=== PATIENT | male | born 1955 | race Caucasian/White ===

== ENCOUNTER 2024-07-24 09:21 | Outpatient (OUT) | payer MEDICARE, OTHER, SELFPAY | END 2024-07-24 09:22 | disposition home or self-care (01) | LOC: WC 09:27 | PROVIDERS: PCP Physician Assistant; Visit Provider Physician Assistant | DX: I87.312 Chronic venous hypertension (idiopathic) with ulcer of left lower extremity (principal); L97.821 Non-pressure chronic ulcer of other part of left lower leg limited to breakdown of skin; R60.1 Generalized edema | CPT/HCPCS: G0463 ==

== ENCOUNTER 2024-08-13 09:31 | Outpatient (OUT) | payer MEDICARE, OTHER, SELFPAY ==
--- OUTSIDE RECORDS SUMMARY | 2024-08-13 09:39 | XMS_ITS | CCD ---
Author Organization [facility] Care Team Providers Care Handle Finisher Name Role Phone DEREJE ARREOLA Unavailable Unavailable DEREJE ARREOLA Unavailable Unavailable NONE, XXXX Unavailable Unavailable REGGIE CONNELLY Referring Unavailable REGGIE CONNELLY Primary Care Unavailable Graciela Angelo Attending Unavailable Graciela Angelo Admitting Unavailable Allergies Allergy Classification Reported Allergen(s) Allergy Type Date of Onset Reaction(s) Facility (1 source) Penicillins Drug allergy (disorder) 07-15-2024 [facility] Repository Problems Problem Classification Problem Date Documented Da te Episodic/Chronic Skin and subcutaneous tissue infections (1 source) Cellulitis of left lower limb; Translations: [Cellulitis of left lower limb] Onset: 07-15-2024 Episodic Results Test Name Value Interpretation Reference Range Facil ity Superficial Wound Cultureon 07-15-2024 Superficial Wound Culture ORGANISM: Strep agalactiae - (group b) (O:STRAGA) Quantity of Growth Heavy Growth PERFORMED BY: [place] [address] PATHOLOGIST MEDIA LIAISON OFFICER JERMAINE LICONA M.D. Normal [facility] Comment on above: Performed By: #### C USUP #### [address] [id number] 08-11-2021 SARS-CoV-2 (COVID-19) RNA LAURA+probe Ql (Unsp spec) Not detected Normal [facility] Comment on above: Result Comment: Rapid NAAT: The specimen is NEGATIVE for SARS-CoV-2, the novel coronavirus associated with COVID-19. The ID NOW COVID-19 assay is designed to detect the virus that causes COVID-19 in patients with signs and symptoms of infection who are suspected of COVID-19. An individual without symptoms of COVID-19 and who is not shedding SARS-CoV-2 virus would expect to have a negative (not detected) result in this assay. Negative results should be treated as presumptive and, if inconsistent with clinical signs and symptoms or necessary for patient management, should be tested with an alternative molecular assay. Negative results do not preclude SARS-CoV-2 infection and should not be used as the sole basis for patient management decisions. Fact sheet for Healthcare Providers: https://www.fda.gov/media/028293/download Fact sheet for Patients: https://www.fda.gov/media/727330/download Methodology: Isothermal Nucleic Acid Amplification Performed By: #### C OVRB #### [facility] [address] [place] [address] [employer] Operator: Singh Mccollum MD Coding Summary.on 04-27-2018 Coding Summary. CODING DATE: 04/27/2018 FINAL [facility] STATUS: Home (Routine DC) PAYOR: Commercial Insurance APC DESCRIPTION 5522 Level 2 Imaging without Contrast ADMIT DX: REASON FOR VISIT DX: S33.101A Dislocation of unspecified lumbar vertebra, initial encounter FINAL DX: PRINCIPAL: S33.101A Dislocation of unspecified lumbar vertebra, initial encounter SECONDARY: PYMT PROC APC STAT DESCRIPTION DOCTOR NAME DATE NOTE: The code number assigned matches the documented diagnosis and / or procedure in the patient's chart. However, the narrative phrase printed from the coding software may appear abbreviated, or result in slightly different terminology. Coded By: Alisha Clements Date Saved: 04/27/2018 01:48 pm Normal [facility] XR Pelvis 1 or 2 Viewson XR Pelvis 1 or 2 Views Exam Date/Time:04/10/2018 17:26 EDTReason for Exam:M99.103, M99.105ReportIMPRESSIO N: NEGATIVE PELVIS. ANTEROLISTHESIS L5-S1 AND L5 SPONDYLOLYSIS.CLINICAL HISTORY: M99.103, M99.105. Back pain and bilateral leg weakness.COMMENT: AP and lateral upright images were obtained. The pelvic bones are normal inappearance, without evidence of fracture. Both hips appear unremarkable on thispelvic exam. There is no diastases at the symphysis pubis or involving the sacroiliacjoints. There is grade 1 anterolisthesis at L5-S1, and there are bilateral L5 parsdefects. FINAL REPORT Dictated: 04/11/2018 2:16 pm Severino Hernandez M.D. Signed (Electronic Signature): 04/11/2018 2:16 pm Signed by: Severino Hernandez M.D. Transcribed by: ARIN Technologist: JESUS Hastings [facility] XR Spine Lumbosacral Minimum 4 Viewson 04-11-2018 XR Spine Lumbosacral Minimum 4 Views Exam Date/Time:04/10/2018 17:26 EDTReason for Exam:M99.103, M99.105ReportIMPRESSIO N: MULTILEVEL DEGENERATIVE CHANGES.CLINICAL HISTORY: M99.103, M99.105. Low back pain and bilateral leg weakness.COMMENT: 6 upright images were obtained. There is mild interspace narrowing at L1-L2and there is moderate interspace narrowing at L2-L3 and L5-S1. There are marginalspurs involving lumbar vertebral bodies and visualized lower thoracic vertebralbodies. There is minimal retrolisthesis at L1-L2 and L2-L3. There is grade 1anterolisthesis at L5-S1. There are bilateral L5 pars defects. There are hypertrophicdegenerati ve changes involving lower lumbar facet joints. The lumbar vertebral bodiesare maintained. No recent/acute fracture is evident. FINAL REPORT Dictated: 04/11/2018 2:13 pm Severino Hernandez M.D. Signed (Electronic Signature): 04/11/2018 2:13 pm Signed by: Severino Hernandez M.D. Transcribed by: ARIN Technologist: JESUS Hastings [facility] Encounters Encounter Date Encounter Type Care Provider Facility Start: 07-15-2024 End: 07-15-2024 ambulatory Graciela Angelo Facility:[facility] Start: 08-11-2021 End: 08-12-2021 ambulatory REGGIE Mckinley [facility] Start: 04-10-2018 End: 04-11-2018 Patient encounter DEREJE ARREOLA Facility:[facility] Payers Date Payer Category Payer Self-pay 2021 Medicare [id number] 2018 Private Health Insurance [id number] 1955 Unknown [id number] Unknown [id number] Summary Purpose Family History No Family History Records FoundNo Family History Records FoundNo Family History Records Found Advance Directives No Advanced Directives Records FoundNo Advanced Directives Records FoundNo Advanced Directives Records Found Additional Source Comments (unrecognized sect ion and content) No Status Records FoundNo Status Records FoundNo Status Records Found INFORMATION SOURCE (unrecogn ized section and content) DATE CREATED AUTHOR 05/23/2018 [facility] DATE CREATED AUTHOR AUTHOR'S ORGANIZ ATION 08/12/2021 Arlen Chandler Cord[facility] [employer] DATE CREATED AUTHOR AUTHOR'S ORGANIZ ATION 07/17/2024 [facility] FOR RECORDS PERTAINING TO PATIENTS WHO ARE OR HAVE BEEN ENROLLED IN A CHEMICAL DEPENDENCY/SUBSTANCEABUSE PROGRAM, SOME INFORMATION MAY BE OMITTED. This clinical summary was aggregated from multiple sources. Caution should be exercised in using it in the provision of clinical care. This summary normalizes information from multiple sources, and as a consequence, information in this document may materially change the coding, format and clinical context of patient data. In addition, data may be omitted in some cases. CLINICAL DECISIONS SHOULD BE BASED ON THE PRIMARY CLINICAL RECORDS. [employer] [facility]. provides no warranty or guarantee of the accuracy or completeness of information in this document.
[2024-08-13 10:38] LABS: Basophils Absolute Auto 0.1 10^3/uL (0.0-0.1); Basophils Percent Auto 0.7 % (0.2-2.0); Eosinophils Absolute Auto 0.3 10^3/uL (0.0-0.7); Eosinophils Percent Auto 2.5 % (0.9-7.0); Hematocrit 49.9 % (42.0-54.0); Immature Granulocytes Abs Auto 0.07 10^3/uL (0.00-0.03); Immature Granulocytes Pct Auto 0.7 % (0.0-0.5); Lymphocytes Absolute Auto 1.8 10^3/uL (1.2-3.8); Lymphocytes Percent Auto 18.1 % (20.5-60.0); Mean Corpuscular HGB Conc 32.1 g/dL (29.9-35.2); Mean Corpuscular Hemoglobin 29.5 pg (25.9-34.0); Mean Corpuscular Volume 91.9 fL (80.0-94.0); Mean Platelet Volume 9.2 fL (9.5-13.5); Monocytes Absolute Auto 1.1 10^3/uL (0.3-0.8); Monocytes Percent Auto 10.3 % (1.7-12.0); Neutrophils Absolute Auto 6.9 10^3/uL (1.4-6.5); Neutrophils Percent Auto 67.7 % (43.0-75.0); Platelet Count 284 10^3/uL (150-450); Red Blood Count 5.43 10^6/uL (4.70-6.10); Red Cell Distribution Width 13.4 % (11.0-15.0); White Blood Count 10.2 10^3/uL (4.0-11.0)
[2024-08-13 10:50] LABS: Creatinine Urine Random 173.94 mg/dL (20.00-300.00); Microalbum Creatinine Ratio Ur 40.2 mg/g (0.0-29.9)
[2024-08-13 10:59] LABS: Alanine Aminotransferase 47 U/L (16-63); Albumin Level 3.6 g/dL (3.4-5.0); Alkaline Phosphatase 101 U/L (46-116); Anion Gap 11.6; Aspartate Amino Transferase 21 U/L (15-37); BUN Creatinine Ratio 19.8; Bilirubin Total 0.7 mg/dL (0.2-1.0); Calcium 9.3 mg/dL (8.5-10.1); Carbon Dioxide 28.9 mmol/L (21.0-32.0); Chloride 102 mmol/L (98-107); Chol HDL Ratio 3.6; Cholesterol 195 mg/dL (<=200); Estimated GFR (African America >60 (>=60 mL/min/1.73m^2); Estimated GFR (Non-African Ame >60 (>=60 mL/min/1.73m^2); Globulin 3.5 g/dL; Glucose 160 mg/dL (74-106); HDL Cholesterol 54 mg/dL (40-60); LDL Cholesterol Calculated 124.2 mg/dL; Potassium 4.5 mmol/L (3.5-5.1); Sodium 138 mmol/L (136-145); Total Protein 7.1 g/dL (6.4-8.2); Triglycerides 84 mg/dL (<=150); VLDL CHOLESTEROL 16.8 mg/dL
[2024-08-13 11:16] LABS: Prostate Specific Antigen Scrn 11.22 ng/mL (<=4.00)
== END 2024-08-13 09:32 | disposition home or self-care (01) ==
PROVIDERS: PCP Nurse Practitioner Family; Visit Provider Nurse Practitioner Family
DX: E11.9 Type 2 diabetes mellitus without complications (principal); I10 Essential (primary) hypertension; Z12.5 Encounter for screening for malignant neoplasm of prostate
CPT/HCPCS: 36415; 80053; 80061; 82043; 82570; 85025; G0103

== ENCOUNTER 2024-08-13 10:29 | Outpatient (OUT) | payer MEDICARE, OTHER, SELFPAY | END 2024-08-13 10:30 | disposition home or self-care (01) | LOC: WC 10:30 | PROVIDERS: PCP Nurse Practitioner Family; Visit Provider Physician Assistant | DX: I87.312 Chronic venous hypertension (idiopathic) with ulcer of left lower extremity (principal); L97.821 Non-pressure chronic ulcer of other part of left lower leg limited to breakdown of skin | CPT/HCPCS: G0463 ==

== ENCOUNTER 2024-09-10 15:48 | Outpatient (OUT) | payer MEDICARE, OTHER, SELFPAY | END 2024-09-10 15:49 | disposition home or self-care (01) | LOC: WC 15:48 | PROVIDERS: PCP Nurse Practitioner Family; Visit Provider Physician Assistant | DX: I87.312 Chronic venous hypertension (idiopathic) with ulcer of left lower extremity (principal); L97.821 Non-pressure chronic ulcer of other part of left lower leg limited to breakdown of skin | CPT/HCPCS: G0463 ==

== ENCOUNTER 2024-10-01 15:26 | Outpatient (OUT) | payer MEDICARE, OTHER, SELFPAY | END 2024-10-01 15:27 | disposition home or self-care (01) | LOC: WC 15:26 | PROVIDERS: PCP Nurse Practitioner Family; Visit Provider Physician Assistant | DX: I87.312 Chronic venous hypertension (idiopathic) with ulcer of left lower extremity (principal); L97.821 Non-pressure chronic ulcer of other part of left lower leg limited to breakdown of skin | CPT/HCPCS: G0463 ==

== ENCOUNTER 2024-11-04 09:30 | Outpatient (OUT) | payer MEDICARE, OTHER, SELFPAY ==
--- OUTSIDE RECORDS SUMMARY | 2024-11-05 08:48 | XMS_ITS | CCD ---
Author Organization [facility] [employer] [facility] Care Team Providers Care Interpreter Translator Name Role Phone REGGIE CONNELLY Referring Unavailable REGGIE CONNELLY Primary Care Unavailable Graciela Angelo Attending Unavailable Graciela Angelo Admitting Unavailable Graciela Angelo APRN Attending Provider [phone] LUCIE CALDERA Attending Unavailable LUCIE HERNANDEZ Referring Unavailab le Allergies Allergy Classification Reported Allergen(s) Allergy Type Date of Onset Reaction(s) Facility (1 source) Penicillins Drug allergy (disorder) 07-15-2024 [facility] Repository Medications Current Medications Medication Drug Class(es) [...] 30, 2024 1:00am August 28, 2024 4:51pm Rwsvsjeyrasm-Fanb-Ybntj Acid (Multi-Day With Iron) 18-400 mg-mcg Tablet (2 sources) Start: 06-29-2018 take 1 tablet by mouth once daily Xbpixgthrnky-Zful-Mabyi Acid (Multi-Day With Iron) 18-400 mg-mcg Tablet Active 1 TAB PO Daily June 29, 2018 1:00am Start: 06-29-2018 take 1 tablet by ronny th once daily Npagvupxqeub-Tepp-Gjxlw Acid (Multi-Day With Iron) 18-400 mg-mcg Tablet [...] Basophils (Bld) [#/Vol] Automated basophil count 0.0-0.1 [facility] Basophils/100 WBC Auto (Bld) on 08-13-2024 Basophils/100 WBC (Bld) Automated basophil % 0.2-2.0 [facility] Cholesterol in LDL Calc [Mas s/Vol]on 08-13-2024 Cholesterol in LDL [Mass/Vol] Cholesterol in LDL [Mass/volume] in Serum or Plasma by calculation [facility] Comment on above: <100 mg/dl [id number] 0-129 mg/dl NEAR OR ABOVE [id number] mg/dl BORDERLINE [id number] mg/dl HIGH>190 mg/dl VERY HIGH Cholesterol in VLDL Calc [Ma ss/Vol]on 08-13-2024 Cholesterol in VLDL [Mass/Vol] Cholesterol in VLDL [Mass/volume] in Serum or Plasma by calculation [facility] Eosinophils/100 WBC Auto (Bl d)on 08-13-2024 Eosinophils/100 WBC (Bld) Automated eosinophil % 0.9-7.0 [facility] Erythrocyte distribution wid th Auto (RBC) [Ratio]on 08-13-2024 Erythrocyte distribution width (RBC) [Ratio] Erythrocyte distribution width [Ratio] by Automated count 11.0-15.0 [facility] Estimated glomerular filtrat ion rate (GFR) non- Americanon 08-13-2024 GFR/1.73 sq M.predicted among non-blacks MDRD (S/P/Bld) [Vol rate/Area] Estimated glomerular filtration rate (GFR) non- >=60 mL/min/1.73m 2 [facility] Globulin Calc (S) [Mass/Vol] on 08-13-2024 Globulin (S) [Mass/Vol] Serum globulin measurement by calculation (mass/volume) [facility] Hematocrit Auto (Bld) [Volum e fraction]on 08-13-2024 Hematocrit (Bld) [Volume fraction] Hematocrit [Volume Fraction] of Blood by Automated count 42.0-54.0 [facility] Hemoglobin [Mass/volume] in Bloodon 08-13-2024 Hemoglobin (Bld) [Mass/Vol] Hemoglobin [Mass/volume] in Blood 14.0-18.0 [facility] Laboratory - Chemistry and C hemistry - challengeon 08-13-2024 Albumin [Mass/Vol] 3.6 g/dL 3.4-5.0 [facility] ALP [Catalytic activity/Vol] 101 U/L 46-116 [facility] ALT [Catalytic activity/Vol] 47 U/L 16-63 [facility] AST [Catalytic activity/Vol] 21 U/L 15-37 [facility] Bilirubin [Mass/Vol] 0.7 mg/dL 0.2-1.0 [facility] Calcium [Mass/Vol] 9.3 mg/dL 8.5-10.1 [facility] Chloride [Moles/Vol] 102 mmol/L 98-107 [facility] Cholesterol [Mass/Vol] 195 mg/dL <=200 [facility] Cholesterol in HDL [Mass/Vol] 54 mg/dL 40-60 [facility] Comment on above: > or =60 mg/dl - LOW CARDIOVASCULAR RISK<40 mg/dl - HIGH CARDIOVASCULAR RISK CO2 [Moles/Vol] 28.9 mmol/L 21.0-32.0 [facility] Creatinine [Mass/Vol] 1.16 mg/dL 0.70-1.30 [facility] GFR/1.73 sq M.predicted MDRD (S/P/Bld) [Vol rate/Area] mL/min/{1.73_m2} >=60 mL/min/1.73m 2 [facility] Glucose [Mass/Vol] 160 mg/dL High 74-106 [facility] Potassium [Moles/Vol] 4.5 mmol/L 3.5-5.1 [facility] Protein [Mass/Vol] 7.1 g/dL 6.4-8.2 [facility] Sodium [Moles/Vol] 138 mmol/L 136-145 [facility] Triglyceride [Mass/Vol] 84 mg/dL <=150 [facility] Urea nitrogen [Mass/Vol] 23.0 mg/dL High 7.0-18.0 [facility] Urea nitrogen/Creatinine [Mass ratio] 19.8 mg/mg [facility] Laboratory - Hematology and Cell countson 08-13-2024 Immature granulocytes/100 WBC (Bld) 0.7 % High 0.0-0.5 [facility] Leukocytes [#/volume] correc chapo for nucleated erythrocytes in Blood by Automated counon 08-13-2024 WBC corrected for nucl RBC Auto (Bld) [#/Vol] Leukocytes [#/volume] corrected for nucleated erythrocytes in Blood by Automated coun 4.0-11.0 [facility] Lymphocytes Auto (Bld) [#/Vo l]on 08-13-2024 Lymphocytes (Bld) [#/Vol] Lymphocytes [#/volume] in Blood by Automated count 1.2-3.8 [facility] Lymphocytes/100 WBC Auto (Bl d)on 08-13-2024 Lymphocytes/100 WBC (Bld) Lymphocytes/100 leukocytes in Blood by Automated count Low 20.5-60.0 [facility] MCH Auto (RBC) [Entitic mass ]on 08-13-2024 MCH (RBC) [Entitic mass] MCH [Entitic mass] by Automated count 25.9-34.0 [facility] MCHC Auto (RBC) [Mass/Vol]on 08-13-2024 MCHC (RBC) [Mass/Vol] MCHC [Mass/volume] by Automated count 29.9-35.2 [facility] MCV Auto (RBC) [Entitic vol] on 08-13-2024 MCV (RBC) [Entitic vol] MCV [Entitic volume] by Automated count 80.0-94.0 [facility] Microalbumin [Mass/volume] i n Urineon 08-13-2024 Albumin DL <= 20 mg/L (U) [Mass/Vol] Microalbumin [Mass/volume] in Urine <=30.0 [facility] Monocytes Auto (Bld) [#/Vol] on 08-13-2024 Monocytes (Bld) [#/Vol] Automated blood monocyte count High 0.3-0.8 [facility] Monocytes/100 WBC Auto (Bld) on 08-13-2024 Monocytes/100 WBC (Bld) Automated monocyte % 1.7-12.0 [facility] Neutrophils Auto (Bld) [#/Vo l]on 08-13-2024 Neutrophils (Bld) [#/Vol] Neutrophils [#/volume] in Blood by Automated count High 1.4-6.5 [facility] Neutrophils/100 WBC Auto (Bl d)on 08-13-2024 Neutrophils/100 WBC (Bld) Automated neutrophil % 43.0-75.0 [facility] No Panel Informationon 08-13 Eosinophils # (Auto) 0.3 10 3/uL 0.0-0.7 [facility] Immature Granulocyte # (Auto) 0.07 10 3/uL High 0.00-0.03 [facility] Prostate Specific Antigen Screen 11.22 ng/mL High <=4.00 [facility] Urine Random Creatinine 173.94 mg/dL 20.00-300.00 [facility] Platelet mean volume Auto (B ld) [Entitic vol]on 08-13-2024 Platelet mean volume (Bld) [Entitic vol] Platelet mean volume [Entitic volume] in Blood by Automated count Low 9.5-13.5 [facility] Platelets Auto (Bld) [#/Vol] on 08-13-2024 Platelets (Bld) [#/Vol] Platelets [#/volume] in Blood by Automated count 150-450 [facility] RBC Auto (Bld) [#/Vol]on RBC (Bld) [#/Vol] Erythrocytes [#/volume] in Blood by Automated count 4.70-6.10 [facility] Serum or plasma albumin/glob ulin mass ratioon 08-13-2024 Albumin/Globulin [Mass ratio] Serum or plasma albumin/globulin mass ratio [facility] Serum or plasma anion gap de terminationon 08-13-2024 Anion gap [Moles/Vol] Serum or plasma an ion gap determination [facility] Serum or plasma total choles terol/high density lipoprotein (HDL) cholesterol mass emily 08-13-2024 Cholesterol.total/Cho lesterol in HDL [Mass ratio] Serum or plasma total cholesterol/high density lipoprotein (HDL) cholesterol mass rat [facility] Comment on above: 3.3 - 4.4 LOW RISK4. 4 - 7.1 AVERAGE RISK7.1 - 11.0 MODERATE RISK>11.0 HIGH RISK Urine microalbumin/creatinin e mass ratioon 08-13-2024 Albumin/Creatinine DL <= 20 mg/L (U) [Mass ratio] Urine microalbumin/creatini ne mass ratio High 0.0-29.9 [facility] Comment on above: NO MICROALBUMINURIA 0-29 MG/GCLINICAL MICROALBUMINURIA 30-300 MG/GMACROALBUMINURIA >300 MG/G HbA1c HPLC (Bld) [Mass fract ion]on 07-30-2024 HbA1c (Bld) [Mass fraction] Hemoglobin A1c/Hemoglobin.total in Blood by HPLC [facility] Bacteria identified Aer cx N om (Unsp spec)Ordered By: Graciela Angelo on 07-15-2024 Group B Strep (Streptococcus agalactiae) Group B Strep (Streptococcus agalactiae) Abnormal [facility] Superficial Wound Culture Abnormal [facility] Superficial Wound Cultureon 07-15-2024 Superficial Wound Culture ORGANISM: Strep agalactiae - (group b) (O:STRAGA) Quantity of Growth Heavy Growth PERFORMED BY: [facility] [address] [place] [address] PATHOLOGIST EDITORIAL ASSISTANT JERMAINE LICONA M.D. Normal [facility] Comment on above: Performed By: #### C USUP #### [facility] [address] [place] [address] [facility] [id number] 08-11-2021 SARS-CoV-2 (COVID-19) RNA LAURA+probe Ql (Unsp [...] management decisions. Fact sheet for Healthcare Providers: https://www.fda.gov/media/938370/download Fact sheet for Patients: https://www.fda.gov/media/586894/download Methodology: Isothermal Nucleic Acid Amplification Performed By: #### C OVRB #### [facility] [address] [place] [address] Runner On: Singh Mccollum MD Vital Signs Date Time Vital Sign Value Performing Clinician Padmaja corbin 11-04-2024 09:00-0400 Body weight 149.68 kg [facility] 10-01-2024 09:49-0500 Body height 170.18 cm Graciela Angelo APRN Work Phone: [facility] 10-01-2024 09:49-0500 Body mass index (BMI) [Ratio] 51 kg/m2 Gracielafrank Angelo APRN Work Phone: [facility] 10-01-2024 09:49-0500 Body temperature 95.3 [degF] Graciela Angelo APRN Work Phone: [facility] 10-01-2024 09:49-0500 Body weight 147.87 kg Gracielafrank Angelo APRN Work Phone: [facility] 10-01-2024 09:49-0500 Diastolic blood pressure 82 mm[Hg] Gracielafrank Angelo APRN Work Phone: [facility] 10-01-2024 09:49-0500 Heart rate 92 /min Gracielafrank Angelo APRN Work Phone: [facility] 10-01-2024 09:49-0500 SaO2% (BldA) [Mass fraction] 98 % Gracielafrank Angelo APRN Work Phone: [facility] 10-01-2024 09:49-0500 Systolic blood pressure 144 mm[Hg] Gracielafrank Angelo APRN Work Phone: [facility] 07-30-2024 09:01-0500 Body height 170.18 cm Gracielafrank Angelo APRN Work Phone: [facility] 07-30-2024 09:01-0500 Body mass index (BMI) [Ratio] 53.1 kg/m2 Gracielafrank Angelo APRN Work Phone: [facility] 07-30-2024 09:01-0500 Body temperature 96.7 [degF] Graciela Angelo APRN Work Phone: [facility] 07-30-2024 09:01-0500 Body weight 153.76 kg Graciela Angelo APRN Work Phone: [facility] 07-30-2024 09:01-0500 Diastolic blood pressure 98 mm[Hg] Graciela De La Rosaley AUTOMOTIVE ELECTRICAL HELPER Work Phone: [facility] 07-30-2024 09:01-0500 Heart rate 101 /min Graciela Angelo APRN Work Phone: [facility] 07-30-2024 09:01-0500 SaO2% (BldA) [Mass fraction] 94 % Graciela De La Rosaley AUTOMOTIVE ELECTRICAL HELPER Work Phone: [facility] 07-30-2024 09:01-0500 Systolic blood pressure 164 mm[Hg] Graciela Angelo AUTOMOTIVE ELECTRICAL HELPER Work Phone: [facility] 07-15-2024 19:22-0500 Diastolic blood pressure 90 mm[Hg] Graciela Angelo AUTOMOTIVE ELECTRICAL HELPER Work Phone: [facility] 07-15-2024 19:22-0500 Systolic blood pressure 160 mm[Hg] Graciela Angelo AUTOMOTIVE ELECTRICAL HELPER Work Phone: [facility] 07-15-2024 18:33-0500 Body height 170.18 cm Graciela Angelo AUTOMOTIVE ELECTRICAL HELPER Work Phone: [facility] 07-15-2024 18:33-0500 Body mass index (BMI) [Ratio] 53.1 kg/m2 Graciela Angelo APRN Work Phone: [facility] 07-15-2024 18:33-0500 Body weight 153.76 kg Graciela Angelo APRN Work Phone: [facility] 07-15-2024 18:33-0500 Heart rate 88 /min Graciela De La Rosaley AUTOMOTIVE ELECTRICAL HELPER Work Phone: [facility] 07-15-2024 18:33-0500 SaO2% (BldA) [Mass fraction] 98 % Graciela De La Rosaley AUTOMOTIVE ELECTRICAL HELPER Work Phone: [facility] Encounters Encounter Date Encounter Type Care Provider Facility Start: 11-15-2024 ambulatory LUCIE Lui ty:KEVIN [place] Start: 11-04-2024 End: 11-04-2024 ambulatory [facility] Work Phone: Start: 11-04-2024 End: 11-04-2024 Patient encounter procedure [facility] Work Phone: Start: 10-01-2024 End: 10-01-2024 ambulatory Graciela Angelo APRN Work Phone: [facility] Work Phone: Start: 10-01-2024 End: 10-01-2024 Patient encounter procedure Graciela Angelo APRN Work Phone: [facility] Work Phone: Start: 08-19-2024 ambulatory LUCIE CALDERA Facility :[facility] Start: 08-13-2024 Non-patient / Non-visit Graciela Angelo APRN Work Phone: [facility] Work Phone: Start: 07-30-2024 End: 07-30-2024 Patient encounter procedure Graciela Angelo APRN Work Phone: [facility] Work Phone: Start: 07-15-2024 End: 07-15-2024 ambulatory Graciela Angelo Facility:[facility] Start: 07-15-2024 End: 07-15-2024 Departed Referred Graciela Angelo APRN Work Phone: [facility] [place] Work Phone: Start: 07-15-2024 End: 07-15-2024 Patient encounter procedure Graciela Angelo APRN Work Phone: [facility] Work Phone: Start: 08-11-2021 End: 08-12-2021 ambulatory REGGIE Aguirreit al Procedures Date Procedure Procedure Detail Performing Clinician Start: 07-15-2024 Aerobic microbial culture Graciela Angelo TIERNEY Work Phone: Plan of Treatment Date Care Activity Detail Author Start: 10-01-2024 Patient referral [facility] Work Phone: Comprehensive metabo lic 2000 panel - Serum or Plasma [facility] Patient referral [facility] Work Phone: [facility] Payers Date Payer Category Payer Self-pay 2021 Private Health Insurance CLI [id number] 2021 Medicare [id number] 1955 Unknown [id number] 1955 Unknown [id number] Unknown [id number] Social History Date Type Detail Facility Start: 07-30-2024 End: 07-30-2024 Tobacco smoking status NHIS Ex-smoker (finding) [facility] Start: 10-01-2024 End: 11-04-2024 Sex Male (finding) [facility] Start: 1955 Sex Assigned At Male F [facility] Medical Equipment Procedure Code Equipment [...] DATE CREATED AUTHOR AUTHOR'S ORGANIZ ATION 07/17/2024 [facility] DATE CREATED AUTHOR AUTHOR'S ORGANIZ ATION [facility]/06/2024 [facility] Teams (unrecognized sec tion and content) Team Status: Active Member Role Status Dates Lucie Hernandez APRN SENIOR VISUAL DESIGNER-C Primary Care Provider Active Team Status: Inactive [...] Member Role Status Dates Lucie Hernandez APRN SENIOR VISUAL DESIGNER-C Primary Care Provider, Attending Provider Active Start: July 30, 2024 End: July 30, 2024 Team Status: Active Member Role Status Dates Lucie Hernandez APRN SENIOR VISUAL DESIGNER-C Primary Care Provider, Attending Provider Active Start: August 13, 2024 Team Status: Inactive Member Role Status Dates Lucie Hernandez APRN SENIOR VISUAL DESIGNER-C Primary Care Provider, Attending Provider Active Start: October 01, 2024 End: October 01, 2024 Team Status: Inactive Member Role Status Dates Lucie Hernandez APRN SENIOR VISUAL DESIGNER-C Primary Care Provider, Attending Provider Active Start: [...] BE BASED ON THE PRIMARY CLINICAL RECORDS. [facility] [employer] [facility]. provides no warranty or guarantee of the accuracy or completeness of information in this document.
--- OUTSIDE RECORDS SUMMARY | 2024-11-05 08:50 | XMS_ITS | CCD ---
Author Organization [facility] Care Team Providers Care Bundle Collector Name Role Phone REGGIE CONNELLY Referring Unavailable REGGIE CONNELLY Primary Care Unavailable Graciela Angelo Attending Unavailable Graciela Angelo Admitting Unavailable Graciela Angelo APRN Attending Provider [phone] LUCIE CALDERA Attending Unavailable LUCIE HERNANDEZ Referring Unavailab le Allergies Allergy Classification Reported Allergen(s) Allergy Type Date of Onset Reaction(s) Facility (1 source) Penicillins Drug allergy (disorder) 07-15-2024 [facility] Repository Medications Current Medications Medication Drug Class(es) [...] 30, 2024 1:00am August 28, 2024 4:51pm Innirukimpsg-Gnnm-Kxotx Acid (Multi-Day With Iron) 18-400 mg-mcg Tablet (2 sources) Start: 06-29-2018 take 1 tablet by mouth once daily Vrvknivtnoek-Hfnl-Maptq Acid (Multi-Day With Iron) 18-400 mg-mcg Tablet Active 1 TAB PO Daily June 29, 2018 1:00am Start: 06-29-2018 take 1 tablet by ronny th once daily Tiyeiuqlnkeo-Zrey-Escad Acid (Multi-Day With Iron) 18-400 mg-mcg Tablet [...] Basophils (Bld) [#/Vol] Automated basophil count 0.0-0.1 [facility] Basophils/100 WBC Auto (Bld) on 08-13-2024 Basophils/100 WBC (Bld) Automated basophil % 0.2-2.0 [facility] Cholesterol in LDL Calc [Mas s/Vol]on 08-13-2024 Cholesterol in LDL [Mass/Vol] Cholesterol in LDL [Mass/volume] in Serum or Plasma by calculation [facility] Comment on above: <100 mg/dl [id number] 0-129 mg/dl NEAR OR ABOVE [id number] mg/dl BORDERLINE [id number] mg/dl HIGH>190 mg/dl VERY HIGH Cholesterol in VLDL Calc [Ma ss/Vol]on 08-13-2024 Cholesterol in VLDL [Mass/Vol] Cholesterol in VLDL [Mass/volume] in Serum or Plasma by calculation [facility] Eosinophils/100 WBC Auto (Bl d)on 08-13-2024 Eosinophils/100 WBC (Bld) Automated eosinophil % 0.9-7.0 [facility] Erythrocyte distribution wid th Auto (RBC) [Ratio]on 08-13-2024 Erythrocyte distribution width (RBC) [Ratio] Erythrocyte distribution width [Ratio] by Automated count 11.0-15.0 [facility] Estimated glomerular filtrat ion rate (GFR) non- Americanon 08-13-2024 GFR/1.73 sq M.predicted among non-blacks MDRD (S/P/Bld) [Vol rate/Area] Estimated glomerular filtration rate (GFR) non- >=60 mL/min/1.73m 2 [facility] Globulin Calc (S) [Mass/Vol] on 08-13-2024 Globulin (S) [Mass/Vol] Serum globulin measurement by calculation (mass/volume) [facility] Hematocrit Auto (Bld) [Volum e fraction]on 08-13-2024 Hematocrit (Bld) [Volume fraction] Hematocrit [Volume Fraction] of Blood by Automated count 42.0-54.0 [facility] Hemoglobin [Mass/volume] in Bloodon 08-13-2024 Hemoglobin (Bld) [Mass/Vol] Hemoglobin [Mass/volume] in Blood 14.0-18.0 [facility] Laboratory - Chemistry and C hemistry - challengeon 08-13-2024 Albumin [Mass/Vol] 3.6 g/dL 3.4-5.0 [facility] ALP [Catalytic activity/Vol] 101 U/L 46-116 [facility] ALT [Catalytic activity/Vol] 47 U/L 16-63 [facility] AST [Catalytic activity/Vol] 21 U/L 15-37 [facility] Bilirubin [Mass/Vol] 0.7 mg/dL 0.2-1.0 [facility] Calcium [Mass/Vol] 9.3 mg/dL 8.5-10.1 [facility] Chloride [Moles/Vol] 102 mmol/L 98-107 [facility] Cholesterol [Mass/Vol] 195 mg/dL <=200 [facility] Cholesterol in HDL [Mass/Vol] 54 mg/dL 40-60 [facility] Comment on above: > or =60 mg/dl - LOW CARDIOVASCULAR RISK<40 mg/dl - HIGH CARDIOVASCULAR RISK CO2 [Moles/Vol] 28.9 mmol/L 21.0-32.0 [facility] Creatinine [Mass/Vol] 1.16 mg/dL 0.70-1.30 [facility] GFR/1.73 sq M.predicted MDRD (S/P/Bld) [Vol rate/Area] mL/min/{1.73_m2} >=60 mL/min/1.73m 2 [facility] Glucose [Mass/Vol] 160 mg/dL High 74-106 [facility] Potassium [Moles/Vol] 4.5 mmol/L 3.5-5.1 [facility] Protein [Mass/Vol] 7.1 g/dL 6.4-8.2 [facility] Sodium [Moles/Vol] 138 mmol/L 136-145 [facility] Triglyceride [Mass/Vol] 84 mg/dL <=150 [facility] Urea nitrogen [Mass/Vol] 23.0 mg/dL High 7.0-18.0 [facility] Urea nitrogen/Creatinine [Mass ratio] 19.8 mg/mg [facility] Laboratory - Hematology and Cell countson 08-13-2024 Immature granulocytes/100 WBC (Bld) 0.7 % High 0.0-0.5 [facility] Leukocytes [#/volume] correc chapo for nucleated erythrocytes in Blood by Automated counon 08-13-2024 WBC corrected for nucl RBC Auto (Bld) [#/Vol] Leukocytes [#/volume] corrected for nucleated erythrocytes in Blood by Automated coun 4.0-11.0 [facility] Lymphocytes Auto (Bld) [#/Vo l]on 08-13-2024 Lymphocytes (Bld) [#/Vol] Lymphocytes [#/volume] in Blood by Automated count 1.2-3.8 [facility] Lymphocytes/100 WBC Auto (Bl d)on 08-13-2024 Lymphocytes/100 WBC (Bld) Lymphocytes/100 leukocytes in Blood by Automated count Low 20.5-60.0 [facility] MCH Auto (RBC) [Entitic mass ]on 08-13-2024 MCH (RBC) [Entitic mass] MCH [Entitic mass] by Automated count 25.9-34.0 [facility] MCHC Auto (RBC) [Mass/Vol]on 08-13-2024 MCHC (RBC) [Mass/Vol] MCHC [Mass/volume] by Automated count 29.9-35.2 [facility] MCV Auto (RBC) [Entitic vol] on 08-13-2024 MCV (RBC) [Entitic vol] MCV [Entitic volume] by Automated count 80.0-94.0 [facility] Microalbumin [Mass/volume] i n Urineon 08-13-2024 Albumin DL <= 20 mg/L (U) [Mass/Vol] Microalbumin [Mass/volume] in Urine <=30.0 [facility] Monocytes Auto (Bld) [#/Vol] on 08-13-2024 Monocytes (Bld) [#/Vol] Automated blood monocyte count High 0.3-0.8 [facility] Monocytes/100 WBC Auto (Bld) on 08-13-2024 Monocytes/100 WBC (Bld) Automated monocyte % 1.7-12.0 [facility] Neutrophils Auto (Bld) [#/Vo l]on 08-13-2024 Neutrophils (Bld) [#/Vol] Neutrophils [#/volume] in Blood by Automated count High 1.4-6.5 [facility] Neutrophils/100 WBC Auto (Bl d)on 08-13-2024 Neutrophils/100 WBC (Bld) Automated neutrophil % 43.0-75.0 [facility] No Panel Informationon 08-13 Eosinophils # (Auto) 0.3 10 3/uL 0.0-0.7 [facility] Immature Granulocyte # (Auto) 0.07 10 3/uL High 0.00-0.03 [facility] Prostate Specific Antigen Screen 11.22 ng/mL High <=4.00 [facility] Urine Random Creatinine 173.94 mg/dL 20.00-300.00 [facility] Platelet mean volume Auto (B ld) [Entitic vol]on 08-13-2024 Platelet mean volume (Bld) [Entitic vol] Platelet mean volume [Entitic volume] in Blood by Automated count Low 9.5-13.5 [facility] Platelets Auto (Bld) [#/Vol] on 08-13-2024 Platelets (Bld) [#/Vol] Platelets [#/volume] in Blood by Automated count 150-450 [facility] RBC Auto (Bld) [#/Vol]on RBC (Bld) [#/Vol] Erythrocytes [#/volume] in Blood by Automated count 4.70-6.10 [facility] Serum or plasma albumin/glob ulin mass ratioon 08-13-2024 Albumin/Globulin [Mass ratio] Serum or plasma albumin/globulin mass ratio [facility] Serum or plasma anion gap de terminationon 08-13-2024 Anion gap [Moles/Vol] Serum or plasma an ion gap determination [facility] Serum or plasma total choles terol/high density lipoprotein (HDL) cholesterol mass emily 08-13-2024 Cholesterol.total/Cho lesterol in HDL [Mass ratio] Serum or plasma total cholesterol/high density lipoprotein (HDL) cholesterol mass rat [facility] Comment on above: 3.3 - 4.4 LOW RISK4. 4 - 7.1 AVERAGE RISK7.1 - 11.0 MODERATE RISK>11.0 HIGH RISK Urine microalbumin/creatinin e mass ratioon 08-13-2024 Albumin/Creatinine DL <= 20 mg/L (U) [Mass ratio] Urine microalbumin/creatini ne mass ratio High 0.0-29.9 [facility] Comment on above: NO MICROALBUMINURIA 0-29 MG/GCLINICAL MICROALBUMINURIA 30-300 MG/GMACROALBUMINURIA >300 MG/G HbA1c HPLC (Bld) [Mass fract ion]on 07-30-2024 HbA1c (Bld) [Mass fraction] Hemoglobin A1c/Hemoglobin.total in Blood by HPLC [facility] Bacteria identified Aer cx N om (Unsp spec)Ordered By: Graciela Angelo on 07-15-2024 Group B Strep (Streptococcus agalactiae) Group B Strep (Streptococcus agalactiae) Abnormal [facility] Superficial Wound Culture Abnormal [facility] Superficial Wound Cultureon 07-15-2024 Superficial Wound Culture ORGANISM: Strep agalactiae - (group b) (O:STRAGA) Quantity of Growth Heavy Growth PERFORMED BY: [facility] [address] [place] [address] PATHOLOGIST COMMERCIAL BAKER HELPER JERMAINE LICONA M.D. Normal [facility] Comment on above: Performed By: #### C USUP #### [facility] [address] [place] [address] [facility] [id number] 08-11-2021 SARS-CoV-2 (COVID-19) RNA LAURA+probe Ql (Unsp spec) Not detected Normal [facility] Comment on above: Result Comment: Rapid [...] management decisions. Fact sheet for Healthcare Providers: https://www.fda.gov/media/452324/download Fact sheet for Patients: https://www.fda.gov/media/979895/download Methodology: Isothermal Nucleic Acid Amplification Performed By: #### C OVRB #### [facility] [address] [place] [address] Circus Supervisor: Singh Mccollum MD Vital Signs Date Time Vital Sign Value Performing Clinician Padmaja corbin 11-04-2024 09:00-0400 Body weight 149.68 kg [facility] 10-01-2024 09:49-0500 Body height 170.18 cm Graciela Angelo APRN Work Phone: [facility] 10-01-2024 09:49-0500 Body mass index (BMI) [Ratio] 51 kg/m2 Gracielafrank Angelo APRN Work Phone: [facility] 10-01-2024 09:49-0500 Body temperature 95.3 [degF] Graciela Angelo APRN Work Phone: [facility] 10-01-2024 09:49-0500 Body weight 147.87 kg Gracielafrank Angelo APRN Work Phone: [facility] 10-01-2024 09:49-0500 Diastolic blood pressure 82 mm[Hg] Gracielafrank Angelo APRN Work Phone: [facility] 10-01-2024 09:49-0500 Heart rate 92 /min Gracielafrank Angelo APRN Work Phone: [facility] 10-01-2024 09:49-0500 SaO2% (BldA) [Mass fraction] 98 % Gracielafrank Angelo APRN Work Phone: [facility] 10-01-2024 09:49-0500 Systolic blood pressure 144 mm[Hg] Gracielafrank Angelo APRN Work Phone: [facility] 07-30-2024 09:01-0500 Body height 170.18 cm Gracielafrank Angelo APRN Work Phone: [facility] 07-30-2024 09:01-0500 Body mass index (BMI) [Ratio] 53.1 kg/m2 Gracielafrank Angelo APRN Work Phone: [facility] 07-30-2024 09:01-0500 Body temperature 96.7 [degF] Graciela Angelo APRN Work Phone: [facility] 07-30-2024 09:01-0500 Body weight 153.76 kg Graciela Angelo APRN Work Phone: [facility] 07-30-2024 09:01-0500 Diastolic blood pressure 98 mm[Hg] Graciela De La Rosaley ASSOCIATE ENTERTAINMENT EDITOR Work Phone: [facility] 07-30-2024 09:01-0500 Heart rate 101 /min Graciela Angelo APRN Work Phone: [facility] 07-30-2024 09:01-0500 SaO2% (BldA) [Mass fraction] 94 % Graciela De La Rosaley ASSOCIATE ENTERTAINMENT EDITOR Work Phone: [facility] 07-30-2024 09:01-0500 Systolic blood pressure 164 mm[Hg] Graciela Angelo ASSOCIATE ENTERTAINMENT EDITOR Work Phone: [facility] 07-15-2024 19:22-0500 Diastolic blood pressure 90 mm[Hg] Graciela Angelo ASSOCIATE ENTERTAINMENT EDITOR Work Phone: [facility] 07-15-2024 19:22-0500 Systolic blood pressure 160 mm[Hg] Graciela Angelo ASSOCIATE ENTERTAINMENT EDITOR Work Phone: [facility] 07-15-2024 18:33-0500 Body height 170.18 cm Graciela Angelo ASSOCIATE ENTERTAINMENT EDITOR Work Phone: [facility] 07-15-2024 18:33-0500 Body mass index (BMI) [Ratio] 53.1 kg/m2 Graciela Angelo APRN Work Phone: [facility] 07-15-2024 18:33-0500 Body weight 153.76 kg Graciela Angelo APRN Work Phone: [facility] 07-15-2024 18:33-0500 Heart rate 88 /min Graciela De La Rosaley ASSOCIATE ENTERTAINMENT EDITOR Work Phone: [facility] 07-15-2024 18:33-0500 SaO2% (BldA) [Mass fraction] 98 % Graciela De La Rosaley ASSOCIATE ENTERTAINMENT EDITOR Work Phone: [facility] Encounters Encounter Date Encounter Type Care Provider Facility Start: 11-15-2024 ambulatory LUCIE Lui ty:KEVIN [place] Start: 11-04-2024 End: 11-04-2024 ambulatory [facility] Work Phone: Start: 11-04-2024 End: 11-04-2024 Patient encounter procedure [facility] Work Phone: Start: 10-01-2024 End: 10-01-2024 ambulatory Graciela Angelo APRN Work Phone: [facility] Work Phone: Start: 10-01-2024 End: 10-01-2024 Patient encounter procedure Graciela Angelo APRN Work Phone: [facility] Work Phone: Start: 08-19-2024 ambulatory LUCIE CALDERA Facility :[facility] Start: 08-13-2024 Non-patient / Non-visit Graciela Angelo APRN Work Phone: [facility] Work Phone: Start: 07-30-2024 End: 07-30-2024 Patient encounter procedure Graciela Angelo APRN Work Phone: [facility] Work Phone: Start: 07-15-2024 End: 07-15-2024 ambulatory Graciela Angelo Facility:[facility] Start: 07-15-2024 End: 07-15-2024 Departed Referred Graciela Angelo APRN Work Phone: [facility] Work Phone: Start: 07-15-2024 End: 07-15-2024 Patient encounter procedure Graciela Angelo APRN Work Phone: [facility] Work Phone: Start: 08-11-2021 End: 08-12-2021 ambulatory REGGIE Aguirreit al Procedures Date Procedure Procedure Detail Performing Clinician Start: 07-15-2024 Aerobic microbial culture Garciela Angelo TIERNEY Work Phone: Plan of Treatment Date Care Activity Detail Author Start: 10-01-2024 Patient referral [facility] Work Phone: Comprehensive metabo lic 2000 panel - Serum or Plasma [facility] Patient referral [facility] Work Phone: [facility] Payers Date Payer Category Payer Self-pay 2021 Private Health Insurance CLI [id number] 2021 Medicare [id number] 1955 Unknown [id number] 1955 Unknown [id number] Unknown [id number] Social History Date Type Detail Facility Start: 07-30-2024 End: 07-30-2024 Tobacco smoking status NHIS Ex-smoker (finding) [facility] Start: 10-01-2024 End: 11-04-2024 Sex Male (finding) [facility] Start: 1955 Sex Assigned At Male F [facility] Medical Equipment Procedure Code Equipment Code Equipment [...] mellitus acute October 01, 2 025 9:43am [facility] Work Phone: Evaluation note 07-15-2024 Note [...] 2 diabetes mellitus acute October 01 9:43am [facility] Work Phone: Hospital Discharge instructions Note Date & Type Note Facility Hospital Discharge instructions Ambulatory OrdersReferral to Orthopedic Surgery Time Frame: 10/01/24, Location: None Selected [facility] Work Phone: Summary Purpose Family History [...] DATE CREATED AUTHOR AUTHOR'S ORGANIZ ATION 07/17/2024 [facility] DATE CREATED AUTHOR AUTHOR'S ORGANIZ ATION 10/06/2024 [facility] Teams (unrecognized sec tion and content) Team Status: Active Member Role Status Dates Lucie Hernandez APRN SEATER GRINDER-C Primary Care Provider Active Team Status: Inactive [...] Member Role Status Dates Lucie Hernandez APRN SEATER GRIND[employer]-C Primary Care Provider, Attending Provider Active Start: July 30, 2024 End: July 30, 2024 Team Status: Active Member Role Status Dates Lucie Hernandez APRN SEATER GR[employer]-C Primary Care Provider, Attending Provider Active Start: August 13, 2024 Team Status: Inactive Member Role Status Dates Lucie Hernandez APRN SEATER GR[employer]ER-C Primary Care Provider, Attending Provider Active Start: October 01, 2024 End: October 01, 2024 Team Status: Inactive Member Role Status Dates Lucie Hernandez APRN SEATER GRINDER-C Primary Care Provider, Attending Provider Active Start: [...] BE BASED ON THE PRIMARY CLINICAL RECORDS. [facility] [employer] [facility]. provides no warranty or guarantee of the accuracy or completeness of information in this document.
== END 2024-11-04 09:31 | disposition home or self-care (01) ==
LOC: WC 11-05 08:28
PROVIDERS: PCP Nurse Practitioner Family; Visit Provider Physician Assistant
DX: M25.561 Pain in right knee (principal); M25.562 Pain in left knee; M17.0 Bilateral primary osteoarthritis of knee; I87.312 Chronic venous hypertension (idiopathic) with ulcer of left lower extremity; L97.821 Non-pressure chronic ulcer of other part of left lower leg limited to breakdown of skin
CPT/HCPCS: 73564

== ENCOUNTER 2024-11-04 09:34 | Outpatient (OUT) | payer MEDICARE, OTHER, SELFPAY ==
--- NOTE | 2024-11-04 09:35 | XR_ITS ---
The [address] [address] Patient Name: JOSHUA KIMBALL MRN: [id number] date: 1955 Sex: M Assigned Patient Location: Current Patient Location: Accession/Order Number: [id number] Exam Date: 11/04/2024 14:10 Report Date: 11/04/2024 14:14 At the request of: MAI METZGER MD Procedure: XR knee ARLETH 4V Bilateral knee series 4 views each. Reason for exam: Bilateral knee pain. COMPARISON: None. FINDINGS: Right knee demonstrates moderate degenerative changes with associated medial weightbearing joint space narrowing as well as lateral subluxation of the tibia. No acute bony process. Left knee demonstrates moderate degenerative changes with medial weightbearing joint space narrowing and lateral subluxation of the tibia. No acute bony process. XR/XR knee ARLETH 4V IMPRESSION: Moderate degenerative changes of both knees without acute bony process. Impression dictated by: Joseph Castro Jr. [email or web address]/04/2024 2:14 PM Dictation Location[facility] Electronically authenticated by: [id number] Y Date: 11/04/2024 14:14
--- OUTSIDE RECORDS SUMMARY | 2024-11-04 09:48 | XMS_ITS | CCD ---
Author Organization [facility] Care Team Providers Care Remediation Bioanalytics Consultant Name Role Phone REGGIE CONNELLY Referring Unavailable REGGIE CONNELLY Primary Care Unavailable Graciela Angelo Attending Unavailable Graciela Angelo Admitting Unavailable Graciela Angelo APRN Attending Provider LUCIE CALDERA Attending Unavailable LUCIE HERNANDEZ Referring Unavailab le Allergies Allergy Classification Reported Allergen(s) Allergy Type Date of Onset Reaction(s) Facility (1 source) Penicillins Drug allergy (disorder) 07-15-2024 [facility] Repository Medications Current Medications Medication Drug Class(es) Dates Sig (Normalized) Sig (Original) calcium ascorbate 500 mg oral tablet (2 sources) Start: 07-15-2024 take 1 tablet by mouth once daily Ascorbate Calcium (Vitamin C) 500 mg tablet Active 500 MG PO Daily July 15, 2024 1:00am cholecalciferol 0.05 mg oral capsule (2 sources) Vitamin D Start: 07-15-2024 take 1 capsule by mouth once daily Cholecalciferol (Vitamin D3) 50 mcg (2,000 unit) capsule Active 50 MCG PO Daily July 15, 2024 1:00am glucosamine sulfate 500 mg oral tablet (2 sources) Start: 06-29-2018 take 1 tablet by mouth once daily Glucosamine Sulfate (Glucosamine) 500 mg Tablet Active 1 TAB PO Daily June 29, 2018 1:00am losartan potassium 50 mg oral tablet (4 sources) Angiotensin 2 Receptor Torin Start: 08-28-2024 take 1 tablet by mouth once daily Losartan 50 mg tablet Active 0 .ROUTE .COMPLEX August 28, 2024 4:51pm TAKE 1 TABLET BY MOUTH EVERY DAY Start: 07-30-2024 End: 08-28-2024 take 1 tablet by mouth once daily Losartan 50 mg tablet Discontinued 50 MG PO Daily July 30, 2024 1:00am August 28, 2024 4:51pm Ngxooeskxprb-Gvcq-Umaun Acid (Multi-Day With Iron) 18-400 mg-mcg Tablet (2 sources) Start: 06-29-2018 take 1 tablet by mouth once daily Ewrjaypcmgvg-Qkhp-Poeiv Acid (Multi-Day With Iron) 18-400 mg-mcg Tablet Active 1 TAB PO Daily June 29, 2018 1:00am Start: 06-29-2018 take 1 tablet by ronny th once daily Garmdhfistaw-Bvoc-Jneyc Acid (Multi-Day With Iron) 18-400 mg-mcg Tablet Active 1 TAB PO Daily June 29, 2018 12:00am vitamin e 100 unt oral capsule (2 sources) Start: 07-15-2024 take 1 capsule by mouth once daily Vitamin E (Dl, Acetate) 45 mg (100 unit) capsule Active 45 MG PO Daily July 15, 2024 1:00am zinc gluconate 30 mg oral tablet (2 sources) Start: 07-15-2024 take 1 tablet by mouth once daily Zinc Gluconate 30 mg tablet Active 30 MG PO Daily July 15, 2024 1:00am Completed/Discontinued Medications Medication Drug Class(es) Dates Sig (Normalized) Sig (Original) cyclobenzaprine hydrochloride 10 mg oral tablet (2 sources) Muscle Relaxant Start: 07-06-2018 End: 07-15-2024 take 1 tablet by mouth three times daily as needed for muscle spasms Cyclobenzaprine 10 mg tablet Discontinued 10 MG PO Three times daily as needed for back spasms 50 July 06, 2018 1:00am July 15, 2024 7:20pm doxycycline hyclate 100 mg oral capsule (2 sources) Tetracycline-class Drug Start: 07-15-2024 End: 07-30-2024 take 1 capsule by mouth twice daily Doxycycline Hyclate 100 mg capsule Discontinued 100 MG PO Twice daily 02 06July 15, 2024 1:00am July 30, 2024 10:09am lisinopril 20 mg oral tablet (2 sources) Angiotensin Converting Enzyme Inhibitor Start: 06-29-2018 End: 07-15-2024 take 1 tablet by mouth once daily Lisinopril 20 mg Tablet Discontinued 20 MG PO Daily June 29, 2018 1:00am July 15, 2024 7:22pm oxyCODONE hydrochloride 5 mg oral tablet (2 sources) Opioid Agonist Start: 07-06-2018 End: 07-15-2024 take 1 tablet by mouth every six hours as needed for pain Oxycodone (Roxicodone) 5 mg Tablet Discontinued 1 - 2 TAB PO Q6H as needed for Pain July 06, 2018 July 15, 2024 7:21pm predniSONE 10 mg oral tablet (2 sources) Start: 07-06-2018 End: 07-15-2024 Prednisone 10 mg tablets,dose pack Discontinued 1 dose pk PO per package directions July 06, 2018 1:00am July 15, 2024 7:21pm take 4 tabs for 3 days then take 3 tabs for 3 days then take 2 tabs for 3 days then take 1 tab for 3 days sulfamethoxazole 800 mg / trimethoprim 160 mg oral tablet (2 sources) Dihydrofolate Reductase Inhibitor Antibacterial, Sulfonamide Antimicrobial Start: 07-06-2018 End: 07-15-2024 take 1 tablet by mouth every twelve hours Sulfamethoxazole-Tr imethoprim (Bactrim Ds) 800-160 mg Tablet Discontinued 1 TAB PO Q12H July 06, 2018 1:00am July 15, 2024 7:22pm Turmeric extract (2 sources) Start: 06-29-2018 End: 07-15-2024 take 1 capsule by mouth once daily Turmeric 400 mg Capsule Discontinued 400 MG PO Daily June 29, 2018 1:00am July 15, 2024 7:22pm Start: 06-29-2018 End: 07-15-2024 take 1 capsule by mouth once daily Turmeric 400 mg Capsule Discontinued 400 MG PO Daily June 29, 2018 12:00am July 15, 2024 6:22pm Problems Problem Classification Problem Date Documented Da te Episodic/Chronic Acquired foot deformities (4 sources) Foot-drop; Translations: [Foot drop, right foot] 10-01-2024 Episodic Diabetes mellitus with complications (5 sources) Ulcer of skin of lower extremity; Translations: [Type 2 diabetes mellitus with other skin ulcer] 08-01-2024 Chronic Comment on above: Left lower leg Diabetes mellitus without complication (5 sources) Type 2 diabetes mellitus; Translations: [Type 2 diabetes mellitus without complications] 08-01-2024 Chronic Essential hypertension (5 sources) Hypertensive disorder; Translations: [Essential (primary) hypertension] 07-30-2024 Chronic Other acquired deformities (2 sources) Acquired spondylolisthesis; Translations: [Spondylolisthesis, lumbosacral region] 07-26-2023 Episodic Comment on above: Problem List clean-u p per request of Phys. EHR Cmte Other circulatory disease (2 sources) Elevated blood pressure; Translations: [Elevated blood-pressure reading, without diagnosis of hypertension] 07-15-2024 Episodic Other circulatory disease (1 source) Elevated blood-pressure reading, without diagnosis of hypertension; Translations: [Elevated blood pressure reading without diagnosis of hypertension] 07-15-2024 Episodic Other non-traumatic joint disorders (4 sources) Pain in right knee; Translations: [Pain in both knees] 10-01-2024 Episodic Other screening for suspected conditions (not mental disorders or infectious disease) (3 sources) Patient encounter status; Translations: [Encounter for screening for malignant neoplasm of prostate] 07-30-2024 Episodic Skin and subcutaneous tissue infections (4 sources) Cellulitis of left lower limb; Translations: [Cellulitis of leg, excluding foot] Onset: 07-15-2024 07-15-2024 Episodic Spondylosis; intervertebral disc disorders; other back problems (2 sources) Spinal stenosis of lumbar region; Translations: [Spinal stenosis, lumbar region without neurogenic claudication] 07-26-2023 Episodic Comment on above: Problem List clean-u p per request of Phys. EHR Cmte Results Test Name Value Interpretation Reference Range Facility Basophils Auto (Bld) [#/Vol] on 08-13-2024 Basophils (Bld) [#/Vol] Automated basophil count 0.0-0.1 [facility] Basophils/100 WBC Auto (Bld) on 08-13-2024 Basophils/100 WBC (Bld) Automated basophil % 0.2-2.0 [facility] Cholesterol in LDL Calc [Mas s/Vol]on 08-13-2024 Cholesterol in LDL [Mass/Vol] Cholesterol in LDL [Mass/volume] in Serum or Plasma by calculation [facility] Comment on above: <100 mg/dl [id number] 0-129 mg/dl NEAR OR ABOVE [id number] mg/dl BORDERLINE [id number] mg/dl HIGH>190 mg/dl VERY HIGH Cholesterol in VLDL Calc [Ma ss/Vol]on 08-13-2024 Cholesterol in VLDL [Mass/Vol] Cholesterol in VLDL [Mass/volume] in Serum or Plasma by calculation [facility] Eosinophils/100 WBC Auto (Bl d)on 08-13-2024 Eosinophils/100 WBC (Bld) Automated eosinophil % 0.9-7.0 [facility] Erythrocyte distribution wid th Auto (RBC) [Ratio]on 08-13-2024 Erythrocyte distribution width (RBC) [Ratio] Erythrocyte distribution width [Ratio] by Automated count 11.0-15.0 [facility] Estimated glomerular filtrat ion rate (GFR) non- Americanon 08-13-2024 GFR/1.73 sq M.predicted among non-blacks MDRD (S/P/Bld) [Vol rate/Area] Estimated glomerular filtration rate (GFR) non- >=60 mL/min/1.73m 2 [facility] Globulin Calc (S) [Mass/Vol] on 08-13-2024 Globulin (S) [Mass/Vol] Serum globulin measurement by calculation (mass/volume) [facility] Hematocrit Auto (Bld) [Volum e fraction]on 08-13-2024 Hematocrit (Bld) [Volume fraction] Hematocrit [Volume Fraction] of Blood by Automated count 42.0-54.0 [facility] Hemoglobin [Mass/volume] in Bloodon 08-13-2024 Hemoglobin (Bld) [Mass/Vol] Hemoglobin [Mass/volume] in Blood 14.0-18.0 [facility] Laboratory - Chemistry and C hemistry - challengeon 08-13-2024 Albumin [Mass/Vol] 3.6 g/dL 3.4-5.0 [facility] ALP [Catalytic activity/Vol] 101 U/L 46-116 [facility] ALT [Catalytic activity/Vol] 47 U/L 16-63 [facility] AST [Catalytic activity/Vol] 21 U/L 15-37 [facility] Bilirubin [Mass/Vol] 0.7 mg/dL 0.2-1.0 [facility] Calcium [Mass/Vol] 9.3 mg/dL 8.5-10.1 [facility] Chloride [Moles/Vol] 102 mmol/L 98-107 [facility] Cholesterol [Mass/Vol] 195 mg/dL <=200 [facility] Cholesterol in HDL [Mass/Vol] 54 mg/dL 40-60 [facility] Comment on above: > or =60 mg/dl - LOW CARDIOVASCULAR RISK<40 mg/dl - HIGH CARDIOVASCULAR RISK CO2 [Moles/Vol] 28.9 mmol/L 21.0-32.0 [facility] Creatinine [Mass/Vol] 1.16 mg/dL 0.70-1.30 [facility] GFR/1.73 sq M.predicted MDRD (S/P/Bld) [Vol rate/Area] mL/min/{1.73_m2} >=60 mL/min/1.73m 2 [facility] Glucose [Mass/Vol] 160 mg/dL High 74-106 [facility] Potassium [Moles/Vol] 4.5 mmol/L 3.5-5.1 [facility] Protein [Mass/Vol] 7.1 g/dL 6.4-8.2 [facility] Sodium [Moles/Vol] 138 mmol/L 136-145 [facility] Triglyceride [Mass/Vol] 84 mg/dL <=150 [facility] Urea nitrogen [Mass/Vol] 23.0 mg/dL High 7.0-18.0 [facility] Urea nitrogen/Creatinine [Mass ratio] 19.8 mg/mg [facility] Laboratory - Hematology and Cell countson 08-13-2024 Immature granulocytes/100 WBC (Bld) 0.7 % High 0.0-0.5 [facility] Leukocytes [#/volume] correc chapo for nucleated erythrocytes in Blood by Automated counon 08-13-2024 WBC corrected for nucl RBC Auto (Bld) [#/Vol] Leukocytes [#/volume] corrected for nucleated erythrocytes in Blood by Automated coun 4.0-11.0 [facility] Lymphocytes Auto (Bld) [#/Vo l]on 08-13-2024 Lymphocytes (Bld) [#/Vol] Lymphocytes [#/volume] in Blood by Automated count 1.2-3.8 [facility] Lymphocytes/100 WBC Auto (Bl d)on 08-13-2024 Lymphocytes/100 WBC (Bld) Lymphocytes/100 leukocytes in Blood by Automated count Low 20.5-60.0 [facility] MCH Auto (RBC) [Entitic mass ]on 08-13-2024 MCH (RBC) [Entitic mass] MCH [Entitic mass] by Automated count 25.9-34.0 [facility] MCHC Auto (RBC) [Mass/Vol]on 08-13-2024 MCHC (RBC) [Mass/Vol] MCHC [Mass/volume] by Automated count 29.9-35.2 [facility] MCV Auto (RBC) [Entitic vol] on 08-13-2024 MCV (RBC) [Entitic vol] MCV [Entitic volume] by Automated count 80.0-94.0 [facility] Microalbumin [Mass/volume] i n Urineon 08-13-2024 Albumin DL <= 20 mg/L (U) [Mass/Vol] Microalbumin [Mass/volume] in Urine <=30.0 [facility] Monocytes Auto (Bld) [#/Vol] on 08-13-2024 Monocytes (Bld) [#/Vol] Automated blood monocyte count High 0.3-0.8 [facility] Monocytes/100 WBC Auto (Bld) on 08-13-2024 Monocytes/100 WBC (Bld) Automated monocyte % 1.7-12.0 [facility] Neutrophils Auto (Bld) [#/Vo l]on 08-13-2024 Neutrophils (Bld) [#/Vol] Neutrophils [#/volume] in Blood by Automated count High 1.4-6.5 [facility] Neutrophils/100 WBC Auto (Bl d)on 08-13-2024 Neutrophils/100 WBC (Bld) Automated neutrophil % 43.0-75.0 [facility] No Panel Informationon 08-13 Eosinophils # (Auto) 0.3 10 3/uL 0.0-0.7 [facility] Immature Granulocyte # (Auto) 0.07 10 3/uL High 0.00-0.03 [facility] Prostate Specific Antigen Screen 11.22 ng/mL High <=4.00 [facility] Urine Random Creatinine 173.94 mg/dL 20.00-300.00 [facility] Platelet mean volume Auto (B ld) [Entitic vol]on 08-13-2024 Platelet mean volume (Bld) [Entitic vol] Platelet mean volume [Entitic volume] in Blood by Automated count Low 9.5-13.5 [facility] Platelets Auto (Bld) [#/Vol] on 08-13-2024 Platelets (Bld) [#/Vol] Platelets [#/volume] in Blood by Automated count 150-450 [facility] RBC Auto (Bld) [#/Vol]on RBC (Bld) [#/Vol] Erythrocytes [#/volume] in Blood by Automated count 4.70-6.10 [facility] Serum or plasma albumin/glob ulin mass ratioon 08-13-2024 Albumin/Globulin [Mass ratio] Serum or plasma albumin/globulin mass ratio [facility] Serum or plasma anion gap de terminationon 08-13-2024 Anion gap [Moles/Vol] Serum or plasma an ion gap determination [facility] Serum or plasma total choles terol/high density lipoprotein (HDL) cholesterol mass emily 08-13-2024 Cholesterol.total/Cho lesterol in HDL [Mass ratio] Serum or plasma total cholesterol/high density lipoprotein (HDL) cholesterol mass rat [facility] Comment on above: 3.3 - 4.4 LOW RISK4. 4 - 7.1 AVERAGE RISK7.1 - 11.0 MODERATE RISK>11.0 HIGH RISK Urine microalbumin/creatinin e mass ratioon 08-13-2024 Albumin/Creatinine DL <= 20 mg/L (U) [Mass ratio] Urine microalbumin/creatini ne mass ratio High 0.0-29.9 [facility] Comment on above: NO MICROALBUMINURIA 0-29 MG/GCLINICAL MICROALBUMINURIA 30-300 MG/GMACROALBUMINURIA >300 MG/G HbA1c HPLC (Bld) [Mass fract ion]on 07-30-2024 HbA1c (Bld) [Mass fraction] Hemoglobin A1c/Hemoglobin.total in Blood by HPLC [facility] Bacteria identified Aer cx N om (Unsp spec)Ordered By: Graciela Angelo on 07-15-2024 Group B Strep (Streptococcus agalactiae) Group B Strep (Streptococcus agalactiae) Abnormal [facility] Superficial Wound Culture Abnormal [facility] Superficial Wound Cultureon 07-15-2024 Superficial Wound Culture ORGANISM: Strep agalactiae - (group b) (O:STRAGA) Quantity of Growth Heavy Growth PERFORMED BY: [facility] [address] [place] [address] PATHOLOGIST SINTERING PRESS OPERATOR JERMAINE LICONA M.D. Normal [facility] Comment on above: Performed By: #### C USUP #### [facility] [address] [place] [address] [facility] [id number] 08-11-2021 SARS-CoV-2 (COVID-19) RNA LAURA+probe Ql (Unsp spec) Not detected Normal [facility] Comment on above: Result Comment: Rapid NAAT: [...] management decisions. Fact sheet for Healthcare Providers: https://www.fda.gov/media/409739/download Fact sheet for Patients: https://www.fda.gov/media/703894/download Methodology: Isothermal Nucleic Acid Amplification Performed By: #### C OVRB #### [facility] [address] [place] [address] [employer] Post Weigher: Singh Mccollum MD Vital Signs Date Time Vital Sign Value Performing Clinician Padmaja corbin 11-04-2024 09:00-0400 Body weight 149.68 kg [facility] 10-01-2024 09:49-0500 Body height 170.18 cm Graciela Angelo APRN Work Phone: [facility] 10-01-2024 09:49-0500 Body mass index (BMI) [Ratio] 51 kg/m2 Gracielafrank Angelo APRN Work Phone: [facility] 10-01-2024 09:49-0500 Body temperature 95.3 [degF] Graciela Angelo APRN Work Phone: [facility] 10-01-2024 09:49-0500 Body weight 147.87 kg Gracielafrank Angelo APRN Work Phone: [facility] 10-01-2024 09:49-0500 Diastolic blood pressure 82 mm[Hg] Gracielafrank Angelo APRN Work Phone: [facility] 10-01-2024 09:49-0500 Heart rate 92 /min Gracielafrank Angelo APRN Work Phone: [facility] 10-01-2024 09:49-0500 SaO2% (BldA) [Mass fraction] 98 % Gracielafrank Angelo APRN Work Phone: [facility] 10-01-2024 09:49-0500 Systolic blood pressure 144 mm[Hg] Gracielafrank Angelo APRN Work Phone: [facility] 07-30-2024 09:01-0500 Body height 170.18 cm Gracielafrank Angelo APRN Work Phone: [facility] 07-30-2024 09:01-0500 Body mass index (BMI) [Ratio] 53.1 kg/m2 Gracielafrank Angelo APRN Work Phone: [facility] 07-30-2024 09:01-0500 Body temperature 96.7 [degF] Graciela Angelo APRN Work Phone: [facility] 07-30-2024 09:01-0500 Body weight 153.76 kg Graciela Angelo APRN Work Phone: [facility] 07-30-2024 09:01-0500 Diastolic blood pressure 98 mm[Hg] Graciela De La Rosaley CATALOG LIBRARY ASSISTANT Work Phone: [facility] 07-30-2024 09:01-0500 Heart rate 101 /min Graciela Angelo APRN Work Phone: [facility] 07-30-2024 09:01-0500 SaO2% (BldA) [Mass fraction] 94 % Graciela De La Rosaley CATALOG LIBRARY ASSISTANT Work Phone: [facility] 07-30-2024 09:01-0500 Systolic blood pressure 164 mm[Hg] Graciela Angelo CATALOG LIBRARY ASSISTANT Work Phone: [facility] 07-15-2024 19:22-0500 Diastolic blood pressure 90 mm[Hg] Graciela Angelo CATALOG LIBRARY ASSISTANT Work Phone: [facility] 07-15-2024 19:22-0500 Systolic blood pressure 160 mm[Hg] Graciela Angelo CATALOG LIBRARY ASSISTANT Work Phone: [facility] 07-15-2024 18:33-0500 Body height 170.18 cm Graciela Angelo CATALOG LIBRARY ASSISTANT Work Phone: [facility] 07-15-2024 18:33-0500 Body mass index (BMI) [Ratio] 53.1 kg/m2 Graciela Angelo APRN Work Phone: [facility] 07-15-2024 18:33-0500 Body weight 153.76 kg Graciela Angelo APRN Work Phone: [facility] 07-15-2024 18:33-0500 Heart rate 88 /min Graciela De La Rosaley CATALOG LIBRARY ASSISTANT Work Phone: [facility] 07-15-2024 18:33-0500 SaO2% (BldA) [Mass fraction] 98 % Graciela De La Rosaley CATALOG LIBRARY ASSISTANT Work Phone: [facility] Encounters Encounter Date Encounter Type Care Provider Facility Start: 11-15-2024 ambulatory LUCIE Lui ty:KEVIN [place] Start: 11-04-2024 End: 11-04-2024 ambulatory [facility] Work Phone: Start: 11-04-2024 End: 11-04-2024 Patient encounter procedure [facility] Work Phone: Start: 10-01-2024 End: 10-01-2024 ambulatory Graciela Angelo APRN Work Phone: [facility] Work Phone: Start: 10-01-2024 End: 10-01-2024 Patient encounter procedure Graciela Angelo APRN Work Phone: [facility] Work Phone: Start: 08-19-2024 ambulatory LUCIE CALDERA Facility :[facility] Start: 08-13-2024 Non-patient / Non-visit Graciela Angelo APRN Work Phone: [facility] Work Phone: Start: 07-30-2024 End: 07-30-2024 Patient encounter procedure Graciela Angelo APRN Work Phone: [facility] Work Phone: Start: 07-15-2024 End: 07-15-2024 ambulatory Graciela Angelo Facility:[facility] Start: 07-15-2024 End: 07-15-2024 Departed Referred Graciela Angelo APRN Work Phone: [facility] [place] Work Phone: Start: 07-15-2024 End: 07-15-2024 Patient encounter procedure Graciela Angelo APRN Work Phone: [facility] Work Phone: Start: 08-11-2021 End: 08-12-2021 ambulatory REGGIE Aguirreit al Procedures Date Procedure Procedure Detail Performing Clinician Start: 07-15-2024 Aerobic microbial culture Graciela Angelo TIERNEY Work Phone: Plan of Treatment Date Care Activity Detail Author Start: 10-01-2024 Patient referral [facility] Work Phone: Comprehensive metabo lic 2000 panel - Serum or Plasma [facility] Patient referral [facility] Work Phone: [facility] Payers Date Payer Category Payer Self-pay 2021 Private Health Insurance CLI [id number] 2021 Medicare [id number] 1955 Unknown [id number] 1955 Unknown [id number] Unknown [id number] Social History Date Type Detail Facility Start: 07-30-2024 End: 07-30-2024 Tobacco smoking status NHIS Ex-smoker (finding) [facility] Start: 10-01-2024 End: 11-04-2024 Sex Male (finding) [facility] Start: 1955 Sex Assigned At Male F [facility] Medical Equipment Procedure Code Equipment Code Equipment Origin al Text Equipment Identifier Dates ALLOGRAFT 10MM P LIF LORDOTIC FDA Start: 07-04-2018 SCREW SET CAPLOX II FDA Start : 07-04-2018 SCREW SET CAPLOX II FDA Start : 07-04-2018 SCREW SET CAPLOX II FDA Start : 07-04-2018 STRATOFUSE DBM 5CC FDA Start: 07-04-2018 ALLOGRAFT 10MM P LIF LORDOTIC FDA Start: 07-04-2018 BALTA 35MM CVD CAP LOX II FDA Start: 07-04-2018 BALTA 35MM CVD CAP LOX II FDA Start: 07-04-2018 SCREW 6.5 X 55MM CAPLOX II FDA Start: 07-04-2018 SCREW 6.5 X 55MM CAPLOX II FDA Start: 07-04-2018 SCREW 6.5 X 55MM CAPLOX II FDA Start: 07-04-2018 SCREW 6.5 X 55MM CAPLOX II FDA Start: 07-04-2018 SCREW SET CAPLOX II FDA Start : 07-04-2018 ALLOGRAFT 10MM P LIF LORDOTIC FDA Start: 07-04-2018 SCREW SET CAPLOX II FDA Start : 07-04-2018 SCREW SET CAPLOX II FDA Start : 07-04-2018 SCREW SET CAPLOX II FDA Start : 07-04-2018 STRATOFUSE DBM 5CC FDA Start: 07-04-2018 ALLOGRAFT 10MM P LIF LORDOTIC FDA Start: 07-04-2018 BALTA 35MM CVD CAP LOX II FDA Start: 07-04-2018 BALTA 35MM CVD CAP LOX II FDA Start: 07-04-2018 SCREW 6.5 X 55MM CAPLOX II FDA Start: 07-04-2018 SCREW 6.5 X 55MM CAPLOX II FDA Start: 07-04-2018 SCREW 6.5 X 55MM CAPLOX II FDA Start: 07-04-2018 SCREW 6.5 X 55MM CAPLOX II FDA Start: 07-04-2018 SCREW SET CAPLOX II FDA Start : 07-04-2018 Evaluation note 10-01-2024 Note Date & Type Note Facility 10-01-2024 Evaluation note Diagnosis Onset Date Resolution Bilateral knee pain acute Febru 2024 9:43am 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 acute October 01, 2 025 9:43am Foot drop, right acute October 01, 2024 9:43am Hypertension acute September 9:43am Type 2 diabetes mellitus acute October 01, 2 025 9:43am [facility] Work Phone: Evaluation note 07-15-2024 Note Date & Type Note Facility 07-15-2024 Evaluation note Diagnosis Onset Date Resolution Cellulitis of left leg without foot acute July 15 5:45pm Elevated blood pressure reading acute July 15 5:45pm 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 acute July 30 024 8:56am Hypertension acute July 8:56am Screening for prostate cancer acute July 30 2 024 8:56am Type 2 diabetes mellitus acute July 30 8:56am Bilateral knee pain acute Febru patrice2024 9:43am 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 acute October 01 9:43am Foot drop, right acute October 01, 2024 9:43am Hypertension acute September 9:43am Type 2 diabetes mellitus acute October 01 9:43am [facility] Work Phone: Hospital Discharge instructions Note Date & Type Note Facility Hospital Discharge instructions Ambulatory OrdersReferral to Orthopedic Surgery Time Frame: 10/01/24, Location: None Selected [facility] Work Phone: Summary Purpose Family History Relationship Condition Age at Onset Recorded Date/T koko father Malignant neoplasm Unknown mother Malignant neoplasm Unknown paternal grandmother Diabetes mellitus Unknown Advance Directives Advance Directive Response Recorded Date/ Time Advance Directives No April 11:52am Advance Directive Response Recorded Date/ Time Advance Directives No April 12:52pm Chief Complaint and Reason for Visit Chief Complaint Admit Date left calf, leg sore/wound July 15, 2024 5:45pm Cellulitis of LF lower extremity W/O vicki t L03.116 July 15, 2024 7:12pm est care July 30, 2024 8:56am 4 week f/u October 01, 2024 9:43am Reason for Visit Admit Date Cellulitis of left leg without foot Dece mber 2023 5:45pm Elevated blood pressure reading July 15, 2024 5:45pm 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 July 30, 2024 8:56am Hypertension July 30, 2024 8:56am Screening for prostate cancer July 142023 8:56am Type 2 diabetes mellitus July 30, 2024 8:56am Bilateral knee pain October 01, 2024 9:43am 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 October 01, 2024 9:43am Foot drop, right October 01, 2024 9:43am Hypertension October 01, 2024 9:43am Type 2 diabetes mellitus October 01, 2024 9:43am Chief Complaint Admit Date 4 week f/u October 01, 2024 9:43am A1c check November 04, 2024 8:3 6am Reason for Visit Admit Date Bilateral knee pain October 01, 2024 9:43am 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 October 01, 2024 9:43am Foot drop, right October 01, 2024 9:43am Hypertension October 01, 2024 9:43am Type 2 diabetes mellitus October 01, 2024 9:43am Additional Source Comments (unrecognized sect ion and content) No Status Records FoundNo Status Records FoundNo Status Records Found INFORMATION SOURCE (unrecogn ized section and content) DATE CREATED AUTHOR 08/12/2021 [facility] DATE CREATED AUTHOR AUTHOR'S ORGANIZ ATION 07/17/2024 [facility] DATE CREATED AUTHOR AUTHOR'S ORGANIZ ATION [facility]/06/2024 [facility] Teams (unrecognized sec tion and content) Team Status: Active Member Role Status Dates Lucie Hernandez APRN PROVIDER RELATIONS ADVOCATE-C Primary Care Provider Active Team Status: Inactive Member Role Status Dates Bisi Christianson MD Primary Care Provider Active Start: July 15, 2024 End: July 15, 2024 Graciela Angelo APRN Attending Provider Active Start: July 15, 2024 End: July 15, 2024 Team Status: Inactive Member Role Status Dates Graciela Angelo APRN Attending Provider Active Start: July 15, 2024 End: July 15, 2024 Team Status: Inactive Member Role Status Dates Lucie Hernandez APRN PROVIDER RELATIONS ADVOCATE-C Primary Care Provider, Attending Provider Active Start: July 30, 2024 End: July 30, 2024 Team Status: Active Member Role Status Dates Lucie Hernandez APRN PROVIDER RELATIONS ADVOCATE-C Primary Care Provider, Attending Provider Active Start: August 13, 2024 Team Status: Inactive Member Role Status Dates Lucie Hernandez APRN PROVIDER RELATIONS ADVOCATE-C Primary Care Provider, Attending Provider Active Start: October 01, 2024 End: October 01, 2024 Team Status: Inactive Member Role Status Dates Lucie Hernandez APRN PROVIDER RELATIONS ADVOCATE-C Primary Care Provider, Attending Provider Active Start: November 04, 2024 End: November 04, 2024 Goals (unrecognized section and content) Goals may be documented in a n alternate sectionGoals may be documented in an alternate section FOR RECORDS PERTAINING TO PATIENTS WHO ARE [...] BE BASED ON THE PRIMARY CLINICAL RECORDS. [facility] [employer] [facility]. provides no warranty or guarantee of the accuracy or completeness of information in this document.
== END 2024-11-04 09:35 | disposition home or self-care (01) ==
LOC: EC 09:34
PROVIDERS: PCP Nurse Practitioner Family; Visit Provider Orthopaedic Surgery
DX: M25.561 Pain in right knee (principal); M25.562 Pain in left knee; M17.0 Bilateral primary osteoarthritis of knee
CPT/HCPCS: 73564

== ENCOUNTER 2024-11-26 09:42 | Outpatient (OUT) | payer MEDICARE, OTHER, SELFPAY ==
--- OUTSIDE RECORDS SUMMARY | 2024-11-26 09:53 | XMS_ITS | CCD ---
Author Organization [facility] Care Team Providers Care Internetworking Technician Name Role Phone REGGIE CONNELLY Referring Unavailable REGGIE CONNELLY Primary Care Unavailable Graciela Angelo Attending Unavailable Graciela Angelo Admitting Unavailable Graciela Angelo APRN Attending Provider LUCIE HERNANDEZ Referring Unavailab LUCIE Huang Attending Unavailable Allergies Allergy Classification Reported Allergen(s) Allergy Type Date of Onset Reaction(s) Facility (1 source) Penicillins Drug allergy (disorder) 07-15-2024 [facility] Repository Medications Current Medications Medication Drug [...] 30, 2024 1:00am August 28, 2024 4:51pm Nioiytvkkapc-Bool-Icxhe Acid (Multi-Day With Iron) 18-400 mg-mcg Tablet (2 sources) Start: 06-29-2018 take 1 tablet by mouth once daily Ojubftimqwzr-Igta-Mwqkv Acid (Multi-Day With Iron) 18-400 mg-mcg Tablet Active 1 TAB PO Daily June 29, 2018 1:00am Start: 06-29-2018 take 1 tablet by ronny th once daily Kynhgppyrksk-Hkak-Weegd Acid (Multi-Day With Iron) 18-400 mg-mcg Tablet [...] Basophils (Bld) [#/Vol] Automated basophil count 0.0-0.1 [facility] Basophils/100 WBC Auto (Bld) on 08-13-2024 Basophils/100 WBC (Bld) Automated basophil % 0.2-2.0 [facility] Cholesterol in LDL Calc [Mas s/Vol]on 08-13-2024 Cholesterol in LDL [Mass/Vol] Cholesterol in LDL [Mass/volume] in Serum or Plasma by calculation [facility] Comment on above: <100 mg/dl [id number] 0-129 mg/dl NEAR OR ABOVE [id number] mg/dl BORDERLINE [id number] mg/dl HIGH>190 mg/dl VERY HIGH Cholesterol in VLDL Calc [Ma ss/Vol]on 08-13-2024 Cholesterol in VLDL [Mass/Vol] Cholesterol in VLDL [Mass/volume] in Serum or Plasma by calculation [facility] Eosinophils/100 WBC Auto (Bl d)on 08-13-2024 Eosinophils/100 WBC (Bld) Automated eosinophil % 0.9-7.0 [facility] Erythrocyte distribution wid th Auto (RBC) [Ratio]on 08-13-2024 Erythrocyte distribution width (RBC) [Ratio] Erythrocyte distribution width [Ratio] by Automated count 11.0-15.0 [facility] Estimated glomerular filtrat ion rate (GFR) non- Americanon 08-13-2024 GFR/1.73 sq M.predicted among non-blacks MDRD (S/P/Bld) [Vol rate/Area] Estimated glomerular filtration rate (GFR) non- >=60 mL/min/1.73m 2 [facility] Globulin Calc (S) [Mass/Vol] on 08-13-2024 Globulin (S) [Mass/Vol] Serum globulin measurement by calculation (mass/volume) [facility] Hematocrit Auto (Bld) [Volum e fraction]on 08-13-2024 Hematocrit (Bld) [Volume fraction] Hematocrit [Volume Fraction] of Blood by Automated count 42.0-54.0 [facility] Hemoglobin [Mass/volume] in Bloodon 08-13-2024 Hemoglobin (Bld) [Mass/Vol] Hemoglobin [Mass/volume] in Blood 14.0-18.0 [facility] Laboratory - Chemistry and C hemistry - challengeon 08-13-2024 Albumin [Mass/Vol] 3.6 g/dL 3.4-5.0 [facility] ALP [Catalytic activity/Vol] 101 U/L 46-116 [facility] ALT [Catalytic activity/Vol] 47 U/L 16-63 [facility] AST [Catalytic activity/Vol] 21 U/L 15-37 [facility] Bilirubin [Mass/Vol] 0.7 mg/dL 0.2-1.0 [facility] Calcium [Mass/Vol] 9.3 mg/dL 8.5-10.1 [facility] Chloride [Moles/Vol] 102 mmol/L 98-107 [facility] Cholesterol [Mass/Vol] 195 mg/dL <=200 [facility] Cholesterol in HDL [Mass/Vol] 54 mg/dL 40-60 [facility] Comment on above: > or =60 mg/dl - LOW CARDIOVASCULAR RISK<40 mg/dl - HIGH CARDIOVASCULAR RISK CO2 [Moles/Vol] 28.9 mmol/L 21.0-32.0 [facility] Creatinine [Mass/Vol] 1.16 mg/dL 0.70-1.30 [facility] GFR/1.73 sq M.predicted MDRD (S/P/Bld) [Vol rate/Area] mL/min/{1.73_m2} >=60 mL/min/1.73m 2 [facility] Glucose [Mass/Vol] 160 mg/dL High 74-106 [facility] Potassium [Moles/Vol] 4.5 mmol/L 3.5-5.1 [facility] Protein [Mass/Vol] 7.1 g/dL 6.4-8.2 [facility] Sodium [Moles/Vol] 138 mmol/L 136-145 [facility] Triglyceride [Mass/Vol] 84 mg/dL <=150 [facility] Urea nitrogen [Mass/Vol] 23.0 mg/dL High 7.0-18.0 [facility] Urea nitrogen/Creatinine [Mass ratio] 19.8 mg/mg [facility] Laboratory - Hematology and Cell countson 08-13-2024 Immature granulocytes/100 WBC (Bld) 0.7 % High 0.0-0.5 [facility] Leukocytes [#/volume] correc chapo for nucleated erythrocytes in Blood by Automated counon 08-13-2024 WBC corrected for nucl RBC Auto (Bld) [#/Vol] Leukocytes [#/volume] corrected for nucleated erythrocytes in Blood by Automated coun 4.0-11.0 [facility] Lymphocytes Auto (Bld) [#/Vo l]on 08-13-2024 Lymphocytes (Bld) [#/Vol] Lymphocytes [#/volume] in Blood by Automated count 1.2-3.8 [facility] Lymphocytes/100 WBC Auto (Bl d)on 08-13-2024 Lymphocytes/100 WBC (Bld) Lymphocytes/100 leukocytes in Blood by Automated count Low 20.5-60.0 [facility] MCH Auto (RBC) [Entitic mass ]on 08-13-2024 MCH (RBC) [Entitic mass] MCH [Entitic mass] by Automated count 25.9-34.0 [facility] MCHC Auto (RBC) [Mass/Vol]on 08-13-2024 MCHC (RBC) [Mass/Vol] MCHC [Mass/volume] by Automated count 29.9-35.2 [facility] MCV Auto (RBC) [Entitic vol] on 08-13-2024 MCV (RBC) [Entitic vol] MCV [Entitic volume] by Automated count 80.0-94.0 [facility] Microalbumin [Mass/volume] i n Urineon 08-13-2024 Albumin DL <= 20 mg/L (U) [Mass/Vol] Microalbumin [Mass/volume] in Urine <=30.0 [facility] Monocytes Auto (Bld) [#/Vol] on 08-13-2024 Monocytes (Bld) [#/Vol] Automated blood monocyte count High 0.3-0.8 [facility] Monocytes/100 WBC Auto (Bld) on 08-13-2024 Monocytes/100 WBC (Bld) Automated monocyte % 1.7-12.0 [facility] Neutrophils Auto (Bld) [#/Vo l]on 08-13-2024 Neutrophils (Bld) [#/Vol] Neutrophils [#/volume] in Blood by Automated count High 1.4-6.5 [facility] Neutrophils/100 WBC Auto (Bl d)on 08-13-2024 Neutrophils/100 WBC (Bld) Automated neutrophil % 43.0-75.0 [facility] No Panel Informationon 08-13 Eosinophils # (Auto) 0.3 10 3/uL 0.0-0.7 [facility] Immature Granulocyte # (Auto) 0.07 10 3/uL High 0.00-0.03 [facility] Prostate Specific Antigen Screen 11.22 ng/mL High <=4.00 [facility] Urine Random Creatinine 173.94 mg/dL 20.00-300.00 [facility] Platelet mean volume Auto (B ld) [Entitic vol]on 08-13-2024 Platelet mean volume (Bld) [Entitic vol] Platelet mean volume [Entitic volume] in Blood by Automated count Low 9.5-13.5 [facility] Platelets Auto (Bld) [#/Vol] on 08-13-2024 Platelets (Bld) [#/Vol] Platelets [#/volume] in Blood by Automated count 150-450 [facility] RBC Auto (Bld) [#/Vol]on RBC (Bld) [#/Vol] Erythrocytes [#/volume] in Blood by Automated count 4.70-6.10 [facility] Serum or plasma albumin/glob ulin mass ratioon 08-13-2024 Albumin/Globulin [Mass ratio] Serum or plasma albumin/globulin mass ratio [facility] Serum or plasma anion gap de terminationon 08-13-2024 Anion gap [Moles/Vol] Serum or plasma an ion gap determination [facility] Serum or plasma total choles terol/high density lipoprotein (HDL) cholesterol mass emily 08-13-2024 Cholesterol.total/Cho lesterol in HDL [Mass ratio] Serum or plasma total cholesterol/high density lipoprotein (HDL) cholesterol mass rat [facility] Comment on above: 3.3 - 4.4 LOW RISK4. 4 - 7.1 AVERAGE RISK7.1 - 11.0 MODERATE RISK>11.0 HIGH RISK Urine microalbumin/creatinin e mass ratioon 08-13-2024 Albumin/Creatinine DL <= 20 mg/L (U) [Mass ratio] Urine microalbumin/creatini ne mass ratio High 0.0-29.9 [facility] Comment on above: NO MICROALBUMINURIA 0-29 MG/GCLINICAL MICROALBUMINURIA 30-300 MG/GMACROALBUMINURIA >300 MG/G HbA1c HPLC (Bld) [Mass fract ion]on 07-30-2024 HbA1c (Bld) [Mass fraction] Hemoglobin A1c/Hemoglobin.total in Blood by HPLC [facility] Bacteria identified Aer cx N om (Unsp spec)Ordered By: Graciela Angelo on 07-15-2024 Group B Strep (Streptococcus agalactiae) Group B Strep (Streptococcus agalactiae) Abnormal [facility] Superficial Wound Culture Abnormal [facility] Superficial Wound Cultureon 07-15-2024 Superficial Wound Culture ORGANISM: Strep agalactiae - (group b) (O:STRAGA) Quantity of Growth Heavy Growth PERFORMED BY: [facility] [address] [place] [address] PATHOLOGIST [employer] SUPER[employer]OR JERMAINE LICONA M.D. Normal [facility] Comment on above: Performed By: #### C USUP #### [facility] [address] [place] [address] [facility] [id number] 08-11-2021 SARS-CoV-2 (COVID-19) RNA LAURA+probe Ql (Unsp spec) Not detected Normal [facility] Comment on above: Result Comment: Rapid NAAT: [...] management decisions. Fact sheet for Healthcare Providers: https://www.fda.gov/media/414927/download Fact sheet for Patients: https://www.fda.gov/media/340494/download Methodology: Isothermal Nucleic Acid Amplification Performed By: #### C OVRB #### [facility] [address] [place] [address] Beta Tester: Singh Mccollum MD Vital Signs Date Time Vital Sign Value Performing Clinician Padmaja corbin 11-04-2024 09:00-0400 Body weight 149.68 kg [facility] 10-01-2024 09:49-0500 Body height 170.18 cm Graciela Angelo APRN Work Phone: [facility] 10-01-2024 09:49-0500 Body mass index (BMI) [Ratio] 51 kg/m2 Gracielafrank Angelo APRN Work Phone: [facility] 10-01-2024 09:49-0500 Body temperature 95.3 [degF] Graciela Angelo APRN Work Phone: [facility] 10-01-2024 09:49-0500 Body weight 147.87 kg Gracielafrank Angelo APRN Work Phone: [facility] 10-01-2024 09:49-0500 Diastolic blood pressure 82 mm[Hg] Gracielafrank Angelo APRN Work Phone: [facility] 10-01-2024 09:49-0500 Heart rate 92 /min Gracielafrank Angelo APRN Work Phone: [facility] 10-01-2024 09:49-0500 SaO2% (BldA) [Mass fraction] 98 % Gracielafrank Angelo APRN Work Phone: [facility] 10-01-2024 09:49-0500 Systolic blood pressure 144 mm[Hg] Gracielafrank Angelo APRN Work Phone: [facility] 07-30-2024 09:01-0500 Body height 170.18 cm Gracielafrank Angelo APRN Work Phone: [facility] 07-30-2024 09:01-0500 Body mass index (BMI) [Ratio] 53.1 kg/m2 Gracielafrank Angelo APRN Work Phone: [facility] 07-30-2024 09:01-0500 Body temperature 96.7 [degF] Graciela Angelo APRN Work Phone: [facility] 07-30-2024 09:01-0500 Body weight 153.76 kg Graciela Angelo APRN Work Phone: [facility] 07-30-2024 09:01-0500 Diastolic blood pressure 98 mm[Hg] Graciela Angelo [employer] Work Phone: [facility] 07-30-2024 09:01-0500 Heart rate 101 /min Graciela Angelo [employer] Work Phone: [facility] 07-30-2024 09:01-0500 SaO2% (BldA) [Mass fraction] 94 % Graciela De La Rosaley [employer] Work Phone: [facility] 07-30-2024 09:01-0500 Systolic blood pressure 164 mm[Hg] Graciela Angelo [employer] Work Phone: [facility] 07-15-2024 19:22-0500 Diastolic blood pressure 90 mm[Hg] Graciela Angelo [employer] Work Phone: [facility] 07-15-2024 19:22-0500 Systolic blood pressure 160 mm[Hg] Graciela Angelo [employer] Work Phone: [facility] 07-15-2024 18:33-0500 Body height 170.18 cm Graciela Angelo [employer] Work Phone: [facility] 07-15-2024 18:33-0500 Body mass index (BMI) [Ratio] 53.1 kg/m2 Graciela Angelo [employer] Work Phone: [facility] 07-15-2024 18:33-0500 Body weight 153.76 kg Graciela Angelo [employer] Work Phone: [facility] 07-15-2024 18:33-0500 Heart rate 88 /min Graciela Angelo [employer] Work Phone: [facility] 07-15-2024 18:33-0500 SaO2% (BldA) [Mass fraction] 98 % Graciela De La Rosaley [employer] Work Phone: [facility] Encounters Encounter Date Encounter Type Care Provider Facility Start: 12-13-2024 ambulatory LUCIE Wright acility:[facility] [place] Start: 11-04-2024 End: 11-04-2024 ambulatory [facility] Work Phone: Start: 11-04-2024 End: 11-04-2024 Patient encounter procedure [facility] Work Phone: Start: 10-01-2024 End: 10-01-2024 ambulatory Graciela Angelo [employer] Work Phone: [facility] Work Phone: Start: 10-01-2024 End: 10-01-2024 Patient encounter procedure Graciela Angelo [employer] Work Phone: [facility] Work Phone: Start: 08-19-2024 ambulatory LUCIE Goldberg ility:[facility] [place] Start: 08-13-2024 Non-patient / Non-visit Graciela Angelo APRN Work Phone: [facility] Work Phone: Start: 07-30-2024 End: 07-30-2024 Patient encounter procedure Graciela Angelo APRN Work Phone: [facility] Work Phone: Start: 07-15-2024 End: 07-15-2024 ambulatory Graciela Angelo Facility:[facility] Start: 07-15-2024 End: 07-15-2024 Departed Referred Graciela Angelo APRN Work Phone: [facility] [place] Work Phone: Start: 07-15-2024 End: 07-15-2024 Patient encounter procedure Graciela Angelo APRN Work Phone: [facility] Work Phone: Start: 08-11-2021 End: 08-12-2021 ambulatory REGGIE Chandler [facility] Procedures Date Procedure Procedure Detail Performing Clinician Start: 07-15-2024 Aerobic microbial culture Graciela Angelo TIERNEY Work Phone: Plan of Treatment Date Care Activity Detail Author Start: 10-01-2024 Patient referral [facility] Work Phone: Comprehensive metabo lic 2000 panel - Serum or Plasma [facility] Patient referral [facility] Work Phone: [facility] Payers Date Payer Category Payer Self-pay 2021 Private Health Insurance [facility] [id number] 2021 Medicare [id number] 1955 Unknown [id number] 1955 Unknown [id number] Unknown [id number] Social History Date Type Detail Facility Start: 07-30-2024 End: 07-30-2024 Tobacco smoking status NHIS Ex-smoker (finding) [facility] Start: 10-01-2024 End: 11-04-2024 Sex Male (finding) [facility] Start: 1955 Sex Assigned At Male F [facility] Medical Equipment Procedure Code Equipment Code Equipment [...] Onset Date Resolution Bilateral knee pain acute u 2024 9:43am 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 acute October 01 2 025 9:43am Foot drop, right acute October 01, 2024 9:43am Hypertension acute September 9:43am Type 2 diabetes mellitus acute October 01, 2 025 9:43am [facility] Work Phone: Evaluation note 07-15-2024 Note Date & Type Note Facility 07-15-2024 Evaluation note Diagnosis Onset Date Resolution Cellulitis of left leg without foot acute July 15 5:45pm Elevated blood pressure reading acute July 15 5:45pm 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 acute July 30 2 024 8:56am Hypertension acute July 8:56am Screening for prostate cancer acute July 30 2 024 8:56am Type 2 diabetes mellitus acute July 30 024 8:56am Bilateral knee pain acute Febru patrice2024 9:43am 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 acute October 01 9:43am Foot drop, right acute October 01, 2024 9:43am Hypertension acute September 9:43am Type 2 diabetes mellitus acute October 01 9:43am [facility] Work Phone: Hospital Discharge instructions Note Date & Type Note Facility Hospital Discharge instructions Ambulatory OrdersReferral to Orthopedic Surgery Time Frame: 10/01/24, Location: None Selected [facility] Work Phone: Summary Purpose Family History No Family History Records Found Relationship Condition Age at Onset Recorded Date/T koko father Malignant neoplasm Unknown mother Malignant neoplasm Unknown paternal grandmother Diabetes mellitus Unknown Advance Directives No Advanced Directives Records Found Advance Directive Response Recorded Date/ Time Advance [...] and content) DATE CREATED AUTHOR 08/12/2021 [facility] DATE CREATED AUTHOR AUTHOR'S ORGANIZ ATION 07/17/2024 [facility] DATE CREATED AUTHOR AUTHOR'S ORGANIZ ATION 11/12/2024 [facility] Care Teams (unrecognized sec tion and content) Team Status: Active Member Role Status Dates Lucie Hernandez APRN JUNIOR FINANCIAL ANALYST-C Primary Care Provider Active Team Status: Inactive [...] Member Role Status Dates Lucie Hernandez APRN JUNIOR FINANCIAL ANALYST-C Primary Care Provider, Attending Provider Active Start: July 30, 2024 End: July 30, 2024 Team Status: Active Member Role Status Dates Lucie Hernandez APRN NP-C Primary Care Provider, Attending Provider Active Start: August 13, 2024 Team Status: Inactive Member Role Status Dates Lucie Hernandez APRN NP-C Primary Care Provider, Attending Provider Active Start: October 01, 2024 End: October 01, 2024 Team Status: Inactive Member Role Status Dates Lucie Hernandez APRN NP-C Primary Care Provider, Attending Provider Active Start: [...] BE BASED ON THE PRIMARY CLINICAL RECORDS. [facility] [employer] [facility]. provides no warranty or guarantee of the accuracy or completeness of information in this document.
== END 2024-11-26 09:43 | disposition home or self-care (01) ==
LOC: WC 09:43
PROVIDERS: PCP Nurse Practitioner Family; Visit Provider Physician Assistant
DX: I87.312 Chronic venous hypertension (idiopathic) with ulcer of left lower extremity (principal); L97.821 Non-pressure chronic ulcer of other part of left lower leg limited to breakdown of skin
CPT/HCPCS: G0463

== ENCOUNTER 2024-12-10 08:52 | Outpatient (OUT) | payer MEDICARE, OTHER, SELFPAY | END 2024-12-10 08:53 | disposition home or self-care (01) | LOC: WC 08:53 | PROVIDERS: PCP Nurse Practitioner Family; Visit Provider Physician Assistant | DX: I87.312 Chronic venous hypertension (idiopathic) with ulcer of left lower extremity (principal); L97.821 Non-pressure chronic ulcer of other part of left lower leg limited to breakdown of skin; L60.0 Ingrowing nail | CPT/HCPCS: G0463 ==

== ENCOUNTER 2024-12-31 09:04 | Outpatient (OUT) | payer MEDICARE, OTHER, SELFPAY ==
--- OUTSIDE RECORDS SUMMARY | 2024-12-31 09:10 | XMS_ITS | CCD ---
Author Organization [facility] Care Team Providers Care Stock Controller Name Role Phone REGGIE CONNELLY Referring Unavailable REGGIE CONNELLY Primary Care Unavailable Graciela Angelo Attending Unavailable Graciela Angelo Admitting Unavailable Graciela Angelo APRN Attending Provider LUCIE HERNANDEZ Referring Unavailab LUCIE Huang Attending Unavailable Allergies Allergy Classification Reported Allergen(s) Allergy Type Date of Onset Reaction(s) Facility (1 source) Penicillins Drug allergy (disorder) 07-15-2024 [facility] Repository Medications Current Medications Medication Drug [...] 30, 2024 1:00am August 28, 2024 4:51pm Jidsxdfhjvit-Elee-Eoiiu Acid (Multi-Day With Iron) 18-400 mg-mcg Tablet (2 sources) Start: 06-29-2018 take 1 tablet by mouth once daily Rcjltcavbsdz-Yoop-Sthxf Acid (Multi-Day With Iron) 18-400 mg-mcg Tablet Active 1 TAB PO Daily June 29, 2018 1:00am Start: 06-29-2018 take 1 tablet by ronny th once daily Gwbnkidhhrwq-Ddub-Dgkyd Acid (Multi-Day With Iron) 18-400 mg-mcg Tablet [...] Basophils (Bld) [#/Vol] Automated basophil count 0.0-0.1 [facility] Basophils/100 WBC Auto (Bld) on 08-13-2024 Basophils/100 WBC (Bld) Automated basophil % 0.2-2.0 [facility] Cholesterol in LDL Calc [Mas s/Vol]on 08-13-2024 Cholesterol in LDL [Mass/Vol] Cholesterol in LDL [Mass/volume] in Serum or Plasma by calculation [facility] Comment on above: <100 mg/dl [id number] 0-129 mg/dl NEAR OR ABOVE [id number] mg/dl BORDERLINE UPTN192-678 mg/dl HIGH>190 mg/dl VERY HIGH Cholesterol in VLDL Calc [Ma ss/Vol]on 08-13-2024 Cholesterol in VLDL [Mass/Vol] Cholesterol in VLDL [Mass/volume] in Serum or Plasma by calculation [facility] Eosinophils/100 WBC Auto (Bl d)on 08-13-2024 Eosinophils/100 WBC (Bld) Automated eosinophil % 0.9-7.0 [facility] Erythrocyte distribution wid th Auto (RBC) [Ratio]on 08-13-2024 Erythrocyte distribution width (RBC) [Ratio] Erythrocyte distribution width [Ratio] by Automated count 11.0-15.0 [facility] Estimated glomerular filtrat ion rate (GFR) non- Americanon 08-13-2024 GFR/1.73 sq M.predicted among non-blacks MDRD (S/P/Bld) [Vol rate/Area] Estimated glomerular filtration rate (GFR) non- >=60 mL/min/1.73m 2 [facility] Globulin Calc (S) [Mass/Vol] on 08-13-2024 Globulin (S) [Mass/Vol] Serum globulin measurement by calculation (mass/volume) [facility] Hematocrit Auto (Bld) [Volum e fraction]on 08-13-2024 Hematocrit (Bld) [Volume fraction] Hematocrit [Volume Fraction] of Blood by Automated count 42.0-54.0 [facility] Hemoglobin [Mass/volume] in Bloodon 08-13-2024 Hemoglobin (Bld) [Mass/Vol] Hemoglobin [Mass/volume] in Blood 14.0-18.0 [facility] Laboratory - Chemistry and C hemistry - challengeon 08-13-2024 Albumin [Mass/Vol] 3.6 g/dL 3.4-5.0 [facility] ALP [Catalytic activity/Vol] 101 U/L 46-116 [facility] ALT [Catalytic activity/Vol] 47 U/L 16-63 [facility] AST [Catalytic activity/Vol] 21 U/L 15-37 [facility] Bilirubin [Mass/Vol] 0.7 mg/dL 0.2-1.0 [facility] Calcium [Mass/Vol] 9.3 mg/dL 8.5-10.1 [facility] Chloride [Moles/Vol] 102 mmol/L 98-107 [facility] Cholesterol [Mass/Vol] 195 mg/dL <=200 [facility] Cholesterol in HDL [Mass/Vol] 54 mg/dL 40-60 [facility] Comment on above: > or =60 mg/dl - LOW CARDIOVASCULAR RISK<40 mg/dl - HIGH CARDIOVASCULAR RISK CO2 [Moles/Vol] 28.9 mmol/L 21.0-32.0 [facility] Creatinine [Mass/Vol] 1.16 mg/dL 0.70-1.30 [facility] GFR/1.73 sq M.predicted MDRD (S/P/Bld) [Vol rate/Area] mL/min/{1.73_m2} >=60 mL/min/1.73m 2 [facility] Glucose [Mass/Vol] 160 mg/dL High 74-106 [facility] Potassium [Moles/Vol] 4.5 mmol/L 3.5-5.1 [facility] Protein [Mass/Vol] 7.1 g/dL 6.4-8.2 [facility] Sodium [Moles/Vol] 138 mmol/L 136-145 [facility] Triglyceride [Mass/Vol] 84 mg/dL <=150 [facility] Urea nitrogen [Mass/Vol] 23.0 mg/dL High 7.0-18.0 [facility] Urea nitrogen/Creatinine [Mass ratio] 19.8 mg/mg [facility] Laboratory - Hematology and Cell countson 08-13-2024 Immature granulocytes/100 WBC (Bld) 0.7 % High 0.0-0.5 [facility] Leukocytes [#/volume] correc chapo for nucleated erythrocytes in Blood by Automated counon 08-13-2024 WBC corrected for nucl RBC Auto (Bld) [#/Vol] Leukocytes [#/volume] corrected for nucleated erythrocytes in Blood by Automated coun 4.0-11.0 [facility] Lymphocytes Auto (Bld) [#/Vo l]on 08-13-2024 Lymphocytes (Bld) [#/Vol] Lymphocytes [#/volume] in Blood by Automated count 1.2-3.8 [facility] Lymphocytes/100 WBC Auto (Bl d)on 08-13-2024 Lymphocytes/100 WBC (Bld) Lymphocytes/100 leukocytes in Blood by Automated count Low 20.5-60.0 [facility] MCH Auto (RBC) [Entitic mass ]on 08-13-2024 MCH (RBC) [Entitic mass] MCH [Entitic mass] by Automated count 25.9-34.0 [facility] MCHC Auto (RBC) [Mass/Vol]on 08-13-2024 MCHC (RBC) [Mass/Vol] MCHC [Mass/volume] by Automated count 29.9-35.2 [facility] MCV Auto (RBC) [Entitic vol] on 08-13-2024 MCV (RBC) [Entitic vol] MCV [Entitic volume] by Automated count 80.0-94.0 [facility] Microalbumin [Mass/volume] i n Urineon 08-13-2024 Albumin DL <= 20 mg/L (U) [Mass/Vol] Microalbumin [Mass/volume] in Urine <=30.0 [facility] Monocytes Auto (Bld) [#/Vol] on 08-13-2024 Monocytes (Bld) [#/Vol] Automated blood monocyte count High 0.3-0.8 [facility] Monocytes/100 WBC Auto (Bld) on 08-13-2024 Monocytes/100 WBC (Bld) Automated monocyte % 1.7-12.0 [facility] Neutrophils Auto (Bld) [#/Vo l]on 08-13-2024 Neutrophils (Bld) [#/Vol] Neutrophils [#/volume] in Blood by Automated count High 1.4-6.5 [facility] Neutrophils/100 WBC Auto (Bl d)on 08-13-2024 Neutrophils/100 WBC (Bld) Automated neutrophil % 43.0-75.0 [facility] No Panel Informationon 08-13 Eosinophils # (Auto) 0.3 10 3/uL 0.0-0.7 [facility] Immature Granulocyte # (Auto) 0.07 10 3/uL High 0.00-0.03 [facility] Prostate Specific Antigen Screen 11.22 ng/mL High <=4.00 [facility] Urine Random Creatinine 173.94 mg/dL 20.00-300.00 [facility] Platelet mean volume Auto (B ld) [Entitic vol]on 08-13-2024 Platelet mean volume (Bld) [Entitic vol] Platelet mean volume [Entitic volume] in Blood by Automated count Low 9.5-13.5 [facility] Platelets Auto (Bld) [#/Vol] on 08-13-2024 Platelets (Bld) [#/Vol] Platelets [#/volume] in Blood by Automated count 150-450 [facility] RBC Auto (Bld) [#/Vol]on RBC (Bld) [#/Vol] Erythrocytes [#/volume] in Blood by Automated count 4.70-6.10 [facility] Serum or plasma albumin/glob ulin mass ratioon 08-13-2024 Albumin/Globulin [Mass ratio] Serum or plasma albumin/globulin mass ratio [facility] Serum or plasma anion gap de terminationon 08-13-2024 Anion gap [Moles/Vol] Serum or plasma an ion gap determination [facility] Serum or plasma total choles terol/high density lipoprotein (HDL) cholesterol mass emily 08-13-2024 Cholesterol.total/Cho lesterol in HDL [Mass ratio] Serum or plasma total cholesterol/high density lipoprotein (HDL) cholesterol mass rat [facility] Comment on above: 3.3 - 4.4 LOW RISK4. 4 - 7.1 AVERAGE RISK7.1 - 11.0 MODERATE RISK>11.0 HIGH RISK Urine microalbumin/creatinin e mass ratioon 08-13-2024 Albumin/Creatinine DL <= 20 mg/L (U) [Mass ratio] Urine microalbumin/creatini ne mass ratio High 0.0-29.9 [facility] Comment on above: NO MICROALBUMINURIA 0-29 MG/GCLINICAL MICROALBUMINURIA 30-300 MG/GMACROALBUMINURIA >300 MG/G HbA1c HPLC (Bld) [Mass fract ion]on 07-30-2024 HbA1c (Bld) [Mass fraction] Hemoglobin A1c/Hemoglobin.total in Blood by HPLC [facility] Bacteria identified Aer cx N om (Unsp spec)Ordered By: Graciela Angelo on 07-15-2024 Group B Strep (Streptococcus agalactiae) Group B Strep (Streptococcus agalactiae) Abnormal [facility] Superficial Wound Culture Abnormal [facility] Superficial Wound Cultureon 07-15-2024 Superficial Wound Culture ORGANISM: Strep agalactiae - (group b) (O:STRAGA) Quantity of Growth Heavy Growth PERFORMED BY: [facility] [address] [place] [address] PATHOLOGIST CARE REP JERMAINE LICONA M.D. Normal [facility] Comment on above: Performed By: #### C USUP #### [facility] [address] [place] [address] [facility] RATZ-UsS-2ml 08-11-2021 SARS-CoV-2 (COVID-19) RNA LAURA+probe Ql (Unsp spec) Not detected Normal [facility] Comment on above: Result Comment: Rapid NAAT: [...] management decisions. Fact sheet for Healthcare Providers: https://www.fda.gov/media/031751/download Fact sheet for Patients: https://www.fda.gov/media/861520/download Methodology: Isothermal Nucleic Acid Amplification Performed By: #### C OVRB #### [facility] [address] [place] [address] Nanny Caregiver: Singh Mccollum MD Vital Signs Date Time Vital Sign Value Performing Clinician Padmaja corbin 11-04-2024 09:00-0400 Body weight 149.68 kg [facility] 10-01-2024 09:49-0500 Body height 170.18 cm Graciela Angelo APRN Work Phone: [facility] 10-01-2024 09:49-0500 Body mass index (BMI) [Ratio] 51 kg/m2 Gracielafrank Angelo APRN Work Phone: [facility] 10-01-2024 09:49-0500 Body temperature 95.3 [degF] Graciela Angelo APRN Work Phone: [facility] 10-01-2024 09:49-0500 Body weight 147.87 kg Gracielafarnk Angelo APRN Work Phone: [facility] 10-01-2024 09:49-0500 Diastolic blood pressure 82 mm[Hg] Gracielafrank Angelo APRN Work Phone: [facility] 10-01-2024 09:49-0500 Heart rate 92 /min Gracielafrank Angelo APRN Work Phone: [facility] 10-01-2024 09:49-0500 SaO2% (BldA) [Mass fraction] 98 % Gracielafrank Angelo APRN Work Phone: [facility] 10-01-2024 09:49-0500 Systolic blood pressure 144 mm[Hg] Gracielafrank Angelo APRN Work Phone: [facility] 07-30-2024 09:01-0500 Body height 170.18 cm Gracielafrank Angelo APRN Work Phone: [facility] 07-30-2024 09:01-0500 Body mass index (BMI) [Ratio] 53.1 kg/m2 Gracielafrank Angelo APRN Work Phone: [facility] 07-30-2024 09:01-0500 Body temperature 96.7 [degF] Graciela Angelo APRN Work Phone: [facility] 07-30-2024 09:01-0500 Body weight 153.76 kg Graciela Angelo APRN Work Phone: [facility] 07-30-2024 09:01-0500 Diastolic blood pressure 98 mm[Hg] Graciela Angelo [employer]ONAUTICS COMMISSION DIRECTOR Work Phone: [facility] 07-30-2024 09:01-0500 Heart rate 101 /min Graciela Angelo [employer] DIRECTOR Work Phone: [facility] 07-30-2024 09:01-0500 SaO2% (BldA) [Mass fraction] 94 % Graciela De La Rosaley [employer] DIRECTOR Work Phone: [facility] 07-30-2024 09:01-0500 Systolic blood pressure 164 mm[Hg] Graciela Angelo [employer] DIRECTOR Work Phone: [facility] 07-15-2024 19:22-0500 Diastolic blood pressure 90 mm[Hg] Graciela Angelo [employer] DIRECTOR Work Phone: [facility] 07-15-2024 19:22-0500 Systolic blood pressure 160 mm[Hg] Graciela Angelo [employer] COMM[employer] DIRECTOR Work Phone: [facility] 07-15-2024 18:33-0500 Body height 170.18 cm Graciela Angelo [employer] COMMISSION DIRECTOR Work Phone: [facility] 07-15-2024 18:33-0500 Body mass index (BMI) [Ratio] 53.1 kg/m2 Graciela Angelo [employer] COMMISS[employer] DIRECTOR Work Phone: [facility] 07-15-2024 18:33-0500 Body weight 153.76 kg Graciela Angelo [employer] COMMISSION DIRECTOR Work Phone: [facility] 07-15-2024 18:33-0500 Heart rate 88 /min Graciela Angelo [employer] DIRECTOR Work Phone: [facility] 07-15-2024 18:33-0500 SaO2% (BldA) [Mass fraction] 98 % Graciela De La Rosaley [employer] DIRECTOR Work Phone: [facility] Encounters Encounter Date Encounter Type Care Provider Facility Start: 01-09-2025 ambulatory LUCIE Wright acility:[facility] [place] Start: 11-04-2024 End: 11-04-2024 ambulatory [facility] Work Phone: Start: 11-04-2024 End: 11-04-2024 Patient encounter procedure [facility] Work Phone: Start: 10-01-2024 End: 10-01-2024 ambulatory Graciela Angelo [employer] DIRECTOR Work Phone: [facility] Work Phone: Start: 10-01-2024 End: 10-01-2024 Patient encounter procedure Graciela Angelo [employer] DIRECTOR Work Phone: [facility] Work Phone: Start: 08-19-2024 ambulatory LUCIE Goldberg ility:[facility] [place] Start: 08-13-2024 Non-patient / Non-visit Graciela Angelo APRN Work Phone: [facility] Physician [facility] Work Phone: Start: 07-30-2024 End: 07-30-2024 Patient encounter procedure Graciela Angelo APRN Work Phone: [facility] Work Phone: Start: 07-15-2024 End: 07-15-2024 ambulatory Graciela Angelo Facility:[facility] Start: 07-15-2024 End: 07-15-2024 Departed Referred Graciela Angelo APRN Work Phone: [facility] [place] Work Phone: Start: 07-15-2024 End: 07-15-2024 Patient encounter procedure Graciela Angelo APRN Work Phone: [facility] Phys[facility] Work Phone: Start: 08-11-2021 End: 08-12-2021 ambulatory REGGIE [facility] al Procedures Date Procedure Procedure Detail Performing Clinician Start: 07-15-2024 Aerobic microbial culture Graciela Angelo TIERNEY Work Phone: Plan of Treatment Date Care Activity Detail Author Start: 10-01-2024 Patient referral [facility] Work Phone: Comprehensive metabo lic 2000 panel - Serum or Plasma [facility] Patient referral [facility] Work Phone: [facility] Payers Date Payer Category Payer Self-pay 2021 Private Health Insurance [facility] [id number] 2021 Medicare [id number] 1955 Unknown [id number] 1955 Unknown [id number] Unknown [id number] Social History Date Type Detail Facility Start: 07-30-2024 End: 07-30-2024 Tobacco smoking status NHIS Ex-smoker (finding) [facility] Start: 10-01-2024 End: 11-04-2024 Sex Male (finding) [facility] Start: 1955 Sex Assigned At Male F [facility] Medical Equipment Procedure Code Equipment Code [...] mellitus acute October 01, 2 025 9:43am [facility] Work Phone: Evaluation note 07-15-2024 Note [...] 2 diabetes mellitus acute October 01 9:43am [facility] Work Phone: Hospital Discharge instructions Note Date & Type Note Facility Hospital Discharge instructions Ambulatory OrdersReferral to Orthopedic Surgery Time Frame: 10/01/24, Location: None Selected [facility] Work Phone: Summary Purpose Family History No [...] Group DATE CREATED AUTHOR AUTHOR'S ORGANIZ ATION 12/10/2024 [facility] Care Teams (unrecognized sec tion and content) Team Status: Active Member Role Status Dates Lucie Hernandez APRN MARINE DRAFTER-C Primary Care Provider Active Team Status: Inactive [...] Member Role Status Dates Lucie Hernandez APRN MARINE DRAFTER-C Primary Care Provider, Attending Provider Active Start: [...] ON THE PRIMARY CLINICAL RECORDS. [facility] U-NOTE [facility]. provides no warranty or guarantee of the accuracy or completeness of information in this document.
== END 2024-12-31 09:05 | disposition home or self-care (01) ==
LOC: WC 09:05
PROVIDERS: PCP Nurse Practitioner Family; Visit Provider Physician Assistant
DX: I87.312 Chronic venous hypertension (idiopathic) with ulcer of left lower extremity (principal); L97.821 Non-pressure chronic ulcer of other part of left lower leg limited to breakdown of skin
CPT/HCPCS: G0463

== ENCOUNTER 2025-01-15 08:53 | Outpatient (OUT) | payer MEDICARE, OTHER, SELFPAY ==
--- OUTSIDE RECORDS SUMMARY | 2024-11-04 06:30 | XMS_ITS ---
Author Organization [facility] Address [address] [place] [address] Care Team Providers Care Director Of Publications Name Role Phone Prakash Redman Unavailable [phone] Alfreda Rosales Unavailable [phone] Allergies Allergen (clinical drug ingredient) Drug/Non Drug Allergy documented on EMR Reaction Allergy Type Onset Date Status PENICILLIN (uncoded) Unknown Allergy Active REASON FOR VISIT B/L KNEE PAIN Medications Medication SIG (Take, Route, Frequency, Duration) Notes Start Date End Date Status losartan Active Social History Tobacco Use: Social History Observation Description Date Details (start date - stop date) Never Smoker NA - NA AUDIT-C (Standard) Question Answer Notes Did you have a drink containing alcohol in the p ast year? No Points 0 Interpretation Negative Tobacco Control (Standard) Question Answer Notes Tobacco use: Nonsmoker Problems Problem Type SNOMED Code ICD Code Onset Dates Problem Status W/U Status Risk Notes Problem [id number] Bilateral primar y osteoarthritis of knee (M17.0) Active confirmed Vital Signs Height 67 in 11/04/2024 Weight 336 lbs 11/04/2024 BMI 52.62 11/04/2024 Encounters Encounter Location Date Provider Diagnosis [facility] Office [address] [place] [address] [address] [place] [address] 11/04/2024 Alfreda Rosales Pain in right knee M25.561 ; Bilateral primary osteoarthritis of knee M17.0 and Pain in left knee M25.562 Assessments Encounter Date Diagnosis (ICD Code) Assessment Notes Treatment Notes Treatment Clinical Notes Section Notes 11/04/2024 Pain in right knee (ICD-10 - M25.561) 11/04/2024 Bilateral primary osteoarthritis of knee (ICD-10 - M17.0) 11/04/2024 Pain in left knee (ICD-10 - M25.562) 11/04/2024 Other Today I reviewe d patient's x-rays with him and discussed conservative treatment options. At this time patient would like to continue with OTC NSAIDs and try some Voltaren gel. We did discuss corticosteroid injections and viscosupplementation if needed in the future. He will call back to schedule on a as needed basis. Plan Of Treatment Treatment Notes Assessment Notes Other Today I reviewed demarcus carrasco's x-rays with him and discussed conservative treatment options. At this time patient would like to continue with OTC NSAIDs and try some Voltaren gel. We did discuss corticosteroid injections and viscosupplementation if needed in the future. He will call back to schedule on a as needed basis. Pending Test Test Name Order Date SCC- KNEE 4 VIEW LEFT-[id number] 11/04/2024 SCC- KNEE 4 VIEW RIGHT [id number] 11/04/2024 Next Appt Details Follow Up: prn, Reason: Progress Notes * JOSHUA KIMBALL EDOB:1954 (69 yo M)Acc No.[id number]:11/04/2024 Patient: JOSHUA WHITE Provider: SASHA Mendez :1955 A ge:69 Y S ex:Male Date:11/04/2024 Address:[address] [place] [address] [address], [facility] Subjective: * Chief Complaints: * B /L KNEE PAIN * HPI: G eneral Follow Up Information: Patient is a 61-year-old male who presents with 2 years of progressively worsening knee pain. He states that the last 6 months have been worse, right knee greater than left. 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 He has been taking Motrin as he does have some wounds on his legs, but has taken Aleve that does work better for his knee pain. * Medical History: * Surgical History: * Social History: A MARGY-C (Standard) D id you have a drink containing alcohol in the past year? N o,?Points 0 , I nterpretation N egative. T obacco Control (Standard) T obacco use: N onsmoker. * Medications: T akinglosartan Medication List reviewed and reconciled with the patientTaking losartan Medication List reviewed and reconciled with the patient * Allergies: P ENICILLINno[Allergies Verified] Objective: * Vitals: H t: 67 in, Wt: 336 lbs, BMI:52.62. * Examination: G eneral examination: O n exam patient is in no distress, age-appropriate, alert and oriented x 3. On inspection skin is intact, no joint effusion, no erythema, no warmth to touch. Knee ROM 0-110 bilaterally. Bilateral knees are nontender with palpation. Anterior/posterior stress of the knee is stable and nonpainful. Varus/valgus stress to the knee is stable and nonpainful. Patient ambulates with antalgic gait and is utilizing a cane. X -ray Imaging Studies: 4 view x-rays of the bilateral knees weightbearing AP/lateral/skiers/sunrise were taken in office today and reviewed interpreted by myself as negative for apparent fracture or dislocation. There is medial joint space loss bilaterally and is rlxj-of-pdej. There are multiple periarticular osteophytes bilaterally. There is some joint space narrowing of the patellofemoral joints secondary to osteophytes. Assessment: * Assessment: 1. B ilateral primary osteoarthritis of knee - M17.0 (Primary) 2 . P ain in right knee - M25.561 3 . P ain in left knee - M25.562 Plan: * Treatment: 2. P ain in left knee I maging: SCC- KNEE 4 VIEW LEFT-23566 3. O thers Notes: Today I reviewed patient's x-rays with him and discussed conservative treatment options. At this time patient would like to continue with OTC NSAIDs and try some Voltaren gel. We did discuss corticosteroid injections and viscosupplementation if needed in the future. He will call back to schedule on a as needed basis. * Procedure Codes: * Preventive Medicine: MIPS Measures: C MS139 Fall Risk S creening: N o falls in the past year.? * Follow Up: p rn Forms: * Images: * Sign off status: Completed true * Provider: SASHA Mendez Date: 0 11/04/2024 Generated for Printi ng/Artie/Grgeoryitting on: 0 01/15/2025 08:55 AM EDT History and Physical Notes * HPI (History of Present Illness) Category Sub-Category Detail Notes Category Not es General Follow Up Information Patient is a 61-year -old male who presents with 2 years of progressively worsening knee pain. He states that the last 6 months have been worse, right knee greater than left. 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 He has been taking Motrin as he does have some wounds on his legs, but has taken Aleve that does work better for his knee pain. Examination Category Sub-Category Detail Notes Category Not es General examination On exam patient is in no distress, age-appropriate, alert and oriented x 3. On inspection skin is intact, no joint effusion, no erythema, no warmth to touch. Knee ROM 0-110 bilaterally. Bilateral knees are nontender with palpation. Anterior/posterior stress of the knee is stable and nonpainful. Varus/valgus stress to the knee is stable and nonpainful. Patient ambulates with antalgic gait and is utilizing a cane. X-ray Imaging Studies 4 view x-rays of the bilateral knees weightbearing AP/lateral/skiers/sunrise were taken in office today and reviewed interpreted by myself as negative for apparent fracture or dislocation. There is medial joint space loss bilaterally and is dilz-qz-fidi. There are multiple periarticular osteophytes bilaterally. There is some joint space narrowing of the patellofemoral joints secondary to osteophytes.
--- OUTSIDE RECORDS SUMMARY | 2025-01-15 08:55 | XMS_ITS | Patient Health Record ---
Author Organization [facility] Address [address] [place] [address] Care Team Providers Care Per Diem Rn Name Role Phone Prakash Redman Unavailable [phone] Alfreda Rosales Unavailable [phone] Allergies Allergen (clinical drug ingredient) Drug/Non Drug Allergy documented on EMR Reaction Allergy Type Onset Date Status PENICILLIN (uncoded) Unknown Allergy Active Reason For Referral No Information Medications Medication SIG (Take, Route, Frequency, Duration) [...] Problem Status W/U Status Risk Notes Problem [id number] Bilateral primar y osteoarthritis of knee (M17.0) Active confirmed Vital Signs Height 67 in 11/04/2024 Weight 336 lbs 11/04/2024 BMI 52.62 11/04/2024 Encounters Encounter Location Date Provider Diagnosis [facility] Office [address] [place] [address] [address] [place] [address] 11/04/2024 Alfreda Rosales Pain in right knee [...] a as needed basis. Plan Of Treatment Pending Test Test Name Order Date SCC- KNEE 4 VIEW [id number] 11/04/2024 SCC- KNEE 4 VIEW RIGHT [id number] 11/04/2024 Insurance Providers Payer Name Payer Address Payer Phone Subscriber Number Group Number Insured Name Patient Relationship to Insured Coverage Start Date Coverage End Date Medicare [address] [phone] [id number] JOSHUA KIMBALL Self - patient is the insured 5 [employer] Senior Supplemental Insurance [address] [address] [place] [address] [id number] JOSHUA KIMBALL Self - patient is the insured 5
--- OUTSIDE RECORDS SUMMARY | 2025-01-15 08:55 | XMS_ITS | Clinical Summary ---
Author Organization [facility] Address [address] [place] [address] Care Team Providers Care Private Inquiry Agent Name Role Phone Unavailable Primary Care Provider Unavailabl e Social History Tobacco Use Types Packs/Day Years Used Date Smoking Tobacco: Never Assessed Sex and Gender Information Value Date Recorded Sex Assigned at Not on file Legal Sex Male 8:26 PM EDT Gender Identity Not on file Sexual Orientation Not on file Last Filed Vital Signs Vital Sign Reading Time Taken Comments Blood Pressure 130/70 07/02/2019 12:00 PM EST Pulse - - Temperature - - Respiratory Rate - - Oxygen Saturation - - Inhaled Oxygen Concentration - - Weight 140 kg (309 lb) 07/02/2019 12:00 PM EST Height 170.2 cm (5' 7 ) 07/02/2019 12:00 PM EST Body Mass Index 48.4 07/02/2019 12:00 PM EST Plan of Treatment Not on file
--- OUTSIDE RECORDS SUMMARY | 2025-01-15 08:56 | XMS_ITS | Clinical Summary ---
Author Organization [facility] Address [address] [place] [address] Care Team Providers Care Wood Floor Refinisher Name Role Phone Robin Perry DNP Primary Care Provider [phone] Allergies Active Allergy Reactions Criticality Noted Date Comments Penicillins Hives 06/02/2011 Medications Elastic Bandages & Supports (MEDICAL COMPRESSION STOCKINGS) MISC 1 each by Does not apply route daily 20-30momHg Compression 1 each 8 Active GLUCOSAMINE-BERNADETTE DROITIN PO Take 1,000 mg by mouth daily Active Multiple Vitamins-Mineral s (MULTIVITAMIN MEN 50+ PO) Take by mouth daily Active TURMERIC PO Take by mouth daily Active lisinopril (PRINIVIL;ZESTRI L) 20 MG tablet Take 1 tablet by mouth daily 30 tablet 2 0 Active Additional Information Patient not taking.Reported on 08/11/2021 hydrochlorothiaz tereza (HYDRODIURIL) 12.5 MG tablet Take 1 tablet by mouth daily 30 tablet 2 0 Active Additional Information Patient not taking.Reported on 08/11/2021 pravastatin (PRAVACHOL) 40 MG tablet Take 1 tablet by mouth daily 90 tablet 1 0 Active Additional Information Patient not taking.Reported on 08/11/2021 azithromycin (ZITHROMAX) 500 MG tablet TAKE 1 TABLET BY MOUTH EVERYDAY FOR 5 DAYS 1 Active Active Problems Problem Noted Date Diagnosed Date History of colon polyps 04/03/2017 Family history of colon cancer 04/03/2017 Metabolic syndrome 01/07/2016 Dyslipidemia 01/07/2016 Elevated PSA 01/07/2016 Essential hypertension, benign 06/02/2011 Pure hypercholesterolemia 06/02/2011 Impaired fasting glucose 06/02/2011 Resolved Problems Problem Noted Date Diagnosed Date Resolved Date Encounter for screening colonoscopy 04/03/2017 05/09/2018 Immunizations Immunization Administration Dates Next Due Influenza Vaccine, unspecified formulation 05/30 Influenza, FLUARIX, FLULAVAL , FLUZONE (age 6 mo+) and AFLURIA, (age 3 y+), Quadv PF, 0.5mL 06/12/2018 Family History Medical History Relation Name Comments Cancer Mother Rectal Cancer Relation Name Status Comments Father Maternal Grandfather Maternal Grandmother Mother Paternal Grandfather Paternal Grandmother Sister 1 Alive Sister 2 Alive Son Alive Social History Tobacco Use Types Packs/Day Years Used Date Smoking Tobacco: Never Smokeless Tobacco: Former Alcohol Use Standard Drinks/Week Comments Yes 2 (1 standard drink = 0.6 oz pur e alcohol) Overall Financial Resource Strain (CARDIA) Answe r Date Recorded How hard is it for you to pa y for the very basics like food, housing, medical care, and heating? Not hard at all 08/11/2021 PHQ-2 Answer Date Recorded PHQ-2 Score 0 10/23/2019 Hunger Vital Sign Answer Date Recorded Within the past 12 months, y ou worried that your food would run out before you got the money to buy more. Never true 08/11/20 21 Within the past 12 months, t he food you bought just didn't last and you didn't have money to get more. Never true 08/11/2021 PRAPARE - Transportation Answer Date Re corded Lack of Transportation (Medical) No 10/23/2019 Lack of Transportation (Non-Medical) No 10/23/2019 Sex and Gender Information Value Date Recorded Sex Assigned at Not on file Legal Sex Male 2:52 PM EST Gender Identity Not on file Sexual Orientation Not on file Last Filed Vital Signs Vital Sign Reading Time Taken Comments Blood Pressure 136/82 10/23/2019 8:16 AM EDT Pulse 78 10/23/2019 8:16 AM EDT Temperature 36.9 C (98.5 F) 10/23/2019 8:16 AM EDT Respiratory Rate 20 04/11/2017 4:56 PM EDT Oxygen Saturation 96% 10/23/2019 8:16 AM EDT Inhaled Oxygen Concentration - - Weight 152.9 kg (337 lb) 10/23/2019 8:16 AM EDT Height 170.2 cm (5' 7 ) 10/23/2019 8:16 AM EDT Body Mass Index 52.78 10/23/2019 8:16 AM EDT Plan of Treatment Not on file Insurance MEDICARE Member Subscriber Plan / Payer ( fective 2021-Present) Name:Cesar Clarke Relation to Subscriber:Self Name:Vince Cesar Ottoniel Payer ID:Not on file Group ID:Not on file Type:Not on file Address: [address] Advance Directives * Full Code (Latest Code Status on File) Date Activated Date Inactivated Comments 04/03/2017 11:52 AM 04/03/2017 3:03 PM * Full Code Date Activated Date Inactivated Comments 04/03/2017 9:08 AM 04/03/2017 11:52 AM Care Teams Wood Floor Refinisher Relationship Specialty Start Date End Date Robin Perry DNP [address] [place] [phone] PCP - General Family Nurse Practitioner 01/02/18
== END 2025-01-15 08:54 | disposition home or self-care (01) ==
LOC: WC 08:53
PROVIDERS: PCP Nurse Practitioner Family; Visit Provider Physician Assistant
DX: I87.312 Chronic venous hypertension (idiopathic) with ulcer of left lower extremity (principal); L97.821 Non-pressure chronic ulcer of other part of left lower leg limited to breakdown of skin
CPT/HCPCS: G0463

== ENCOUNTER 2025-02-04 07:00 | Outpatient (RCR) | payer MEDICARE, OTHER, SELFPAY | END 2025-02-05 07:37 | disposition home or self-care (01) | LOC: OT 07:00 | PROVIDERS: PCP Nurse Practitioner Family; Visit Provider Physician Assistant | DX: I89.0 Lymphedema, not elsewhere classified (principal); L97.821 Non-pressure chronic ulcer of other part of left lower leg limited to breakdown of skin | CPT/HCPCS: 97167; 97535 ==

== ENCOUNTER 2025-02-04 08:52 | Outpatient (OUT) | payer MEDICARE, OTHER, SELFPAY ==
--- OUTSIDE RECORDS SUMMARY | 2025-02-04 08:55 | XMS_ITS | Clinical Summary ---
Author Organization [facility] Address [address] [place] [address] Care Team Providers Care Mold Parter Name Role Phone Robin Perry DNP Primary Care Provider [phone] Allergies Active Allergy Reactions Criticality Noted Date [...] ID:Not on file Type:Not on file Address: [address] Advance Directives * Full Code (Latest Code Status on File) Date Activated Date Inactivated Comments 04/03/2017 11:52 AM 04/03/2017 3:03 PM * Full Code Date Activated Date Inactivated Comments 04/03/2017 9:08 AM 04/03/2017 11:52 AM Care Teams Mold Parter Relationship Specialty Start Date End Date Robin Perry DNP [address] [place] [phone] PCP - General Family Nurse Practitioner 01/02/18
--- OUTSIDE RECORDS SUMMARY | 2025-02-04 09:12 | XMS_ITS | CCD ---
Author Organization [facility] Care Team Providers Care Ged Instructor Name Role Phone REGGIE CONNELLY Referring Unavailable REGGIE CONNELLY Primary Care Unavailable Graciela Angelo Attending Unavailable Graciela Angelo Admitting Unavailable Graciela Angelo APRN Attending Provider [phone] LUCIE HERNANDEZ Referring Unavailab ARIANE Huang Attending Unavailab le Allergies Allergy Classification Reported Allergen(s) Allergy Type Date of Onset Reaction(s) Facility (1 source) Penicillins Drug allergy (disorder) 07-15-2024 [facility] Repository Medications Current Medications Medication Drug [...] mg tablet Discontinued 50 MG PO Daily 30 July 30, 2024 1:00am August 28, 2024 4:51pm Fvflrouygpbo-Csmh-Qktyv Acid (Multi-Day With Iron) 18-400 mg-mcg Tablet (2 sources) Start: 06-29-2018 take 1 tablet by mouth once daily Jkhczcscpupu-Cevi-Wmiol Acid (Multi-Day With Iron) 18-400 mg-mcg Tablet Active 1 TAB PO Daily June 29, 2018 1:00am Start: 06-29-2018 take 1 tablet by ronny once daily Ontukzflcqdc-Iwvi-Zirfb Acid (Multi-Day With Iron) 18-400 mg-mcg Tablet [...] Basophils (Bld) [#/Vol] Automated basophil count 0.0-0.1 [facility] Basophils/100 WBC Auto (Bld) on 08-13-2024 Basophils/100 WBC (Bld) Automated basophil % 0.2-2.0 [facility] Cholesterol in LDL Calc [Mas s/Vol]on 08-13-2024 Cholesterol in LDL [Mass/Vol] Cholesterol in LDL [Mass/volume] in Serum or Plasma by calculation [facility] Comment on above: <100 mg/dl [id number] 0-129 mg/dl NEAR OR ABOVE [id number] mg/dl BORDERLINE HBPR082-606 mg/dl HIGH>190 mg/dl VERY HIGH Cholesterol in VLDL Calc [Ma ss/Vol]on 08-13-2024 Cholesterol in VLDL [Mass/Vol] Cholesterol in VLDL [Mass/volume] in Serum or Plasma by calculation [facility] Eosinophils/100 WBC Auto (Bl d)on 08-13-2024 Eosinophils/100 WBC (Bld) Automated eosinophil % 0.9-7.0 [facility] Erythrocyte distribution wid th Auto (RBC) [Ratio]on 08-13-2024 Erythrocyte distribution width (RBC) [Ratio] Erythrocyte distribution width [Ratio] by Automated count 11.0-15.0 [facility] Estimated glomerular filtrat ion rate (GFR) non- Americanon 08-13-2024 GFR/1.73 sq M.predicted among non-blacks MDRD (S/P/Bld) [Vol rate/Area] Estimated glomerular filtration rate (GFR) non- >=60 mL/min/1.73m 2 [facility] Globulin Calc (S) [Mass/Vol] on 08-13-2024 Globulin (S) [Mass/Vol] Serum globulin measurement by calculation (mass/volume) [facility] Hematocrit Auto (Bld) [Volum e fraction]on 08-13-2024 Hematocrit (Bld) [Volume fraction] Hematocrit [Volume Fraction] of Blood by Automated count 42.0-54.0 [facility] Hemoglobin [Mass/volume] in Bloodon 08-13-2024 Hemoglobin (Bld) [Mass/Vol] Hemoglobin [Mass/volume] in Blood 14.0-18.0 [facility] Laboratory - Chemistry and C hemistry - challengeon 08-13-2024 Albumin [Mass/Vol] 3.6 g/dL 3.4-5.0 [facility] ALP [Catalytic activity/Vol] 101 U/L 46-116 [facility] ALT [Catalytic activity/Vol] 47 U/L 16-63 [facility] AST [Catalytic activity/Vol] 21 U/L 15-37 [facility] Bilirubin [Mass/Vol] 0.7 mg/dL 0.2-1.0 [facility] Calcium [Mass/Vol] 9.3 mg/dL 8.5-10.1 [facility] Chloride [Moles/Vol] 102 mmol/L 98-107 [facility] Cholesterol [Mass/Vol] 195 mg/dL <=200 [facility] Cholesterol in HDL [Mass/Vol] 54 mg/dL 40-60 [facility] Comment on above: > or =60 mg/dl - LOW CARDIOVASCULAR RISK<40 mg/dl - HIGH CARDIOVASCULAR RISK CO2 [Moles/Vol] 28.9 mmol/L 21.0-32.0 [facility] Creatinine [Mass/Vol] 1.16 mg/dL 0.70-1.30 [facility] GFR/1.73 sq M.predicted MDRD (S/P/Bld) [Vol rate/Area] mL/min/{1.73_m2} >=60 mL/min/1.73m 2 [facility] Glucose [Mass/Vol] 160 mg/dL High 74-106 [facility] Potassium [Moles/Vol] 4.5 mmol/L 3.5-5.1 [facility] Protein [Mass/Vol] 7.1 g/dL 6.4-8.2 [facility] Sodium [Moles/Vol] 138 mmol/L 136-145 [facility] Triglyceride [Mass/Vol] 84 mg/dL <=150 [facility] Urea nitrogen [Mass/Vol] 23.0 mg/dL High 7.0-18.0 [facility] Urea nitrogen/Creatinine [Mass ratio] 19.8 mg/mg [facility] Laboratory - Hematology and Cell countson 08-13-2024 Immature granulocytes/100 WBC (Bld) 0.7 % High 0.0-0.5 [facility] Leukocytes [#/volume] correc chapo for nucleated erythrocytes in Blood by Automated counon 08-13-2024 WBC corrected for nucl RBC Auto (Bld) [#/Vol] Leukocytes [#/volume] corrected for nucleated erythrocytes in Blood by Automated coun 4.0-11.0 [facility] Lymphocytes Auto (Bld) [#/Vo l]on 08-13-2024 Lymphocytes (Bld) [#/Vol] Lymphocytes [#/volume] in Blood by Automated count 1.2-3.8 [facility] Lymphocytes/100 WBC Auto (Bl d)on 08-13-2024 Lymphocytes/100 WBC (Bld) Lymphocytes/100 leukocytes in Blood by Automated count Low 20.5-60.0 [facility] MCH Auto (RBC) [Entitic mass ]on 08-13-2024 MCH (RBC) [Entitic mass] MCH [Entitic mass] by Automated count 25.9-34.0 [facility] MCHC Auto (RBC) [Mass/Vol]on 08-13-2024 MCHC (RBC) [Mass/Vol] MCHC [Mass/volume] by Automated count 29.9-35.2 [facility] MCV Auto (RBC) [Entitic vol] on 08-13-2024 MCV (RBC) [Entitic vol] MCV [Entitic volume] by Automated count 80.0-94.0 [facility] Microalbumin [Mass/volume] i n Urineon 08-13-2024 Albumin DL <= 20 mg/L (U) [Mass/Vol] Microalbumin [Mass/volume] in Urine <=30.0 [facility] Monocytes Auto (Bld) [#/Vol] on 08-13-2024 Monocytes (Bld) [#/Vol] Automated blood monocyte count High 0.3-0.8 [facility] Monocytes/100 WBC Auto (Bld) on 08-13-2024 Monocytes/100 WBC (Bld) Automated monocyte % 1.7-12.0 [facility] Neutrophils Auto (Bld) [#/Vo l]on 08-13-2024 Neutrophils (Bld) [#/Vol] Neutrophils [#/volume] in Blood by Automated count High 1.4-6.5 [facility] Neutrophils/100 WBC Auto (Bl d)on 08-13-2024 Neutrophils/100 WBC (Bld) Automated neutrophil % 43.0-75.0 [facility] No Panel Informationon 08-13 Eosinophils # (Auto) 0.3 10 3/uL 0.0-0.7 [facility] Immature Granulocyte # (Auto) 0.07 10 3/uL High 0.00-0.03 [facility] Prostate Specific Antigen Screen 11.22 ng/mL High <=4.00 [facility] Urine Random Creatinine 173.94 mg/dL 20.00-300.00 [facility] Platelet mean volume Auto (B ld) [Entitic vol]on 08-13-2024 Platelet mean volume (Bld) [Entitic vol] Platelet mean volume [Entitic volume] in Blood by Automated count Low 9.5-13.5 [facility] Platelets Auto (Bld) [#/Vol] on 08-13-2024 Platelets (Bld) [#/Vol] Platelets [#/volume] in Blood by Automated count 150-450 [facility] RBC Auto (Bld) [#/Vol]on RBC (Bld) [#/Vol] Erythrocytes [#/volume] in Blood by Automated count 4.70-6.10 [facility] Serum or plasma albumin/glob ulin mass ratioon 08-13-2024 Albumin/Globulin [Mass ratio] Serum or plasma albumin/globulin mass ratio [facility] Serum or plasma anion gap de terminationon 08-13-2024 Anion gap [Moles/Vol] Serum or plasma an ion gap determination [facility] Serum or plasma total choles terol/high density lipoprotein (HDL) cholesterol mass emily 08-13-2024 Cholesterol.total/Cho lesterol in HDL [Mass ratio] Serum or plasma total cholesterol/high density lipoprotein (HDL) cholesterol mass rat [facility] Comment on above: 3.3 - 4.4 LOW RISK4. 4 - 7.1 AVERAGE RISK7.1 - 11.0 MODERATE RISK>11.0 HIGH RISK Urine microalbumin/creatinin e mass ratioon 08-13-2024 Albumin/Creatinine DL <= 20 mg/L (U) [Mass ratio] Urine microalbumin/creatini ne mass ratio High 0.0-29.9 [facility] Comment on above: NO MICROALBUMINURIA 0-29 MG/GCLINICAL MICROALBUMINURIA 30-300 MG/GMACROALBUMINURIA >300 MG/G HbA1c HPLC (d) [Mass fract ion]on 07-30-2024 HbA1c (d) [Mass fraction] Hemoglobin A1c/Hemoglobin.total in Blood by HPLC [facility] Bacteria identified Aer cx N om (Unsp spec)Ordered By: Graciela Angelo on 07-15-2024 Group B Strep (Streptococcus agalactiae) Group B Strep (Streptococcus agalactiae) Abnormal [facility] Superficial Wound Culture Abnormal [facility] Superficial Wound Cultureon 07-15-2024 Superficial Wound Culture ORGANISM: Strep agalactiae - (group b) (O:STRAGA) Quantity of Growth Heavy Growth PERFORMED BY: [facility] [address] [place] [address] PATHOLOGIST PERSONNEL DIRECTOR JERMAINE LICONA M.D. Normal [facility] Comment on above: Performed By: #### C USUP #### [facility] [address] [place] [address] [facility] [id number] 08-11-2021 SARS-CoV-2 (COVID-19) RNA LAURA+probe Ql (Unsp spec) Not detected Normal [facility] Comment on above: Result Comment: Rapid [...] management decisions. Fact sheet for Healthcare Providers: https://www.fda.gov/media/913267/download Fact sheet for Patients: https://www.fda.gov/media/176357/download Methodology: Isothermal Nucleic Acid Amplification Performed By: #### C OVRB #### [facility] [address] [place] [address] Supervisor Contact Lens: Singh Mccollum MD Vital Signs Date Time Vital Sign Value Performing Clinician Padmaja corbin 11-04-2024 09:00-0400 Body weight 149.[address] [facility] 10-01-2024 09:49-0500 Body height 170.18 cm Graciela Angelo APRN Work Phone: [facility] 10-01-2024 09:49-0500 Body mass index (BMI) [Ratio] 51 kg/m2 Graciela Gi MONET Work Phone: [facility] 10-01-2024 09:49-0500 Body temperature 95.3 [degF] Gracielafrank Angelo APRN Work Phone: [facility] 10-01-2024 09:49-0500 Body weight 147.87 kg Graciela Gi TELETYPE INSTALLER Work Phone: [facility] 10-01-2024 09:49-0500 Diastolic blood pressure 82 mm[Hg] Gracielafrank Angelo APRN Work Phone: [facility] 10-01-2024 09:49-0500 Heart rate 92 /min Gracielafrank Angelo APRN Work Phone: [facility] 10-01-2024 09:49-0500 SaO2% (BldA) [Mass fraction] 98 % Graciela Gi TELETYPE INSTALLER Work Phone: [facility] 10-01-2024 09:49-0500 Systolic blood pressure 144 mm[Hg] Gracielafrank Angelo APRN Work Phone: [facility] 07-30-2024 09:01-0500 Body height 170.18 cm Gracielafrank Angelo APRN Work Phone: [facility] 07-30-2024 09:01-0500 Body mass index (BMI) [Ratio] 53.1 kg/m2 Gracielafrank Angelo TELETYPE INSTALLER Work Phone: [facility] 07-30-2024 09:01-0500 Body temperature 96.7 [degF] Graciela Angelo APRN Work Phone: [facility] 07-30-2024 09:01-0500 Body weight 153.76 kg Graciela Angelo APRN Work Phone: [facility] 07-30-2024 09:01-0500 Diastolic blood pressure 98 mm[Hg] Graciela Angelo TELETYPE INSTALLER Work Phone: [facility] 07-30-2024 09:01-0500 Heart rate 101 /min Graciela Angelo TELETYPE INSTALLER Work Phone: [facility] 07-30-2024 09:01-0500 SaO2% (BldA) [Mass fraction] 94 % Graciela De La Rosaley TELETYPE INSTALLER Work Phone: [facility] 07-30-2024 09:01-0500 Systolic blood pressure 164 mm[Hg] Graciela Angelo TELETYPE INSTALLER Work Phone: [facility] 07-15-2024 19:22-0500 Diastolic blood pressure 90 mm[Hg] Graciela Angelo TELETYPE INSTALLER Work Phone: [facility] 07-15-2024 19:22-0500 Systolic blood pressure 160 mm[Hg] Graciela Angelo TELETYPE INSTALLER Work Phone: [facility] 07-15-2024 18:33-0500 Body height 170.18 cm Graciela Angelo TELETYPE INSTALLER Work Phone: [facility] 07-15-2024 18:33-0500 Body mass index (BMI) [Ratio] 53.1 kg/m2 Graciela Angelo TELETYPE INSTALLER Work Phone: [facility] 07-15-2024 18:33-0500 Body weight 153.76 kg Graciela Angelo TELETYPE INSTALLER Work Phone: [facility] 07-15-2024 18:33-0500 Heart rate 88 /min Graciela De La Rosaley TELETYPE INSTALLER Work Phone: [facility] 07-15-2024 18:33-0500 SaO2% (BldA) [Mass fraction] 98 % Graciela De La Rosaley TELETYPE INSTALLER Work Phone: [facility] Encounters Encounter Date Encounter Type Care Provider Facility Start: 03-11-2025 ambulatory LUCIE Wright acility:[facility] [place] Start: 11-04-2024 End: 11-04-2024 ambulatory [facility] Work Phone: Start: 11-04-2024 End: 11-04-2024 Patient encounter procedure [facility] Work Phone: Start: 10-01-2024 End: 10-01-2024 ambulatory Graciela Angelo TELETYPE INSTALLER Work Phone: [facility] Work Phone: Start: 10-01-2024 End: 10-01-2024 Patient encounter procedure Graciela Angelo APRN Work Phone: [facility] Work Phone: Start: 08-19-2024 ambulatory LUCIE HERNANDEZ [place] Start: 08-13-2024 Non-patient / Non-visit Graciela Angelo APRN Work Phone: [facility] Work Phone: Start: 07-30-2024 End: 07-30-2024 Patient encounter procedure Graciela Angelo APRN Work Phone: [facility] Work Phone: Start: 07-15-2024 End: 07-15-2024 ambulatory Graciela Angelo Facility:[facility] Start: 07-15-2024 End: 07-15-2024 Departed Referred Graciela Angelo APRN Work Phone: [facility] [place] Work Phone: Start: 07-15-2024 End: 07-15-2024 Patient encounter procedure Graciela Angelo APRN Work Phone: [facility] Work Phone: Start: 08-11-2021 End: 08-12-2021 [facility] Procedures Date Procedure Procedure Detail Performing Clinician Start: 07-15-2024 Aerobic microbial culture Graciela Angelo TIERNEY Work Phone: Plan of Treatment Date Care Activity Detail Author Start: 10-01-2024 Patient referral [facility] Work Phone: Comprehensive metabo lic 2000 panel - Serum or Plasma [facility] Patient referral [facility] Work Phone: [facility] Payers Date Payer Category Payer Self-pay 2021 Private Health Insurance [facility] [id number] 2021 Medicare [id number] 1955 Unknown [id number] 1955 Unknown [id number] Unknown [id number] Social History Date Type Detail Facility Start: 07-30-2024 End: 07-30-2024 Tobacco smoking status NHIS Ex-smoker (finding) [facility] Start: 10-01-2024 End: 11-04-2024 Sex Male (finding) [facility] Start: 1955 Sex Assigned At Male F [facility] Medical Equipment Procedure Code Equipment Code [...] Onset Date Resolution Bilateral knee pain acute 2024 9:43am 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 acute October 01 025 9:43am Foot drop, right acute October 01, 2024 9:43am Hypertension acute September 9:43am Type 2 diabetes mellitus acute October 01 2 025 9:43am [facility] Work Phone: Evaluation note 07-15-2024 Note Date & Type Note Facility 07-15-2024 Evaluation note Diagnosis Onset Date Resolution Cellulitis of left leg without foot acute July 15 5:45pm Elevated blood pressure reading acute July 15 5:45pm 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 acute July 30 024 8:56am Hypertension acute July 8:56am Screening for prostate cancer acute July 30 8:56am Type 2 diabetes mellitus acute July 30 8:56am Bilateral knee pain acute Febru patrice2024 9:43am 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 acute October 01 9:43am Foot drop, right acute October 01, 2024 9:43am Hypertension acute September 9:43am Type 2 diabetes mellitus acute October 01 9:43am [facility] Work Phone: Hospital Discharge instructions Note Date & Type Note Facility Hospital Discharge instructions Ambulatory OrdersReferral to Orthopedic Surgery Time Frame: 10/01/24, Location: None Selected [facility] Work Phone: Summary Purpose Family History No [...] DATE CREATED AUTHOR AUTHOR'S ORGANIZ ATION 07/17/2024 [facility] DATE CREATED AUTHOR AUTHOR'S ORGANIZ ATION 01/30/2025 [facility] Care Teams (unrecognized sec tion and content) Team Status: Active Member Role Status Dates Lucie Hernandez APRN MEDICAL LIBRARIAN-C Primary Care Provider Active Team Status: Inactive [...] Member Role Status Dates Lucie Hernandez APRN MEDICAL LIBRARIAN-C Primary Care Provider, Attending Provider Active Start: [...] Member Role Status Dates Lucie Hernandez APRN MEDICAL LIBRARIAN-C Primary Care Provider, Attending Provider Active Start: [...] BE BASED ON THE PRIMARY CLINICAL RECORDS. [facility]. provides no warranty or guarantee of the accuracy or completeness of information in this document.
== END 2025-02-04 08:53 | disposition home or self-care (01) ==
LOC: WC 08:52
PROVIDERS: PCP Nurse Practitioner Family; Visit Provider Physician Assistant
DX: I87.312 Chronic venous hypertension (idiopathic) with ulcer of left lower extremity (principal); L97.821 Non-pressure chronic ulcer of other part of left lower leg limited to breakdown of skin; R60.1 Generalized edema
CPT/HCPCS: G0463

== ENCOUNTER 2025-03-04 09:09 | Outpatient (OUT) | payer MEDICARE, OTHER, SELFPAY ==
--- OUTSIDE RECORDS SUMMARY | 2025-03-04 09:12 | XMS_ITS | Clinical Summary ---
Author Organization [facility] Address [address], [address] [place] [address] Care Team Providers Care Studio Camera Operator Name Role Phone Robin Perry DNP Primary Care Provider [phone] Allergies Active Allergy Reactions Criticality Noted Date [...] Plan of Treatment Not on file Insurance STATE [address] [id number] MEDICARE Member Subscriber Plan / Payer ( fective 2021-Present) Name:Cesar Clarke Relation to Subscriber:Self Name:Cesar Clarke Payer ID:Not on file Group ID:Not on file Type:Not on file Address: [address] Advance Directives * Full Code (Latest Code Status on File) Date Activated Date Inactivated Comments 04/03/2017 11:52 AM 04/03/2017 3:03 PM * Full Code Date Activated Date Inactivated Comments 04/03/2017 9:08 AM 04/03/2017 11:52 AM Care Teams Studio Camera Operator Relationship Specialty Start Date End Date Robin Perry DNP [address] [place] [address] PCP - General Family Nurse Practitioner 01/02/18
--- OUTSIDE RECORDS SUMMARY | 2025-03-04 09:12 | XMS_ITS | Patient Health Record ---
Author Organization [facility] Address [address] [place] [address] Care Team Providers Care Construction Materials Tester Name Role Phone Prakash Redman Unavailable [phone] Alfreda Levine Unavailable Allergies Allergen (clinical drug ingredient) Drug/Non Drug [...] Problem Status W/U Status Risk Notes Problem [id number] Bilateral primar y osteoarthritis of knee (M17.0) Active confirmed Vital Signs Height 67 in 11/04/2024 Weight 336 lbs 11/04/2024 BMI 52.62 11/04/2024 Encounters Encounter Location Date Provider Diagnosis [facility] [address] [place] [address] [address] [place] [address] [facility] M25.561 ; Bilateral [...] Name Order Date SCC- KNEE 4 VIEW LEFT-[id number] 11/04/2024 SCC- KNEE 4 VIEW RIGHT [id number] 11/04/2024 Insurance Providers Payer Name Payer Address Payer Phone Subscriber Number Group Number Insured Name Patient Relationship to Insured Coverage Start Date Coverage End Date Medicare [address] [id number] JOSHUA KIMBALL Self - patient is the insured 5 [employer] [facility] Supplemental Insurance [address] [address] [place] [address] [id number] JOSHUA KIMBALL Self - patient is the insured 5
== END 2025-03-04 09:10 | disposition home or self-care (01) ==
LOC: WC 09:09
PROVIDERS: PCP Nurse Practitioner Family; Visit Provider Physician Assistant
DX: I87.312 Chronic venous hypertension (idiopathic) with ulcer of left lower extremity (principal); L97.821 Non-pressure chronic ulcer of other part of left lower leg limited to breakdown of skin
CPT/HCPCS: G0463

== ENCOUNTER 2025-04-01 10:57 | Outpatient (OUT) | payer MEDICARE, OTHER, SELFPAY ==
--- OUTSIDE RECORDS SUMMARY | 2025-04-01 14:16 | XMS_ITS | CCD ---
Author Organization [facility] Care Team Providers Care International Sourcing Manager Name Role Phone REGGIE CONNELLY Referring Unavailable REGGIE CONNELLY Primary Care Unavailable Graciela Angelo APRN Attending Provider Neville ROCK Attending Unavailable Neville ROCK Attending Unavailable Neville ROCK Attending Unavailable SANTA AUGUSTIN Referring Unava ilable Lucie Augustin APRN Primary Care Provider Dwight Andrews MD Attending Provider Demetria MONET-TIP CUTTERLucie [facility] Lucie Augustin Primary Care Unavailable Dwight Andrews Admitting Unavailable Dwight Andrews Attending Unavailable Graciela Angelo Admitting Unavailable Graciela Angelo Attending Unavailable LUCIE AUGUSTIN Referring Unavailable LUCIE AUGUSTIN Primary Care Unavailable RAYNERBLUCIE SKELTON Primary Care Unavailable NEVILLE MENDOZA Attending Unavailable LUCIE AUGUSTIN Primary Care Unavailable OLEKSANDR LOVE Referring Unavailable LUCIE AUGUSTIN Primary Care Unavailable OLEKSANDR LOVE Referring Unavailable RaynerbLucie skelton APRN Attending Provider [phone] OLEKSANDR LOVE Referring Unavailable LUCIE AUGUSTIN Primary Care Unavailable OLEKSANDR LOVE Attending Unavailable LUCIE AUGUSTIN Referring Unavailable LUCIE AUGUSTIN Primary Care Unavailable Allergies Allergy Classification Reported Allergen(s) Allergy Type Date of Onset Reaction(s) Facility (11 sources) Penicillin; Translations: [penicillin] Drug Allergy 03-21-2025 [facility] Repository (1 source) Penicillins Drug allergy (disorder) 03-25-[address] [facility] Repository Medications Current Medications Medication Drug Class(es) Dates Sig (Normalized) Sig (Original) calcium ascorbate 500 mg oral tablet (5 sources) Start: 07-15-2024 take 1 tablet by mouth once daily Ascorbate Calcium (Vitamin C) 500 mg tablet Active 500 MG PO Daily July 15, 2024 1:00am Complies with drug therapy cholecalciferol 0.05 mg oral capsule (5 sources) Vitamin D Start: 07-15-2024 take 1 capsule by mouth once daily Cholecalciferol (Vitamin D3) 50 mcg (2,000 unit) capsule Active 50 MCG PO Daily July 15, 2024 1:00am Complies with drug therapy doxycycline hyclate 100 mg oral capsule (6 sources) Tetracycline-cl ass Drug Start: 03-31-2025 take 1 capsule by mouth twice daily Doxycycline Hyclate 100 mg capsule Active 100 MG PO Twice daily March 31, 2025 12:00am Complies with drug therapy Start: 07-15-2024 End: 07-30-2024 take 1 capsule by mouth twice daily Doxycycline Hyclate 100 mg capsule Discontinued 100 MG PO Twice daily 02 06July 15, 2024 1:00am July 30, 2024 10:09am glucosamine sulfate 500 mg oral tablet (5 sources) Start: 06-29-2018 take 1 tablet by mouth once daily Glucosamine Sulfate (Glucosamine) 500 mg Tablet Active 1 TAB PO Daily June 29, 2018 1:00am Complies with drug therapy ibuprofen 200 mg oral tablet (1 source) Nonsteroidal Anti-inflammatory Drug take 1 tablet by mouth every six hours as needed for pain ibuprofen (ADVIL,MOTRIN) 200 mg tablet Take 1 tablet (200 mg total) by mouth every 6 (six) hours as needed for pain. Active losartan potassium 50 mg oral tablet (14 sources) Angiotensin 2 Receptor Torin Start: 08-28-2024 End: 03-18-2025 take 1 tablet by mouth once daily Losartan 50 mg tablet Active 0 .ROUTE .COMPLEX 90 March 18, 2025 7:42am TAKE 1 TABLET BY MOUTH EVERY DAY Complies with drug therapy Start: 07-30-2024 End: 08-28-2024 take 1 tablet by mouth once daily Losartan 50 mg tablet Discontinued 50 MG PO Daily 30 July 30, 2024 1:00am August 28, 2024 4:51pm Cgaeobhkdukj-Fwfk-Ieeqb Acid (Multi-Day With Iron) 18-400 mg-mcg Tablet (5 sources) Start: 06-29-2018 take 1 tablet by ronny th once daily Start: 06-29-2018 take 1 tablet by ronny th once daily Lwellebsucqr-Oowa-Psxad Acid (Multi-Day With Iron) 18-400 mg-mcg Tablet Active 1 TAB PO Daily June 29, 2018 1:00am Complies with drug therapy Start: 06-29-2018 take 1 tablet by ronny th once daily Rhyoybkrrrck-Zequ-Ytvlj Acid (Multi-Day With Iron) 18-400 mg-mcg Tablet Active 1 TAB PO Daily June 29, 2018 1:00am Start: 06-29-2018 take 1 tablet by ronny th once daily Vtkhzvxcvcii-Ddde-Cyuwb Acid (Multi-Day With Iron) 18-400 mg-mcg Tablet Active 1 TAB PO Daily June 29, 2018 12:00am tamsulosin hydrochloride 0.4 mg oral capsule (8 sources) alpha-Adrenergic Torin Start: 03-31-2025 Tamsulosin 0.4 mg capsule Active MG PO March 31, 2025 12:00am Complies with drug therapy vitamin e 100 unt oral capsule (5 sources) Start: 07-15-2024 take 1 capsule by mouth once daily Vitamin E (Dl, Acetate) 45 mg (100 unit) capsule Active 45 MG PO Daily July 15, 2024 1:00am Complies with drug therapy zinc gluconate 30 mg oral tablet (5 sources) Start: 07-15-2024 take 1 tablet by mouth once daily Zinc Gluconate 30 mg tablet Active 30 MG PO Daily July 15, 2024 1:00am Complies with drug therapy Completed/Discontinued Medications Medication Drug Class(es) Dates Sig (Normalized) Sig (Original) cyclobenzaprine hydrochloride 10 mg oral tablet (5 sources) Muscle Relaxant Start: 07-06-2018 End: 07-15-2024 take 1 tablet by mouth three times daily as needed for muscle spasms Cyclobenzaprine 10 mg tablet Discontinued 10 MG PO Three times daily as needed for back spasms 50 July 06, 2018 1:00am July 15, 2024 7:20pm lisinopril 20 mg oral tablet (5 sources) Angiotensin Converting Enzyme Inhibitor Start: 06-29-2018 End: 07-15-2024 take 1 tablet by mouth once daily Lisinopril 20 mg Tablet Discontinued 20 MG PO Daily June 29, 2018 1:00am July 15, 2024 7:22pm oxyCODONE hydrochloride 5 mg oral tablet (5 sources) Opioid Agonist Start: 07-06-2018 End: 07-15-2024 take 1 tablet by mouth every six hours as needed for pain Oxycodone (Roxicodone) 5 mg Tablet Discontinued 1 - 2 TAB PO Q6H as needed for Pain July 06, 2018 July 15, 2024 7:21pm predniSONE 10 mg oral tablet (5 sources) Start: 07-06-2018 End: 07-15-2024 Prednisone 10 mg tablets,dose pack Discontinued 1 dose pk PO per package directions July 06, 2018 1:00am July 15, 2024 7:21pm take 4 tabs for 3 days then take 3 tabs for 3 days then take 2 tabs for 3 days then take 1 tab for 3 days sulfamethoxazole 800 mg / trimethoprim 160 mg oral tablet (5 sources) Dihydrofolate Reductase Inhibitor Antibacterial, Sulfonamide Antimicrobial Start: 07-06-2018 End: 07-15-2024 take 1 tablet by mouth every twelve hours Sulfamethoxazole-Tr imethoprim (Bactrim Ds) 800-160 mg Tablet Discontinued 1 TAB PO Q12H July 06, 2018 1:00am July 15, 2024 7:22pm Turmeric extract (5 sources) Start: 06-29-2018 End: 07-15-2024 take 1 capsule by mouth once daily Turmeric 400 mg Capsule Discontinued 400 MG PO Daily June 29, 2018 1:00am July 15, 2024 7:22pm Start: 06-29-2018 End: 07-15-2024 take 1 capsule by mouth once daily Turmeric 400 mg Capsule Discontinued 400 MG PO Daily June 29, 2018 12:00am July 15, 2024 6:22pm Problems Problem Classification Problem Date Documented Date Episodic/Chronic Acquired foot deformities (8 sources) Foot-drop; Translations: [Foot drop, right foot] 10-01-2024 Episodic Diabetes mellitus with complications (10 sources) Ulcer of skin of lower extremity; Translations: [Type 2 diabetes mellitus with other skin ulcer] 08-01-2024 Chronic Comment on above: Left lower leg Diabetes mellitus without complication (9 sources) Type 2 diabetes mellitus; Translations: [Type 2 diabetes mellitus without complications] 08-01-2024 Chronic E Codes: Fall (1 source) Fall Onset: 03-21-2025 Essential hypertension (9 sources) Hypertensive disorder; Translations: [Essential (primary) hypertension] 07-30-2024 Chronic Fracture of upper limb (14 sources) Displaced fracture of olecranon process without intraarticular extension of left ulna, initial encounter for closed fracture; Translations: [Fracture of left olecranon process] Onset: 03-21-2025 03-25-2025 Episodic Other acquired deformities (5 sources) Acquired spondylolisthesis; Translations: [Spondylolisthesis, lumbosacral region] 07-26-2023 Episodic Comment on above: Problem List clean-u p per request of Phys. EHR Cmte Other circulatory disease (5 sources) Elevated blood pressure; Translations: [Elevated blood-pressure reading, without diagnosis of hypertension] 07-15-2024 Episodic Other circulatory disease (1 source) Elevated blood-pressure reading, without diagnosis of hypertension; Translations: [Elevated blood pressure reading without diagnosis of hypertension] 07-15-2024 Episodic Other non-traumatic joint disorders (8 sources) Pain in right knee; Translations: [Pain in both knees] 10-01-2024 Episodic Other screening for suspected conditions (not mental disorders or infectious disease) (6 sources) Patient encounter status; Translations: [Encounter for screening for malignant neoplasm of prostate] 07-30-2024 Episodic Residual codes; unclassified (1 source) Pain, unspecified; Translations: [Pain, unspecified] Onset: 03-26-2025 Episodic Residual codes; unclassified (1 source) Pain Onset: 03-31-2025 Episodic Skin and subcutaneous tissue infections (7 sources) Cellulitis of leg, excluding foot; Translations: [Cellulitis of left lower limb] Onset: 07-15-2024 07-15-2024 Episodic Spondylosis; intervertebral disc disorders; other back problems (5 sources) Spinal stenosis of lumbar region; Translations: [Spinal stenosis, lumbar region without neurogenic claudication] 07-26-2023 Episodic Comment on above: Problem List clean-u p per request of Phys. EHR Cmte Unclassified (1 source) Closed fracture of olecranon process of left ulna 03-27-2025 Unclassified (1 source) Patient encounter status 03-27-2025 Unclassified (1 source) Fall at work Onset: 03-21-2025 Unclassified (1 source) New Patient Onset: 03-31-2025 Results Test Name Value Interpretation Reference Range Facility XR ELBOW LT 2 VWSon 03-31-20 25 XR ELBOW LT 2 VWS XR ELBOW LT 2 VWS Clinical history: Elbow injury. Left elbow: 03/31/2025 COMPARISON: 03/21/2025 FINDINGS: 2 views of the elbow were obtained with a splint in place. A comminuted proximal ulnar fracture is present with displaced fragments anteriorly and posteriorly and complete disruption of the articular surface Radiocapitellar alignment appears near-anatomic with no definite articular surface injury. IMPRESSION: Comminuted olecranon fracture with displacement. Finalized by Jorge Muller MD on 03/31/2025 9:00 PM Normal [facility] BASIC METABOLIC PANELon 03-14 Anion gap [Moles/Vol] 9 mmol/L Normal 5-15 [facility] Comment on above: Performed By: #### B MP #### [facility] ([facility]) [address] [place] [address] VIR Calcium [Mass/Vol] 9.3 mg/dL Normal 8.5-10.5 [facility] Comment on above: Performed By: #### B MP #### [facility] ([facility]) [address] [place] [address] VIR Chloride [Moles/Vol] 105 mmol/L Normal 98-[address] [facility] Comment on above: Performed By: #### B MP #### [facility] ([facility]) [address] [place] [address] VIR CO2 [Moles/Vol] 26 mmol/L Normal 22-32 [facility] Comment on above: Performed By: #### B MP #### [facility] ([facility]) [address] [place] [address] VIR Creatinine [Mass/Vol] 0.96 mg/dL Normal 0.60-1.30 [facility] Comment on above: Result Comment: METH OD TRACEABLE TO IDMS STANDARD Performed By: #### B MP #### [facility] ([facility]) [address] [place] [address] VIR GFR/1.73 sq M.predicted among non-blacks MDRD (S/P/Bld) [Vol rate/Area] 86 mL/min/{1.73_m2} Normal >=60 [facility] Comment on above: Result Comment: Repo rted eGFR is based on the CKD-EPI 2020 equation that does not use a race coefficient. Performed By: #### B MP #### [facility] ([facility]) [address] [place] [address] VIR Glucose [Mass/Vol] 130 mg/dL High 65-99 [facility] Comment on above: Performed By: #### B MP #### [facility] ([facility]) [address] [place] [address] VIR Potassium [Moles/Vol] 4.4 mmol/L Normal 3.5-5.0 [facility] Comment on above: Performed By: #### B MP #### [facility] ([facility]) [address] [place] [address] VIR Sodium [Moles/Vol] 140 mmol/L Normal 134-146 [facility] Comment on above: Performed By: #### B MP #### [facility] ([facility]) [address] [place] [address] VIR Urea nitrogen [Mass/Vol] 23 mg/dL Normal 5-27 [facility] Comment on above: Performed By: #### B MP #### [facility] ([facility]) [address] [place] [address] VIR CBC (NO DIFF)on 03-28-2025 Erythrocyte distribution width (RBC) [Ratio] 14.0 % Normal 11.5-15 [facility] Comment on above: Performed By: #### C BC #### [facility] ([facility]) [address] [place] [address] VIR Hematocrit (Bld) [Volume fraction] 46.9 % Normal 39-50 [facility] Comment on above: Performed By: #### C BC #### [facility] ([facility]) [address] [place] [address] VIR Hemoglobin (Bld) [Mass/Vol] 15.1 g/dL Normal 13-17 [facility] Comment on above: Performed By: #### C BC #### [facility] ([facility]) [address] [place] [address] VIR MCH (RBC) [Entitic mass] 30.2 pg Normal 27-34 [facility] Comment on above: Performed By: #### C BC #### [facility] ([facility]) [address] [place] [address] VIR MCHC (RBC) [Mass/Vol] 32.1 g/dL Normal 32-36 [facility] Comment on above: Performed By: #### C BC #### [facility] ([facility]) [address] [place] [address] VIR MCV (RBC) [Entitic vol] 94 fL Normal 80-100 [facility] Comment on above: Performed By: #### C BC #### [facility] ([facility]) [address] [place] [address] VIR Platelet mean volume (Bld) [Entitic vol] 7.6 fL Normal 7-12 [facility] Comment on above: Performed By: #### C BC #### [facility] ([facility]) [address] [place] [address] VIR Platelets (Bld) [#/Vol] 249 10*3/uL Normal 150-450 [facility] Comment on above: Performed By: #### C BC #### [facility] ([facility]) [address] [place] [address] VIR RBC COUNT 4.99 X10E12/L Normal 4.1-5.7 [facility] Comment on above: Performed By: #### C BC #### [facility] ([facility]) [address] [place] [address] VIR WBC (Bld) [#/Vol] 11.7 10*3/uL High 4-11 [facility] Comment on above: Performed By: #### C BC #### [facility] ([facility]) [address] [place] [address] VIR HEMOGLOBIN A1Con 03-28-2025 Glucose [Mass/Vol] 151 mg/dL Normal [facility] Comment on above: Performed By: #### H A1C #### [facility] ([facility]) [address] [place] [address] VIR HbA1c (Bld) [Mass fraction] 6.9 % High 4.4-5.6 [facility] Comment on above: Result Comment: ADA Guidelines Result HgbA1c Normal : less than 5.7 % Prediabetes : 5.7 % to 6.4 % Diabetes : > 6.4 % Use with caution in patients with abnormal hemoglobin variants as the half-life of red blood cells and in vivo glycation rates are affected. Performed By: #### H A1C #### [facility] ([facility]) [address] [place] [address] elbow LT wo conon 025 CT elbow LT wo con [facility] [address] CT Scan Report Signed Patient: Cesar Clarke MR#: [id number] : 1955 Acct:[id number] Age/Sex: 69 / M ADM Date: 03/26/25 Loc: CT Room: Type: [facility] Attending Dr: Dwight Andrews MD Copies to: Dwight Andrews MD Ordering Provider: Dwight Andrews MD Date of Service: 03/26/25 CT/CT elbow LT wo con: SURGICAL PLANNING CT left elbow WITHOUT CONTRAST WITH 3D RECONSTRUCTIONS: CLINICAL HISTORY: Presurgical planning. Olecranon fracture COMPARISON: Left elbow 03/21/2025 TECHNIQUE: Spiral axial unenhanced images were obtained through the left elbow. Sagittal, coronal and 3D volume-rendered reconstructions were also reviewed. This CT exam was performed using one or more following dose reduction techniques: Automated exposure control, adjustment of the mA and/or kV according to patient size, or use of iterative reconstruction technique. FINDINGS: There is a comminuted fracture involving the distal ulna with intra-articular component. The major fracture fragment displacement is approximately 1 cm. Radial head and neck appear to be intact. Distal humerus appears to be intact. There is associated soft tissue swelling. CT/CT elbow LT wo con IMPRESSION: COMMINUTED FRACTURE INVOLVING THE DISTAL ULNA WITH INTRA-ARTICULAR COMPONENT. THE MAJOR FRACTURE FRAGMENT DISPLACEMENT IS APPROXIMATELY 1 CM. Impression dictated by: Joseph Castro Jr., D.OJose 03/27/2025 10:31 AM Dictation Location: [place] [address] Transcribed By: [facility] 03/27/25 1031 Dictated By: Joseph Castro Jr, DO 03/27/25 1027 Signed By: 03/27/25 1031 Normal [facility] XR ELBOW LT MIN 3 VWSon 08-0 XR ELBOW LT MIN 3 VWS XR ELBOW LT MIN 3 VWS 3 views of the left elbow dated 03/31/2024 at 1:59 PM INDICATION: Elbow pain. FINDINGS: No comparisons available there is a comminuted displaced fracture of the abdomen: And subtle subluxation of the radial head. IMPRESSION: 1. Comminuted displaced fracture of the olecranon. 2. Subtle subluxation of the humeral head. Finalized by Saravanan Jiménez MD on 03/21/2025 2:14 PM Normal [facility] Urology Office/Clinic Noteon 03-17-2025 Urology Office/Clinic Note Urology Office/Clinic Note Chief Complaint new pt elevated PSA HPI Staff New pt referred by Lucie Augustin NP for elevated PSA. Never seen in our office before (verified on [facility]). PSA (done at [facility]) 08/13/24 - 11.22 No other levels on [facility] or [facility]. No urologic imaging on [facility]. pt denies pain/burning denies visible blood denies flank pain pt complains of difficulty starting stream if he has gas, pt gets up about 3-4 times nightly to void History of Present Illness Tests reviewed: reviewed UA, referral records, PSA I have reviewed the previous health record information and history for this patient from external providers. I have reviewed and verified the staff HPI to be accurate for this encounter. Review of Systems PHQ Score Initial Depression Screen Score: 0 SCORE ROS - Provider Constitutional: denies weight loss, denies hot flashes. Eyes: denies eye problems. Gastrointestinal: denies nausea, denies vomiting. Cardiovascular: denies chest pain or angina. Integumentary: no dryness Musculoskeletal: denies musculoskeletal symptoms. ENMT: denies otolaryngeal symptoms. Respiratory: no shortness of breath. Heme/Lymph: denies easy bleeding tendency, denies easy bruising tendency. Psychiatric: no confusion, no anxiety. Genitourinary: See HPI. Physical Exam Vitals & Measurements HR: 90(Peripheral) RR: 18 BP: 138/88 HT: 170 cm HT: 67 in WT: 150.3 kg WT: 331.354 lb BMI: 52.01 General Appearance: alert, no distress, well nourished, well developed male. Prostate: distant prostate, estimated weight 40 gms, no hard nodule observed. Assessment/Plan Cesar is a 69 yo male new pt referred by Lucie Augustin NP for elevated PSA. 1. Elevated PSA (R97.20: Elevated prostate specific antigen [PSA]) PSA 08/13/24 - 11.22 Pt states he had a PSA drawn 5 yrs ago which was 9. Never followed up with this due to COVID and passing away around that time. No other PSAs on record. BRANDI: distant prostate, ~40g, benign Advised pt an elevated PSA could indicate prostate cancer, prostate infection, prostate inflammation without infection, prostate manipulation, or benign prostate enlargement (BPH). Discussed the importance of the rate of PSA rise. Given possible prostatitis, recommended pt to repeat level after abx course to confirm if elevation is true. -F/u in 3 mos w/ PSA 2. Prostatitis (N41.9: Inflammatory disease of prostate, unspecified) Thinks he has had infections as he had burning with urination in the past. Would just drink cranberry juice. UA today shows trace leuks. States it is difficult to tell if urine is cloudy due to toilets being green and cream at home. The patient likely has prostatitis. He was advised about the different possible causes of bacterial and non-bacterial prostatitis. He needs to complete the course of prescribed antibiotics. He understands that the symptoms improve if he decreases his exercise and activity level. Anti-inflammatory medicines can also be helpful, as well as frequent ejaculations. Hot baths are also helpful in easing the discomfort. -Take doxycycline 100mg bid x1 month. Rx sent to [email or web address]. 3. BPH with urinary obstruction (N40.1: Benign prostatic hyperplasia with lower urinary tract symptoms) Good stream most of the time. Constipation does weaken stream. Feels he empties. Attributes frequency to diuretics. Recommended pt to try oral meds. -Start Flomax 0.4mg qd. Possible SEs discussed. Rx sent to [email or web address]. Follow-up With When Contact Information PATSY ADDISON, Neville Meade, [facility] [address], [place] [address] [phone] Additional Instructions: 3 mos w/ PSA Patient Education Prostatitis Prostate Cancer Screening I, Emmy Garcia, personally scribed for Dr. Rock on 03/17/2025 09:49:25. . Documentation recorded by the scribe, Emmy Garcia, accurately reflects the services(s) I performed and decisions made by me. Authenticated by Dr. Rock on 03/17/2025 09:50:44. Problem List/Past Medical History Ongoing BPH with urinary obstruction Elevated PSA History of prediabetes Hypertension Morbid obesity with BMI of 50.0-59.9, adult Prostatitis Historical No qualifying data Procedure/Surgical History Colonoscopy. Medications losartan 50 mg Tab, 50 mg= 1 tab(s) Allergies penicillin (Rash) Social History Alcohol Current. Beer, Liquor. Daily., 03/16/2025 Substance Abuse Never., 03/16/2025 Tobacco quit 2014 Tobacco Use:. Never Smokeless Tobacco Use:., 03/17/2025 Immunizations Vaccine Date Status Comments influenza virus vaccine, inactivated 09/16/2019 Recorded influenza virus vaccine, inactivated 06/12/2018 Recorded influenza virus vaccine, inactivated 05/30/2017 Recorded 2025-03-17: EXTERNAL ADMIN: PT RPT Lab Results Ambulatory Point of Care Results Bilirubin Urine Dipstick: Negative (03/17/25 09:15:00) Blood Urin (more content not included)... Normal [facility] Comment on above: Result Comment: Elec tronically Signed By: Neville ROCK MD\.br\Date and Time Signed: 03/17/25 09:50 EDT\.br\Electronically Co-Signed By: Emmy Garcia\.br\Date and Time Co-Signed: 03/17/25 09:49 EDT Basophils Auto (Bld) [#/Vol] on 08-13-2024 Basophils (Bld) [#/Vol] Automated basophil count 0.0-0.[address] [facility] Basophils/100 WBC Auto (Bld) on 08-13-2024 Basophils/100 WBC (Bld) Automated basophil % 0.2-2.[address] [facility] Cholesterol in LDL Calc [Mas s/Vol]on 08-13-2024 Cholesterol in LDL [Mass/Vol] Cholesterol in LDL [Mass/volume] in Serum or Plasma by calculation [facility] Comment on above: <100 mg/dl [id number] 0-129 mg/dl NEAR OR ABOVE [id number] mg/dl BORDERLINE [id number] mg/dl HIGH>190 mg/dl VERY HIGH Cholesterol in VLDL Calc [Ma ss/Vol]on 08-13-2024 Cholesterol in VLDL [Mass/Vol] Cholesterol in VLDL [Mass/volume] in Serum or Plasma by calculation [facility] Eosinophils/100 WBC Auto (Bl d)on 08-13-2024 Eosinophils/100 WBC (Bld) Automated eosinophil % 0.9-7.[address] [facility] Erythrocyte distribution wid th Auto (RBC) [Ratio]on 08-13-2024 Erythrocyte distribution width (RBC) [Ratio] Erythrocyte distribution width [Ratio] by Automated count 11.0-15.[address] [facility] Estimated glomerular filtrat ion rate (GFR) non- Americanon 08-13-2024 GFR/1.73 sq M.predicted among non-blacks MDRD (S/P/Bld) [Vol rate/Area] Estimated glomerular filtration rate (GFR) non- >=60 mL/min/1.73m [address] [facility] Globulin Calc (S) [Mass/Vol] on 08-13-2024 Globulin (S) [Mass/Vol] Serum globulin measurement by calculation (mass/volume) [facility] Hematocrit Auto (Bld) [Volum e fraction]on 08-13-2024 Hematocrit (Bld) [Volume fraction] Hematocrit [Volume Fraction] of Blood by Automated count 42.0-54.[address] [facility] Hemoglobin [Mass/volume] in Bloodon 08-13-2024 Hemoglobin (Bld) [Mass/Vol] Hemoglobin [Mass/volume] in Blood 14.0-18.[address] [facility] Laboratory - Chemistry and C hemistry - challengeon 08-13-2024 Albumin [Mass/Vol] 3.6 g/dL 3.4-5.0 [facility] ALP [Catalytic activity/Vol] 101 U/L 46-[address] [facility] ALT [Catalytic activity/Vol] 47 U/L 16-[address] [facility] AST [Catalytic activity/Vol] 21 U/L 15-[address] [facility] Bilirubin [Mass/Vol] 0.7 mg/dL 0.2-1.0 [facility] Calcium [Mass/Vol] 9.3 mg/dL 8.5-10.1 [facility] Chloride [Moles/Vol] 102 mmol/L 98-107 [facility] Cholesterol [Mass/Vol] 195 mg/dL <=[address] [facility] Cholesterol in HDL [Mass/Vol] 54 mg/dL 40-[address] [facility] Comment on above: > or =60 mg/dl - LOW CARDIOVASCULAR RISK<40 mg/dl - HIGH CARDIOVASCULAR RISK CO2 [Moles/Vol] 28.9 mmol/L 21.0-32.0 [facility] Creatinine [Mass/Vol] 1.16 mg/dL 0.70-1.30 [facility] GFR/1.73 sq M.predicted MDRD (S/P/Bld) [Vol rate/Area] mL/min/{1.73_m2} >=60 mL/min/1.73m [address] [facility] Glucose [Mass/Vol] 160 mg/dL High 74-106 [facility] Potassium [Moles/Vol] 4.5 mmol/L 3.5-5.1 [facility] Protein [Mass/Vol] 7.1 g/dL 6.4-8.2 [facility] Sodium [Moles/Vol] 138 mmol/L 136-145 [facility] Triglyceride [Mass/Vol] 84 mg/dL <=[address] [facility] Urea nitrogen [Mass/Vol] 23.0 mg/dL High 7.0-18.[address] [facility] Urea nitrogen/Creatinine [Mass ratio] 19.8 mg/mg [facility] Laboratory - Hematology and Cell countson 08-13-2024 Immature granulocytes/100 WBC (Bld) 0.7 % High 0.0-0.[address] [facility] Leukocytes [#/volume] correc chapo for nucleated erythrocytes in Blood by Automated counon 08-13-2024 WBC corrected for nucl RBC Auto (Bld) [#/Vol] Leukocytes [#/volume] corrected for nucleated erythrocytes in Blood by Automated coun 4.0-11.[address] [facility] Lymphocytes Auto (Bld) [#/Vo l]on 08-13-2024 Lymphocytes (Bld) [#/Vol] Lymphocytes [#/volume] in Blood by Automated count 1.2-3.[address] [facility] Lymphocytes/100 WBC Auto (Bl d)on 08-13-2024 Lymphocytes/100 WBC (Bld) Lymphocytes/100 leukocytes in Blood by Automated count Low 20.5-60.[address] [facility] MCH Auto (RBC) [Entitic mass ]on 08-13-2024 MCH (RBC) [Entitic mass] MCH [Entitic mass] by Automated count 25.9-34.[address] [facility] MCHC Auto (RBC) [Mass/Vol]on 08-13-2024 MCHC (RBC) [Mass/Vol] MCHC [Mass/volume] by Automated count 29.9-35.[address] [facility] MCV Auto (RBC) [Entitic vol] on 08-13-2024 MCV (RBC) [Entitic vol] MCV [Entitic volume] by Automated count 80.0-94.[address] [facility] Microalbumin [Mass/volume] i n Urineon 08-13-2024 Albumin DL <= 20 mg/L (U) [Mass/Vol] Microalbumin [Mass/volume] in Urine <=30.[address] [facility] Monocytes Auto (Bld) [#/Vol] on 08-13-2024 Monocytes (Bld) [#/Vol] Automated blood monocyte count High 0.3-0.[address] [facility] Monocytes/100 WBC Auto (Bld) on 08-13-2024 Monocytes/100 WBC (Bld) Automated monocyte % 1.7-12.[address] [facility] Neutrophils Auto (Bld) [#/Vo l]on 08-13-2024 Neutrophils (Bld) [#/Vol] Neutrophils [#/volume] in Blood by Automated count High 1.4-6.[address] [facility] Neutrophils/100 WBC Auto (Bl d)on 08-13-2024 Neutrophils/100 WBC (Bld) Automated neutrophil % 43.0-75.[address] [facility] No Panel Informationon 08-13 Eosinophils # (Auto) 0.3 10 3/uL 0.0-0.7 [facility] Immature Granulocyte # (Auto) 0.07 10 3/uL High 0.00-0.[address] [facility] Prostate Specific Antigen Screen 11.22 ng/mL High <=4.[address] [facility] Urine Random Creatinine 173.94 mg/dL 20.00-300.[address] [facility] Platelet mean volume Auto (B ld) [Entitic vol]on 08-13-2024 Platelet mean volume (Bld) [Entitic vol] Platelet mean volume [Entitic volume] in Blood by Automated count Low 9.5-13.[address] [facility] Platelets Auto (Bld) [#/Vol] on 08-13-2024 Platelets (Bld) [#/Vol] Platelets [#/volume] in Blood by Automated count 150-[address] [facility] RBC Auto (Bld) [#/Vol]on RBC (Bld) [#/Vol] Erythrocytes [#/volume] in Blood by Automated count 4.70-6.[address] [facility] Serum or plasma albumin/glob ulin mass ratioon 08-13-2024 Albumin/Globulin [Mass ratio] Serum or plasma albumin/globulin mass ratio [facility] Serum or plasma anion gap de terminationon 08-13-2024 Anion gap [Moles/Vol] Serum or plasma an ion gap determination [facility] Serum or plasma total choles terol/high density lipoprotein (HDL) cholesterol mass emily 08-13-2024 Cholesterol.total/Cho lesterol in HDL [Mass ratio] Serum or plasma total cholesterol/high density lipoprotein (HDL) cholesterol mass rat [facility] Comment on above: 3.3 - 4.4 LOW RISK4. 4 - 7.1 AVERAGE RISK7.1 - 11.0 MODERATE RISK>11.0 HIGH RISK Urine microalbumin/creatinin e mass ratioon 08-13-2024 Albumin/Creatinine DL <= 20 mg/L (U) [Mass ratio] Urine microalbumin/creatini ne mass ratio High 0.0-29.[address] [facility] Comment on above: NO MICROALBUMINURIA 0-29 MG/GCLINICAL MICROALBUMINURIA 30-300 MG/GMACROALBUMINURIA >300 MG/G HbA1c HPLC (Bld) [Mass fract ion]on 07-30-2024 HbA1c (Bld) [Mass fraction] Hemoglobin A1c/Hemoglobin.total in Blood by HPLC [facility] Bacteria identified Aer cx N om (Unsp spec)Ordered By: Graciela Angelo on 07-15-2024 Group B Strep (Streptococcus agalactiae) Group B Strep (Streptococcus agalactiae) Abnormal [facility] Superficial Wound Culture Abnormal [facility] Superficial Wound Cultureon 07-15-2024 Superficial Wound Culture ORGANISM: Strep agalactiae - (group b) (O:STRAGA) Quantity of Growth Heavy Growth ORGANISM: Corynebacterium species (O:CORSPE) Comments Organism Not Routinely Tested for Susceptibilities Quantity of Growth Heavy Growth Organism #2 identified as Corynebacterium pseudodiphtheriticum. PERFORMED BY: [facility] [address] [place] [address] PATHOLOGIST EMERGENCY GENERATOR MECHANIC JERMAINE LICONA M.D. Normal [facility] Comment on above: Performed By: #### C USUP #### [facility] [address] [place] [address] [facility] [id number] 08-11-2021 SARS-CoV-2 (COVID-19) RNA LAURA+probe Ql (Unsp spec) Not detected Normal [facility] Comment on above: Result Comment: Rapid [...] management decisions. Fact sheet for Healthcare Providers: https://www.fda.gov/media/692205/download Fact sheet for Patients: https://www.fda.gov/media/719003/download Methodology: Isothermal Nucleic Acid Amplification Performed By: #### C OVRB #### [facility] [address] [place] [address] Baling Machine Tender: Singh Mccollum MD Vital Signs Date Time Vital Sign Value Performing Clinician Padmaja corbin 03-31-2025 14:08-0400 Body height 170.18 cm Lucie Augustin APRN Work Phone: [facility] 03-31-2025 14:08-0400 Body temperature 99.2 [degF] Lucie Augustin APRN Work Phone: [facility] 03-31-2025 14:08-0400 Diastolic blood pressure 72 mm[Hg] Lucie Augustin APRN Work Phone: [facility] 03-31-2025 14:08-0400 Heart rate 96 /min Lucie Augustin APRN Work Phone: [facility] 03-31-2025 14:08-0400 SaO2% (BldA) [Mass fraction] 94 % Lucie Augustin APRN Work Phone: [facility] 03-31-2025 14:08-0400 Systolic blood pressure 128 mm[Hg] Lucie Augustin APRN Work Phone: [facility] 03-31-2025 10:51-0400 Body height 170.2 cm Margot Respectance-C Work Phone: [employer] 03-31-2025 10:51-0400 Body mass index (BMI) [Ratio] 51.67 kg/m2 [employer] Work Phone: [employer] 03-31-2025 10:51-0400 Body temperature 97.5 [degF] [facility] [employer] Work Phone: [employer] 03-31-2025 10:51-0400 Body weight 149.69 kg [employer] Work Phone: [employer] 03-25-2025 14:11-0400 Body height 170.18 cm Lucie Augustin APRN Work Phone: [facility] 03-25-2025 14:11-0400 Body mass index (BMI) [Ratio] 51.7 kg/m2 Lucie Augustin APRN Work Phone: [facility] 03-25-2025 14:11-0400 Body weight 149.68 kg Lucie Augustin APRN Work Phone: [facility] 11-04-2024 09:00-0400 Body weight 149.68 kg [facility] 10-01-2024 09:49-0500 Body height 170.18 cm Graciela Angelo APRN Work Phone: [facility] 10-01-2024 09:49-0500 Body mass index (BMI) [Ratio] 51 kg/m2 Graciela Angelo APRN Work Phone: [facility] 10-01-2024 09:49-0500 Body temperature 95.3 [degF] Gracielafrank Angelo APRN Work Phone: [facility] 10-01-2024 09:49-0500 Body weight 147.87 kg Graciela Gi SALDAÑAN Work Phone: [facility] 10-01-2024 09:49-0500 Diastolic blood pressure 82 mm[Hg] Gracielafrank Angelo APRN Work Phone: [facility] 10-01-2024 09:49-0500 Heart rate 92 /min Gracielafrank Angelo APRN Work Phone: [facility] 10-01-2024 09:49-0500 SaO2% (BldA) [Mass fraction] 98 % Gracielafrank Angelo APRN Work Phone: [facility] 10-01-2024 09:49-0500 Systolic blood pressure 144 mm[Hg] Gracielafrank Angelo APRN Work Phone: [facility] 07-30-2024 09:01-0500 Body height 170.18 cm Graciela Gi MONET Work Phone: [facility] 07-30-2024 09:01-0500 Body mass index (BMI) [Ratio] 53.1 kg/m2 Gracielafrank Angelo APRN Work Phone: [facility] 07-30-2024 09:01-0500 Body temperature 96.7 [degF] Graciela Angelo APRN Work Phone: [facility] 07-30-2024 09:01-0500 Body weight 153.76 kg Gracielafrank Angelo APRN Work Phone: [facility] 07-30-2024 09:01-0500 Diastolic blood pressure 98 mm[Hg] Graciela Angelo APRN Work Phone: [facility] 07-30-2024 09:01-0500 Heart rate 101 /min Graciela De La Rosaley AWNING HANGER HELPER Work Phone: [facility] 07-30-2024 09:01-0500 SaO2% (BldA) [Mass fraction] 94 % Graciela De La Rosaley AWNING HANGER HELPER Work Phone: [facility] 07-30-2024 09:01-0500 Systolic blood pressure 164 mm[Hg] Gracielafrank Angelo APRN Work Phone: [facility] 07-15-2024 19:22-0500 Diastolic blood pressure 90 mm[Hg] Graciela Gi SALDAÑAN Work Phone: [facility] 07-15-2024 19:22-0500 Systolic blood pressure 160 mm[Hg] Gracielafrank Angelo AWNING HANGER HELPER Work Phone: [facility] 07-15-2024 18:33-0500 Body height 170.18 cm Graciela Gi MONET Work Phone: [facility] 07-15-2024 18:33-0500 Body mass index (BMI) [Ratio] 53.1 kg/m2 Graciela De La Rosaley AWNING HANGER HELPER Work Phone: [facility] 07-15-2024 18:33-0500 Body weight 153.76 kg Graciela Angelo AWNING HANGER HELPER Work Phone: [facility] 07-15-2024 18:33-0500 Heart rate 88 /min Graciela Gi MONET Work Phone: [facility] 07-15-2024 18:33-0500 SaO2% (BldA) [Mass fraction] 98 % Gracielafrank Angelo APRN Work Phone: [facility] Encounters Encounter Date Encounter Type Care Provider Facility Start: 06-16-2025 ambulatory Neville Greeri ty:[facility] Start: 05-20-2025 ambulatory Neville Greeri ty:[facility] Start: 03-31-2025 Preprocedural examination done Lucie Mcclellanmichela MONET Work Phone: [facility] Start: 03-31-2025 End: 03-31-2025 Patient encounter procedure Lucie Augustin TIERNEY TOOL PROFILING MACHINE SET UP OPERATOR -[facility] Work Phone: Start: 03-31-2025 End: 03-31-2025 Office outpatient new 60 minutes Margot Bellamy PA-C Work Phone: [facility] Comment on above: Olecranon fracture, left, closed, initial encounter (Primary Dx) Start: 03-31-2025 End: 03-31-2025 Orders Only Jayla Lazo RN [facility] Comment on above: Closed fracture of o lecranon process of left ulna, initial encounter (Primary Dx) Start: 03-28-2025 End: 03-28-2025 ambulatory [facility] Start: 03-28-2025 Encounter for other preprocedural examination [facility] Start: 03-28-2025 ambulatory [facility] Start: 03-28-2025 End: 03-28-2025 Telephone encounter Vickey Joe [facility] Start: 03-27-2025 End: 03-27-2025 Patient encounter status Jayla Lazo RN [facility] Start: 03-27-2025 End: 03-27-2025 Telephone encounter Jayla [facility] Comment on above: Olecranon fracture, left, closed, initial encounter (Primary Dx); Preop testing; Other specified diabetes mellitus with other specified complication, unspecified whether fdc insulin use ([facility] Start: 03-26-2025 ambulatory [facility] Start: 03-26-2025 End: 03-26-2025 Telephone encounter Jay[facility] Start: 03-26-2025 End: 03-26-2025 ambulatory Lucie Augustin AWNING HANGER HELPER Work Phone: [facility] Work Phone: Start: 03-26-2025 End: 03-26-2025 Patient encounter procedure Dwight Andrews MD -[facility] Work Phone: Start: 03-25-2025 End: 03-25-2025 ambulatory Lucie Demetria AWNING HANGER HELPER Work Phone: [facility] Work Phone: Start: 03-25-2025 End: 03-25-2025 Patient encounter procedure Dwight Andrews MD -[facility] Work Phone: Start: 03-21-2025 End: 03-21-2025 Emergency department patient visit [facility] Start: 03-17-2025 End: 03-17-2025 ambulatory Neville ROCK Facility:[facility] Start: 11-04-2024 End: 11-04-2024 ambulatory [facility] Work Phone: Start: 11-04-2024 End: 11-04-2024 Patient encounter procedure [facility] Work Phone: Start: 10-01-2024 End: 10-01-2024 ambulatory Graciela Angelo APRN Work Phone: [facility] Work Phone: Start: 10-01-2024 End: 10-01-2024 Patient encounter procedure Graciela Angelo AWNING HANGER HELPER Work Phone: [facility] Work Phone: Start: 08-19-2024 ambulatory Neville ROCK Facility :[facility] Start: 08-13-2024 Non-patient / Non-visit Graciela Angelo AWNING HANGER HELPER Work Phone: [facility] Work Phone: Start: 07-30-2024 End: 07-30-2024 Patient encounter procedure Graciela Angelo TIERNEY Work Phone: [facility] Work Phone: Start: 07-15-2024 End: 07-15-2024 ambulatory Graciela Ghislaine Gi Facility:[facility] Start: 07-15-2024 End: 07-15-2024 Departed Referred Graciela Gi AWNING HANGER HELPER Work Phone: [facility] Work Phone: Start: 07-15-2024 End: 07-15-2024 Patient encounter procedure Graciela De La Rosaanel MONET Work Phone: [facility] Work Phone: Start: 08-11-2021 End: 08-12-2021 ambulatory REGGIE CONNELLY [facility] Procedures Date Procedure Procedure Detail Performing Clinician Start: 03-26-2025 CT of elbow, left Daphney Augustin AWNING HANGER HELPER Work Phone: Start: 07-15-2024 Aerobic microbial culture Graciela De La Rosaanel MONET Work Phone: Plan of Treatment Date Care Activity Detail Author Start: 03-31-2026 Adult BMI Screening Adult BMI Screening [facility] Start: 03-21-2026 Adult BMI Screening Adult BMI Screening [facility] Start: 03-21-2026 Tobacco Screening Tobacco Screening [facility] Start: 04-14-2025 Influenza vaccination Influenza Vaccine [facility] Start: 04-09-2025 End: 04-09-2025 Admission to same day surgery center 04/09/2025 9:00 AM EDT - 04/09/2025 11:00 AM EDT Surgery [facility] [address] [place] [address]. [place] [id number] Oleksandr Love MD [address] [place] [address], [address] [place], [place] [id number] OPEN REDUCTION INTERNAL FIXATION OLECRANON [facility] Comment on above: OPEN REDUCTION INTERNAL FIXATION OLECRAN ON Start: 04-09-2025 End: 04-09-2025 OPEN REDUCTION INTERNAL FIXATION OLECRANON OPEN REDUCTION INTERNAL FIXATION OLECRANON Closed fracture of olecranon process of left ulna with routine healing, subsequent encounter 04/09/2025 9:00 AM EDT [facility] Start: 04-09-2025 Subsequent hospital visit by physician 04/09/2025 9:00 AM EDT Hospital Encounter [facility] [address] [place] [address] Oleksandr Love MD [email or web address] [facility], [address] [place], [place] [id number] [facility] Start: 03-31-2025 End: 03-31-2026 XR Elbow - left 2 Views X-ray elbow left 2 views Imaging Routine Closed fracture of olecranon process of left ulna, initial encounter Expected: 03/31/2025, Expires: 03/31/2026 [facility] Work Phone: Comment on above: Expected: 03/31/2025, Expires: Start: 03-31-2025 End: 03-31-2025 Patient encounter procedure 03/31/2025 10:30 AM EDT [facility] [address] [place] [address] [address] [place] [id number] Oleksandr Love MD [email or web address] [place], [place] [id number] [facility] Start: 03-28-2025 End: 03-28-[address] [facility] Start: 03-26-2025 CT Elbow - left WO contrast [facility] Start: 03-26-2025 CT of elbow, left CT elbow LT wo con [facility] Start: 10-01-2024 Patient referral [facility] Work Phone: Start: 2021 Fall Risk Screening [facility] Start: 2006 Administration of varicella zoster vaccine Zoster (Shingles) Vaccine (1 of 2) [facility] Start: 1975 DTaP,Tdap and Td Vaccines (1 - Tdap) DTaP,Tdap and Td Vaccines (1 - Tdap) [facility] Start: 1974 Adult BMI Follow Up Plan Adult BMI Follow Up Plan [facility] Start: 1968 Depression Screening Depression Screening [facility] End: 03-27-2026 Basic metabolic 2000 panel - Serum or Plasma Basic Metabolic Panel Lab Routine Olecranon fracture, left, closed, initial encounter Preop testing 1 Occurrences starting 03/27/2025 until 03/27/2026 [facility] Comment on above: 1 Occurrences starting 03/27/2025 until 03/27/2026 End: 03-27-2026 CBC panel - Blood by Automated count CBC without diff Lab Routine Olecranon fracture, left, closed, initial encounter Preop testing 1 Occurrences starting 03/27/2025 until 03/27/2026 [facility] Work Phone: Comment on above: 1 Occurrences starting 03/27/2025 until 03/27/2026 Comprehensive metabo lic 2000 panel - Serum or Plasma [facility] CT Elbow - left WO contrast [facility] End: 03-27-2026 ECG 12 lead ECG 12 lead ECG Routine Olecranon fracture, left, closed, initial encounter Preop testing 1 Occurrences starting 03/27/2025 until 03/27/2026 [facility] Comment on above: 1 Occurrences starting 03/27/2025 until 03/27/2026 End: 03-27-2026 Hemoglobin A1c/Hemoglobin.total in Blood Hemoglobin A1c Lab Routine Preop testing Other specified diabetes mellitus with other specified complication, unspecified whether terminal superintendent insulin use ([facility]) 1 Occurrences starting 03/27/2025 until 03/27/2026 [facility] Comment on above: 1 Occurrences starting 03/27/2025 until 03/27/[address] [facility] Work Phone: [facility] Immunizations Immunization Date Immunization Notes Care Provider Ayla hernandez 09-16-2019 influenza virus vaccine, unspecified formulation [facility] Lazo [facility] Payers Date Payer Category Payer Unknown [id number] 2025 Worker's Comp Other Managed Care SANDI [id number] 2025 Unknown [id number] 2024 Self-pay 2021 Private Health Insurance [facility] [id number] 2021 Medicare MEDICARE [id number] 2021 Medicare [id number] 1955 Unknown [id number] 2.16.840.1.216166.3.579. 2.174 1956 Unknown [id number] 2.16.840.1.165407.3.579. 2.727 1956 Unknown [id number] 2.16.840.1.116426.3.579. 2.727 1956 Unknown [id number] 2.16.840.1.111094.3.579. 2.727 1956 Unknown [id number] 2.16.840.1.873460.3.579. 2.1286 1956 Unknown [id number] 2.16.840.1.504720.3.579. 2.1286 1956 Unknown [id number] 2.16.840.1.046465.3.579. 2.1285 1956 Unknown [id number] 2.16.840.1.991772.3.579. 2.128 1956 Unknown [id number] 2.16.840.1.650989.3.579. 2.1286 1956 Unknown [id number] 2.16.840.1.059088.3.579. 2.1286 Commercial Managed C are - POS [employer] [id number] Unknown [id number] 2.16840.1.974958.3.579. 2.531 Unknown [id number] 2.16840.1.385970.3.579. 2.531 Social History Date Type Detail Facility Start: 07-30-2024 End: 07-30-2024 Tobacco smoking status NHIS Ex-smoker (finding) [facility] Start: 10-01-2024 End: 03-21-2025 Sex Male (finding) [facility] Start: 1955 Sex Assigned At Male F [facility] Start: 03-21-2025 Tobacco smoking stat NHIS Never smoked tobacco [facility] Start: 03-21-2025 Tobacco use and exposure Smokeless tobacco non-user [facility] Start: 03-21-2025 Alcoholic beverage intake Current drinker of alcohol (finding) [facility] Start: 03-21-2025 Alcoholic beverage intake [facility] Start: 03-21-2025 Tobacco use panel [facility] [employer] Within the past 12 months we worried whether our food would run out before we got money to buy more. Never True [facility] Start: 1955 Sex assigned at Not on file P [id number] Medical Equipment Procedure Code Equipment Code Equipment [...] SET CAPLOX II FDA Start : 07-04-2018 Clinical Notes 07-15-2024 to 03-31-2025 Margot Bellamy PA-C - 03/31/2025 10:30 AM EDTTelephone Encounter - Vickey Joe - 03/28/2025 10:31 AM EDTTelephone Encounter - Jayla Lazo RN - 03/28/2025 10:31 AM EDT Note Date & Type Note Facility 03-31-2025 History of Presen t illness Narrative Chief complaint: left elbow fracture Date of injury: 03/21/2025 HPI: Cesar Clarke is a 69 y.o. male presents for evaluation of a left elbow fracture. Patient states that the injury occurred while he was at work. Patient was seen at an outside facility and placed in a splint. Patient was referred to our office for continued management. Patient is now 10 days out from the initial injury. Patient has been nonweightbearing to left upper extremity in a splint. Patient states that he has not been aggressively icing and elevating. Patient continues to use a sling. Patient does have some ecchymosis and swelling of the hand present. Patient is right-hand dominant. Patient reports a history of diabetes as well as bilateral lower extremity cellulitis. 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 Social History Socioeconomic History Marital status: Spouse name: Not on file Number of children: Not on file Years of education: Not on file Highest education level: Not on file Occupational History Not on file Tobacco Use Smoking status: Never Smokeless tobacco: Never Substance and Sexual Activity Alcohol use: Yes Alcohol/week: 1.0 standard drink of alcohol Types: 1 Shots of liquor per week Drug use: Never Sexual activity: Not on file Other Topics Concern Not on file Social History Narrative Not on file Social Drivers of Health Financial Resource Strain: Low Risk (08/11/2021) Received from [facility] Overall Financial Resource Strain (CARDIA) Difficulty of Paying Living Expenses: Not hard at all Food Insecurity: No Food Insecurity (03/21/2025) Hunger Screening Food Insecurity - Worry: Never True Food Insecurity - Inability: Never True Transportation Needs: No Transportation Needs (10/23/2019) Received from [facility] PRAPARE - Transportation Lack of Transportation (Medical): No Lack of Transportation (Non-Medical): No Physical Activity: Not on file Stress: Not on file Social Connections: Not on file Interpersonal Safety: Not on file Housing Instability: Not on file Physical exam Mentation: Alert and oriented Vitals: 03/31/25 1051 Temp: 36.4 C (97.5 F) Body mass index is 51.67 kg/m . left UE: Splint removed, skin ecchymotic but soft, no wounds or abrasions present Well-padded Orthoglass long-arm splint applied to left upper extremity SILT m/u/r/ax, intact motor function EPL, FPL, FF, FE, HI palpable radial pulse, BCRx5, compartments soft No pain with passive stretch of the fingers Radiographic imaging: X-ray and CT of left elbow personally reviewed and identify comminuted displaced olecranon fracture ASSESSMENT: Cesar Clarke is a 69 y.o. male with a left olecranon fracture PLAN: Discussed with patient that he has a comminuted displaced olecranon fracture that we would benefit from operative stabilization to improve alignment and long-term functional outcome Patient agreeable and elects to proceed with surgical intervention at this time Patient will need medical clearance prior to the OR Nonweightbearing left upper extremity in long-arm splint Patient to work on elevating the forearm and hand and using ice for swelling control Patient reports that he was recently prescribed antibiotics for a UTI which he has not started yet at this time - recommend patient begin the antibiotic as previously prescribed Discussed of wound issues with diabetes Patient to remain out of work at this time Follow up postoperatively Margot Bellamy PA-C LEVEL OF SERVICE: Ortho MDM Diagnosis Complexity -: [4] MODERATE: 1 NEW problem, uncertain prognosis Ortho Data Level: [5] Ortho Data Moderate/Extensive Level category 1 (need 3): review of external notes and review of results Ortho Tx/Test Risk Level (highest): [5] Ortho High Risk Options: Major Surgery (elective) (90d Global): WITH RISKS LEVEL OF MDM -: [5] HIGH level based on above criteria. Margot Bellamy PA-C 03/31/25 1527 documented in this encounter [facility] 03-28-2025 Miscellaneous Notes Patient called he has an appointment on Monday and surgery on Monday. He lives over an hour away and lives alone.Has to get transportation. He was wondering if he could be admitted Monday for his surgery Spoke with Patient and informed him that Dr Love normally does not admit the day before surgery unless there medical need to . Patient states that he lives 1 [place]/2 hours away . I informed patient that he could a hotel room the night prior. Patient verbalizes understanding of above. Appt is scheduled on 03-31-2025 10:[address] Love [facility] 03-28-2025 Telephone encounter Note Patient called he has an appointment on Monday and surgery on Monday. He lives over an hour away and lives alone.Has to get transportation. He was wondering if he could be admitted Monday for his surgery [facility] 03-28-2025 Telephone encounter Note Spoke with Patient and informed him that Dr Love normally does not admit the day before surgery unless there medical need to . Patient states that he lives 1 1/2 hours away . I informed patient that he could a hotel room the night prior. Patient verbalizes understanding of above. Appt is scheduled on 03-31-2025 10:[address] Love [facility] 03-27-2025 Miscellaneous Notes Patient has a Left Olecranon Fracture. Appt with Dr Love is 03-31-2025 Left message at Patient's PCP's office for need of Medical Clearance/fax number. documented in this encounter [facility] 03-27-2025 Telephone encounter Note Patient has a Left Olecranon Fracture. Appt with Dr Love is 03-31-2025 Left message at Patient's PCP's office for need of Medical Clearance/fax number. [facility] 03-27-2025 Miscellaneous Notes Appt scheduled on Monday03-31-2025 10:30 am documented in this encounter [facility] 03-27-2025 Telephone encounter Note Appt scheduled on Monday03-31-2025 10:30 am [facility] 03-26-2025 Miscellaneous Notes Received a call from Sakina at Dr Andrews's office about Mr Clarke who has a Comminuted displaced fracture of the left olecranon and wants to refer to Dr Love for operative management. Spoke with patient about scheduling an appt with Dr Love tomorrow 03-27-2025 -patient declined. I explained that tomorrow would just be for the appointment to meet Dr Love , check his skin and have a surgical discussion .And then he would need to get medical clearance from his PCP-Patient states he is newly diagnosed with Diabetes, has Cellulitis and weighs over 300 lb.Patient states that he 2 hours away ,a is by himself and has no transportation. Then after receiving the medical clearance we would schedule his surgery. Patient still declined an appt with Dr Love. I called Sakina @ Dr Andrews's office and informed her about . Sakina to keep me informed. documented [facility] this [facility] 03-26-2025 Telephone encounter Note Received a call from Sakina at Dr Andrews's office about Mr Clarke who has a Comminuted displaced fracture of the left olecranon and wants to refer to Dr Love for operative management. Spoke with patient about scheduling an appt with Dr Love tomorrow 03-27-2025 -patient declined. I explained that tomorrow would just be for the appointment to meet Dr Love , check his skin and have a surgical discussion .And then he would need to get medical clearance from his PCP-Patient states he is newly diagnosed with Diabetes, has Cellulitis and weighs over 300 lb.Patient states that he 2 hours away ,a is by himself and has no transportation. Then after receiving the medical clearance we would schedule his surgery. Patient still declined an appt with Dr Love. I called Sakina @ Dr Andrews's office and informed her about . Sakina to keep me informed. 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 This glandis about 1.5 inches wide and 1 inch high, and it is involved in making semen. The prostate is located below a man's bladder, in front of the rectum. There are four types of prostatitis: ??? Chronic prostatitis (CP), also called chronic pelvic pain syndrome (CPPS). This is the most common type of prostatitis. It is associated with increased muscle tone in the area between the hip bones (pelvic area), around the prostate. This type is also known as a pelvic floor disorder. ??? Chronic bacterial prostatitis. This type usually results from an acute bacterial infection in the prostate gland that keeps coming back or has not been treated properly. The symptoms are less severe than those caused by acute bacterial prostatitis, which lasts a shorter time. ??? Asymptomatic inflammatory prostatitis. This type does not have symptoms and does not need treatment. This is diagnosed when tests are done for other disorders of the urinary tract or reproductivetract. ??? Acute bacterial prostatitis. This type starts quickly and results from an acute bacterial infection in the prostate gland. It is usually associated with a bladder infection, high fever, and chills. This is the least common type of prostatitis. What are the causes? Bacterial prostatitis is caused by an infection from bacteria. Chronic nonbacterial prostatitis may be caused by: ??? Factors related to the nervous system. This system includes thebrain, spinal cord, and nerves. ??? An autoimmune response. This happens when the body's disease-fighting system attacks healthy tissue in the body by mistake. ??? Psychological factors. These have to do with how the mind works. The causes of the other types of prostatitis are usually not known. What are the signs or symptoms? Symptoms of this condition depend on the type of prostatitis you have. Acute bacterial prostatitis Symptoms may include: ??? Pain or burning during urination. ??? Frequent and sudden urges to urinate. ??? Trouble starting to urinate. ??? Fever. ??? Chills. ??? Pain in your muscles or joints, lower back, or lower abdomen. Other types of prostatitis Symptoms may include: ??? Sudden urges to urinate, or urinating often. ??? Trouble starting to urinate. ??? Weak urine stream. ??? Dribbling after urination. ??? Discharge coming from the penis. ??? Pain in the testicles, the penis, or the tip of the penis. ??? Pain in the area in front of the rectum and below the scrotum (perineum). ??? Pain when ejaculating. How is this diagnosed? This condition may be diagnosed based on: ??? A physical and medical exam. ??? A digital rectal exam. For this, the health care provider may use a finger to feel the prostate. ??? A urine test to check for bacteria. ??? A semen sample or blood tests. ??? Ultrasound. ??? Urodynamic tests to check how your body handles urine. ??? Cystoscopy to look inside your bladder or inside the part of your body that drains urine from the bladder (urethra). How is this treated? Treatment for this condition depends on the type of prostatitis. Treatment may involve: ??? Medicines to relieve pain or inflammation, or to help relax your muscles. ??? Physical therapy. ??? Heat therapy. ??? Biofeedback. These techniques help you control certain body functions. ??? Relaxation exercises. ??? Antibiotic medicine, if your condition is caused by bacteria. ??? Sitz baths. These warm water baths help to relax your pelvic floor muscles, which helps to relieve pressure on the prostate. Follow these instructions at home: Medicines ??? Take [id number] and prescription medicines only as told by your health care provider. ??? If you were prescribed an antibiotic medicine, take it as told by your health care provider. Donot stop using the antibiotic even if you start to feel better. Managing pain and swelling ??? Take sitz baths as directed by your health care provider. For a sitz bath, sit in warm water that is deep enough to cover your hips and buttocks. ??? If directed, apply heat to the affected area as often as told by your health care provider. Usethe heat source that your health care provider recommends, such as a moist heat pack or a heating pad. ? Place a towel between your skin and the heat source. ? Leave the heat on for 20?30 minutes. ? Remove the heat if your skin turns bright red. This is especially important if you are unable to feel pain, heat, or cold. You may have a greater risk of getting burned. General instructions ??? Do exercises as told by your health care provider, if you were prescribed physical therapy, biofeedback, or relaxation exercises. ??? Keep all follow-up visits as told by your health care provider. This is important. 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 acute September 9:43am Foot drop, right acute October 01, 2024 9:43am Hypertension acute September 9:43am Type 2 diabetes mellitus acute October 01, 2024 9:43am [facility] Work Phone: 1(679) 185-538812-02-2024 Evaluation note* Diagnosis Onset Date Resolution Status Admit Date Cellulitis of left leg witho ut foot acute July 15 5:45pm Elevated blood pressure reading acute July 15 5:45pm 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 acute July 8:56am Hypertension acute July 8:56am Screening for prostate cancer acute July 30, 2024 8:56am Type 2 diabetes mellitus acute July 30, 2024 8:56am Bilateral knee pain acute 2024 9:43am 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 acute September 9:43am Foot drop, right acute October 01, 2024 9:43am Hypertension acute September 9:43am Type 2 diabetes mellitus acute October 01, 2024 9:43am [facility] Work Phone: Evaluation note* Diagnosis Onset Date Resolution Status Admit Date Fracture of left olecranon process acute March 25 1:38pm [facility] Work Phone: Evaluation note* Diagnosis Olecranon fracture, left, closed, initial encounter- Primary Preop testing Unspecified pre-operative examination Other specified diabetes mellitus with other specified complication, unspecified whether terminal superintendent insulin use ([facility] Diagnosis Closed fracture of olecranon process of left ulna, initial encounter- Primary [facility]* Diagnosis Olecranon fracture, left, closed, initial encounter- Primary Closed fracture of olecranon process of left ulna with routine healing, subsequent encounter [facility] instructionsAmbulatory Orders* Referral to Orthopedic Surgery Time Frame: 10/01/24, Location: None Selected [facility] Work Phone: InstructionsNot on filedocumented in this encounter [facility] filedocumented in this encounter [facility] SystemInstructionsNot on filedocumented in this encounter [facility] SystemInstructionsNot on filedocumented in this encounter [facility] SystemReason for referral (narrative)No reason for referral information [facility] Work Phone: Summary Purpose Family [...] 01, 2024 9:43am Chief Complaint Admit Date [facility] March 25, 2025 1:38pm Reason for Visit Admit Date Fracture of left olecranon process Augus t 2024 1:38pm Chief Complaint Admit Date ER [facility] March 25, 2025 1:38pm [id number] surgical planning March 26, 2025 1:33pm Chief Complaint Admit Date [facility] March 25, 2025 1:38pm [id number] surgical planning March 26, 2025 1:33pm Surgery Clearance March 31, 2025 2: 03pm Reason for Visit Admit Date Fracture of left olecranon process Augus t 2024 1:38pm Bilateral knee pain March 31, 2025 2: 03pm 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 March 31, 2025 2:03pm Foot drop, right March 31, 2025 2: 03pm Hypertension March 31, 2025 2: 03pm Type 2 diabetes mellitus March 31 2:03pm Additional Source Comments (unrecognized sect ion and content) No Status Records FoundNo Status Records FoundNo Status Records FoundNo Status Records FoundNo Status Records FoundNo Status Records Found INFORMATION SOURCE (unrecogn ized section and content) DATE CREATED AUTHOR 08/12/2021 [facility] DATE CREATED AUTHOR AUTHOR'S ORGANIZ ATION 03/18/2025 [facility] DATE CREATED AUTHOR AUTHOR'S ORGANIZ ATION 03/28/2025 [facility] DATE CREATED AUTHOR AUTHOR'S ORGANIZ ATION 03/28/2025 [facility] DATE CREATED AUTHOR AUTHOR'S ORGANIZ ATION 03/30/2025 [facility] DATE CREATED AUTHOR AUTHOR'S ORGANIZ ATION 04/01/2025 [facility] Care Teams (unrecognized sec tion and content) Team Status: Active Member Role Status Dates Lucie Augustin APRN TIP CUTTER-C Primary Care Provider Active Team Status: Inactive [...] Status: Inactive Member Role Status Dates Lucie Augustin APRN TIP CUTTER-C Primary Care Provider, Attending Provider Active Start: July 30, 2024 End: July 30, 2024 Team Status: Active Member Role Status Dates Lucie Augustin APRN TIP CUTTER-C Primary Care Provider, Attending Provider Active Start: August 13, 2024 Team Status: Inactive Member Role Status Dates Lucie Augustin APRN TIP CUTTER-C Primary Care Provider, Attending Provider Active Start: October 01, 2024 End: October 01, 2024 Team Status: Inactive Member Role Status Dates Lucie Augustin APRN TIP CUTTER-C Primary Care Provider, Attending Provider Active Start: November 04, 2024 End: November 04, 2024 Team Status: Inactive Member Role Status Dates Lucie Augustin APRN TIP CUTTER-C Primary Care Provider Active Start: March 25, 2025 End: March 25, 2025 Dwight Andrews MD Attending Provider Active Star t: March 25, 2025 End: March 25, 2025 International Sourcing Manager Relationship Specialty Start Date End Date Lucie Augustin APRN-TIP CUTTER [address] [place] [address] PCP - General Nurse Practitioner 03/21/25 Team Status: Inactive Member Role Status Dates Lucie Augustin APRN TIP CUTTER-C Primary Care Provider Active Start: March 26, 2025 End: March 26, 2025 Dwight Andrews MD Attending Provider Active Star t: March 26, 2025 End: March 26, 2025 International Sourcing Manager Relationship Specialty Start Date End Date Lucie Augustin APRN-TIP CUTTER [address] [place] [address] PCP - General Nurse Practitioner 03/21/25 International Sourcing Manager Relationship Specialty Start Date End Date Lucie Augustin APRN-TIP CUTTER [address] [place] [address] PCP - General Nurse Practitioner 03/21/25 International Sourcing Manager Relationship Specialty Start Date End Date Lucie Augustin APRN-NP [address] [place] [id number] PCP - General Nurse Practitioner 03/21/25 Team Status: Inactive Member Role Status Dates Lucie Augustin APRN TIP CUTTER-Emma Primary Care Provider Active Start: March 31, 2025 End: March 31, 2025 Lucie Augustin APRN TIP CUTTERBreanna Attending Provider Act adria Start: March 31, 2025 End: March 31, 2025 International Sourcing Manager Relationship Specialty Start Date End Date Lucie Augustin APRN-NP [address] [place] [address] PCP - General Nurse Practitioner 03/21/25 Goals (unrecognized section and content) Goals may be documented in a n alternate sectionGoals may be documented in an alternate sectionGoals may be documented in an alternate sectionNot on filedocumented as of this encounterGoals may be documented in an alternate sectionNot on filedocumented as of this encounterNot on filedocumented as of this encounterNot on filedocumented as of this encounterNot on filedocumented as of this encounterNot on filedocumented as of this encounterGoals may be documented in an alternate sectionNot on filedocumented as of this encounter Reason for Visit (unrecogniz ed section and content) Reason Comments New Patient LT elbow fx, ER 2024,Referral Dr Andrews,XRAY IN SPLINT Pain FOR RECORDS PERTAINING TO PATIENTS WHO ARE [...] BE BASED ON THE PRIMARY CLINICAL RECORDS. [employer] [facility]. provides no warranty or guarantee of the accuracy or completeness of information in this document.
== END 2025-04-01 10:58 | disposition home or self-care (01) ==
LOC: WC 10:57
PROVIDERS: PCP Nurse Practitioner Family; Visit Provider Physician Assistant
DX: I87.312 Chronic venous hypertension (idiopathic) with ulcer of left lower extremity (principal); L97.821 Non-pressure chronic ulcer of other part of left lower leg limited to breakdown of skin
CPT/HCPCS: G0463

== ENCOUNTER 2025-04-08 08:05 | Emergency (ER) | payer MEDICARE, SELFPAY ==
[2025-04-08 08:09] VITALS: BP 148/89; PULSE 98; TEMP 36.8; O2SAT 98; BMI 51.7
--- OUTSIDE RECORDS SUMMARY | 2025-04-08 08:19 | XMS_ITS | CCD ---
Author Organization [facility] Care Team Providers Care Group Fitness Assistant Department Head Name Role Phone GODWINESMEREW Michoacano Referring Unavailable REGGIE CONNELLY Primary Care Unavailable Graciela Angelo APRN Attending Provider [phone] Neville ROCK Attending Unavailable Neville ROCK Attending Unavailable Neville ROCK Attending Unavailable ROHRBSANTA SKELTON Referring Unava ilable Lucie Augustin APRN Primary Care Provider Dwight Andrews MD Attending Provider Demetria MONET-ASSISTANT DEAN OF STUDENTSLucie Primary Care [facility] er LUCIE AUGUSTIN Primary Care Unavailable NEVILLE MENDOZA Attending Unavailable RAYNERBLUCIE SKELTON Primary Care Unavailable OLEKSANDR LOVE Referring Unavailable RAYNERBACHERLUCIE Primary Care Unavailable OLEKSANDR LOVE Referring Unavailable RohrbacheLucie meade APRN Attending Provider LUCIE AUGUSTIN Referring Unavailable LELOACHELUCIE Meade Primary Care Unavailable OLEKSANDR LOVE Referring Unavailable LUCIE AUGUSTIN Primary Care Unavailable OLEKSANDR LOVE Attending Unavailable LUCIE AUGUSTIN Referring Unavailable RAYNERBACHERLUCIE Primary Care Unavailable Lucie Augustin Primary Care Unavailable Dwight Andrews Admitting Unavailable Dwight Andrews Attending Unavailable Graciela Angelo Admitting Unavailable Graciela Angelo Attending Unavailable Allergies Allergy Classification Reported Allergen(s) Allergy Type Date of Onset Reaction(s) Facility (11 sources) Penicillin; Translations: [penicillin] Drug Allergy 03-21-2025 [facility] Repository (1 source) Penicillins Drug allergy (disorder) 03-31-2025 [facility] Repository Medications Current Medications Medication Drug Class(es) [...] 30, 2024 1:00am August 28, 2024 4:51pm Dnfkffpamdkl-Ykib-Cjhjm Acid (Multi-Day With Iron) 18-400 mg-mcg Tablet (5 sources) Start: 06-29-2018 take 1 tablet by ronny th once daily Start: 06-29-2018 take 1 tablet by ronny th once daily Ewzvvlsmhjva-Ppvx-Qdzkm Acid (Multi-Day With Iron) 18-400 mg-mcg Tablet Active 1 TAB PO Daily June 29, 2018 1:00am Complies with drug therapy Start: 06-29-2018 take 1 tablet by ronny th once daily Duczsxktqliz-Mmok-Cpywn Acid (Multi-Day With Iron) 18-400 mg-mcg Tablet Active 1 TAB PO Daily June 29, 2018 1:00am Start: 06-29-2018 take 1 tablet by ronny th once daily Csrdmgthbvbd-Iefa-Kagrx Acid (Multi-Day With Iron) 18-400 mg-mcg Tablet [...] mg Tablet Discontinued 1 TAB PO Q12H 10 July 06, 2018 1:00am July 15, 2024 [...] 2018 12:00am July 15, 2024 6:22pm Problems Active Problems Problem Classification Problem Date Documented Date [...] unclassified (1 source) Pain Onset: 03-31-2025 Episodic Spondylosis; intervertebral disc disorders; other back [...] Unclassified (1 source) New Patient Onset: 03-31-2025 Past or Other Problems Problem Classification Problem Date Documented Da te Episodic/Chronic Skin and subcutaneous tissue infections (7 sources) Cellulitis of leg, excluding foot; Translations: [Cellulitis of left lower limb] Onset: 07-15-2024 07-15-2024 Episodic Results Test Name Value Interpretation [...] Muller MD on 03/31/2025 9:00 PM Normal [facility] BASIC METABOLIC PANELon 03-14 Anion gap [Moles/Vol] 9 mmol/L Normal 5-15 [facility] Comment on above: Performed By: #### B MP #### [facility] ([facility]) [address] [place] [address] VIR Calcium [Mass/Vol] 9.3 mg/dL Normal 8.5-10.5 [facility] Comment on above: Performed By: #### B MP #### [facility] ([facility]) [address] [place] [address] VIR Chloride [Moles/Vol] 105 mmol/L Normal 98-109 [facility] Comment on above: Performed By: #### B MP #### [facility] ([facility]) [address] [place] [address] VIR CO2 [Moles/Vol] 26 mmol/L Normal 22-32 [facility] Comment on above: Performed By: #### B MP #### [facility] ([facility]) [address] [place] [address] VIR Creatinine [Mass/Vol] 0.96 mg/dL Normal 0.60-1.30 [facility] Comment on above: Result Comment: METH OD TRACEABLE TO IDMS STANDARD Performed By: #### B MP #### [facility] ([facility]) [address] [place] [address] VIR GFR/1.73 sq M.predicted among non-blacks MDRD (S/P/Bld) [Vol rate/Area] 86 mL/min/{1.73_m2} Normal >=60 [facility] Comment on above: Result Comment: Repo rted eGFR is based on the CKD-EPI 2020 equation that does not use a race coefficient. Performed By: #### B MP #### [facility] ([facility]) [address] [place] [address] VIR Glucose [Mass/Vol] 130 mg/dL High 65-99 [facility] Comment on above: Performed By: #### B MP #### [facility] ([facility]) [address] [place] [address] VIR Potassium [Moles/Vol] 4.4 mmol/L Normal 3.5-5.0 [facility] Comment on above: Performed By: #### B MP #### [facility] ([facility]) [address] [place] [address] VIR Sodium [Moles/Vol] 140 mmol/L Normal 134-146 [facility] Comment on above: Performed By: #### B MP #### [facility] ([facility]) [address] [place] [address] VIR Urea nitrogen [Mass/Vol] 23 mg/dL Normal 5-27 [facility] Comment on above: Performed By: #### B MP #### [facility] ([facility]) [address] [place] [address] VIR CBC (NO DIFF)on 03-28-2025 Erythrocyte distribution width (RBC) [Ratio] 14.0 % Normal 11.5-15 [facility] Comment on above: Performed By: #### C BC #### [facility] ([facility]) [address] [place] [address] VIR Hematocrit (Bld) [Volume fraction] 46.9 % Normal 39-50 [facility] Comment on above: Performed By: #### C BC #### [facility] ([facility]) [address] [place] [address] VIR Hemoglobin (Bld) [Mass/Vol] 15.1 g/dL Normal 13-17 [facility] Comment on above: Performed By: #### C BC #### [facility] ([facility]) [address] [place] [address] VIR MCH (RBC) [Entitic mass] 30.2 pg Normal 27-34 [facility] Comment on above: Performed By: #### C BC #### [facility] ([facility]) [address] [place] [address] VIR MCHC (RBC) [Mass/Vol] 32.1 g/dL Normal 32-36 [facility] Comment on above: Performed By: #### C BC #### [facility] ([facility]) [address] [place] [address] VIR MCV (RBC) [Entitic vol] 94 fL Normal 80-100 [facility] Comment on above: Performed By: #### C BC #### [facility] ([facility]) [address] [place] [address] VIR Platelet mean volume (Bld) [Entitic vol] 7.6 fL Normal 7-12 [facility] Comment on above: Performed By: #### C BC #### [facility] ([facility]) [address] [place] [address] VIR Platelets (Bld) [#/Vol] 249 10*3/uL Normal 150-450 [facility] Comment on above: Performed By: #### C BC #### [facility] ([facility]) [address] [place] [address] VIR RBC COUNT 4.99 X10E12/L Normal 4.1-5.7 [facility] Comment on above: Performed By: #### C BC #### [facility] ([facility]) [address] [place] [address] VIR WBC (Bld) [#/Vol] 11.7 10*3/uL High 4-11 [facility] Comment on above: Performed By: #### C BC #### [facility] ([facility]) [address] [place] [address] VIR HEMOGLOBIN A1Con 03-28-2025 Glucose [Mass/Vol] 151 mg/dL Normal [facility] Comment on above: Performed By: #### H A1C #### [facility] ([facility]) [address] [place] [address] VIR HbA1c (Bld) [Mass fraction] 6.9 % High 4.4-5.6 [facility] Comment on above: Result Comment: ADA Guidelines Result HgbA1c Normal : less than 5.7 % Prediabetes : 5.7 % to 6.4 % Diabetes : > 6.4 % Use with caution in patients with abnormal hemoglobin variants as the half-life of red blood cells and in vivo glycation rates are affected. Performed By: #### H A1C #### [facility] ([facility]) [address] [place] [address] elbow LT wo conon 025 CT elbow LT wo con [facility] Main [address] [address] [address] Scan Report Signed Patient: Cesar Kimball MR#: [id number] : 1955 Acct:[id number] Age/Sex: 69 / M ADM Date: 03/26/25 Loc: CT Room: Type: [facility] Attending Dr: Dwight Andrews MD Copies [...] Jr., D.OJose 03/27/2025 10:31 AM Dictation Location: [place] [address] Transcribed By: [facility] 03/27/25 1031 Dictated By: Joseph Castro Jr, DO 03/27/25 1027 Signed By: 03/27/25 1031 Normal [facility] XR ELBOW LT MIN [...] Jiménez MD on 03/21/2025 2:14 PM Normal [facility] Urology Office/Clinic Noteon 03-17-2025 Urology Office/Clinic Note Urology Office/Clinic Note Chief Complaint new pt elevated PSA HPI Staff New pt referred by Lucie Augustin NP for elevated PSA. Never seen in our office before (verified on [facility]). PSA (done at [facility]) 08/13/24 - 07.05 No other levels on [facility] or [facility]. [...] prostate specific antigen [PSA]) PSA 08/13/24 - 07.05 Pt states he had a PSA drawn [...] 100mg bid x1 month. Rx sent to [facility]. 3. BPH with urinary obstruction (N40.1: Benign prostatic hyperplasia with lower urinary tract symptoms) Good stream most of the time. Constipation does weaken stream. Feels he empties. Attributes frequency to diuretics. Recommended pt to try oral meds. -Start Flomax 0.4mg qd. Possible SEs discussed. Rx sent to [facility]. Follow-up With When Contact Information PATSY ADDISON, Neville Meade, URL [facility] [address], [place] [address] [phone] Additional Instructions: 3 mos w/ PSA Patient Education Prostatitis Prostate Cancer Screening IEmmy, personally scribed for Dr. Rock on 03/17/2025 [...] 03/16/2025 Substance Abuse Never., 03/16/2025 Tobacco quit chew 2014 Tobacco Use:. Never Smokeless Tobacco Use:., 03/17/2025 Immunizations Vaccine Date Status Comments influenza virus vaccine, inactivated 09/16/2019 Recorded influenza virus vaccine, inactivated 06/12/2018 Recorded influenza virus vaccine, inactivated 05/30/2017 Recorded 2025-03-17: EXTERNAL ADMIN: PT RPT Lab Results Ambulatory Point of Care Results Bilirubin Urine Dipstick: Negative (03/17/25 09:15:00) Blood Urin (more content not included)... Normal [facility] Comment on above: Result Comment: Elec tronically Signed By: Neville ROCK MD\.br\Date and Time Signed: 03/17/25 09:50 EDT\.br\Electronically Co-Signed By: Emmy Garcia\.br\Date and Time Co-Signed: 03/17/25 09:49 EDT Basophils Auto (Bld) [#/Vol] on 08-13-2024 Basophils (Bld) [#/Vol] Automated basophil count 0.0-0.1 [facility] Basophils/100 WBC Auto (Bld) on 08-13-2024 Basophils/100 WBC (Bld) Automated basophil % 0.2-2.0 [facility] Cholesterol in LDL Calc [Mas s/Vol]on 08-13-2024 Cholesterol in LDL [Mass/Vol] Cholesterol in LDL [Mass/volume] in Serum or Plasma by calculation [facility] Comment on above: <100 mg/dl [id number] 0-129 mg/dl NEAR OR ABOVE [id number] mg/dl BORDERLINE [id number] mg/dl HIGH>190 mg/dl VERY HIGH Cholesterol in VLDL Calc [Ma ss/Vol]on 08-13-2024 Cholesterol in VLDL [Mass/Vol] Cholesterol in VLDL [Mass/volume] in Serum or Plasma by calculation [facility] Eosinophils/100 WBC Auto (Bl d)on 08-13-2024 Eosinophils/100 WBC (Bld) Automated eosinophil % 0.9-7.0 [facility] Erythrocyte distribution wid th Auto (RBC) [Ratio]on 08-13-2024 Erythrocyte distribution width (RBC) [Ratio] Erythrocyte distribution width [Ratio] by Automated count 11.0-15.0 [facility] Estimated glomerular filtrat ion rate (GFR) non- Americanon 08-13-2024 GFR/1.73 sq M.predicted among non-blacks MDRD (S/P/Bld) [Vol rate/Area] Estimated glomerular filtration rate (GFR) non- >=60 mL/min/1.73m 2 [facility] Globulin Calc (S) [Mass/Vol] on 08-13-2024 Globulin (S) [Mass/Vol] Serum globulin measurement by calculation (mass/volume) [facility] Hematocrit Auto (Bld) [Volum e fraction]on 08-13-2024 Hematocrit (Bld) [Volume fraction] Hematocrit [Volume Fraction] of Blood by Automated count 42.0-54.0 [facility] Hemoglobin [Mass/volume] in Bloodon 08-13-2024 Hemoglobin (Bld) [Mass/Vol] Hemoglobin [Mass/volume] in Blood 14.0-18.0 [facility] Laboratory - Chemistry and C hemistry - challengeon 08-13-2024 Albumin [Mass/Vol] 3.6 g/dL 3.4-5.0 [facility] ALP [Catalytic activity/Vol] 101 U/L 46-116 [facility] ALT [Catalytic activity/Vol] 47 U/L 16-63 [facility] AST [Catalytic activity/Vol] 21 U/L 15-37 [facility] Bilirubin [Mass/Vol] 0.7 mg/dL 0.2-1.0 [facility] Calcium [Mass/Vol] 9.3 mg/dL 8.5-10.1 [facility] Chloride [Moles/Vol] 102 mmol/L 98-107 [facility] Cholesterol [Mass/Vol] 195 mg/dL <=200 [facility] Cholesterol in HDL [Mass/Vol] 54 mg/dL 40-60 [facility] Comment on above: > or =60 mg/dl - LOW CARDIOVASCULAR RISK<40 mg/dl - HIGH CARDIOVASCULAR RISK CO2 [Moles/Vol] 28.9 mmol/L 21.0-32.0 [facility] Creatinine [Mass/Vol] 1.16 mg/dL 0.70-1.30 [facility] GFR/1.73 sq M.predicted MDRD (S/P/Bld) [Vol rate/Area] mL/min/{1.73_m2} >=60 mL/min/1.73m 2 [facility] Glucose [Mass/Vol] 160 mg/dL High 74-106 [facility] Potassium [Moles/Vol] 4.5 mmol/L 3.5-5.1 [facility] Protein [Mass/Vol] 7.1 g/dL 6.4-8.2 [facility] Sodium [Moles/Vol] 138 mmol/L 136-145 [facility] Triglyceride [Mass/Vol] 84 mg/dL <=150 [facility] Urea nitrogen [Mass/Vol] 23.0 mg/dL High 7.0-18.0 [facility] Urea nitrogen/Creatinine [Mass ratio] 19.8 mg/mg [facility] Laboratory - Hematology and Cell countson 08-13-2024 Immature granulocytes/100 WBC (Bld) 0.7 % High 0.0-0.5 [facility] Leukocytes [#/volume] correc chapo for nucleated erythrocytes in Blood by Automated counon 08-13-2024 WBC corrected for nucl RBC Auto (Bld) [#/Vol] Leukocytes [#/volume] corrected for nucleated erythrocytes in Blood by Automated coun 4.0-11.0 [facility] Lymphocytes Auto (Bld) [#/Vo l]on 08-13-2024 Lymphocytes (Bld) [#/Vol] Lymphocytes [#/volume] in Blood by Automated count 1.2-3.8 [facility] Lymphocytes/100 WBC Auto (Bl d)on 08-13-2024 Lymphocytes/100 WBC (Bld) Lymphocytes/100 leukocytes in Blood by Automated count Low 20.5-60.0 [facility] MCH Auto (RBC) [Entitic mass ]on 08-13-2024 MCH (RBC) [Entitic mass] MCH [Entitic mass] by Automated count 25.9-34.0 [facility] MCHC Auto (RBC) [Mass/Vol]on 08-13-2024 MCHC (RBC) [Mass/Vol] MCHC [Mass/volume] by Automated count 29.9-35.2 [facility] MCV Auto (RBC) [Entitic vol] on 08-13-2024 MCV (RBC) [Entitic vol] MCV [Entitic volume] by Automated count 80.0-94.0 [facility] Microalbumin [Mass/volume] i n Urineon 08-13-2024 Albumin DL <= 20 mg/L (U) [Mass/Vol] Microalbumin [Mass/volume] in Urine <=30.0 [facility] Monocytes Auto (Bld) [#/Vol] on 08-13-2024 Monocytes (Bld) [#/Vol] Automated blood monocyte count High 0.3-0.8 [facility] Monocytes/100 WBC Auto (Bld) on 08-13-2024 Monocytes/100 WBC (Bld) Automated monocyte % 1.7-12.0 [facility] Neutrophils Auto (Bld) [#/Vo l]on 08-13-2024 Neutrophils (Bld) [#/Vol] Neutrophils [#/volume] in Blood by Automated count High 1.4-6.5 [facility] Neutrophils/100 WBC Auto (Bl d)on 08-13-2024 Neutrophils/100 WBC (Bld) Automated neutrophil % 43.0-75.0 [facility] No Panel Informationon 08-13 Eosinophils # (Auto) 0.3 10 3/uL 0.0-0.7 [facility] Immature Granulocyte # (Auto) 0.07 10 3/uL High 0.00-0.03 [facility] Prostate Specific Antigen Screen 11.22 ng/mL High <=4.00 [facility] Urine Random Creatinine 173.94 mg/dL 20.00-300.00 [facility] Platelet mean volume Auto (B ld) [Entitic vol]on 08-13-2024 Platelet mean volume (Bld) [Entitic vol] Platelet mean volume [Entitic volume] in Blood by Automated count Low 9.5-13.5 [facility] Platelets Auto (Bld) [#/Vol] on 08-13-2024 Platelets (Bld) [#/Vol] Platelets [#/volume] in Blood by Automated count 150-450 [facility] RBC Auto (Bld) [#/Vol]on RBC (Bld) [#/Vol] Erythrocytes [#/volume] in Blood by Automated count 4.70-6.10 [facility] Serum or plasma albumin/glob ulin mass ratioon 08-13-2024 Albumin/Globulin [Mass ratio] Serum or plasma albumin/globulin mass ratio [facility] Serum or plasma anion gap de terminationon 08-13-2024 Anion gap [Moles/Vol] Serum or plasma an ion gap determination [facility] Serum or plasma total choles terol/high density lipoprotein (HDL) cholesterol mass emily 08-13-2024 Cholesterol.total/Cho lesterol in HDL [Mass ratio] Serum or plasma total cholesterol/high density lipoprotein (HDL) cholesterol mass rat [facility] Comment on above: 3.3 - 4.4 LOW RISK4. 4 - 7.1 AVERAGE RISK7.1 - 11.0 MODERATE RISK>11.0 HIGH RISK Urine microalbumin/creatinin e mass ratioon 08-13-2024 Albumin/Creatinine DL <= 20 mg/L (U) [Mass ratio] Urine microalbumin/creatini ne mass ratio High 0.0-29.9 [facility] Comment on above: NO MICROALBUMINURIA 0-29 MG/GCLINICAL MICROALBUMINURIA 30-300 MG/GMACROALBUMINURIA >300 MG/G HbA1c HPLC (Bld) [Mass fract ion]on 07-30-2024 HbA1c (Bld) [Mass fraction] Hemoglobin A1c/Hemoglobin.total in Blood by HPLC [facility] Bacteria identified Aer cx N om (Unsp spec)Ordered By: Graciela Angelo on 07-15-2024 Group B Strep (Streptococcus agalactiae) Group B Strep (Streptococcus agalactiae) Abnormal [facility] Superficial Wound Culture Abnormal [facility] Superficial Wound Cultureon 07-15-2024 Superficial Wound Culture ORGANISM: Strep agalactiae - (group b) (O:STRAGA) Quantity of Growth Heavy Growth ORGANISM: Corynebacterium species (O:CORSPE) Comments Organism Not Routinely Tested for Susceptibilities Quantity of Growth Heavy Growth Organism #2 identified as Corynebacterium pseudodiphtheriticum. PERFORMED BY: [address] [place] [address] PATHOLOGIST HEARING AIDE TECHNICIAN JERMAINE LICONA M.D. Normal [facility] Comment on above: Performed By: #### C USUP #### [facility] [address] [place] [id number] [facility] [id number] 08-11-2021 SARS-CoV-2 (COVID-19) RNA LAURA+probe Ql (Unsp spec) Not detected Normal [facility] Comment on above: Result Comment: Rapid NAAT: [...] management decisions. Fact sheet for Healthcare Providers: https://www.fda.gov/media/987502/download Fact sheet for Patients: https://www.fda.gov/media/258336/download Methodology: Isothermal Nucleic Acid Amplification Performed By: #### C OVRB #### [facility] [address] [place] [address] Software Quality Assurance Engineer: Singh Mccollum MD Vital Signs Date Time Vital Sign Value Performing Clinician Padmaja corbin 03-31-2025 14:08-0400 Body height 170.18 cm Lucie Augustin APRN Work Phone: [facility] 03-31-2025 14:08-0400 Body temperature 99.2 [degF] Lucie Augustin APRN Work Phone: [facility] 03-31-2025 14:08-0400 Diastolic blood pressure 72 mm[Hg] Lucie Augustin APRN Work Phone: [facility] 03-31-2025 14:08-0400 Heart rate 96 /min Lucie Conklincas MONET Work Phone: [facility] 03-31-2025 14:08-0400 SaO2% (BldA) [Mass fraction] 94 % Lucie Augustin COOK 3 PASTRY Work Phone: [facility] 03-31-2025 14:08-0400 Systolic blood pressure 128 mm[Hg] Lucie Conklincas SALDAÑAN Work Phone: [facility] 03-31-2025 10:51-0400 Body height 170.2 cm Margot [employer] PA-C Work Phone: [facility] 03-31-2025 10:51-0400 Body mass index (BMI) [Ratio] 51.67 kg/m2 [employer] Work Phone: [facility] 03-31-2025 10:51-0400 Body temperature 97.5 [degF] [facility] [employer] PA-C Work Phone: [facility] 03-31-2025 10:51-0400 Body weight 149.69 kg [employer] PA-C Work Phone: [facility] 03-25-2025 14:11-0400 Body height 170.18 cm Lucie Mcclellanmichela MONET Work Phone: [facility] 03-25-2025 14:11-0400 Body mass index (BMI) [Ratio] 51.7 kg/m2 Lucie Mcclellanmichela SALDAÑAN Work Phone: [facility] 03-25-2025 14:11-0400 Body weight 149.68 kg Lucie Rodriguezdeepti SALDAÑAN Work Phone: [facility] 11-04-2024 09:00-0400 Body weight 149.68 kg [facility] 10-01-2024 09:49-0500 Body height 170.18 cm Graciela Angelo APRN Work Phone: [facility] 10-01-2024 09:49-0500 Body mass index (BMI) [Ratio] 51 kg/m2 Graciela Gi MONET Work Phone: [facility] 10-01-2024 09:49-0500 Body temperature 95.3 [degF] Gracielafrank Angelo APRN Work Phone: [facility] 10-01-2024 09:49-0500 Body weight 147.87 kg Graciela Gi SALDAÑAN Work Phone: [facility] 10-01-2024 09:49-0500 Diastolic blood pressure 82 mm[Hg] Gracielafrank Angelo APRN Work Phone: [facility] [facility] 10-01-2024 09:49-0500 Heart rate 92 /min Gracielafrank Angelo APRN Work Phone: [facility] 10-01-2024 09:49-0500 SaO2% (BldA) [Mass fraction] 98 % Graciela Gi COOK 3 PASTRY Work Phone: [facility] 10-01-2024 09:49-0500 Systolic blood pressure 144 mm[Hg] Gracielafrank Angelo APRN Work Phone: [facility] 07-30-2024 09:01-0500 Body height 170.18 cm Graciela Gi MONET Work Phone: [facility] 07-30-2024 09:01-0500 Body mass index (BMI) [Ratio] 53.1 kg/m2 Gracielafrank Angelo COOK 3 PASTRY Work Phone: [facility] 07-30-2024 09:01-0500 Body temperature 96.7 [degF] Graciela Angelo APRN Work Phone: [facility] 07-30-2024 09:01-0500 Body weight 153.76 kg Graciela Angelo APRN Work Phone: [facility] 07-30-2024 09:01-0500 Diastolic blood pressure 98 mm[Hg] Graciela Angelo COOK 3 PASTRY Work Phone: [facility] 07-30-2024 09:01-0500 Heart rate 101 /min Graciela Angelo COOK 3 PASTRY Work Phone: [facility] 07-30-2024 09:01-0500 SaO2% (BldA) [Mass fraction] 94 % Graciela Angelo COOK 3 PASTRY Work Phone: [facility] 07-30-2024 09:01-0500 Systolic blood pressure 164 mm[Hg] Graciela Angelo COOK 3 PASTRY Work Phone: [facility] 07-15-2024 19:22-0500 Diastolic blood pressure 90 mm[Hg] Graciela Angelo COOK 3 PASTRY Work Phone: [facility] 07-15-2024 19:22-0500 Systolic blood pressure 160 mm[Hg] Graciela Angelo COOK 3 PASTRY Work Phone: [facility] 07-15-2024 18:33-0500 Body height 170.18 cm Graciela Angelo COOK 3 PASTRY Work Phone: [facility] 07-15-2024 18:33-0500 Body mass index (BMI) [Ratio] 53.1 kg/m2 Graciela Angelo APRN Work Phone: [facility] 07-15-2024 18:33-0500 Body weight 153.76 kg Graciela Angelo COOK 3 PASTRY Work Phone: [facility] 07-15-2024 18:33-0500 Heart rate 88 /min Graciela Angelo COOK 3 PASTRY Work Phone: [facility] 07-15-2024 18:33-0500 SaO2% (BldA) [Mass fraction] 98 % Graciela Angelo COOK 3 PASTRY Work Phone: [facility] Encounters Encounter Date Encounter Type Care Provider Facility Start: 06-16-2025 ambulatory Neville Lui ty:KEVIN [place] Start: 05-20-2025 ambulatory Neville ROCK Facili ty:[facility] Start: 03-31-2025 Preprocedural examination done Lucie Demetria MONET Work Phone: [facility] Start: 03-31-2025 End: 03-31-2025 Patient encounter procedure Lucie Augustin TIERNEY ROCKET SCIENTIST -[facility] Work Phone: Start: 03-31-2025 End: 03-31-2025 Office outpatient new 60 minutes Margot Bellamy PA-C Work Phone: [facility] Comment on above: Olecranon fracture, left, closed, initial encounter (Primary Dx) Start: 03-31-2025 End: 03-31-2025 Orders Only Jayla Lazo RN [facility]Trauma [facility] Adult [facility] Comment on above: Closed fracture of o lecranon process of left ulna, initial encounter (Primary Dx) Start: 03-28-2025 End: 03-28-2025 ambulatory [facility] Start: 03-28-2025 Encounter for other preprocedural examination [facility] Start: 03-28-2025 ambulatory [facility] Start: 03-28-2025 End: 03-28-2025 Telephone encounter Vickey Joe [facility]Tra[facility] Adult [facility] Start: 03-27-2025 End: 03-27-2025 Patient encounter status Jayla Lazo RN [facility] Start: 03-27-2025 End: 03-27-2025 Telephone encounter Jayla Lazo RN [facility]Trauma [facility] Adult [facility] Comment on above: Olecranon fracture, left, closed, initial encounter (Primary Dx); Preop testing; Other specified diabetes mellitus with other specified complication, unspecified whether prison insulin use ([facility]) Start: 03-26-2025 ambulatory [facility] Start: 03-26-2025 End: 03-26-2025 Telephone encounter Jalya Laedica [facility] Start: 03-26-2025 End: 03-26-2025 ambulatory Lucie Demetria MONET Work Phone: [facility] Work Phone: Start: 03-26-2025 End: 03-26-2025 Patient encounter procedure Dwight Andrews MD -[facility] Work Phone: Start: 03-25-2025 End: 03-25-2025 ambulatory Lucie Augustin APRN Work Phone: [facility] Work Phone: Start: 03-25-2025 End: 03-25-2025 Patient encounter procedure Dwight Andrews MD -[facility] Work Phone: Start: 03-21-2025 End: 03-21-2025 Emergency department patient visit BANNER DEMETRIA [facility] Start: 03-17-2025 End: 03-17-2025 ambulatory Neville ROCK Facility:[facility] Start: 11-04-2024 End: 11-04-2024 ambulatory [facility] Work Phone: Start: 11-04-2024 End: 11-04-2024 Patient encounter procedure [facility] Physician [facility] Work Phone: Start: 10-01-2024 End: 10-01-2024 ambulatory Graciela Angelo APRN Work Phone: [facility] Work Phone: Start: 10-01-2024 End: 10-01-2024 Patient encounter procedure Graciela Angelo APRN Work Phone: [facility] Work Phone: Start: 08-19-2024 ambulatory Neville ROCK Facility : [facility] Start: 08-13-2024 Non-patient / Non-visit Graciela Angelo APRN Work Phone: [facility] Physician [facility] Work Phone: Start: 07-30-2024 End: 07-30-2024 Patient encounter procedure Graciela De La Rosaley COOK 3 PASTRY Work Phone: [facility] Physician [facility] Work Phone: Start: 07-15-2024 End: 07-15-2024 ambulatory Graciela Angelo Facility:[facility] Start: 07-15-2024 End: 07-15-2024 Departed Referred Graciela De La Rosaley COOK 3 PASTRY Work Phone: [facility] Work Phone: Start: 07-15-2024 End: 07-15-2024 Patient encounter procedure Graciela De La Rosaley COOK 3 PASTRY Work Phone: [facility] Work Phone: Start: 08-11-2021 End: 08-12-2021 ambulatory REGGIE MCWILLIAMSB[facility] Procedures Date Procedure Procedure Detail Performing Clinician Start: 03-26-2025 CT of elbow, left Daphney garland Raynerbacher COOK 3 PASTRY Work Phone: Start: 07-15-2024 Aerobic microbial culture Graciela De La Rosaley COOK 3 PASTRY Work Phone: Plan of Treatment Date Care Activity Detail Author Start: 03-31-2026 Adult BMI Screening Adult BMI Screening [facility] Start: 03-21-2026 Adult BMI Screening Adult BMI Screening [facility] Start: 03-21-2026 Tobacco Screening Tobacco Screening [facility] Start: 04-14-2025 Influenza vaccination Influenza Vaccine [facility] Start: 04-09-2025 End: 04-09-2025 Admission to same day surgery center 04/09/2025 9:00 AM EDT - 04/09/2025 11:00 AM EDT Surgery [facility] [address] [place] [phone] Oleksandr Love MD [address] [place] [address] [address] [place] [id number] OPEN REDUCTION INTERNAL FIXATION OLECRANON [facility] Comment on above: OPEN REDUCTION INTERNAL FIXATION OLECRAN ON Start: 04-09-2025 End: 04-09-2025 OPEN REDUCTION INTERNAL FIXATION OLECRANON OPEN REDUCTION INTERNAL FIXATION OLECRANON Closed fracture of olecranon process of left ulna with routine healing, subsequent encounter 04/09/2025 9:00 AM EDT [facility] Start: 04-09-2025 Subsequent hospital visit by physician 04/09/2025 9:00 AM EDT Hospital Encounter [facility] [address] [place] [phone] Oleksandr Love MD [address], [address] [place] [address] [facility] Start: 03-31-2025 End: 03-31-2026 XR Elbow - left 2 Views X-ray elbow left 2 views Imaging Routine Closed fracture of olecranon process of left ulna, initial encounter Expected: 03/31/2025, Expires: 03/31/2026 [facility] Work Phone: Comment on above: Expected: 03/31/2025, Expires: Start: 03-31-2025 End: 03-31-2025 Patient encounter procedure 03/31/2025 10:30 AM EDT Office [facility] [address] [place] [phone] Oleksandr Love MD [address] [place] [address] [facility] Start: 03-28-2025 End: 03-28-2025 ambulatory [facility] Start: 03-26-2025 CT Elbow - left WO contrast [facility] Start: 03-26-2025 CT of elbow, left CT elbow LT wo con [facility] Start: 10-01-2024 Patient referral [facility] Work Phone: Start: 2021 Fall Risk Screening Fall [facility] Start: 2006 Administration of varicella zoster vaccine Zoster (Shingles) Vaccine (1 of 2) [facility] Start: 1975 DTaP,Tdap and Td Vaccines (1 - Tdap) DTaP,Tdap and Td Vaccines (1 - Tdap) [facility] Start: 1974 Adult BMI Follow Up Plan Adult BMI Follow Up Plan [facility] Start: 1968 Depression Screening Depression Screening [facility] End: 03-27-2026 Basic metabolic 2000 panel - Serum or Plasma Basic Metabolic Panel Lab Routine Olecranon fracture, left, closed, initial encounter Preop testing 1 Occurrences starting 03/27/2025 until 03/27/2026 [facility] Comment on above: 1 Occurrences starting 03/27/2025 until 03/27/2026 End: 03-27-2026 CBC panel - Blood by Automated count CBC without diff Lab Routine Olecranon fracture, left, closed, initial encounter Preop testing 1 Occurrences starting 03/27/2025 until 03/27/2026 [facility] Work Phone: Comment on above: 1 Occurrences starting 03/27/2025 until 03/27/2026 Comprehensive metabo lic 2000 panel - Serum or Plasma [facility] CT Elbow - left WO contrast [facility] End: 03-27-2026 ECG 12 lead ECG 12 lead ECG Routine Olecranon fracture, left, closed, initial encounter Preop testing 1 Occurrences starting 03/27/2025 until 03/27/2026 [facility] Comment on above: 1 Occurrences starting 03/27/2025 until 03/27/2026 End: 03-27-2026 Hemoglobin A1c/Hemoglobin.total in Blood Hemoglobin A1c Lab Routine Preop testing Other specified diabetes mellitus with other specified complication, unspecified whether prison insulin use ([facility]) 1 Occurrences starting 03/27/2025 until 03/27/2026 [facility] Comment on above: 1 Occurrences starting 03/27/2025 until 03/27/2026 Patient referral [facility] Work Phone: [facility] Immunizations Immunization Date Immunization Notes Care Provider Ayla hernandez 09-16-2019 influenza virus vaccine, unspecified formulation Jayla Lazo RN [employer] [facility] Payers Date Payer Category Payer Worker's Comp Other Managed Care SANDI [id number] 2025 Unknown [id number] 2024 Self-pay 2021 Private Health Insurance [facility] [id number] 2021 Medicare MEDICARE [id number] 2021 Medicare [id number] 1955 Unknown [id number]. 2.174 1956 Unknown [id number] [id number]. 2.727 1956 Unknown [id number] [id number]. 2.727 1956 Unknown [id number] [id number]. 2.727 1956 Unknown [id number] [id number]. 2.1286 1956 Unknown [id number] [id number]. 2.128 1956 Unknown [id number] [id number]. 2.1285 1956 Unknown [id number] [id number]. 2.128 1956 Unknown [id number] [id number]. 2.128 1956 Unknown [id number] [id number]. 2.1286 [employer] are - [employer] [id number] Unknown [id number] Unknown [id number] [id number]. 2.531 Unknown [id number] [id number]. 2.531 Social History Date Type Detail Facility Start: 07-30-2024 End: 07-30-2024 Tobacco smoking status NHIS Ex-smoker (finding) [facility] Start: 10-01-2024 End: 03-21-2025 Sex Male (finding) [facility] Start: 1955 Sex Assigned At Male F [facility] Start: 03-21-2025 Tobacco smoking stat us NHIS Never smoked tobacco [employer] [facility] Start: 03-21-2025 Tobacco use and exposure Smokeless tobacco non-user [employer] [facility] Start: 03-21-2025 Alcoholic beverage intake Current drinker of alcohol (finding) [employer] [facility] Start: 03-21-2025 Alcoholic beverage intake [employer] [facility] Start: 03-21-2025 Tobacco use panel [facility] Within the past 12 months we worried whether our food would run out before we got money to buy more. Never True [employer] [facility] Start: 1955 Sex assigned at Not on file P [employer] [facility] Medical Equipment Procedure Code Equipment Code [...] fracture Date of injury: 03/21/2025 HPI: Cesar Kimball is a 69 y.o. male presents for [...] Resource Strain: Low Risk (08/11/2021) Received from [facility] Overall Financial Resource Strain (CARDIA) Difficulty of Paying Living Expenses: Not hard at all Food Insecurity: No Food Insecurity (03/21/2025) Hunger Screening Food Insecurity - Worry: Never True Food Insecurity - Inability: Never True Transportation Needs: No Transportation Needs (10/23/2019) Received from [facility] PRAPARE - Transportation Lack of Transportation [...] identify comminuted displaced olecranon fracture ASSESSMENT: Cesar Kimball is a 69 y.o. male with a [...] PA-C 03/31/25 1527 documented [facility] this encounter [facility] 03-28[facility]25 Miscellaneous Notes Patient called he has [...] with Dr Love documented in this encounter [facility] 03-28-2025 Telephone encounter Note Patient called he has an appointment on Monday and surgery on Monday. [place] hour away and lives alone.Has to get transportation. He was wondering if he could be admitted Monday for his surgery [facility] 03-28-2025 Telephone encounter Note Spoke with Patient [...] on 03-31-2025 10:[address] Love [facility] 03-27-2025 Miscellaneous Notes Patient has a Left Olecranon Fracture. Appt with Dr Love is 03-31-2025 Left message at Patient's PCP's office for need of Medical Clearance/fax number. documented in this encounter [facility] 03-27-2025 Telephone encounter Note Patient has a Left Olecranon Fracture. Appt with Dr Love is 03-31-2025 Left message at Patient's PCP's office for need of Medical Clearance/fax number. [facility] 03-27-2025 Miscellaneous Notes Appt scheduled on Monday03-31-2025 10:30 am documented in this encounter [facility] 03-27-2025 Telephone encounter Note Appt scheduled on Monday03-31-2025 10:30 am [facility] 03-26-2025 Miscellaneous Notes Received a call from Sakina at Dr Andrews's office about Mr Kimball who has a Comminuted displaced fracture of [...] keep me informed. documented in this encounter [facility] 03-26-2025 Telephone encounter Note Received a call from Sakina at Dr Andrews's office about Mr Kimball who has a Comminuted displaced fracture of [...] about . Sakina to keep me informed. 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 Take rqlz-[id number] and prescription medicines only as told by [...] provider. This is important. 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 acute September 9:43am Foot drop, right acute October 01, 2024 9:43am Hypertension acute September 9:43am Type 2 diabetes mellitus acute October 01, 2024 9:43am [facility] Work Phone: Evaluation note* Diagnosis Onset Date Resolution Status Admit Date Fracture of left olecranon process acute March 25 1:38pm [facility] Work Phone: Evaluation note* Diagnosis Olecranon fracture, left, closed, initial encounter- Primary Preop testing Unspecified pre-operative examination Other specified diabetes mellitus with other specified complication, unspecified whether terminal press operator insulin use ([facility]) documented in this encounter [facility] Diagnosis Closed fracture of olecranon process of left ulna, initial encounter- Primary documented in this encounter [facility]* Diagnosis Olecranon fracture, left, closed, initial encounter- Primary Closed fracture of olecranon process of left ulna with routine healing, subsequent encounter documented in this encounter [facility] Dis[facility] instructionsAmbulatory Orders* Referral to Orthopedic Surgery Time Frame: 10/01/24, Location: None [facility] Work Phone: InstructionsNot on filedocumented in this encounter [facility] filedocumented in this encounter [facility]ructionsNot on filedocumented in this encounter [facility]ructionsNot on filedocumented in this encounter [facility] SystemReason for referral (narrative)No reason for referral [facility] Work Phone: Summary Purpose Family History [...] content) DATE CREATED AUTHOR [facility]/12/2021 [facility] DATE CREATED AUTHOR AUTHOR'S ORGANIZ ATION 03/18/2025 [facility] DATE CREATED AUTHOR AUTHOR'S ORGANIZ ATION 03/30/2025 [facility] DATE CREATED AUTHOR AUTHOR'S ORGANIZ ATION 04/02/2025 [facility] DATE CREATED AUTHOR AUTHOR'S ORGANIZ ATION 04/02/2025 [facility] DATE CREATED AUTHOR AUTHOR'S ORGANIZ ATION 04/04/2025 [facility] Care Teams (unrecognized sec tion and content) Team Status: Active Member Role Status Dates Lucie Augustin APRN ASSISTANT [employer]-C Primary Care Provider Active Team Status: Inactive Member Role Status Dates Bisi Christianson MD Primary Care Provider Active Start: July 15, 2024 End: July 15, 2024 Graciela Angelo APRN Attending Provider Active Start: July 15, 2024 End: July 15, 2024 Team Status: Inactive Member Role Status Dates Grcaiela M Gi , COOK 3 PASTRY Attending Provider Active Start: July 15, 2024 End: July 15, 2024 Team Status: Inactive Member Role Status Dates Lucie Augustin COOK 3 PASTRY [employer]-C Primary Care Provider, Attending Provider Active Start: July 30, 2024 End: July 30, 2024 Team Status: Active Member Role Status Dates Lucie Augustin APRN [employer]IST[employer]-C Primary Care Provider, Attending Provider Active Start: August 13, 2024 Team Status: Inactive Member Role Status Dates Lucie Augustin COOK 3 PASTRY ASSIST[employer]-C Primary Care Provider, Attending Provider Active Start: October 01, 2024 End: October 01, 2024 Team Status: Inactive Member Role Status Dates Lucie Augustin COOK 3 PASTRY ASSIST[employer]-C Primary Care Provider, Attending Provider Active Start: November 04, 2024 End: November 04, 2024 Team Status: Inactive Member Role Status Dates Lucie Augustin COOK 3 PASTRY [employer]IST[employer]-C Primary Care Provider Active Start: March 25, 2025 End: March 25, 2025 Dwight Andrews MD Attending Provider Active Star t: March 25, 2025 End: March 25, 2025 Group Fitness Assistant Department Head Relationship Specialty Start Date End Date Lucie Augustin APRN-[employer] [address] [id number] PCP - General Nurse Practitioner 03/21/25 Team Status: Inactive Member Role Status Dates Lucie Augustin COOK 3 PASTRY ASSIST[employer]-C Primary Care Provider Active Start: March 26, 2025 End: March 26, 2025 Dwight Andrews MD Attending Provider Active Star t: March 26, 2025 End: March 26, 2025 Group Fitness Assistant Department Head Relationship Specialty Start Date End Date Lucie Augustin APRN-[employer] [address] [place] [address] PCP - General Nurse Practitioner 03/21/25 Group Fitness Assistant Department Head Relationship Specialty Start Date End Date Lucie Augustin APRN-[employer] [address] [place] [address] PCP - General Nurse Practitioner 03/21/25 Group Fitness Assistant Department Head Relationship Specialty Start Date End Date Lucie Augustin APRN-NP [address] [place] [address] PCP - General Nurse Practitioner 03/21/25 Team Status: Inactive Member Role Status Dates Lucie Augustin APRN ASSIST[employer]-Emma Primary Care Provider Active Start: March 31, 2025 End: March 31, 2025 Lucie Augustin APRN ASSISTANT DEAN OF STUDENTSBreanna Attending Provider Act adria Start: March 31, 2025 End: March 31, 2025 Group Fitness Assistant Department Head Relationship Specialty Start Date End Date Lucie Augustin APRN-NP [address] [place] [address] PCP - General Nurse Practitioner 03/21/25 Goals [...] Patient LT elbow fx, ER 2024,Referral Dr Andrews,[place] Pain FOR RECORDS PERTAINING TO [...] BE BASED ON THE PRIMARY CLINICAL RECORDS. [facility]. provides no warranty or guarantee of the accuracy or completeness of information in this document.
--- NOTE | 2025-04-08 08:31 | ED.GENADUL1 ---
HPI HPI - General Adult General Chief complaint: Back Pain/Injury Stated complaint: BACK PAIN Time Seen by Provider: 04/08/25 08:06 Source: patient Mode of arrival: Wheelchair Limitations: no limitations History of Present Illness HPI narrative: Patient is a 69-year-old male presenting to the emergency department with concerns of left lower back pain. Patient states he was trying to sleep last night, and started experiencing left-sided lower back pain. He denies any recent falls or injuries. He denies any numbness/tingling/weakness in the lower extremity. 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 He denies any new neurological plaints. He denies any bladder/bowel incontinence. He does state his urine has been more yellow recently. He has no history of IV drug use. No fevers. No history of cancer or metastatic disease. Does have a history of prior lumbar spinal fusion with no recent revisions. Additionally, patient is currently being treated for left lower extremity cellulitis on doxycycline. Related Data Home Medications ?Medication ?Instructions ?Recorded ?Confirmed doxycycline hyclate 100 mg capsule 100 mg PO BID 04/08/25 04/08/25 losartan 50 mg tablet 50 mg PO DAILY 04/08/25 04/08/25 tamsulosin 0.4 mg capsule 0.4 mg PO DAILY 04/08/25 04/08/25 Allergies Allergy/AdvReac Type Severity Reaction Status Date / Time Penicillins Allergy Severe Hives Verified 04/08/25 08:09 Opioid HPI Opioid Management Most Recent Opioid Data: Last Pain Scale 7 Today, 08:55 Last MAR Pain Assessment Today, 08:55 Review of Systems ROS Status of ROS 10 or more systems reviewed and unremarkable except as noted in history and below PFSH PFSH Social History Little interest or pleasure in doing things: not at all Feeling down, depressed, or hopeless: not at all Exam Narrative Exam Narrative: CONSTITUTIONAL: Well-appearing, answering questions and following commands appropriately SKIN: Was warm and dry. EYES: Sclerae white. EARS, NOSE, THROAT: Moist oral mucosa. RESPIRATORY: Nonlabored respirations CARDIOVASCULAR: Normal rate and regular rhythm. There is no S3, S4, murmur, rub. GASTROINTESTINAL: Mild midline lower abdominal tenderness without rebound tenderness or guarding. No peritoneal signs. MUSCULOSKELETAL: Minimal tenderness to palpation throughout the left paraspinal muscles/left lower back/left glutes. There is no midline L-spine tenderness. Patient has full range of motion in the bilateral lower extremities. Patient's left arm is in a splint from prior fracture. There is erythema and cellulitic changes of the left lower extremity without crepitus. NEUROLOGIC: Patient is awake and alert. 5/5 strength in the bilateral lower extremities. Intact sensation to light touch in the bilateral lower extremities. Right foot drop is present, which is chronic. Constitutional Vital Signs, click to edit/add: Last Vital Signs Temp 98.2 F 04/08/25 08:09 Pulse 98 H 04/08/25 08:09 Resp 16 04/08/25 08:09 BP 148/89 H 04/08/25 08:09 Pulse Ox 98 04/08/25 08:09 O2 Del Method Room Air 04/08/25 08:09 Course Vital Signs Vital signs: Vital Signs Temperature 98.2 F 04/08/25 08:09 Pulse Rate 98 H 04/08/25 08:09 Respiratory Rate 16 04/08/25 08:09 Blood Pressure 148/89 H 04/08/25 08:09 Pulse Oximetry 98 04/08/25 08:09 Oxygen Delivery Method Room Air 04/08/25 08:09 Temperature 98.2 F 04/08/25 08:09 Pulse Rate 98 H 04/08/25 08:09 Respiratory Rate 16 04/08/25 08:09 Blood Pressure 148/89 H 04/08/25 08:09 Pulse Oximetry 98 04/08/25 08:09 Oxygen Delivery Method Room Air 04/08/25 08:09 Medical Decision Making [facility] Narrative Medical decision making narrative: Patient is a 69-year-old male presenting to the emergency department for evaluation of left lower back pain that began last night when he was trying to sleep. Vital signs arrival are within normal limits. He is afebrile and hemodynamically stable. Examination as noted above, however was negative for midline L-spine tenderness. He is neurovascularly intact in the bilateral lower extremities. Differential diagnosis includes musculoskeletal pain, lumbar radiculopathy, sciatica, possible UTI given his nonspecific urinary complaint. He has no red flag signs for cauda equina syndrome, and has no new neurologic deficits. No history of IVDU or fevers to suggest spinal epidural abscess. No history of cancer to suggest metastatic disease. No falls or injuries to suggest fractures or traumatic injuries. Urinalysis was obtained. Xray of the lumbar spine was ordered to evaluate the orthopedic hardware. He was treated symptomatically with oral [place], Robaxin, and a lidocaine patch. UA was suggestive of UTI with large amount of bacteria, moderate leukocyte esterase, and 2-5 WBCs. Xray of the lumbar spine independently reviewed/interpreted by myself and reviewed by radiology demonstrated no acute osseous abnormalities or hardware loosening. I did discuss the results of the UA findings with the patient. The patient is on doxycycline, prescribed by his urologist. Given that he still has a positive UA despite being on antibiotics for the last 7 days, I did offer to change or add medication to his antibiotic regiment. However, he feels more comfortable sending a urine culture, waiting for the results, and following up with urology. Symptomatically, he feels better after oral analgesics. I do believe the patient is stable for discharge at this time. They were instructed to follow up with his urologist and PCP for further care. Return precautions were given including any new or worsening symptoms, including fevers or worsening abdominal/back pain. Patient understands and agrees to the plan. FINAL IMPRESSION: #Acute musculoskeletal lower back pain #Subacute UTI DISPOSITION: Discharged home CONDITION: Good Medical Records Medical records reviewed: Yes I reviewed the patient's medical records Lab Data Lab results reviewed: Yes I reviewed the patient's lab results Labs: Lab Results 04/08/25 Range/Units 08:55 Urine Color Lt. yellow (YELLOW) Urine Clarity Cloudy A (CLEAR) Urine pH 6.0 (5.0-9.0) Ur Specific [place] 1.025 (1.005-1.025) Urine Protein 30 A (NEG/TRACE) mg/dL Urine Glucose (UA) Negative (NEGATIVE) mg/dL Urine Ketones 15 A (NEGATIVE) mg/dL Urine Occult Blood Large A (NEGATIVE) Urine Nitrite Negative (NEGATIVE) Urine Bilirubin Negative (NEGATIVE) Urine Urobilinogen 1.0 (0.2-1.0) EU/dL Ur Leukocyte Esterase Moderate A (NEGATIVE) Urine RBC 10-20 A (0-2) #/HPF Urine WBC 2-5 A (NONE SEEN) #/HPF Ur Squamous Epith Cells Few A (NONE/RARE) #/LPF Urine Crystals Seen A (None Seen) #/HPF Uric Acid Crystals Many Urine Bacteria Large A (NONE SEEN) #/HPF Urine Casts None seen (NONE SEEN) #/LPF Urine Mucus None seen (NONE SEEN) Ur Culture Indicated? Yes-[facility] [place] Imaging Data xray lumbar spine: Attestation: I personally reviewed and interpreted this imaging study as follows: Radiologist's impression: ITS Impressions Lumbar Spine X-Ray 04/08/25 08:35 IMPRESSION: POSTOPERATIVE AND DEGENERATIVE CHANGES. NO DEFINITE ACUTE FINDINGS. Impression dictated by: Pina Inman M.D. 04/08/2025 9:20 AM Dictation Location: [employer] Electronically authenticated by: [id number] Y Date: 04/08/2025 09:20 Discharge Plan Discharge Chief Complaint: Back Pain/Injury Clinical Impression: Strain of lumbar region, Acute UTI Patient Disposition: Home, Self-Care Time of Disposition Decision: 10:03 Condition: Good Mode of Transportation: Private Vehicle Prescriptions / Home Meds: No Action doxycycline hyclate 100 mg capsule 100 mg PO BID losartan 50 mg tablet 50 mg PO DAILY tamsulosin 0.4 mg capsule 0.4 mg PO DAILY Print Language: Italian Instructions: Back Pain (ED) Referrals: GENEVIEVE HERNANDEZ [Primary Care Provider, Unknown] - 1 week Discharge Date/Time: 04/08/25 10:16
--- NOTE | 2025-04-08 08:35 | XR_ITS ---
[facility] [place] [id number] Patient Name: JOSHUA KIMBALL MRN: [id number] date: 1955 Sex: M Assigned Patient Location: ER Current Patient Location: ER Accession/Order Number: [id number] Exam Date: 04/08/2025 09:00 Report Date: 04/08/2025 09:20 At the request of: DUSTY RATLIFF DO Procedure: XR lumbar spine 2-3V LUMBAR SPINE - 2 views COMPARISON: None CLINICAL DATA: Back pain. Previous fusion. AP and lateral standing views were obtained. There is prior laminectomy and fusion with posterior rods, pedicle screws and an interbody fusion device at the lumbosacral junction. As visualized, the hardware appears intact and in appropriate position. There is subtle chronic appearing wedge deformity at the lower thoracic and upper lumbar region. No suspected acute compression fractures are identified. There is slight anterolisthesis of L5 on S1. Disc space narrowing is visualized at L2-L3 and L3-4. There is endplate spurring and some sclerosis. Lower lumbar facet disease is also seen. The SI joints are intact. No paraspinal soft tissue abnormalities are identified. XR/XR lumbar spine 2-3V IMPRESSION: POSTOPERATIVE AND DEGENERATIVE CHANGES. NO DEFINITE ACUTE FINDINGS. Impression dictated by: Pina Inman M.D. 04/08/2025 9:20 AM Dictation Location: [place] [id number] Electronically authenticated by: [id number] Y Date: 04/08/2025 09:20
[2025-04-08] MEDS: METHOCARBAMOL 500 MG TABLET PO (08:55)
[2025-04-08] MEDS: LIDOCAINE 5% PATCH 1 PATCH TOPICAL (08:55)
[2025-04-08] MEDS: HYDROCODONE/ACET 5-325 MG TABLET 1 TAB PO (08:55)
[2025-04-08 09:05] LABS: Glucose Urine UA NEGATIVE (NEGATIVE)
[2025-04-08 09:48] LABS: Cast Seen? NONE SEEN #/LPF (NONE SEEN); Crystals Seen? Seen #/HPF (None Seen); Urine Culture Indicated YES-FRMC
== END 2025-04-08 10:16 | disposition home or self-care (01) ==
PROVIDERS: Emergency Provider Student in an Organized Health Care Education/Training Program; PCP Nurse Practitioner Family
DX: S39.012A Strain of muscle, fascia and tendon of lower back, initial encounter (principal); N39.0 Urinary tract infection, site not specified; X58.XXXA Exposure to other specified factors, initial encounter; M21.371 Foot drop, right foot
CPT/HCPCS: 72100; 81001; 87086; 99284

== ENCOUNTER 2025-04-08 23:08 | Emergency (ER) | payer MEDICARE, SELFPAY ==
[2025-04-08 23:14] VITALS: BP 185/104; PULSE 91; TEMP 37.1; O2SAT 98; BMI 51.7
--- OUTSIDE RECORDS SUMMARY | 2025-04-08 23:18 | XMS_ITS | CCD ---
Author Organization [facility] Care Team Providers Care Business Analytics Manager Name Role Phone ALISASylviaREGGIE Referring Unavailable CLINREGGIE ROJAS Primary Care Unavailable Graciela Angelo APRN Attending Provider [phone] Neville ROCK Attending Unavailable Neville ROCK Attending Unavailable Neville ROCK Attending Unavailable ROHRBACHESANTA Meade Referring Unava ilable Lucie Augustin APRN Primary Care Provider Dwight Andrews MD Attending Provider Demetria MONET-DAY CARE DIRECTORLucie Primary Aubrie Provid er LUCIE AUGSUTIN Primary Care Unavailable NEVILLE MENDOZA Attending Unavailable LUCIE AUGUSTIN Primary Care Unavailable OLEKSANDR LOVE Referring Unavailable RAYNERBACHELUCIE Meade Primary Care Unavailable OLEKSANDR LOVE Referring Unavailable Rohrbacher Lucie MONET Attending Provider LUCIE AUGUSTIN Referring Unavailable LELOACHERLUCIE Primary Care Unavailable OLEKSANDR LOVE Referring Unavailable LUCIE AUGUSTIN Primary Care Unavailable OLEKSANDR LOVE Attending Unavailable LUCIE AUGUSTIN Referring Unavailable RAYNERBACHELUCIE Meade Primary Care Unavailable Lucie Augustin Primary Care Unavailable Dwight Andrews Admitting Unavailable Dwight Andrews Attending Unavailable Graciela Angelo Admitting Unavailable Graciela Angelo Attending Unavailable Allergies Allergy Classification Reported Allergen(s) Allergy Type Date of Onset Reaction(s) Facility (12 sources) Penicillin; Translations: [penicillin] Drug Allergy 03-21-2025 [facility] Repository (1 source) Penicillins Drug allergy (disorder) 03-31-2025 [facility] Repository Medications Current Medications Medication Drug [...] drug therapy ibuprofen 200 mg oral tablet (2 sources) Nonsteroidal Anti-inflammatory Drug take 1 tablet by mouth every six hours as needed for pain ibuprofen (ADVIL,MOTRIN) 200 mg tablet Take 1 tablet (200 mg total) by mouth every 6 (six) hours as needed for pain. Active losartan potassium 50 mg oral tablet (15 sources) Angiotensin 2 Receptor Torin Start: 08-28-2024 [...] 30, 2024 1:00am August 28, 2024 4:51pm Kumykpmyupjs-Uuvl-Sftib Acid (Multi-Day With Iron) 18-400 mg-mcg Tablet (5 sources) Start: 06-29-2018 take 1 tablet by ronny th once daily Start: 06-29-2018 take 1 tablet by ronny th once daily Higxbzjmidvt-Sxhq-Xclwc Acid (Multi-Day With Iron) 18-400 mg-mcg Tablet Active 1 TAB PO Daily June 29, 2018 1:00am Complies with drug therapy Start: 06-29-2018 take 1 tablet by ronny th once daily Dclkyoliwhrj-Ocjs-Oevih Acid (Multi-Day With Iron) 18-400 mg-mcg Tablet Active 1 TAB PO Daily June 29, 2018 1:00am Start: 06-29-2018 take 1 tablet by ronny th once daily Czcitkeauouq-Wcml-Ycbfg Acid (Multi-Day With Iron) 18-400 mg-mcg Tablet Active 1 TAB PO Daily June 29, 2018 12:00am tamsulosin hydrochloride 0.4 mg oral capsule (9 sources) alpha-Adrenergic Torin Start: 03-31-2025 Tamsulosin 0.4 [...] hypertension] 07-30-2024 Chronic Fracture of upper limb (15 sources) Displaced fracture of olecranon process without [...] MD on 03/31/2025 9:00 PM Normal [facility] BASIC METABOLIC PANELon 03-14 Anion gap [Moles/Vol] 9 mmol/L Normal 5-15 [facility] Comment on above: Performed By: #### B MP #### [facility] ([facility]) [address] [place] [address] VIR Calcium [Mass/Vol] 9.3 mg/dL Normal 8.5-10.5 [facility] Comment on above: Performed By: #### B MP #### [facility] ([facility]) [address] [place] [address] VIR Chloride [Moles/Vol] 105 mmol/L Normal 98-109 [facility] Comment on above: Performed By: #### B MP #### [facility] ([facility]) [address] [place] [address] VIR CO2 [Moles/Vol] 26 mmol/L Normal 22-32 [facility] Comment on above: Performed By: #### B MP #### [facility] ([facility]) [address] [place] [address] VIR Creatinine [Mass/Vol] 0.96 mg/dL Normal 0.60-1.30 [facility] Comment on above: Result Comment: METH OD TRACEABLE TO IDMS STANDARD Performed By: #### B MP #### [facility] ([facility]) [address] [place] [address] VIR GFR/1.73 sq M.predicted among non-blacks MDRD (S/P/Bld) [Vol rate/Area] 86 mL/min/{1.73_m2} Normal >=60 [facility] Comment on above: Result Comment: Repo rted eGFR is based on the CKD-EPI 2020 equation that does not use a race coefficient. Performed By: #### B MP #### [facility] ([facility]) [address] [place] [address] VIR Glucose [Mass/Vol] 130 mg/dL High 65-99 [facility] Comment on above: Performed By: #### B MP #### [facility] ([facility]) [address] [place] [address] VIR Potassium [Moles/Vol] 4.4 mmol/L Normal 3.5-5.0 [facility] Comment on above: Performed By: #### B MP #### [facility] ([facility]) [address] [place] [address] VIR Sodium [Moles/Vol] 140 mmol/L Normal 134-146 [facility] Comment on above: Performed By: #### B MP #### [facility] ([facility]) [address] [place] [address] VIR Urea nitrogen [Mass/Vol] 23 mg/dL Normal 5-27 [facility] Comment on above: Performed By: #### B MP #### [facility] ([facility]) [address] [place] [address] VIR CBC (NO DIFF)on 03-28-2025 Erythrocyte distribution width (RBC) [Ratio] 14.0 % Normal 11.5-15 [facility] Comment on above: Performed By: #### C BC #### [facility] ([facility]) [address] [place] [address] VIR Hematocrit (Bld) [Volume fraction] 46.9 % Normal 39-50 [facility] Comment on above: Performed By: #### C BC #### [facility] ([facility]) [address] [place] [address] VIR Hemoglobin (Bld) [Mass/Vol] 15.1 g/dL Normal 13-17 [facility] Comment on above: Performed By: #### C BC #### [facility] ([facility]) [address] [place] [address] VIR MCH (RBC) [Entitic mass] 30.2 pg Normal 27-34 [facility] Comment on above: Performed By: #### C BC #### [facility] ([facility]) [address] [place] [address] VIR MCHC (RBC) [Mass/Vol] 32.1 g/dL Normal 32-36 [facility] Comment on above: Performed By: #### C BC #### [facility] ([facility]) [address] [place] [address] VIR MCV (RBC) [Entitic vol] 94 fL Normal 80-100 [facility] Comment on above: Performed By: #### C BC #### [facility] ([facility]) [address] [place] [address] VIR Platelet mean volume (Bld) [Entitic vol] 7.6 fL Normal 7-12 [facility] Comment on above: Performed By: #### C BC #### [facility] ([facility]) [address] [place] [address] VIR Platelets (Bld) [#/Vol] 249 10*3/uL Normal 150-450 [facility] Comment on above: Performed By: #### C BC #### [facility] ([facility]) [address] [place] [address] VIR RBC COUNT 4.99 X10E12/L Normal 4.1-5.7 [facility] Comment on above: Performed By: #### C BC #### [facility] ([facility]) [address] [place] [address] VIR WBC (Bld) [#/Vol] 11.7 10*3/uL High 4-11 [facility] Comment on above: Performed By: #### C BC #### [facility] ([facility]) [address] [place] [address] VIR HEMOGLOBIN A1Con 03-28-2025 Glucose [Mass/Vol] 151 mg/dL Normal [facility] Comment on above: Performed By: #### H A1C #### [facility] ([facility]) [address] [place] [address] VIR HbA1c (Bld) [Mass fraction] 6.9 % High 4.4-5.6 [facility] Comment on above: Result Comment: ADA Guidelines Result HgbA1c Normal : less than 5.7 % Prediabetes : 5.7 % to 6.4 % Diabetes : > 6.4 % Use with caution in patients with abnormal hemoglobin variants as the half-life of red blood cells and in vivo glycation rates are affected. Performed By: #### H A1C #### [facility] ([facility]) [address] [place] [address] elbow LT wo conon 025 CT elbow LT [place] [address] CT Scan Report Signed Patient: Cesar Clarke MR#: [id number] : 1955 Acct:[id number] Age/Sex: 69 / M ADM Date: 03/26/25 Loc: CT Room: Type: [facility] Attending Dr: Dwight Andrews MD Copies [...] CM. Impression dictated by: Joseph Castro Jr., AngelOJose 03/27/2025 10:31 AM Dictation Location: [place] [address] Transcribed By: [facility] 03/27/25 1031 Dictated By: Joseph Castro Jr, DO 03/27/25 1027 Signed By: 03/27/25 1031 Normal [facility] XR ELBOW LT MIN 3 VWSon 08- XR ELBOW LT MIN 3 VWS XR [...] Jiménez MD on 03/21/2025 2:14 PM Normal [facility] Urology Office/Clinic Noteon 03-17-2025 Urology Office/Clinic Note Urology Office/Clinic Note Chief Complaint new pt elevated PSA HPI Staff New pt referred by Lucie Augustin NP for elevated PSA. Never seen in our office before (verified on [employer]). PSA (done at [facility]) 08/13/24 - 07.05 No other levels [...] 100mg bid x1 month. Rx sent to [facility]. 3. BPH with urinary obstruction (N40.1: Benign prostatic hyperplasia with lower urinary tract symptoms) Good stream most of the time. Constipation does weaken stream. Feels he empties. Attributes frequency to diuretics. Recommended pt to try oral meds. -Start Flomax 0.4mg qd. Possible SEs discussed. Rx sent to [facility]. Follow-up With When Contact Information PATSY ADDISON, Neville Meade, [facility] [address], [place] [address] [phone] Additional Instructions: 3 mos w/ PSA Patient [...] Urin (more content not included)... Normal [facility] Comment on above: Result Comment: Elec tronically Signed By: Neville ROCK MD\.br\Date and Time Signed: 03/17/25 09:50 EDT\.br\Electronically Co-Signed By: Emmy Garcia\.br\Date and Time Co-Signed: 03/17/25 09:49 EDT Basophils Auto (Bld) [#/Vol] on 08-13-2024 Basophils (Bld) [#/Vol] Automated basophil count 0.0-0.1 [facility] Basophils/100 WBC Auto (Bld) on 08-13-2024 Basophils/100 WBC (Bld) Automated basophil % 0.2-2.0 [facility] Cholesterol in LDL Calc [Mas s/Vol]on 08-13-2024 Cholesterol in LDL [Mass/Vol] Cholesterol in LDL [Mass/volume] in Serum or Plasma by calculation [facility] Comment on above: <100 mg/dl [id number] 0-129 mg/dl NEAR OR ABOVE [id number] mg/dl BORDERLINE [id number] mg/dl HIGH>190 mg/dl VERY HIGH Cholesterol in VLDL Calc [Ma ss/Vol]on 08-13-2024 Cholesterol in VLDL [Mass/Vol] Cholesterol in VLDL [Mass/volume] in Serum or Plasma by calculation [facility] Eosinophils/100 WBC Auto (Bl d)on 08-13-2024 Eosinophils/100 WBC (Bld) Automated eosinophil % 0.9-7.0 [facility] Erythrocyte distribution wid th Auto (RBC) [Ratio]on 08-13-2024 Erythrocyte distribution width (RBC) [Ratio] Erythrocyte distribution width [Ratio] by Automated count 11.0-15.0 [facility] Estimated glomerular filtrat ion rate (GFR) non- Americanon 08-13-2024 GFR/1.73 sq M.predicted among non-blacks MDRD (S/P/Bld) [Vol rate/Area] Estimated glomerular filtration rate (GFR) non- >=60 mL/min/1.73m 2 [facility] Globulin Calc (S) [Mass/Vol] on 08-13-2024 Globulin (S) [Mass/Vol] Serum globulin measurement by calculation (mass/volume) [facility] Hematocrit Auto (Bld) [Volum e fraction]on 08-13-2024 Hematocrit (Bld) [Volume fraction] Hematocrit [Volume Fraction] of Blood by Automated count 42.0-54.0 [facility] Hemoglobin [Mass/volume] in Bloodon 08-13-2024 Hemoglobin (Bld) [Mass/Vol] Hemoglobin [Mass/volume] in Blood 14.0-18.0 [facility] Laboratory - Chemistry and C hemistry - challengeon 08-13-2024 Albumin [Mass/Vol] 3.6 g/dL 3.4-5.0 [facility] ALP [Catalytic activity/Vol] 101 U/L 46-116 [facility] ALT [Catalytic activity/Vol] 47 U/L 16-63 [facility] AST [Catalytic activity/Vol] 21 U/L 15-37 [facility] Bilirubin [Mass/Vol] 0.7 mg/dL 0.2-1.0 [facility] Calcium [Mass/Vol] 9.3 mg/dL 8.5-10.1 [facility] Chloride [Moles/Vol] 102 mmol/L 98-107 [facility] Cholesterol [Mass/Vol] 195 mg/dL <=200 [facility] Cholesterol in HDL [Mass/Vol] 54 mg/dL 40-60 [facility] Comment on above: > or =60 mg/dl - LOW CARDIOVASCULAR RISK<40 mg/dl - HIGH CARDIOVASCULAR RISK CO2 [Moles/Vol] 28.9 mmol/L 21.0-32.0 [facility] Creatinine [Mass/Vol] 1.16 mg/dL 0.70-1.30 [facility] GFR/1.73 sq M.predicted MDRD (S/P/Bld) [Vol rate/Area] mL/min/{1.73_m2} >=60 mL/min/1.73m 2 [facility] Glucose [Mass/Vol] 160 mg/dL High 74-106 [facility] Potassium [Moles/Vol] 4.5 mmol/L 3.5-5.1 [facility] Protein [Mass/Vol] 7.1 g/dL 6.4-8.2 [facility] Sodium [Moles/Vol] 138 mmol/L 136-145 [facility] Triglyceride [Mass/Vol] 84 mg/dL <=150 [facility] Urea nitrogen [Mass/Vol] 23.0 mg/dL High 7.0-18.0 [facility] Urea nitrogen/Creatinine [Mass ratio] 19.8 mg/mg [facility] Laboratory - Hematology and Cell countson 08-13-2024 Immature granulocytes/100 WBC (Bld) 0.7 % High 0.0-0.5 [facility] Leukocytes [#/volume] correc chapo for nucleated erythrocytes in Blood by Automated counon 08-13-2024 WBC corrected for nucl RBC Auto (Bld) [#/Vol] Leukocytes [#/volume] corrected for nucleated erythrocytes in Blood by Automated coun 4.0-11.0 [facility] Lymphocytes Auto (Bld) [#/Vo l]on 08-13-2024 Lymphocytes (Bld) [#/Vol] Lymphocytes [#/volume] in Blood by Automated count 1.2-3.8 [facility] Lymphocytes/100 WBC Auto (Bl d)on 08-13-2024 Lymphocytes/100 WBC (Bld) Lymphocytes/100 leukocytes in Blood by Automated count Low 20.5-60.0 [facility] MCH Auto (RBC) [Entitic mass ]on 08-13-2024 MCH (RBC) [Entitic mass] MCH [Entitic mass] by Automated count 25.9-34.0 [facility] MCHC Auto (RBC) [Mass/Vol]on 08-13-2024 MCHC (RBC) [Mass/Vol] MCHC [Mass/volume] by Automated count 29.9-35.2 [facility] MCV Auto (RBC) [Entitic vol] on 08-13-2024 MCV (RBC) [Entitic vol] MCV [Entitic volume] by Automated count 80.0-94.0 [facility] Microalbumin [Mass/volume] i n Urineon 08-13-2024 Albumin DL <= 20 mg/L (U) [Mass/Vol] Microalbumin [Mass/volume] in Urine <=30.0 [facility] Monocytes Auto (Bld) [#/Vol] on 08-13-2024 Monocytes (Bld) [#/Vol] Automated blood monocyte count High 0.3-0.8 [facility] Monocytes/100 WBC Auto (Bld) on 08-13-2024 Monocytes/100 WBC (Bld) Automated monocyte % 1.7-12.0 [facility] Neutrophils Auto (Bld) [#/Vo l]on 08-13-2024 Neutrophils (Bld) [#/Vol] Neutrophils [#/volume] in Blood by Automated count High 1.4-6.5 [facility] Neutrophils/100 WBC Auto (Bl d)on 08-13-2024 Neutrophils/100 WBC (Bld) Automated neutrophil % 43.0-75.0 [facility] No Panel Informationon 08-13 Eosinophils # (Auto) 0.3 10 3/uL 0.0-0.7 [facility] Immature Granulocyte # (Auto) 0.07 10 3/uL High 0.00-0.03 [facility] Prostate Specific Antigen Screen 11.22 ng/mL High <=4.00 [facility] Urine Random Creatinine 173.94 mg/dL 20.00-300.00 [facility] Platelet mean volume Auto (B ld) [Entitic vol]on 08-13-2024 Platelet mean volume (Bld) [Entitic vol] Platelet mean volume [Entitic volume] in Blood by Automated count Low 9.5-13.5 [facility] Platelets Auto (Bld) [#/Vol] on 08-13-2024 Platelets (Bld) [#/Vol] Platelets [#/volume] in Blood by Automated count 150-450 [facility] RBC Auto (Bld) [#/Vol]on RBC (Bld) [#/Vol] Erythrocytes [#/volume] in Blood by Automated count 4.70-6.10 [facility] Serum or plasma albumin/glob ulin mass ratioon 08-13-2024 Albumin/Globulin [Mass ratio] Serum or plasma albumin/globulin mass ratio [facility] Serum or plasma anion gap de terminationon 08-13-2024 Anion gap [Moles/Vol] Serum or plasma an ion gap determination [facility] Serum or plasma total choles terol/high density lipoprotein (HDL) cholesterol mass emily 08-13-2024 Cholesterol.total/Cho lesterol in HDL [Mass ratio] Serum or plasma total cholesterol/high density lipoprotein (HDL) cholesterol mass rat [facility] Comment on above: 3.3 - 4.4 LOW RISK4. 4 - 7.1 AVERAGE RISK7.1 - 11.0 MODERATE RISK>11.0 HIGH RISK Urine microalbumin/creatinin e mass ratioon 08-13-2024 Albumin/Creatinine DL <= 20 mg/L (U) [Mass ratio] Urine microalbumin/creatini ne mass ratio High 0.0-29.9 [facility] Comment on above: NO MICROALBUMINURIA 0-29 MG/GCLINICAL MICROALBUMINURIA 30-300 MG/GMACROALBUMINURIA >300 MG/G HbA1c HPLC (Bld) [Mass fract ion]on 07-30-2024 HbA1c (Bld) [Mass fraction] Hemoglobin A1c/Hemoglobin.total in Blood by HPLC [facility] Bacteria identified Aer cx N om (Unsp spec)Ordered By: Graciela Angelo on 07-15-2024 Group B Strep (Streptococcus agalactiae) Group B Strep (Streptococcus agalactiae) Abnormal [facility] Superficial Wound Culture Abnormal [facility] Superficial Wound Cultureon 07-15-2024 Superficial Wound Culture ORGANISM: Strep agalactiae - (group b) (O:STRAGA) Quantity of Growth Heavy Growth ORGANISM: Corynebacterium species (O:CORSPE) Comments Organism Not Routinely Tested for Susceptibilities Quantity of Growth Heavy Growth Organism #2 identified as Corynebacterium pseudodiphtheriticum. PERFORMED BY: [place] [address] [place] [address] PATHOLOGIST PLANER FEEDER JERMAINE LICONA M.D. Normal [facility] Comment on above: Performed By: #### C USUP #### [facility] [address] [place] [id number] [facility] [id number] 08-11-2021 SARS-CoV-2 (COVID-19) RNA LAURA+probe Ql (Unsp spec) Not detected Normal [facility] Comment on above: Result Comment: Rapid NAAT: [...] management decisions. Fact sheet for Healthcare Providers: https://www.fda.gov/media/575195/download Fact sheet for Patients: https://www.fda.gov/media/448950/download Methodology: Isothermal Nucleic Acid Amplification Performed By: #### C OVRB #### [facility] [address] [place] [address] Charter Boat Operator: Singh Mccollum MD Vital Signs Date Time Vital Sign Value Performing Clinician Padmaja corbin 03-31-2025 14:08-0400 Body height 170.18 cm Lucie Augustin APRN Work Phone: [facility] 03-31-2025 14:08-0400 Body temperature 99.2 [degF] Lucie Augustin APRN Work Phone: [facility] 03-31-2025 14:08-0400 Diastolic blood pressure 72 mm[Hg] Lucie Augustin APRN Work Phone: [facility] 03-31-2025 14:08-0400 Heart rate 96 /min Lucie Conklinr DATA DEVELOPER Work Phone: [facility] 03-31-2025 14:08-0400 SaO2% (BldA) [Mass fraction] 94 % Lucie Mcclellanmichela DATA DEVELOPER Work Phone: [facility] 03-31-2025 14:08-0400 Systolic blood pressure 128 mm[Hg] Lucie Mcclellanmichela SALDAÑAN Work Phone: [facility] 03-31-2025 10:51-0400 Body height 170.2 cm [facility] Mahindra REVA PA-C Work Phone: [employer] 03-31-2025 10:51-0400 Body mass index (BMI) [Ratio] 51.67 kg/m2 Margot Mahindra REVA PA-C Work Phone: [employer] 03-31-2025 10:51-0400 Body temperature 97.5 [degF] [facility] Mahindra REVA PA-C Work Phone: [employer] 03-31-2025 10:51-0400 Body weight 149.69 kg [facility] Mahindra REVA PA-C Work Phone: [employer] 03-25-2025 14:11-0400 Body height 170.18 cm Lucie Mcclellanmichela MONET Work Phone: [facility] 03-25-2025 14:11-0400 Body mass index (BMI) [Ratio] 51.7 kg/m2 Lucie Demetria SALDAÑAN Work Phone: [facility] 03-25-2025 14:11-0400 Body weight 149.68 kg Lucie Demetria SALDAÑAN Work Phone: [facility] 11-04-2024 09:00-0400 Body weight 149.68 kg [facility] 10-01-2024 09:49-0500 Body height 170.18 cm Graciela Angelo APRN Work Phone: [facility] 10-01-2024 09:49-0500 Body mass index (BMI) [Ratio] 51 kg/m2 Gracielafrank Angelo APRN Work Phone: [facility] 10-01-2024 09:49-0500 Body temperature 95.3 [degF] Graciela Angelo APRN Work Phone: [facility] 10-01-2024 09:49-0500 Body weight 147.87 kg Gracielafrank Angelo APRN Work Phone: [facility] 10-01-2024 09:49-0500 Diastolic blood pressure 82 mm[Hg] Gracielafrank Angelo APRN Work Phone: [facility] 10-01-2024 09:49-0500 Heart rate 92 /min Gracielafrank Angelo APRN Work Phone: [facility] 10-01-2024 09:49-0500 SaO2% (BldA) [Mass fraction] 98 % Gracielafrank Angelo APRN Work Phone: [facility] 10-01-2024 09:49-0500 Systolic blood pressure 144 mm[Hg] Gracielafrank Angelo APRN Work Phone: [facility] 07-30-2024 09:01-0500 Body height 170.18 cm Gracielafrank Angelo APRN Work Phone: [facility] 07-30-2024 09:01-0500 Body mass index (BMI) [Ratio] 53.1 kg/m2 Gracielafrank Angelo APRN Work Phone: [facility] 07-30-2024 09:01-0500 Body temperature 96.7 [degF] Graciela Angelo APRN Work Phone: [facility] 07-30-2024 09:01-0500 Body weight 153.76 kg Graciela Angelo APRN Work Phone: [facility] 07-30-2024 09:01-0500 Diastolic blood pressure 98 mm[Hg] Graciela Gi DATA DEVELOPER Work Phone: [facility] 07-30-2024 09:01-0500 Heart rate 101 /min Graciela Angelo APRN Work Phone: [facility] 07-30-2024 09:01-0500 SaO2% (BldA) [Mass fraction] 94 % Graciela Angelo APRN Work Phone: [facility] 07-30-2024 09:01-0500 Systolic blood pressure 164 mm[Hg] Graciela Angelo DATA DEVELOPER Work Phone: [facility] 07-15-2024 19:22-0500 Diastolic blood pressure 90 mm[Hg] Graciela Angelo DATA DEVELOPER Work Phone: [facility] 07-15-2024 19:22-0500 Systolic blood pressure 160 mm[Hg] Graciela Angelo DATA DEVELOPER Work Phone: [facility] 07-15-2024 18:33-0500 Body height 170.18 cm Graciela Angelo DATA DEVELOPER Work Phone: [facility] 07-15-2024 18:33-0500 Body mass index (BMI) [Ratio] 53.1 kg/m2 Graciela Angelo APRN Work Phone: [facility] 07-15-2024 18:33-0500 Body weight 153.76 kg Graciela Angelo APRN Work Phone: [facility] 07-15-2024 18:33-0500 Heart rate 88 /min Graciela Angelo APRN Work Phone: [facility] 07-15-2024 18:33-0500 SaO2% (BldA) [Mass fraction] 98 % Graciela Angelo APRN Work Phone: [facility] Encounters Encounter Date Encounter Type Care Provider Facility Start: 06-16-2025 ambulatory Neville Greeri ty:[facility] [place] Start: 05-20-2025 ambulatory Neville Lui ty:[facility] Start: 04-02-2025 End: 04-02-2025 Telephone encounter [facility] Start: 03-31-2025 Preprocedural examination done Lucie Augustin APRN Work Phone: [facility] Start: 03-31-2025 End: 03-31-2025 Patient encounter procedure Lucie Augustin APRN [facility] Work Phone: Start: 03-31-2025 End: 03-31-2025 Office outpatient new 60 minutes Margot Bellamy PA-C Work Phone: [facility] Comment on above: Olecranon fracture, left, closed, initial encounter (Primary Dx) Start: 03-31-2025 End: 03-31-2025 Orders Only Jayla Lazo RN [facility] Comment on above: Closed fracture of o lecranon process of left ulna, initial encounter (Primary Dx) Start: 03-28-2025 End: 03-28-2025 ambulatory [facility] Start: 03-28-2025 Encounter for other preprocedural examination [facility] Start: 03-28-2025 ambulatory [facility] Start: 03-28-2025 End: 03-28-2025 Telephone encounter Vickey Joe [facility] Start: 03-27-2025 End: 03-27-2025 Patient encounter status Jayla Lazo RN [facility] Start: 03-27-2025 End: 03-27-2025 Telephone encounter Jayla Lazo RN [facility] Comment on above: Olecranon fracture, left, closed, initial encounter (Primary Dx); Preop testing; Other specified diabetes mellitus with other specified complication, unspecified whether credit analysis manager insulin use ([facility]) Start: 03-26-2025 ambulatory [facility] Start: 03-26-2025 End: 03-26-2025 Telephone encounter Jayla Lazo RN [facility] Start: 03-26-2025 End: 03-26-2025 ambulatory Lucie Mcclellanpernelldeepti DATA DEVELOPER Work Phone: [facility] Work Phone: Start: 03-26-2025 End: 03-26-2025 Patient encounter procedure Dwight Andrews MD -[facility] Work Phone: Start: 03-25-2025 End: 03-25-2025 ambulatory Lucie Demetria MONET Work Phone: [facility] Work Phone: Start: 03-25-2025 End: 03-25-2025 Patient encounter procedure Dwight Andrews MD -[facility] Work Phone: Start: 03-21-2025 End: 03-21-2025 [facility] Start: 03-17-2025 End: 03-17-2025 ambulatory Neville ROCK Facility:[facility] Start: 11-04-2024 End: 11-04-2024 ambulatory [facility] Work Phone: Start: 11-04-2024 End: 11-04-2024 Patient encounter procedure [facility] Work Phone: Start: 10-01-2024 End: 10-01-2024 ambulatory Graciela Angelo DATA DEVELOPER Work Phone: [facility] Work Phone: Start: 10-01-2024 End: 10-01-2024 Patient encounter procedure Graciela Angelo DATA DEVELOPER Work Phone: [facility] Work Phone: Start: 08-19-2024 ambulatory Neville ROCK Facility :[facility] Start: 08-13-2024 Non-patient / Non-visit Graciela De La Rosaley DATA DEVELOPER Work Phone: [facility] Work Phone: Start: 07-30-2024 End: 07-30-2024 Patient encounter procedure Graciela De La Rosaanel MONET Work Phone: [facility] Work Phone: Start: 07-15-2024 End: 07-15-2024 ambulatory Graciela Angelo Facility:[facility] Start: 07-15-2024 End: 07-15-2024 Departed Referred Graciela Gi MONET Work Phone: [facility] Work Phone: Start: 07-15-2024 End: 07-15-2024 Patient encounter procedure Gracielafrank Angelo APRN Work Phone: [facility] Work Phone: Start: 08-11-2021 End: 08-12-2021 ambulatory [facility] Procedures Date Procedure Procedure Detail Performing Clinician Start: 03-26-2025 CT of elbow, left Daphney garland Augustin DATA DEVELOPER Work Phone: Start: 07-15-2024 Aerobic microbial culture Gracielafrank Angelo APRN Work Phone: Plan of Treatment Date Care Activity Detail Author Start: 03-31-2026 Adult BMI Screening Adult BMI Screening [facility] Start: 03-21-2026 Adult BMI Screening Adult BMI Screening [facility] Start: 03-21-2026 Tobacco Screening Tobacco Screening [facility] Start: 04-24-2025 End: 04-24-2025 Patient encounter procedure 04/24/2025 11:00 AM EDT Office Visit [facility] [address] [place] [address] Oleksandr Love MD [address] [place] [address], [address] [place] [address] [facility] Start: 04-14-2025 Influenza vaccination Influenza Vaccine [facility] Start: 04-09-2025 End: 04-09-2025 Admission to same day surgery center 04/09/2025 9:00 AM EDT - 04/09/2025 11:00 AM EDT Surgery [address] [place] [address] Oleksandr Love MD [address] [facility], [address] [place] [address] OPEN REDUCTION INTERNAL FIXATION OLECRANON [facility] Comment on above: OPEN REDUCTION INTERNAL FIXATION OLECRAN ON Start: 04-09-2025 End: 04-09-2025 OPEN REDUCTION INTERNAL FIXATION OLECRANON OPEN REDUCTION INTERNAL FIXATION OLECRANON Closed fracture of olecranon process of left ulna with routine healing, subsequent encounter 04/09/2025 9:00 AM EDT [facility] Start: 04-09-2025 Subsequent hospital visit by physician 04/09/2025 9:00 AM EDT Hospital Encounter [address] [place] [address] Oleksandr Love MD [address] [facility] [place] [address] [facility] Start: 03-31-2025 End: 03-31-2026 XR Elbow - left 2 Views X-ray elbow left 2 views Imaging Routine Closed fracture of olecranon process of left ulna, initial encounter Expected: 03/31/2025, Expires: 03/31/2026 [facility] Work Phone: Comment on above: Expected: 03/31/2025, Expires: Start: 03-31-2025 End: 03-31-2025 Patient encounter procedure 03/31/2025 10:30 AM EDT Office Visit [facility] [address] [place] [address] Oleksandr Love MD [address], [address] [place] [address] [facility] Start: 03-28-2025 End: 03-28-2025 ambulatory [facility] Start: 03-26-2025 CT Elbow - left WO contrast [facility] Start: 03-26-2025 CT of elbow, left CT elbow LT wo con [facility] Start: 10-01-2024 Patient referral [facility] Work Phone: Start: 2021 Fall Risk Screening Fall Risk Screening [facility] [employer] [facility] Start: 2006 Administration of varicella zoster vaccine Zoster (Shingles) Vaccine (1 of 2) [facility] Start: 1975 DTaP,Tdap and Td Vaccines (1 - Tdap) DTaP,Tdap and Td Vaccines (1 - Tdap) [facility] Start: 1974 Adult BMI Follow Up Plan Adult BMI Follow Up Plan [facility] Start: 1968 Depression Screening Depression Screening [facility] [employer] [facility] End: 03-27-2026 Basic metabolic 2000 panel - Serum or Plasma Basic Metabolic Panel Lab Routine Olecranon fracture, left, closed, initial encounter Preop testing 1 Occurrences starting 03/27/2025 until 03/27/2026 [facility] [employer] [facility] Comment on above: 1 Occurrences starting 03/27/2025 until 03/27/2026 End: 03-27-2026 CBC panel - Blood by Automated count CBC without diff Lab Routine Olecranon fracture, left, closed, initial encounter Preop testing 1 Occurrences starting 03/27/2025 until 03/27/2026 [facility] Work Phone: Comment on above: 1 Occurrences starting 03/27/2025 until 03/27/2026 Comprehensive metabo lic 2000 panel - Serum or Plasma [facility] CT Elbow - left WO contrast [facility] End: 03-27-2026 ECG 12 lead ECG 12 lead ECG Routine Olecranon fracture, left, closed, initial encounter Preop testing 1 Occurrences starting 03/27/2025 until 03/27/2026 [facility] Comment on above: 1 Occurrences starting 03/27/2025 until 03/27/2026 End: 03-27-2026 Hemoglobin A1c/Hemoglobin.total in Blood Hemoglobin A1c Lab Routine Preop testing Other specified diabetes mellitus with other specified complication, unspecified whether skilled nursing insulin use ([facility]) 1 Occurrences starting 03/27/2025 until 03/27/2026 [employer] Comment on above: 1 Occurrences starting 03/27/2025 until 03/27/2026 Patient referral [facility] Work Phone: [facility] Immunizations Immunization Date Immunization Notes Care Provider Fa daivd 09-16-2019 influenza virus vaccine, unspecified formulation Jayla Lazo RN [facility] [employer] Payers Date Payer Category Payer Worker's Comp Other Managed Care SANDI [id number] 2025 Unknown [id number] 2024 Self-pay 2021 Private Health Insurance [facility] [id number] 2021 Medicare MEDICARE [id number] 2021 Medicare [id number] 1955 Unknown [id number]. 2.174 1956 Unknown [id number] 2.16.840.1.254457.3.579. 2.727 1956 Unknown [id number] 2.16.840.1.506390.3.579. 2.727 1956 Unknown [id number] 2.16.840.1.552605.3.579. 2.727 1956 Unknown [id number] 2.16.840.1.212784.3.579. 2.1286 1956 Unknown [id number] 2.16.840.1.079078.3.579. 2.1286 1956 Unknown [id number] 2.16.840.1.043249.3.579. 2.1286 1956 Unknown [id number] 2.16.840.1.401163.3.579. 2.1286 1956 Unknown [id number] 2.16.840.1.734451.3.579. 2.1286 1956 Unknown [id number] 2.16.840.1.273313.3.579. 2.1286 Commercial Managed C are - POS [employer] [id number] Unknown [id number] Unknown [id number] 2..[id number]. 2.531 Unknown [id number] 2..840.1.214684.3.579. 2.531 Social History Date Type Detail Facility Start: 07-30-2024 End: 07-30-2024 Tobacco smoking status UTIS Ex-smoker (finding) [facility] Start: 10-01-2024 End: 03-21-2025 Sex Male (finding) [facility] Start: 1955 Sex Assigned At Male F [facility] Start: 03-21-2025 Tobacco smoking stat [facility] Never smoked tobacco [facility] [employer] [facility] Start: 03-21-2025 Tobacco use and exposure Smokeless tobacco non-user [facility] [employer] [facility] Start: 03-21-2025 Alcoholic beverage intake Current drinker of alcohol (finding) [facility] Start: 03-21-2025 Alcoholic beverage intake [facility] [employer] [facility] Start: 03-21-2025 Tobacco use panel [facility] Within the past 12 months we worried whether our food would run out before we got money to buy more. Never True [facility] [employer] [facility] Start: 1955 Sex assigned at Not on file [facility] Medical Equipment Procedure Code Equipment Code [...] CVD CAP LOX II FDA Start: 07-04-2018 ABLTA 35MM CVD CAP LOX II FDA Start: [...] Start : 07-04-2018 Clinical Notes 07-15-2024 to 04-02-2025 Telephone Encounter - Jayla Lazo, KORY - 04/02/2025 1:45 PM EDTTelephone Encounter - Jayla Lazo RN - 04/02/2025 1:45 PM Donna Bellamy PA-C - 03/31/2025 10:30 AM EDT Note Date & Type Note Facility 04-02-2025 Miscellaneous Notes Pre/postop instructions provided for upcoming outpatient surgery-ORIF Left Olecranon Fx scheduled with Dr Love on 04-09-2025 9 am. Arrival time is 7 am Entrance B @ [facility]. Check in at the Information Desk and then you'll de directed to the second floor. Nothing to eat/drink after midnight on 04-09-2025. May brush his teeth but limit the water and no gum, mints ect... Patient to hold his Ibuprofen starting on 04-06-2025. Patient to take his Losartan the morning of surgery with a sip of water. Postop appt provided. documented in this encounter [facility] 04-02-2025 Telephone encounter Note Pre/postop instructions provided for upcoming outpatient surgery-ORIF Left Olecranon Fx scheduled with Dr Love on 04-09-2025 9 am. Arrival time is 7 am Entrance B @ [facility]. Check in at the Information Desk and then you'll de directed to the second floor. Nothing to eat/drink after midnight on 04-09-2025. May brush his teeth but limit the water and no gum, mints ect... Patient to hold his Ibuprofen starting on 04-06-2025. Patient to take his Losartan the morning of surgery with a sip of water. Postop appt provided. [facility] 03-31-2025 History of Presen t illness Narrative [...] Resource Strain: Low Risk (08/11/2021) Received from [facility] Overall Financial Resource Strain (CARDIA) Difficulty of Paying Living Expenses: Not hard at all Food Insecurity: No Food Insecurity (03/21/2025) Hunger Screening Food Insecurity - Worry: Never True Food Insecurity - Inability: Never True Transportation Needs: No Transportation Needs (10/23/2019) Received from [facility] PRAPARE - Transportation Lack of Transportation [...] work at this time Follow up postoperatively aMrgot Bellamy PA-C LEVEL OF SERVICE: Ortho MDM [...] PA-C 03/31/25 1527 documented in this encounter [facility] 03-28-2025 Miscellaneous Notes Patient called he [...] with Dr Love documented in this encounter [facility] 03-28-2025 Telephone encounter Note Patient called he has an appointment on Monday and surgery on Monday. [place] over [place] hour away and lives alone.Has to get transportation. He was wondering if he could be admitted Monday for his surgery [facility] 03-28-2025 Telephone encounter Note Spoke with [...] on 03-31-2025 10:[address] Love [facility] 03-27-2025 Miscellaneous Notes Patient has a Left Olecranon Fracture. Appt with Dr Lvoe is 03-31-2025 Left message at Patient's PCP's office for need of Medical Clearance/fax number. documented in this encounter [facility] 03-27-2025 Telephone encounter Note Patient has a Left Olecranon Fracture. Appt with Dr Love is 03-31-2025 Left message at Patient's PCP's office for need of Medical Clearance/fax number. [facility] 03-27-2025 Miscellaneous Notes Appt scheduled on Monday03-31-2025 10:30 am documented in this encounter [facility] 03-27-2025 Telephone encounter Note Appt scheduled on Monday03-31-2025 10:30 am [facility] 03-26-2025 Miscellaneous Notes Received a call [...] keep me informed. documented in this encounter [facility] 03-26-2025 Telephone encounter Note Received a [...] about . Sakina to keep me informed. 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 Take iypz-vld-ptdlguh and prescription medicines only as told by [...] provider. This is important. 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 acute September 9:43am Foot drop, right acute October 01, 2024 9:43am Hypertension acute September 9:43am Type 2 diabetes mellitus acute October 01, 2024 9:43am [facility] Work Phone: 1(677) 753-193912-02-2024 Evaluation note* Diagnosis Onset Date Resolution Status [...] diabetes mellitus acute October 01, 2024 9:43am [facility] Work Phone: Evaluation note* Diagnosis Onset Date Resolution Status Admit Date Fracture of left olecranon process acute March 25 1:38pm [facility] Work Phone: Evaluation note* Diagnosis Olecranon fracture, left, closed, initial encounter- Primary Preop testing Unspecified pre-operative examination Other specified diabetes mellitus with other specified complication, unspecified whether credit analysis manager insulin use ([facility]) [facility] Diagnosis Closed fracture of olecranon process of left ulna, initial encounter- Primary [facility]* Diagnosis Olecranon fracture, left, closed, initial encounter- Primary Closed fracture of olecranon process of left ulna with routine healing, subsequent encounter [facility] instructions[facility]ulatory Orders* Referral to Orthopedic Surgery Time Frame: 10/01/24, Location: None Selected [facility] Work Phone: InstructionsNot on filedocumented in this encounter [facility]ructionsNot on filedocumented in this encounter [facility] SystemInstructionsNot on filedocumented in this encounter [facility] SystemInstructionsNot on filedocumented in this encounter [facility] SystemInstructionsNot on filedocumented in this encounter [facility] SystemReason for referral (narrative)No reason for referral information [facility] Work Phone: Summary Purpose Family History [...] 01, 2024 9:43am Type 2 diabetes mellitus February 18th, 2025 9:43am Chief Complaint Admit Date [facility] [...] content) DATE CREATED AUTHOR 08/12/2021 Arlen Landa [facility] DATE CREATED AUTHOR AUTHOR'S ORGANIZ ATION 03/18/2025 [facility] DATE CREATED AUTHOR AUTHOR'S ORGANIZ ATION 03/30/[address] [facility] DATE CREATED AUTHOR AUTHOR'S ORGANIZ ATION 04/02/2025 [facility] DATE CREATED AUTHOR AUTHOR'S ORGANIZ ATION 04/02/2025 [facility] DATE CREATED AUTHOR AUTHOR'S ORGANIZ ATION 04/04/2025 [facility] Care Teams (unrecognized sec tion and content) Team Status: Active Member Role Status Dates Lucie Augustin APRN DAY CARE DIRECTOR-C Primary Care Provider Active Team Status: Inactive [...] Member Role Status Dates Lucie Augustin APRN DAY CARE DIRECTOR-C Primary Care Provider, Attending Provider Active Start: July 30, 2024 End: July 30, 2024 Team Status: Active Member Role Status Dates Lucie Augustin APRN DAY CARE DIRECTOR-C Primary Care Provider, Attending Provider Active Start: August 13, 2024 Team Status: Inactive Member Role Status Dates Lucie Augustin APRN DAY CARE DIRECTOR-C Primary Care Provider, Attending Provider Active Start: October 01, 2024 End: October 01, 2024 Team Status: Inactive Member Role Status Dates Lucie Augustin APRN DAY CARE DIRECTOR-C Primary Care Provider, Attending Provider Active Start: November 04, 2024 End: November 04, 2024 Team Status: Inactive Member Role Status Dates Lucie Augustin APRN DAY CARE DIRECTOR-C Primary Care Provider Active Start: March 25, 2025 End: March 25, 2025 Dwight Andrews MD Attending Provider Active Star t: March 25, 2025 End: March 25, 2025 Business Analytics Manager Relationship Specialty Start Date End Date Lucie Augustin APRN-NP [facility] [place] [address] PCP - General Nurse Practitioner 03/21/25 Team Status: Inactive Member Role Status Dates Lucie Augustin APRN DAY CARE DIRECTOR-C Primary Care Provider Active Start: March 26, 2025 End: March 26, 2025 Dwight Andrews MD Attending Provider Active Star t: March 26, 2025 End: March 26, 2025 Business Analytics Manager Relationship Specialty Start Date End Date Lucie Augustin APRN-NP [address] [place] [address] PCP - General Nurse Practitioner 03/21/25 Business Analytics Manager Relationship Specialty Start Date End Date Lucie Augustin APRN-NP [address] [place] [address] PCP - General Nurse Practitioner 03/21/25 Business Analytics Manager Relationship Specialty Start Date End Date Lucie Augustin APRN-NP [address] [place] [address] PCP - General Nurse Practitioner 03/21/25 Team Status: Inactive Member Role Status Dates Lucie Augustin APRN DAY CARE DIRECTORBreanna Primary Care Provider Active Start: March 31, 2025 End: March 31, 2025 TIERNEY Silveira Attending Provider Act adria Start: March 31, 2025 End: March 31, 2025 Business Analytics Manager Relationship Specialty Start Date End Date Lucie Augustin APRN-NP [address] [place] [address] PCP - General Nurse Practitioner 03/21/25 Business Analytics Manager Relationship Specialty Start Date End Date Lucie Augustin APRN-NP [address] [place] [address] PCP - General Nurse Practitioner 03/21/25 Goals [...] this encounterNot on filedocumented as of this encounter Reason for Visit (unrecogniz ed section and content) Reason Comments New Patient LT elbow fx, ER 2024,Referral Dr Andrews,[place] Pain FOR RECORDS PERTAINING TO [...] BE BASED ON THE PRIMARY CLINICAL RECORDS. [facility] [employer] [facility]. provides no warranty or guarantee of the accuracy or completeness of information in this document.
[2025-04-08 23:30] VITALS: O2SAT 98
--- NOTE | 2025-04-08 23:35 | ED.ABDPAIN1 ---
HPI - Abdominal Pain General Chief Complaint: Abdominal Pain Stated Complaint: PAIN IN LOWER ABDOMEN ON LEFT SIDE Time Seen by Provider: 04/08/25 23:20 Source: patient Mode of arrival: Wheelchair Limitations: no limitations History of Present Illness HPI narrative: This 69-year-old male who was seen earlier in this emergency department for left low back/left flank pain presents for evaluation of left lower quadrant abdominal pain associated with nausea. The patient states that he started having some low back pain earlier today. He was seen in the emergency department and had x-rays done. The x-rays were negative for acute findings. He also had a urinalysis done at that time that showed large blood with 2-5 white blood cells per high-power field and moderate bacteria. The patient is currently on doxycycline for a prostate infection. It was agreed by the patient and physician that the antibiotics would be continued until a culture was available. The patient states that he got out of here around 11 AM. He got home and started having pain in the left lower quadrant of his abdomen associated with nausea. He has not had any vomiting. He is also constipated and has not had a bowel movement for the past several days. He denies any chest pain or shortness of breath. He is scheduled for elbow surgery in [place] tomorrow. At this time he is not having any pain or nausea. He has been urinating normally has not noticed any blood in his urine. Related Data Home Medications ?Medication ?Instructions ?Recorded ?Confirmed doxycycline hyclate 100 mg capsule 100 mg PO BID 04/08/25 04/08/25 losartan 50 mg tablet 50 mg PO DAILY 04/08/25 04/08/25 tamsulosin 0.4 mg capsule 0.4 mg PO DAILY 04/08/25 04/08/25 Allergies Allergy/AdvReac Type Severity Reaction Status Date / Time Penicillins Allergy Severe Hives Verified 04/08/25 23:23 Review of Systems ROS Status of ROS 10 or more systems reviewed and unremarkable except as noted in history and below PFSH PFSH Social History Little interest or pleasure in doing things: not at all Feeling down, depressed, or hopeless: not at all Exam Narrative Exam Narrative: Vital signs and Nursing Notes reviewed: Patient is afebrile with a normal pulse, blood pressure is elevated at 185/104, he is not hypoxic with pulse ox of 98% on room air General: Awake, alert, oriented, obese adult male with his left arm in a sling no acute distress, sitting on the edge of the bed, no distress noted HEENT: Normocephalic atraumatic, mucous membranes are moist and pink, eyes are clear, normal conjunctiva, vision is grossly intact Chest: Lungs are clear to auscultation with good air entry, there is no wheezing rhonchi or rales appreciated no accessory muscle use, patient is speaking in complete sentences-no chest wall tenderness to palpation CVS: Regular rate and rhythm S1-S2, no murmurs rubs or gallops, pulses are brisk and equal bilaterally ABD: Obese soft, nondistended, nontender, no rebound guarding or rigidity, bowel sounds are normal. No flank tenderness noted Extremities: Left upper extremity is in a Paul wrap and sling status post elbow fracture, there is bilateral lower extremity swelling with Paul wrap's on both lower extremities Skin: Normal in appearance without rash,pallor, petechiae or purpura Neuro: No focal deficits Constitutional Vital Signs, click to edit/add: Last Vital Signs Temp 98.7 F 04/08/25 23:14 Pulse 91 H 04/08/25 23:14 Resp 17 04/08/25 23:14 BP 185/104 H 04/08/25 23:14 Pulse Ox 98 04/08/25 23:30 O2 Del Method Room Air 04/08/25 23:30 Course Vital Signs Vital signs: Vital Signs Temperature 98.7 F 04/08/25 23:14 Pulse Rate 91 H 04/08/25 23:14 Respiratory Rate 17 04/08/25 23:14 Blood Pressure 185/104 H 04/08/25 23:14 Pulse Oximetry 98 04/08/25 23:14 Oxygen Delivery Method Room Air 04/08/25 23:14 Temperature 98.7 F 04/08/25 23:14 Pulse Rate 91 H 04/08/25 23:14 Respiratory Rate 17 04/08/25 23:14 Blood Pressure 185/104 H 04/08/25 23:14 Pulse Oximetry 98 04/08/25 23:30 Oxygen Delivery Method Room Air 04/08/25 23:30 MDM - Abdominal Pain MDM Narrative Medical decision making narrative: This 69-year-old male who was seen earlier today with left flank pain and diagnosed with urinary tract infection and is on doxycycline for a prostate infection presents for evaluation of pain in the left lower quadrant. The patient states the pain he was having in the left lower quadrant was associated with nausea. He did not vomit. His urine was noted to have large blood and 2-5 white blood cells per high-power field when he was here earlier. X-ray at that time did not show any acute findings. Patient states that around 2 PM he started having abdominal pain with nausea. This has resolved since. He states he wanted to get checked out because he is having elbow surgery in [place] later this morning. His vital signs are stable with an elevated blood pressure. He is not having any chest pain or shortness of breath. He does not have any reproducible flank pain or abdominal pain. I did order some basic labs and CT scan to rule out an obstructive stone due to the pain, nausea and large blood in his urinalysis earlier today. He has an elevated white count at 13 with a stable hemoglobin of 15.8. Electrolytes are normal with the mild elevation in his BUN and creatinine at 21 and 1.42. This creatinine is elevated, paired to his baseline creatinine of 1.16. CT scan of the abdomen pelvis is pending however the patient has to be at the hospital to check in for his elbow surgery at 7 AM. He is already after 1 in the morning. I discussed the wait time for the CAT scan with him. He verbalizes understanding of this. He will be medicated with a dose of IM Rocephin and discharged home with 2 Percocet and a Zofran to use as needed for recurrent pain. I explained to him that I will call him the results of the CAT scan. CT scan result to the around [address] scan shows a 2 mm stone in the distal left ureter with associated partial left renal obstruction with mild left hydronephrosis and mild stranding around the left kidney. It also shows small bilateral renal cortical cyst. A 7 x 3 mm calcification in the lower pole of the left kidney, cholecystectomy, small size hiatal hernia, small hepatic cyst, no acute process seen in the pancreas spleen and right adrenal gland. Small adrenal nodule likely representing an adenoma. No abdominal aortic aneurysm. Enlarged prostate gland. Contrast and fluid-filled bladder. Mild left colon and mild to moderate sigmoid colon diverticulosis. 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 The findings were discussed with the patient by telephone. He does have Flomax at home and will start taking it later today after his elbow surgery. He was encouraged return to emergency department for worsening pain, fever, intractable nausea vomiting or any concerns. Lab Data Labs: Lab Results 04/08/25 Range/Units 23:55 WBC 13.0 H (4.0-11.0) 10^3/uL RBC 5.17 (4.70-6.10) 10^6/uL Hgb 15.8 (14.0-18.0) g/dL Hct 46.8 (42.0-54.0) % MCV 90.5 (80.0-94.0) fL MCH 30.6 (25.9-34.0) pg MCHC 33.8 (29.9-35.2) g/dL RDW 13.1 (11.0-15.0) % Plt Count 245 (150-450) 10^3/uL MPV 9.1 L (9.5-13.5) fL Neut % (Auto) 83.6 H (43.0-75.0) % Lymph % (Auto) 7.1 L (20.5-60.0) % [place] % (Auto) 8.2 (1.7-12.0) % Eos % (Auto) 0.3 L (0.9-7.0) % Baso % (Auto) 0.2 (0.2-2.0) % Neut # (Auto) 10.8 H (1.4-6.5) 10^3/uL Lymph # (Auto) 0.9 L (1.2-3.8) 10^3/uL [place] # (Auto) 1.1 H (0.3-0.8) 10^3/uL Eos # (Auto) 0.0 (0.0-0.7) 10^3/uL Baso # (Auto) 0.0 (0.0-0.1) 10^3/uL Abs Immat Gran (auto) 0.08 H (0.00-0.03) 10^3/uL Imm/Tot Granulo (auto) 0.6 H (0.0-0.5) % Sodium 135 L (136-145) mmol/L Potassium 4.4 (3.5-5.1) mmol/L Chloride 101 (98-107) mmol/L Carbon Dioxide 23.8 (21.0-32.0) mmol/L Anion Gap 14.6 BUN 21.0 H (7.0-18.0) mg/dL Creatinine 1.42 H (0.70-1.30) mg/dL Est GFR ( Amer) >60 (>=60 mL/min/1.73m^2) Est GFR (Non-Af Amer) 50 L (>=60 mL/min/1.73m^2) BUN/Creatinine Ratio 14.8 Glucose 165 H (74-106) mg/dL Calcium 9.5 (8.5-10.1) mg/dL Total Bilirubin 1.0 (0.2-1.0) mg/dL AST 23 (15-37) U/L ALT 49 (16-63) U/L Alkaline Phosphatase 137 H (46-116) U/L Total Protein 7.4 (6.4-8.2) g/dL Albumin 3.5 (3.4-5.0) g/dL Globulin 3.9 g/dL Albumin/Globulin Ratio 0.9 Discharge Plan Discharge Chief Complaint: Abdominal Pain Clinical Impression: Abdominal pain, LLQ, Left flank pain, Hydronephrosis due to obstruction of ureter, Kidney stone on left side Patient Disposition: Home, Self-Care Time of Disposition Decision: 01:13 Condition: Good Prescriptions / Home Meds: No Action doxycycline hyclate 100 mg capsule 100 mg PO BID losartan 50 mg tablet 50 mg PO DAILY tamsulosin 0.4 mg capsule 0.4 mg PO DAILY Print Language: Occitan Instructions: Abdominal Pain (ED), Flank Pain (ED) Referrals: GENEVIEVE HERNANDEZ [Primary Care Provider, Unknown] - 1 week Discharge Date/Time: 04/09/25 02:03
[2025-04-08 23:59] LABS: Hematocrit 46.8 % (42.0-54.0); Hemoglobin 15.8 g/dL (14.0-18.0); Immature Granulocytes Abs Auto 0.08 10^3/uL (0.00-0.03); Immature Granulocytes Pct Auto 0.6 % (0.0-0.5); Lymphocytes Absolute Auto 0.9 10^3/uL (1.2-3.8); Mean Corpuscular HGB Conc 33.8 g/dL (29.9-35.2); Mean Corpuscular Hemoglobin 30.6 pg (25.9-34.0); Mean Corpuscular Volume 90.5 fL (80.0-94.0); Platelet Count 245 10^3/uL (150-450); Red Blood Count 5.17 10^6/uL (4.70-6.10); White Blood Count 13.0 10^3/uL (4.0-11.0)
[2025-04-09 00:14] LABS: Alanine Aminotransferase 49 U/L (16-63); Albumin Globulin Ratio 0.9; Albumin Level 3.5 g/dL (3.4-5.0); Alkaline Phosphatase 137 U/L (46-116); Anion Gap 14.6; Aspartate Amino Transferase 23 U/L (15-37); Blood Urea Nitrogen 21.0 mg/dL (7.0-18.0); Calcium 9.5 mg/dL (8.5-10.1); Carbon Dioxide 23.8 mmol/L (21.0-32.0); Chloride 101 mmol/L (98-107); Estimated GFR (African America >60 (>=60 mL/min/1.73m^2); Estimated GFR (Non-African Ame 50 (>=60 mL/min/1.73m^2); Globulin 3.9 g/dL; Glucose 165 mg/dL (74-106); Potassium 4.4 mmol/L (3.5-5.1); Sodium 135 mmol/L (136-145); Total Protein 7.4 g/dL (6.4-8.2)
[2025-04-09] MEDS: ONDANSETRON 4 MG RAPDIS TABLET SL (01:38)
[2025-04-09] MEDS: OXYCODONE HCL/ACETAMINOPHEN 5MG/325MG PO (01:38)
[2025-04-09] MEDS: CEFTRIAXONE 1,000 MG, LIDOCAINE HCL/PF 2.1 ML IM (01:39)
== END 2025-04-09 02:03 | disposition home or self-care (01) ==
PROVIDERS: Emergency Provider Emergency Medicine; PCP Nurse Practitioner Family
DX: N13.2 Hydronephrosis with renal and ureteral calculous obstruction (principal); S39.012A Strain of muscle, fascia and tendon of lower back, initial encounter; N39.0 Urinary tract infection, site not specified; X58.XXXA Exposure to other specified factors, initial encounter; M21.371 Foot drop, right foot; R10.32 Left lower quadrant pain
CPT/HCPCS: 36415; 72100; 74176; 80053; 81001; 85025; 87086; 96372; 99284; J0696; Q0162

== ENCOUNTER 2025-04-20 15:00 | Emergency (ER) | payer MEDICARE, SELFPAY ==
[2025-04-20 15:02] VITALS: BP 161/105; PULSE 112; TEMP 36.6; O2SAT 97; BMI 51.7
--- OUTSIDE RECORDS SUMMARY | 2025-04-20 15:08 | XMS_ITS | CCD ---
Author Organization [facility] Care Team Providers Care Frame Coverer Name Role Phone REGGIE CONNELLY Referring Unavailable CLINBOB REGGIE Michoacano Primary Care Unavailable Graciela Angelo APRN Attending Provider [phone] Lucie Augustin APRN Primary Care Provider Dwight Andrews MD Attending Provider Raynerbachecas MONET-DIESEL ENGINE MECHANICLucie Primary Care [facility] er LUCIE AUGUSTIN Primary Care Unavailable NEVILLE MENDOZA Attending Unavailable RAYNERBACHELUCIE Meade Primary Care Unavailable OLEKSANDR LOVE Referring Unavailable RAYNERBACHERLUCIE Primary Care Unavailable OLEKSANDR LOVE Referring Unavailable Rohrbacher Lucie MONET Attending Provider [phone] LUCIE AUGUSTIN Referring Unavailable RAYNERBACHERLUCIE Primary Care Unavailable Chapincito Lockwood DO Attending Provider [phone] OLEKSANDR LOVE Referring Unavailable RAYNERBACHERLUCIE Primary Care Unavailable OLEKSANDR LOVE Attending Unavailable RAYNERBLUCIE SKELTON Referring Unavailable RAYNERBACHERDAPHNEYLUCIE Primary Care Unavailable OLEKSANDR LOVE Admitting Unavailable OLEKSANDR LOVE Attending Unavailable RAYNERBACHELUCIE Meade Primary Care Unavailable Chapincito Lockwood Attending Unavailable Chapincito Lockwood Admitting Unavailable Dwight Andrews Attending Unavailable Dwight Andrews Admitting Unavailable Lucie Augustin Primary Care Unavailable Graciela Angeol Attending Unavailable Graciela Angelo Admitting Unavailable Neville ROCK Attending Unavailable Neville ROCK Admitting Unavailable Neville ROCK Attending Unavailable Neville ROCK Attending Unavailable Neville ROCK Attending Unavailable ROHRBLUCIE SKELTON A Referring Unavailab le Neville ROCK Attending Unavailable Allergies Allergy Classification Reported Allergen(s) Allergy Type Date of Onset Reaction(s) Facility (13 sources) Penicillin; Translations: [PENICILLIN] Drug Allergy 03-21-2025 [facility] (1 source) Penicillins Drug allergy (disorder) 03-31-2025 [facility] Repository Medications Current Medications Medication Drug Class(es) Dates Sig (Normalized) Sig (Original) acetaminophen 500 mg oral tablet (1 source) Start: 04-09-2025 take 1 tablet by mouth every six hours as needed for pain acetaminophen (TYLENOL EXTRA STRENGTH) 500 mg tablet Take 1 tablet (500 mg total) by mouth every 6 (six) hours as needed for pain. 30 tablet 04/09/2025 Active calcium ascorbate 500 mg oral tablet (6 sources) Start: 07-15-2024 take 1 tablet by mouth once daily cholecalciferol 0.05 mg oral capsule (6 sources) Vitamin D Start: 07-15-2024 take 1 capsule by mouth once daily clindamycin 300 mg oral capsule (1 source) Lincosamide Antibacterial Start: 04-09-2025 End: 04-14-2025 take 1 capsule by mouth three times daily clindamycin (CLEOCIN) 300 mg capsule Take 1 capsule (300 mg total) by mouth 3 (three) times a day for 5 days. 15 capsule 04/09/2025 04/14/2025 Active doxycycline hyclate 100 mg oral capsule (9 sources) Tetracycline-class Drug Start: 03-31-2025 take 1 capsule by mouth twice daily Start: 07-15-2024 End: 07-30-2024 take 1 capsule by mouth twice daily Doxycycline Hyclate 100 mg capsule Discontinued 100 MG PO Twice daily 02 06July 15, 2024 1:00am July 30, 2024 10:09am take 1 tablet by ronny th in the morning, then take 1 tablet by mouth at bedtime doxycycline (DORYX) 100 MG EC tablet Take 1 tablet (100 mg total) by mouth in the morning and 1 tablet (100 mg total) before bedtime. Active glucosamine sulfate 500 mg oral tablet (6 sources) Start: 06-29-2018 take 1 tablet by mouth once daily ibuprofen 200 mg oral tablet (3 sources) Nonsteroidal Anti-inflammatory Drug take 1 tablet by mouth every six hours as needed for pain ibuprofen (ADVIL,MOTRIN) 200 mg tablet Take 1 tablet (200 mg total) by mouth every 6 (six) hours as needed for pain. Active losartan potassium 50 mg oral tablet (19 sources) Angiotensin 2 Receptor Torin Start: 08-28-2024 End: 03-18-2025 take 1 tablet by mouth once daily Start: 07-30-2024 End: 08-28-2024 take 1 tablet by mouth once daily Losartan 50 mg tablet Discontinued 50 MG PO Daily July 30, 2024 1:00am August 28, 2024 4:51pm Ihhfiwirxaky-Pcvw-Snywx Acid (Multi-Day With Iron) 18-400 mg-mcg Tablet (6 sources) Start: 06-29-2018 take 1 tablet by ronny th once daily Start: 06-29-2018 take 1 tablet by ronny th once daily Ixalscmjgqzn-Iglg-Fkjid Acid (Multi-Day With Iron) 18-400 mg-mcg Tablet Active 1 TAB PO Daily June 29, 2018 1:00am Complies with drug therapy Start: 06-29-2018 take 1 tablet by ronny th once daily Touwyzmpcahs-Flld-Qckgc Acid (Multi-Day With Iron) 18-400 mg-mcg Tablet Active 1 TAB PO Daily June 29, 2018 1:00am Start: 06-29-2018 take 1 tablet by ronny th once daily Mifdxqimbfsc-Cvmc-Kguzp Acid (Multi-Day With Iron) 18-400 mg-mcg Tablet Active 1 TAB PO Daily June 29, 2018 12:00am oxyCODONE hydrochloride 5 mg oral tablet (7 sources) Opioid Agonist Start: 04-09-2025 End: 04-16-2025 take 1 tablet by mouth every six hours as needed for pain oxyCODONE (ROXICODONE) 5 mg immediate release tablet Indications: Closed fracture of olecranon process of left ulna with routine healing, subsequent encounter Take 1 tablet (5 mg total) by mouth every 6 (six) hours as needed for pain for up to 7 days. Max Daily Amount: 20 mg 28 tablet 04/09/2025 04/16/2025 Active Start: 07-06-2018 End: 07-15-2024 take 1 tablet by mouth every six hours as needed for pain Oxycodone (Roxicodone) 5 mg Tablet Discontinued 1 - 2 TAB PO Q6H as needed for Pain 60 July 06, 2018 July 15, 2024 7:21pm tamsulosin hydrochloride 0.4 mg oral capsule (11 sources) alpha-Adrenergic Torin Start: 03-31-2025 vitamin e 100 unt oral capsule (6 sources) Start: 07-15-2024 take 1 capsule by mouth once daily zinc gluconate 30 mg oral tablet (6 sources) Start: 07-15-2024 take 1 tablet by mouth once daily Completed/Discontinued Medications Medication Drug Class(es) Dates Sig (Normalized) Sig (Original) cyclobenzaprine hydrochloride 10 mg oral tablet (6 sources) Muscle Relaxant Start: 07-06-2018 End: 07-15-2024 take 1 tablet by mouth three times daily as needed for muscle spasms Cyclobenzaprine 10 mg tablet Discontinued 10 MG PO Three times daily as needed for back spasms 50 July 06, 2018 1:00am July 15, 2024 7:20pm lisinopril 20 mg oral tablet (6 sources) Angiotensin Converting Enzyme Inhibitor Start: 06-29-2018 End: 07-15-2024 take 1 tablet by mouth once daily Lisinopril 20 mg Tablet Discontinued 20 MG PO Daily June 29, 2018 1:00am July 15, 2024 7:22pm predniSONE 10 mg oral tablet (6 sources) Start: 07-06-2018 End: 07-15-2024 Prednisone 10 mg tablets,dose pack Discontinued 1 dose pk PO per package directions July 06, 2018 1:00am July 15, 2024 7:21pm take 4 tabs for 3 days then take 3 tabs for 3 days then take 2 tabs for 3 days then take 1 tab for 3 days sulfamethoxazole 800 mg / trimethoprim 160 mg oral tablet (6 sources) Dihydrofolate Reductase Inhibitor Antibacterial, Sulfonamide Antimicrobial Start: 07-06-2018 End: 07-15-2024 take 1 tablet by mouth every twelve hours Sulfamethoxazole-Tr imethoprim (Bactrim Ds) 800-160 mg Tablet Discontinued 1 TAB PO Q12H July 06, 2018 1:00am July 15, 2024 7:22pm Turmeric extract (6 sources) Start: 06-29-2018 End: 07-15-2024 take 1 [...] Date Documented Date Episodic/Chronic Acquired foot deformities (10 sources) Foot-drop; Translations: [Foot drop, right foot] 10-01-2024 Episodic Diabetes mellitus with complications (12 sources) Ulcer of skin of lower extremity; Translations: [Type 2 diabetes mellitus with other skin ulcer] 08-01-2024 Chronic Comment on above: Left lower leg Diabetes mellitus without complication (11 sources) Type 2 diabetes mellitus; Translations: [Type 2 diabetes mellitus without complications] 08-01-2024 Chronic E Codes: Fall (1 source) Fall Onset: 03-21-2025 Essential hypertension (11 sources) Hypertensive disorder; Translations: [Essential (primary) hypertension] 07-30-2024 Chronic Fracture of upper limb (20 sources) Displaced fracture of olecranon process without intraarticular extension of left ulna, initial encounter for closed fracture; Translations: [Fracture of left olecranon process] Onset: 03-21-2025 03-25-2025 Episodic Other acquired deformities (6 sources) Acquired spondylolisthesis; Translations: [Spondylolisthesis, lumbosacral region] 07-26-2023 Episodic Comment on above: Problem List clean-u p per request of Phys. EHR Cmte Other circulatory disease (6 sources) Elevated blood pressure; Translations: [Elevated blood-pressure reading, without diagnosis of hypertension] 07-15-2024 Episodic Other circulatory disease (1 source) Elevated blood-pressure reading, without diagnosis of hypertension; Translations: [Elevated blood pressure reading without diagnosis of hypertension] 07-15-2024 Episodic Other non-traumatic joint disorders (9 sources) Pain in right knee; Translations: [Pain in both knees] 10-01-2024 Episodic Other screening for suspected conditions (not mental disorders or infectious disease) (7 sources) Patient encounter status; Translations: [Encounter for screening for malignant neoplasm of prostate] 07-30-2024 Episodic Residual codes; unclassified (1 source) Pain, unspecified; Translations: [Pain, unspecified] Onset: 03-26-2025 Episodic Residual codes; unclassified (1 source) Pain Onset: 03-31-2025 Episodic Spondylosis; intervertebral disc disorders; other back problems (6 sources) Spinal stenosis of lumbar region; Translations: [Spinal stenosis, lumbar region without neurogenic claudication] 07-26-2023 Episodic Comment on above: Problem List clean-u p per request of Phys. EHR Cmte Unclassified (1 source) Closed fracture of olecranon process of left ulna 03-27-2025 Unclassified (1 source) Patient encounter status 03-27-2025 Unclassified (1 source) Fall at work Onset: 03-21-2025 Unclassified (1 source) Closed fracture of olecranon process of left ulna with routine healing, subsequent encounter [S52.022D] Onset: 04-09-2025 Unclassified (1 source) New Patient Onset: 03-31-2025 Past or Other Problems Problem Classification Problem Date Documented Da te Episodic/Chronic Skin and subcutaneous tissue infections (8 sources) Cellulitis of leg, excluding foot; Translations: [Cellulitis of left lower limb] Onset: 07-15-2024 07-15-2024 Episodic Results Test Name Value Interpretation Reference Range Facility BEDSIDE GLUCOSEon 04-09-2025 Glucose [Mass/Vol] 158 mg/dL High 65-99 [facility] Comment on above: Performed By: #### B EDG #### [facility] ([facility]) [address] [place] [address] VIR Basophils Auto (Bld) [#/Vol] Ordered By: Zahraa Marker on 04-08-2025 Basophils (Bld) [#/Vol] 0.0 10 3/uL 0.0-0.1 [facility] Basophils/100 WBC Auto (Bld) Ordered By: Zahraa Marker on 04-08-2025 Basophils/100 WBC (Bld) 0.2 % 0.2-2.0 [facility] Eosinophils/100 WBC Auto (Bl d)Ordered By: Zahraa Marker on 04-08-2025 Eosinophils/100 WBC (Bld) 0.3 % Low 0.9-7.0 [facility] Erythrocyte distribution wid th Auto (RBC) [Ratio]Ordered By: Zahraa Marker on 04-08-2025 Erythrocyte distribution width (RBC) [Ratio] 13.1 % 11.0-15.0 [facility] Hematocrit Auto (Bld) [Volum e fraction]Ordered By: Zahraa Marker on 04-08-2025 Hematocrit (Bld) [Volume fraction] 46.8 % 42.0-54.0 [facility] Hemoglobin [Mass/volume] in BloodOrdered By: Zahraa Marker on 04-08-2025 Hemoglobin (Bld) [Mass/Vol] 15.8 g/dL 14.0-18.0 [facility] Laboratory - Chemistry and C hemistry - challengeOrdered By: Chapincito Lockwood on 04-08-2025 Bilirubin Ql (U) Negative NEGATIVE [facility] Glucose (U) [Mass/Vol] Negative NEGATIVE [facility] Ketones Ql (U) 15 mg/dL Abnormal NEGATIVE [facility] pH (U) 6.0 [pH] 5.0-9.0 [facility] Specific gravity (U) [Rel density] 1.025 1.005-1.025 [facility] Urobilinogen Qn (U) 1.0 {Anuja'U}/dL 0.2-1.0 [facility] - Hematology and Cell countsOrdered By: Zahraa Marker on 04-08-2025 Immature granulocytes/100 WBC (Bld) 0.6 % High 0.0-0.5 [facility] - Specimen inform ationOrdered By: Chapincito Lockwood on 04-08-2025 Appearance (U) CLOUDY Abnormal CLEAR [facility] Color (U) LT. YELLOW YELLOW [facility] - UrinalysisOrder ed By: Chapincito Lockwood on 04-08-2025 Leukocyte esterase Test strip Ql (U) MODERATE Abnormal NEGATIVE [facility] Mucus Ql (Urine sed) NONE SEEN NONE SEEN [facility] Nitrite Ql (U) Negative NEGATIVE [facility] Protein Ql (U) 30 mg/dL Abnormal NEG/TRACE [facility] Leukocytes [#/volume] correc chapo for nucleated erythrocytes in Blood by Automated counOrdered By: Zahraa Marker on 04-08-2025 WBC corrected for nucl RBC Auto (Bld) [#/Vol] 13.0 10 3/uL High 4.0-11.0 [facility] Lymphocytes Auto (Bld) [#/Vo l]Ordered By: Zahraa Marker on 04-08-2025 Lymphocytes (Bld) [#/Vol] 0.9 10 3/uL Low 1.2-3.8 [facility] Lymphocytes/100 WBC Auto (Bl d)Ordered By: Zahraa Marker on 04-08-2025 Lymphocytes/100 WBC (Bld) 7.1 % Low 20.5-60.0 [facility] MCH Auto (RBC) [Entitic mass ]Ordered By: Zahraa Marker on 04-08-2025 MCH (RBC) [Entitic mass] 30.6 pg 25.9-34.0 [facility] MCHC Auto (RBC) [Mass/Vol]Or dered By: Zahraa Marker on 04-08-2025 MCHC (RBC) [Mass/Vol] 33.8 g/dL 29.9-35.2 [facility] MCV Auto (RBC) [Entitic vol] Ordered By: Zahraa Marker on 04-08-2025 MCV (RBC) [Entitic vol] 90.5 fL 80.0-94.0 [facility] Monocytes Auto (Bld) [#/Vol] Ordered By: Zahraa Marker on 04-08-2025 Monocytes (Bld) [#/Vol] 1.1 10 3/uL High 0.3-0.8 [facility] Monocytes/100 WBC Auto (Bld) Ordered By: Zahraa Marker on 04-08-2025 Monocytes/100 WBC (Bld) 8.2 % 1.7-12.0 [facility] Neutrophils Auto (Bld) [#/Vo l]Ordered By: Zahraa Marker on 04-08-2025 Neutrophils (Bld) [#/Vol] 10.8 10 3/uL High 1.4-6.5 [facility] Neutrophils/100 WBC Auto (Bl d)Ordered By: Zahraa Marker on 04-08-2025 Neutrophils/100 WBC (Bld) 83.6 % High 43.0-75.0 [facility] No Panel InformationOrdered By: Zahraa Marker on 04-08-2025 Eosinophils # (Auto) 0.0 10 3/uL 0.0-0.7 [facility] Immature Granulocyte # (Auto) 0.08 10 3/uL High 0.00-0.03 [facility] No Panel InformationOrdered By: Chapincito Lockwood on 04-08-2025 Urine Bacteria LARGE #/HPF Abnormal NONE SEEN [facility] Urine Culture Reflexed YES-[facility] Urine Occult Blood LARGE Abnormal NEGATIVE [facility] Urine Other Casts NONE SEEN #/LPF NONE SEEN [facility] Urine Other Crystals Seen #/HPF Abnormal None Seen [facility] Urine RBC 10-20 #/HPF Abnormal 0-2 [facility] Urine Squamous Epithelial Cells FEW #/LPF Abnormal NONE/RARE [facility] Urine Uric Acid Crystals MANY [facility] Urine WBC 2-5 #/HPF Abnormal NONE SEEN [facility] Platelet mean volume Auto (B ld) [Entitic vol]Ordered By: Zahraa Marker on 04-08-2025 Platelet mean volume (Bld) [Entitic vol] 9.1 fL Low 9.5-13.5 [facility] Platelets Auto (Bld) [#/Vol] Ordered By: Zahraa Marker on 04-08-2025 Platelets (Bld) [#/Vol] 245 10 3/uL 150-450 [facility] RBC Auto (Bld) [#/Vol]Ordere d By: Zahraa Marker on 04-08-2025 RBC (Bld) [#/Vol] 5.17 10 6/uL 4.70-6.10 [facility] Urine Cultureon 04-08-2025 Bacteria identified Cx Nom (U) 50,000 colonies/ml mixed bacterial skin contaminants 2 Days PERFORMED BY: [place] [address] PATHOLOGIST STATION OPERATOR SAVANNA PERALTA M.D. Normal [facility] Comment on above: Performed By: #### C UU #### [address] XR ELBOW LT 2 VWSon 03-31-20 25 [...] Muller MD on 03/31/2025 9:00 PM Normal [facility] BASIC METABOLIC PANELon - Anion gap [Moles/Vol] 9 mmol/L Normal 5-15 [facility] Comment on above: Performed By: #### B MP #### [facility] ([facility]) [address] [place] [address] VIR Calcium [Mass/Vol] 9.3 mg/dL Normal 8.5-10.5 [facility] Comment on above: Performed By: #### B MP #### [facility] ([facility]) [address] [place] [address] VIR Chloride [Moles/Vol] 105 mmol/L Normal 98-109 [facility] Comment on above: Performed By: #### B MP #### [facility] ([facility]) [address] [place] [address] VIR CO2 [Moles/Vol] 26 mmol/L Normal 22-32 [facility] Comment on above: Performed By: #### B MP #### [facility] ([facility]) [address] [place] [address] VIR Creatinine [Mass/Vol] 0.96 mg/dL Normal 0.60-1.30 [facility] Comment on above: Result Comment: METH OD TRACEABLE TO IDMS STANDARD Performed By: #### B MP #### [facility] ([facility]) [address] [place] [address] VIR GFR/1.73 sq M.predicted among non-blacks MDRD (S/P/Bld) [Vol rate/Area] 86 mL/min/{1.73_m2} Normal >=60 [facility] Comment on above: Result Comment: Repo rted eGFR is based on the CKD-EPI 2020 equation that does not use a race coefficient. Performed By: #### B MP #### [facility] ([facility]) [address] [place] [address] VIR Glucose [Mass/Vol] 130 mg/dL High 65-99 [facility] Comment on above: Performed By: #### B MP #### [facility] ([facility]) [address] [place] [address] VIR Potassium [Moles/Vol] 4.4 mmol/L Normal 3.5-5.0 [facility] Comment on above: Performed By: #### B MP #### [facility] ([facility]) [address] [place] [address] VIR Sodium [Moles/Vol] 140 mmol/L Normal 134-146 [facility] Comment on above: Performed By: #### B MP #### [facility] ([facility]) [address] [place] [address] VIR Urea nitrogen [Mass/Vol] 23 mg/dL Normal 5-27 [facility] Comment on above: Performed By: #### B MP #### [facility] ([facility]) [address] [place] [address] VIR CBC (NO DIFF)on 03-28-2025 Erythrocyte distribution width (RBC) [Ratio] 14.0 % Normal 11.5-15 [facility] Comment on above: Performed By: #### C BC #### [facility] ([facility]) [address] [place] [address] VIR Hematocrit (Bld) [Volume fraction] 46.9 % Normal 39-50 [facility] Comment on above: Performed By: #### C BC #### [facility] ([facility]) [address] [place] [address] VIR Hemoglobin (Bld) [Mass/Vol] 15.1 g/dL Normal 13-17 [facility] Comment on above: Performed By: #### C BC #### [facility] ([facility]) [address] [place] [address] VIR MCH (RBC) [Entitic mass] 30.2 pg Normal 27-34 [facility] Comment on above: Performed By: #### C BC #### [facility] ([facility]) [address] [place] [address] VIR MCHC (RBC) [Mass/Vol] 32.1 g/dL Normal 32-36 [facility] Comment on above: Performed By: #### C BC #### [facility] ([facility]) [address] [place] [address] VIR MCV (RBC) [Entitic vol] 94 fL Normal 80-100 [facility] Comment on above: Performed By: #### C BC #### [facility] ([facility]) [address] [place] [address] VIR Platelet mean volume (Bld) [Entitic vol] 7.6 fL Normal 7-12 [facility] Comment on above: Performed By: #### C BC #### [facility] ([facility]) [address] [place] [address] VIR Platelets (Bld) [#/Vol] 249 10*3/uL Normal 150-450 [facility] Comment on above: Performed By: #### C BC #### [facility] ([facility]) [address] [place] [address] VIR RBC COUNT 4.99 X10E12/L Normal 4.1-5.7 [facility] Comment on above: Performed By: #### C BC #### [facility] ([facility]) [address] [place] [address] VIR WBC (Bld) [#/Vol] 11.7 10*3/uL High 4-[address] [facility] Comment on above: Performed By: #### C BC #### [facility] ([facility]) [address] [place] [address] VIR HEMOGLOBIN A1Con 03-28-2025 Glucose [Mass/Vol] 151 mg/dL Normal [facility] Comment on above: Performed By: #### H A1C #### [facility] ([facility]) [address] [place] [address] VIR HbA1c (Bld) [Mass fraction] 6.9 % High 4.4-5.6 [facility] Comment on above: Result Comment: ADA Guidelines Result HgbA1c Normal : less than 5.7 % Prediabetes : 5.7 % to 6.4 % Diabetes : > 6.4 % Use with caution in patients with abnormal hemoglobin variants as the half-life of red blood cells and in vivo glycation rates are affected. Performed By: #### H A1C #### [facility] ([facility]) [address] [place] [address] elbow LT wo conon 025 CT elbow LT wo con [facility] [place] [address] CT Scan Report Signed Patient: Cesar Clarke MR#: [id number] : 1955 Acct:[id number] Age/Sex: 69 / M ADM Date: 03/26/25 Loc: CT Room: Type: [facility] Attending Dr: Dwight Andrews MD Copies to: [...] Jr., D.OJose 03/27/2025 10:31 AM Dictation Location: [place] [address] Transcribed By: [facility] 03/27/25 1031 Dictated By: Joseph Castro Jr, DO 03/27/25 1027 Signed By: 03/27/25 1031 Normal [facility] XR ELBOW LT MIN 3 [...] Jiménez MD on 03/21/2025 2:14 PM Normal [facility] Urology Office/Clinic Noteon 03-17-2025 Urology Office/Clinic Note Urology Office/Clinic Note Chief Complaint new pt elevated PSA HPI Staff New pt referred by Lucie Augustin NP for elevated PSA. [facility] PSA (done at [facility]) 08/13/24 - 11.22 No other levels [...] 100mg bid x1 month. Rx sent to [facility] [place]. 3. BPH with urinary obstruction (N40.1: Benign prostatic hyperplasia with lower urinary tract symptoms) Good stream most of the time. Constipation does weaken stream. Feels he empties. Attributes frequency to diuretics. Recommended pt to try oral meds. -Start Flomax 0.4mg qd. Possible SEs discussed. Rx sent to [facility] [place]. Follow-up With When Contact Information PATSY ADDISON, Neville [place], [facility] [address], [place] [phone] Additional Instructions: 3 mos w/ PSA Patient [...] Blood Urin (more content not included)... Normal [facility] Comment on above: Result Comment: Elec tronically Signed By: Neville ROCK MD\.br\Date and Time Signed: 03/17/25 09:50 EDT\.br\Electronically Co-Signed By: Emmy Garcia\.br\Date and Time Co-Signed: 03/17/25 09:49 EDT Basophils Auto (Bld) [#/Vol] on 08-13-2024 Basophils (Bld) [#/Vol] Automated basoph il count 0.0-0.1 [facility] Basophils/100 WBC Auto (Bld) on 08-13-2024 Basophils/100 WBC (Bld) Automated basophil % 0. 2-2.0 [facility] Cholesterol in LDL Calc [Mas s/Vol]on 08-13-2024 Cholesterol in LDL [Mass/Vol] Cholesterol in LDL [Mass/volume] in Serum or Plasma by calculation [facility] Comment on above: <100 mg/dl [id number] 0-129 mg/dl NEAR OR ABOVE [id number] mg/dl BORDERLINE [id number] mg/dl HIGH>190 mg/dl VERY HIGH Cholesterol in [...] challengeon 08-13-2024 Albumin [Mass/Vol] 3.6 g/dL 3.4-5.0 [facility] ALP [Catalytic activity/Vol] 101 U/L 46-116 [facility] ALT [Catalytic activity/Vol] 47 U/L 16-63 [facility] AST [Catalytic activity/Vol] 21 U/L 15-37 [facility] Bilirubin [Mass/Vol] 0.7 mg/dL 0.2-1.0 [facility] Calcium [Mass/Vol] 9.3 mg/dL 8.5-10.1 [facility] Chloride [Moles/Vol] 102 mmol/L 98-107 [facility] Cholesterol [Mass/Vol] 195 mg/dL <=200 [facility] Cholesterol in HDL [Mass/Vol] 54 mg/dL 40-60 [facility] Comment on above: > or =60 mg/dl - LOW CARDIOVASCULAR RISK<40 mg/dl - HIGH CARDIOVASCULAR RISK CO2 [Moles/Vol] 28.9 mmol/L 21.0-32.0 [facility] Creatinine [Mass/Vol] 1.16 mg/dL 0.70-1.30 [facility] GFR/1.73 sq M.predicted MDRD (S/P/Bld) [Vol rate/Area] mL/min/{1.73_m2} >=60 mL/min/1.73m 2 [facility] Glucose [Mass/Vol] 160 mg/dL High 74-106 [facility] Potassium [Moles/Vol] 4.5 mmol/L 3.5-5.1 [facility] Protein [Mass/Vol] 7.1 g/dL 6.4-8.2 [facility] Sodium [Moles/Vol] 138 mmol/L 136-145 [facility] Triglyceride [Mass/Vol] 84 mg/dL <=150 [facility] Urea nitrogen [Mass/Vol] 23.0 mg/dL [...] 08-13-2024 MCV (RBC) [Entitic vol] MCV [Entitic vol ume] by Automated count 80.0-94.0 [facility] Microalbumin [Mass/volume] i n Urineon 08-13-2024 Albumin DL <= 20 mg/L (U) [Mass/Vol] Microalbumin [Mass/volume] in Urine <=30.0 [facility] Monocytes Auto (Bld) [#/Vol] on 08-13-2024 Monocytes (Bld) [#/Vol] Automated blood monocyte count High 0.3-0.8 [facility] Monocytes/100 WBC Auto (Bld) on 08-13-2024 Monocytes/100 WBC (Bld) Automated monocyte % 1. 7-12.0 [facility] Neutrophils Auto (Bld) [#/Vo l]on 08-13-2024 Neutrophils (Bld) [#/Vol] Neutrophils [#/volume] in Blood by Automated count High 1.4-6.5 [facility] Neutrophils/100 WBC Auto (Bl d)on 08-13-2024 Neutrophils/100 WBC (Bld) Automated neutrophil % 43.0-75.0 [facility] No Panel Informationon 08-13 Eosinophils # (Auto) 0.3 10 3/uL 0.0-0.7 [facility] Immature Granulocyte # (Auto) 0.07 10 3/uL High 0.00-0.03 [facility] Prostate Specific Antigen Screen 11.22 ng/mL High <=4.00 [facility] Urine Random Creatinine 173.94 mg/dL 20.00-300. 00 [facility] Platelet mean volume Auto (B ld) [Entitic vol]on 08-13-2024 Platelet mean volume (Bld) [Entitic vol] Platelet mean volume [Entitic volume] in Blood by Automated count Low 9.5-13.5 [facility] Platelets Auto (Bld) [#/Vol] on 08-13-2024 Platelets (Bld) [#/Vol] Platelets [#/vol ume] in Blood by Automated count 150-450 [facility] [...] density lipoprotein (HDL) cholesterol mass emily 08-13-2024 Cholesterol.total/Priti sterol in HDL [Mass ratio] Serum or plasma [...] Hemoglobin A1c/Hemoglobin.total in Blood by HPLC [facility] Bacteria identified Aer cx N om [...] #2 identified as Corynebacterium pseudodiphtheriticum. PERFORMED BY: [place] [address] PATHOLOGIST STATION OPERATOR JERMAINE LICONA M.D. Normal [facility] Comment on above: Performed By: #### C USUP #### [address] [id number] 08-11-2021 SARS-CoV-2 (COVID-19) RNA LAURA+probe Ql (Unsp spec) Not detected Normal [facility] Comment on above: Result Comment: Rapid [...] management decisions. Fact sheet for Healthcare Providers: https://www.fda.gov/media/040502/download Fact sheet for Patients: https://www.fda.gov/media/845342/download Methodology: Isothermal Nucleic Acid Amplification Performed By: #### C OVRB #### [facility] [address] [place] [address] Sanforizer: Singh Mccollum MD Vital Signs Date Time [...] 96 /min Lucie Augustin APRN Work Phone: [facility] 03-31-2025 14:08-0400 SaO2% (BldA) [Mass fraction] 94 % Lucie Augustin APRN Work Phone: [facility] 03-31-2025 14:08-0400 Systolic blood pressure 128 mm[Hg] Lucie Augustin APRN Work Phone: [facility] 03-31-2025 10:51-0400 Body height 170.2 cm Margot Bellamy PA-C Work Phone: [facility] [email or web address] [facility] 03-31-2025 10:51-0400 Body mass index (BMI) [Ratio] 51.67 kg/m2 [facility] Bellamy PA-C Work Phone: [facility] [email or web address] [facility] 03-31-2025 10:51-0400 Body temperature 97.5 [degF] [facility] PA-C Work Phone: [facility] [email or web address] [facility] 03-31-2025 10:51-0400 Body weight 149.69 kg Margot Bellamy PA-C Work Phone: [facility] 03-25-2025 14:11-0400 Body height 170.18 cm Lucie Augustin APRN Work Phone: [facility] 03-25-2025 14:11-0400 Body mass index (BMI) [Ratio] 51.7 kg/m2 Lucie Augustin APRN Work Phone: [facility] 03-25-2025 14:11-0400 Body weight 149.68 kg Lucie Augustin APRN Work Phone: [facility] 11-04-2024 09:00-0400 Body weight 149.68 kg [facility] 10-01-2024 09:49-0500 Body height 170.18 cm Graciela Angelo APRN Work Phone: [facility] 10-01-2024 09:49-0500 Body mass index (BMI) [Ratio] 51 kg/m2 Graciela Angelo APRN Work Phone: [facility] 10-01-2024 09:49-0500 Body temperature 95.3 [degF] Graciela Angelo APRN Work Phone: [facility] 10-01-2024 09:49-0500 Body weight 147.87 kg Graciela Angelo APRN Work Phone: [facility] 10-01-2024 09:49-0500 Diastolic blood pressure 82 mm[Hg] Graciela Gi SCARF GLUER Work Phone: [facility] 10-01-2024 09:49-0500 Heart rate 92 /min Graciela Gi SCARF GLUER Work Phone: [facility] 10-01-2024 09:49-0500 SaO2% (BldA) [Mass fraction] 98 % Graciela Gi SCARF GLUER Work Phone: [facility] 10-01-2024 09:49-0500 Systolic blood pressure 144 mm[Hg] Graciela Gi SCARF GLUER Work Phone: [facility] 07-30-2024 09:01-0500 Body height 170.18 cm Graciela De La Rosaley SC[employer]UER Work Phone: [facility] 07-30-2024 09:01-0500 Body mass index (BMI) [Ratio] 53.1 kg/m2 Graciela Angelo APRN Work Phone: [facility] 07-30-2024 09:01-0500 Body temperature 96.7 [degF] Graciela Gi SCARF GLUER Work Phone: [facility] 07-30-2024 09:01-0500 Body weight 153.76 kg Graciela De La Rosaley [employer]ER Work Phone: [facility] 07-30-2024 09:01-0500 Diastolic blood pressure 98 mm[Hg] Gracielafrank Angelo SC[employer] GL[employer]ER Work Phone: [facility] 07-30-2024 09:01-0500 Heart rate 101 /min Gracielafrank Angelo APRN Work Phone: [facility] 07-30-2024 09:01-0500 SaO2% (BldA) [Mass fraction] 94 % Graciela Angelo APRN Work Phone: [facility] 07-30-2024 09:01-0500 Systolic blood pressure 164 mm[Hg] Gracielafrank Angelo APRN Work Phone: [facility] 07-15-2024 19:22-0500 Diastolic blood pressure 90 mm[Hg] Gracielafrank Angelo [employer]ER Work Phone: [facility] 07-15-2024 19:22-0500 Systolic blood pressure 160 mm[Hg] Gracielafrank Angelo [employer]ER Work Phone: [facility] 07-15-2024 18:33-0500 Body height 170.18 cm Graciela Gi MONET Work Phone: [facility] 07-15-2024 18:33-0500 Body mass index (BMI) [Ratio] 53.1 kg/m2 Gracielafrank Angelo APRN Work Phone: [facility] 07-15-2024 18:33-0500 Body weight 153.76 kg Graciela De La Rosaley [employer]ER Work Phone: [facility] 07-15-2024 18:33-0500 Heart rate 88 /min Graciela Gi MONET Work Phone: [facility] 07-15-2024 18:33-0500 SaO2% (BldA) [Mass fraction] 98 % Graciela Angelo APRN Work Phone: [facility] Encounters Encounter Date Encounter Type Care Provider Facility Start: 04-11-2025 End: 04-11-2025 Telephone encounter [facility]nita Salgu[facility] Start: 04-11-2025 End: 04-11-2025 ambulatory Neville ROCK [place] Start: 04-09-2025 End: 04-09-2025 Evaluation and management of inpatient OLEKSANDR [facility] Start: 04-08-2025 End: 04-08-2025 ambulatory Chapincito Lockwood Facility:[facility] Start: 04-08-2025 Non-patient / Non-visit Chapincito Scanlon [facility] Work Phone: Start: 04-02-2025 End: 04-02-2025 Telephone encounter Jayla Tate [facility] Start: 03-31-2025 End: 03-31-2025 Patient encounter procedure Lucie Augustin APRN PROSTHETIC DENTIST [facility] Work Phone: Start: 03-31-2025 End: 03-31-2025 Preprocedural examination done Lucie Augustin APRN [facility] Start: 03-31-2025 End: 03-31-2025 Office outpatient new 60 minutes Margot Bellamy PA-C Work Phone: [facility] Comment on above: Olecranon fracture, left, closed, initial encounter (Primary Dx) Start: 03-31-2025 End: 03-31-2025 Orders Only Jayla Tate [facility] Comment on above: Closed fracture of o lecranon process of left ulna, initial encounter (Primary Dx) Start: 03-28-2025 End: 03-28-2025 ambulatory [facility] Start: 03-28-2025 Encounter for other preprocedural examination [facility] Start: 03-28-2025 ambulatory [facility] Start: 03-28-2025 End: 03-28-2025 Telephone encounter Vickey Tate [facility] Start: 03-27-2025 End: 03-27-2025 Patient encounter status Jayla Lazo RN [facility] [email or web address] [facility] Start: 03-27-2025 End: 03-27-2025 Telephone encounter Jayla [facility] Comment on above: Olecranon fracture, left, closed, initial encounter (Primary Dx); Preop testing; Other specified diabetes mellitus with other specified complication, unspecified whether correction insulin use ([facility] Start: 03-26-2025 ambulatory LUCIE AUGUSTIN [facility] Start: 03-26-2025 End: 03-26-2025 Telephone encounter Jayla Lazo RN [facility] Start: 03-26-2025 End: 03-26-2025 ambulatory Lucie Augustin APRN Work Phone: [facility] Work Phone: Start: 03-26-2025 End: 03-26-2025 Patient encounter procedure Dwight Andrews MD -[facility] [place] Work Phone: Start: 03-25-2025 End: 03-25-2025 ambulatory Lucie Augustin APRN Work Phone: [facility] Work Phone: Start: 03-25-2025 End: 03-25-2025 Patient encounter procedure Dwight Andrews MD -[facility] Work Phone: Start: 03-21-2025 End: 03-21-2025 Emergency department patient visit LUCIEADRIAN AUGUSTIN [facility] Start: 03-17-2025 End: 03-17-2025 ambulatory LUCIE AUGUSTIN Facility:[facility] Start: 11-04-2024 End: 11-04-2024 ambulatory [facility] Work Phone: Start: 11-04-2024 End: 11-04-2024 Patient encounter procedure [facility] Work Phone: Start: 10-01-2024 End: 10-01-2024 ambulatory Graciela Angelo APRN Work Phone: [facility] Work Phone: Start: 10-01-2024 End: 10-01-2024 Patient encounter procedure Graciela Angelo APRN Work Phone: [facility] Work Phone: Start: 08-19-2024 ambulatory Neville ROCK Facility :[facility] Start: 08-13-2024 Non-patient / Non-visit Graciela Angelo APRN Work Phone: [facility] Work Phone: Start: 07-30-2024 End: 07-30-2024 Patient encounter procedure Graciela Angelo APRN Work Phone: [facility] Work Phone: Start: 07-15-2024 End: 07-15-2024 ambulatory Graciela Angelo Facility:[facility] Start: 07-15-2024 End: 07-15-2024 Departed Referred Graciela Angelo APRN Work Phone: [facility] [place] Work Phone: Start: 07-15-2024 End: 07-15-2024 Patient encounter procedure Graciela Angelo APRN Work Phone: [facility] Work Phone: Start: 08-11-2021 End: 08-12-2021 ambulatory [facility] Procedures Date Procedure Procedure Detail Performing Clinician Start: 03-26-2025 CT of elbow, left Daphney adrian Augustin SCAR[employer]UER Work Phone: Start: 07-15-2024 Aerobic microbial culture Graciela Angelo APRN Work Phone: Plan of Treatment Date Care Activity Detail Author Start: 04-09-2026 Adult BMI Screening Adult BMI Screening [facility] Start: 04-09-2026 Tobacco Screening Tobacco Screening [facility] Start: 03-31-2026 Adult BMI Screening Adult BMI Screening [facility] Start: 03-21-2026 Adult BMI Screening Adult BMI Screening [facility] Start: 03-21-2026 Tobacco Screening Tobacco Screening [facility] Start: 06-16-2025 ambulatory Ambulatory Facility:[facility] Start: 05-20-2025 ambulatory Ambulatory Facility:[facility] Start: 04-24-2025 End: 04-24-2025 Patient encounter procedure 04/24/2025 11:00 AM EDT Office Visit [facility] [address] [place] [address] [address] [place] [phone] Oleksandr Love MD [address], [address] [place] [address] [facility] Start: 04-14-2025 Influenza vaccination Influenza Vaccine [facility] Start: 04-09-2025 End: 04-09-2025 Admission to same day surgery center 04/09/2025 9:00 AM EDT - 04/09/2025 11:00 AM EDT Surgery [facility] [address] [place] [phone] Oleksandr Love MD [address], [address] [place] [address] OPEN REDUCTION INTERNAL FIXATION OLECRANON [facility] Comment on above: OPEN REDUCTION INTERNAL FIXATION OLECRAN ON Start: 04-09-2025 End: 04-09-2025 OPEN REDUCTION INTERNAL FIXATION OLECRANON OPEN REDUCTION INTERNAL FIXATION OLECRANON Closed fracture of olecranon process of left ulna with routine healing, subsequent encounter 04/09/2025 9:00 AM EDT [facility] Start: 04-09-2025 Subsequent hospital visit by physician 04/09/2025 9:00 AM EDT Hospital Encounter [facility] [address] [place] [phone] Oleksandr Love MD [address] [place] [address] [facility] Start: 04-08-2025 Urine culture [facility] Start: 03-31-2025 End: 03-31-2026 XR Elbow - left 2 Views X-ray elbow left 2 views Imaging Routine Closed fracture of olecranon process of left ulna, initial encounter Expected: 03/31/2025, Expires: 03/31/2026 [facility] Work Phone: Comment on above: Expected: 03/31/2025, Expires: Start: 03-31-2025 End: 03-31-2025 Patient encounter procedure 03/31/2025 10:30 AM EDT Office Visit [facility] [address] [facility] [address] [place] [address] Oleksandr Love MD [address] [facility] [place] [address] [facility] Start: 03-28-2025 End: 03-28-2025 ambulatory [facility] Start: 03-26-2025 CT Elbow - left WO contrast [facility] Start: 03-26-2025 CT of elbow, left CT elbow LT wo con [facility] Start: 10-01-2024 Patient referral [facility] [place] Work Phone: Start: 2021 Abdominal aortic aneurysm screening Abdominal Aortic Aneurysm (AAA) Screen [facility] [email or web address] [facility] Start: 2021 Fall Risk Screening Fall Risk Screening [facility] Start: 2006 Administration of varicella zoster vaccine Zoster (Shingles) Vaccine (1 of 2) [facility] Start: 1975 DTaP,Tdap and Td Vaccines (1 - Tdap) DTaP,Tdap and Td Vaccines (1 - Tdap) [facility] Start: 1974 Adult BMI Follow Up Plan Adult BMI Follow Up Plan [facility] Start: 1968 Depression Screening Depression Screening [facility] [email or web address] [facility] End: 03-27-2026 Basic metabolic 2000 panel - Serum or Plasma Basic Metabolic Panel Lab Routine Olecranon fracture, left, closed, initial encounter Preop testing 1 Occurrences starting 03/27/2025 until 03/27/2026 [email or web address] Comment on above: 1 Occurrences starting 03/27/2025 until 03/27/2026 End: 03-27-2026 CBC panel - Blood by Automated count CBC without diff Lab Routine Olecranon fracture, left, closed, initial encounter Preop testing 1 Occurrences starting 03/27/2025 until 03/27/2026 [facility] Work Phone: Comment on above: 1 Occurrences starting 03/27/2025 until 03/27/2026 Comprehensive metabo lic 2000 panel - Serum or Plasma [facility] CT Elbow - left WO contrast [facility] End: 03-27-2026 ECG 12 lead ECG 12 lead ECG Routine Olecranon fracture, left, closed, initial encounter Preop testing 1 Occurrences starting 03/27/2025 until 03/27/2026 [email or web address] Comment on above: 1 Occurrences starting 03/27/2025 until 03/27/2026 End: 03-27-2026 Hemoglobin A1c/Hemoglobin.total in Blood Hemoglobin A1c Lab Routine Preop testing Other specified diabetes mellitus with other specified complication, unspecified whether correction insulin use ([facility]) 1 Occurrences starting 03/27/2025 until 03/27/2026 [email or web address] Comment on above: 1 Occurrences starting 03/27/2025 until 03/27/2026 Patient referral [facility] Work Phone: [facility] Immunizations Immunization Date Immunization Notes Care Provider Ayla hernandez 09-16-2019 influenza virus vaccine, unspecified formulation Jayla Lazo RN [employer] Payers Date Payer Category Payer Worker's Comp Other Managed Care SANDI [id number] 2025 Unknown [id number] 2024 Self-pay 2021 Commercial Managed C are - POS [id number] 2021 Private Health Insurance [facility] [id number] 2021 Medicare MEDICARE [id number] 2021 Medicare [id number] 1955 Unknown [id number] [id number]. 2.174 1955 Unknown [id number] [id number]. 2.1286 1956 Unknown [id number] 2.16.840.1.017557.3.579. 2.128 1956 Unknown [id number] 2.16.840.1.711453.3.579. 2.1286 1956 Unknown [id number] 2.16.840.1.548244.3.579. 2.128 1956 Unknown [id number] 2.16.840.1.020020.3.579. 2.1286 1956 Unknown [id number] 2.16.840.1.043083.3.579. 2.1286 1956 Unknown [id number] 2.16.840.1.266466.3.579. 2.1286 1956 Unknown [id number] 2.16.840.1.288091.3.579. 2.727 1956 Unknown [id number] 2.16.840.1.448287.3.579. 2.727 1956 Unknown [id number] 2.16.840.1.024203.3.579. 2.727 1956 Unknown [id number] 2.16.840.1.924619.3.579. 2.727 1956 Unknown [id number] 2.16.840.1.916706.3.579. 2.727 Private Health Insurance [facility] [id number] Unknown [id number] Unknown [id number] [id number]. 2.531 Unknown [id number] 2.16840.1.282059.3.579. 2.531 Unknown [id number] [id number]. 2.531 Social History Date Type Detail Facility Start: 07-30-2024 End: 04-09-2025 Tobacco smoking status MTIS Ex-smoker (finding) [facility] Start: 10-01-2024 End: 03-21-2025 Sex Male (finding) [facility] Start: 1955 Sex Assigned At Male [facility] Start: 03-21-2025 Tobacco smoking stat [facility] Never smoked tobacco [facility] Start: 03-21-2025 Tobacco use and exposure Smokeless tobacco non-user [facility] Start: 03-21-2025 End: 04-11-2025 Alcoholic beverage intake Current drinker of alcohol (finding) [facility] Start: 03-21-2025 End: 04-09-2025 Alcoholic beverage intake [facility] Start: 03-21-2025 End: 04-09-2025 Tobacco use panel [facility] Within the past 12 months we worried whether our food would run out before we got money to buy more. Never True [facility] Start: 1955 Sex assigned at Not on file P [facility] End: 08-14-2014 History of tobacco use Current smoker [facility] End: 08-14-2014 History of tobacco use Pipe Smoker [facility] End: 08-14-2014 History of tobacco use Cigar Smoker [facility] Start: 04-09-2025 Tobacco use and exposure Former smokeless tobacco user [facility] End: 08-14-2014 History of tobacco use User of smokeless tobacco [facility] Start: 04-09-2025 Alcohol Comment daily [facility] Medical Equipment Procedure Code Equipment Code [...] SET CAPLOX II FDA Start : 07-04-2018 Plate Bn 116mm 4 Hl Rnd Prfl Va Tpr Tip Lcp Cmbn Olcrn Lt Ss - [id number] Start: 04-09-2025 Plate Bne 10 H C ndyl 2mm X 73mm 2 H Hd Ss V Mini Frag - [id number] Start: 04-09-2025 Screw Bn 22mm 3. [address] Lp Hd Sm Hex Sckt Jaden Ss 2.5mm Rpl [id number] - [id number] Start: 04-09-2025 Screw Bn 2.0mm V olt Yasir 22mm T6 - [id number] Start: 04-09-2025 Screw Bn 22mm 2. [address] Lck Va Strdr Ss T8 Ns - [id number] Start: 04-09-2025 Screw Bn 24mm 2. [address] Lck Va Strdr Ss T8 Ns - [id number] Start: 04-09-2025 Screw Bn 52mm 2. [address] Va Lck Strdr T8 - [id number] Start: 04-09-2025 Screw Bn 2.0mm V olt Jaden 14mm T6 - [id number] Start: 04-09-2025 Screw Bn 2.0mm V olt Jaden 16mm T6 - [id number] Start: 04-09-2025 Screw Bn 2.0mm V olt Jaden 18mm T6 - [id number] Start: 04-09-2025 Screw Bn 2.0mm V olt Yasir 20mm T6 - [id number] Start: 04-09-2025 Screw Bn 26mm 3. [address] Lck Strdr Cncl Ss T15 Ft Ns Sm Rpl [id number] - [id number] Start: 04-09-2025 Clinical Notes 07-15-2024 to 04-11-2025 Telephone Encounter - Morenita Angeles - 04/11/2025 10:25 AM EDTTelephone Encounter - Sherin Bustamante PA-C - 04/11/2025 10:25 AM EDTTelephone Encounter - Morenita Angeles - 04/11/2025 10:25 AM EDT Note Date & Type Note Facility 04-11-2025 Miscellaneous Notes Kristi jalloh called in regarding patient stated when patient went to the ER he was put on two antibiotics then after surgery Doctor love placed patient on another antibiotic patient is taking 3 antibiotics in total kristi stated patient is on doxycycline 100mg, clindamycin 300mg and keflex 500mg gave [phone] as a good callback number to discuss and stated if she does not answer to please leave a detailed voice message Spoke with Kristi - He was reportedly prescribed doxycycline from [facility] for BLE cellulitis started 04/01/25. He was also seen in the [facility] ER the day prior to evaluation in our office and prescribed Keflex 500mg TID for UTI/prostate issues/kidney stone - has since passed stone and is established with urologist. Clindamycin was prescribed for post op prophylaxis due to PCN reaction. Spoke with Dr. Love - irene to stop clindamycin at this point. Kristi notified. documented in this encounter [facility] 04-11-2025 Telephone encounter Note Kristi jalloh called in regarding patient stated when patient went to the ER he was put on two antibiotics then after surgery Doctor love placed patient on another antibiotic patient is taking 3 antibiotics in total kristi stated patient is on doxycycline 100mg, clindamycin 300mg and keflex 500mg gave [phone] as a good callback number to discuss and stated if she does not answer to please leave a detailed voice message [email or web address] 04-11-2025 Telephone encounter Note Spoke with Kristi - He was reportedly prescribed doxycycline from [facility] for BLE cellulitis started 04/01/25. He was also seen in the [facility] ER the day prior to evaluation in our office and prescribed Keflex 500mg TID for UTI/prostate issues/kidney stone - has since passed stone and is established with urologist. Clindamycin was prescribed for post op prophylaxis due to PCN reaction. Spoke with Dr. Love - ok to stop clindamycin at this point. Kristi notified. [facility] Work Phone: 04-02-2025 Miscellaneous Notes Pre/postop instructions provided for upcoming outpatient surgery-ORIF Left Olecranon Fx scheduled with Dr Love on 04-09-2025 9 am. Arrival time is 7 am Entrance B [facility]. Check in at the Information Desk and [...] Postop appt provided. documented in this encounter [facility] 04-02-2025 Telephone encounter Note Pre/postop instructions provided for upcoming outpatient surgery-ORIF Left Olecranon Fx scheduled with Dr Love on 04-09-2025 9 am. Arrival time is 7 am Entrance B @ [facility]. Check in at the Information Desk and then you'll de directed to the second floor. Nothing to eat/drink after midnight on 04-09-2025. May brush his teeth but limit the water and no gum, mints ect... Patient to hold his Ibuprofen starting on 04-06-2025. Patient to take his Losartan the morning of surgery with a sip of water. Postop appt provided. [facility] 03-31-2025 History of Presen t illness Narrative [...] Resource Strain: Low Risk (08/11/2021) Received from [email or web address] Overall Financial Resource Strain (CARDIA) Difficulty of Paying Living Expenses: Not hard at all Food Insecurity: No Food Insecurity (03/21/2025) Hunger Screening Food Insecurity - Worry: Never True Food Insecurity - Inability: Never True Transportation Needs: No Transportation Needs (10/23/2019) Received from [facility] - Transportation Lack of Transportation (Medical): No [...] PA-C 03/31/25 1527 documented in this encounter [facility] 03-28-2025 Miscellaneous Notes Patient called he has [...] Love documented in this encounter [facility] 03-28-2025 Telephone encounter Note Patient called he has an appointment on Monday and surgery on Monday. [place] over [place] hour away and lives alone.Has to get transportation. He was wondering if he could be admitted Monday for his surgery [facility] 03-28-2025 Telephone encounter Note Spoke with Patient [...] on 03-31-2025 10:[address] Love [facility] 03-27-2025 Miscellaneous Notes Patient has a Left Olecranon Fracture. Appt with Dr Love is 03-31-2025 Left message at Patient's PCP's office for need of Medical Clearance/fax number. documented in this encounter [facility] 03-27-2025 Telephone encounter Note Patient has a Left Olecranon Fracture. Appt with Dr Love is 03-31-2025 Left message at Patient's PCP's office for need of Medical Clearance/fax number. [facility] 03-27-2025 Miscellaneous Notes Appt scheduled on Monday03-31-2025 10:30 am documented in this encounter [facility] 03-27-2025 Telephone encounter Note Appt scheduled on Monday03-31-2025 10:30 am [facility] 03-26-2025 Miscellaneous Notes Received a call from [...] informed. documented in this encounter [facility] 03-26-2025 Telephone encounter Note Received a call [...] about . Sakina to keep me informed. 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 March 31 2:03pm Foot drop, right acute March 142024 2:03pm Hypertension acute March 31, 2025 2:03pm Type 2 diabetes mellitus acute March 31, 2025 2:03pm [facility] Work Phone: 1(953) 447-779408-12-2025 Evaluation note* Diagnosis Onset Date Resolution Status Admit Date Fracture of left olecranon process acute March 25 1:38pm 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 Take jrot-pai-qshrjtw and prescription medicines only as told by [...] provider. This is important. 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 acute September 9:43am Foot drop, right acute October 01, 2024 9:43am Hypertension acute September 9:43am Type 2 diabetes mellitus acute October 01, 2024 9:43am [facility] Work Phone: 1(373) 576-827412-02-2024 Evaluation note* Diagnosis Onset Date Resolution Status [...] 30, 2024 8:56am Bilateral knee pain acute Febru 2024 9:43am 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 acute September 9:43am Foot drop, right acute October 01, 2024 9:43am Hypertension acute September 9:43am Type 2 diabetes mellitus acute October 01, 2024 9:43am [facility] Work Phone: Evaluation note* Diagnosis Onset Date Resolution Status Admit Date Fracture of left olecranon process acute March 25 1:38pm [facility] Work Phone: Evaluation note* Diagnosis Olecranon fracture, left, closed, initial encounter- Primary Preop testing Unspecified pre-operative examination Other specified diabetes mellitus with other specified complication, unspecified whether predatory animal exterminator insulin use ([facility]) documented in this encounter [facility] Diagnosis Closed fracture of olecranon process of left ulna, initial encounter- Primary documented in this encounter [facility]* Diagnosis Olecranon fracture, left, closed, initial encounter- Primary Closed fracture of olecranon process of left ulna with routine healing, subsequent encounter documented in this encounter [facility] Discharge instructionsAmbulatory Orders* Referral to Orthopedic Surgery Time Frame: 10/01/24, Location: None Selected [facility] Work Phone: InstructionsNot on filedocumented in this encounter [facility] filedocumented in this encounter [facility]ructionsNot on filedocumented in this encounter [facility] on filedocumented in this encounter [facility]ructionsNot on filedocumented in this encounter [facility]InstructionsNot on filedocumented in this encounter [facility] SystemReason for referral (narrative)No reason for referral information [facility] Work Phone: Summary Purpose Family [...] Type 2 diabetes mellitus March 31 2:03pm Reason for Visit Admit Date Fracture of left olecranon process Augus t 2024 1:38pm 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 March 31, 2025 2:03pm Foot drop, right March 31, 2025 2: 03pm Fracture of left olecranon process Augus t 2024 2:03pm Hypertension March 31, 2025 2: 03pm Pre-op evaluation March 31, 2025 2: 03pm Type 2 diabetes mellitus March 31 2:03pm Additional Source Comments (unrecognized sect ion and content) No Status Records FoundNo Status Records FoundNo Status Records FoundNo Status Records FoundNo Status Records FoundNo Status Records Found INFORMATION SOURCE (unrecogn ized section and content) DATE CREATED AUTHOR [facility]/12/2021 [facility] DATE CREATED AUTHOR AUTHOR'S ORGANIZ ATION 03/30/2025 [facility] DATE CREATED AUTHOR AUTHOR'S ORGANIZ ATION 04/02/2025 [facility] DATE CREATED AUTHOR AUTHOR'S ORGANIZ ATION 04/10/2025 [facility] DATE CREATED AUTHOR AUTHOR'S ORGANIZ ATION 04/12/2025 [facility] DATE CREATED AUTHOR AUTHOR'S ORGANIZ ATION 04/13/2025 [facility] Teams (unrecognized sec tion and content) Team Status: Active Member Role Status Dates Lucie Rohrbacher , SCARF GLUER DIESEL ENGINE MECHANIC-C Primary Care Provider Active Team Status: Inactive [...] Member Role Status Dates Lucie Augustin APRN DIESEL ENGINE MECHANIC-C Primary Care Provider, Attending Provider Active Start: July 30, 2024 End: July 30, 2024 Team Status: Active Member Role Status Dates Lucie Augustin APRN DIESEL ENGINE MECHANIC-C Primary Care Provider, Attending Provider Active Start: August 13, 2024 Team Status: Inactive Member Role Status Dates Lucie Augustin APRN DIESEL ENGINE MECHANIC-C Primary Care Provider, Attending Provider Active Start: October 01, 2024 End: October 01, 2024 Team Status: Inactive Member Role Status Dates Lucie Augustin APRN DIESEL ENGINE MECHANIC-C Primary Care Provider, Attending Provider Active Start: November 04, 2024 End: November 04, 2024 Team Status: Inactive Member Role Status Dates Lucie Augustin APRN DIESEL ENGINE MECHANIC-C Primary Care Provider Active Start: March 25, 2025 End: March 25, 2025 Dwight Andrews MD Attending Provider Active Star t: March 25, 2025 End: March 25, 2025 Frame Coverer Relationship Specialty Start Date End Date Lucie Augustin APRN-DIESEL ENGINE MECHANIC [facility] [place] [address] PCP - General Nurse Practitioner 03/21/25 Team Status: Inactive Member Role Status Dates Lucie Augustin APRN DIESEL ENGINE MECHANIC-C Primary Care Provider Active Start: March 26, 2025 End: March 26, 2025 Dwight Andrews MD Attending Provider Active Star t: March 26, 2025 End: March 26, 2025 Frame Coverer Relationship Specialty Start Date End Date Lucie Augustin APRN-DIESEL ENGINE MECHANIC [address] [place] [address] PCP - General Nurse Practitioner 03/21/25 Frame Coverer Relationship Specialty Start Date End Date Lucie Augustin APRN-DIESEL ENGINE MECHANIC [address] [place] [address] PCP - General Nurse Practitioner 03/21/25 Frame Coverer Relationship Specialty Start Date End Date Lucie Augustin APRN-DIESEL ENGINE MECHANIC [address] [place] [address] PCP - General Nurse Practitioner 03/21/25 Team Status: Inactive Member Role Status Dates Lucie Augustin APRN DIESEL ENGINE MECHANIC-C Primary Care Provider Active Start: March 31, 2025 End: March 31, 2025 TIERNEY Silveira Attending Provider Act adria Start: March 31, 2025 End: March 31, 2025 Frame Coverer Relationship Specialty Start Date End Date Lucie Augustin APRN-NP [address] [place] [address] PCP - General Nurse Practitioner 03/21/25 Frame Coverer Relationship Specialty Start Date End Date Lucie Augustin APRN-NP [address] [place] [address] PCP - General Nurse Practitioner 03/21/25 Team Status: Active Member Role Status Dates Lucie Augustin APRN DIESEL ENGINE MECHANICBreanna Primary Care Provider Active Start: April 08, 2025 Chapincito Lockwood DO Attending Provider Active Sta rt: April 08, 2025 Frame Coverer Relationship Specialty Start Date End Date Lucie Augustin APRN-NP [address] [place] [address] PCP - General Nurse Practitioner 03/21/25 Goals [...] BE BASED ON THE PRIMARY CLINICAL RECORDS. [employer] [facility]. provides no warranty or guarantee of the accuracy or completeness of information in this document.
--- NOTE | 2025-04-20 15:16 | CT_ITS ---
The [address] [address] Patient Name: JOSHUA KIMBALL MRN: [id number] date: 1955 Sex: M Assigned Patient Location: ER Current Patient Location: .[facility] Accession/Order Number: [id number] Exam Date: 04/20/2025 15:35 Report Date: 04/20/2025 16:38 At the request of: DUSTY RATLIFF DO Procedure: CT abdomen pelvis wo con CT ABDOMEN AND PELVIS WITHOUT INTRAVENOUS CONTRAST: CLINICAL HISTORY: L flank pain, h/o stones COMPARISON: CT abdomen and pelvis 04/09/2025 TECHNIQUE: Spiral images were obtained through the abdomen and pelvis without intravenous contrast. This CT exam was performed using one or more following dose reduction techniques: Automated exposure control, adjustment of the mA and/or kV according to patient size, or use of iterative reconstruction technique. FINDINGS: Lung Bases: [No acute process.] Organs:Suboptimal evaluation due to lack of IV contrast. Gallbladder has been removed. Liver cyst. Pancreas spleen adrenal glands appear unremarkable other than mild thickening involving the left adrenal gland. Cystic changes involving the left kidney. Presumed hemorrhagic cyst involving the right kidney. No hydronephrosis. Abdominal aorta appears normal in caliber.[ GI: Stomach is grossly unremarkable. Small bowel appears nondilated. Colonic diverticulosis.[ Pelvis:[Innumerable stones involving the urinary bladder extending into the prostate gland. Prostatomegaly.] Peritoneum/Retroperitoneum:No free air or free fluid or lymphadenopathy.[ Abd wall/Bones:Abdominal wall demonstrates no acute findings. Osseous structures demonstrate degenerative change. Hardware fixation L5-S1.[ CT/CT abdomen pelvis wo con IMPRESSION: Innumerable urinary bladder calculi extending into the prostate gland. No obstructive uropathy is seen. A similar process was seen on the prior CT study. Presumed hemorrhagic cyst right kidney. This can BE confirmed by nonemergent renal CT or MRI. Finding is similar to the prior study. Impression dictated by: Joseph Castro Jr., D.O. 04/20/2025 4:38 PM Dictation Location: [place] [address] Electronically authenticated by: [id number] Y Date: 04/20/2025 16:38
--- NOTE | 2025-04-20 15:46 | ED.GENADUL1 ---
HPI HPI - General Adult General Chief complaint: Urogenital-Male Stated complaint: OTHER Time Seen by Provider: 04/20/25 15:03 Source: patient Mode of arrival: ambulance Limitations: no limitations History of Present Illness HPI narrative: Patient is a 69-year-old male presenting to the emergency department for concerns of lower abdominal pain. Patient has a history of kidney stones and previous UTIs. He states that he has been passing multiple kidney stones over the last few days. However, over the last 24 hours, he has had intermittent, severe pain in the lower part of his abdomen. He feels like he has to pee, but cannot fully empty his bladder. Other than the pain in the lower part of his abdomen, he denies any other symptoms. He has no fevers or chills. No chest pain or shortness of breath. No nausea or vomiting. Related Data Home Medications ?Medication ?Instructions ?Recorded ?Confirmed doxycycline hyclate 100 mg capsule 100 mg PO BID 04/08/25 04/08/25 losartan 50 mg tablet 50 mg PO DAILY 04/08/25 04/08/25 tamsulosin 0.4 mg capsule 0.4 mg PO DAILY 04/08/25 04/08/25 Allergies Allergy/AdvReac Type Severity Reaction Status Date / Time Penicillins Allergy Severe Hives Verified 04/20/25 15:08 Opioid HPI Opioid Management Most Recent Opioid Data: Last Pain Scale 7 Today, 16:05 Last OCT Pain Assessment Today, 16:05 Review of Systems ROS Status of ROS 10 or more systems reviewed and unremarkable except as noted in history and below PFSH PFSH Social History Little interest or pleasure in doing things: not at all Feeling down, depressed, or hopeless: not at all Exam Narrative Exam Narrative: CONSTITUTIONAL: Well-appearing, answering questions and following commands appropriately SKIN: Was warm and dry. EYES: Sclerae white. EARS, NOSE, THROAT: Moist oral mucosa. RESPIRATORY: Nonlabored respirations CARDIOVASCULAR: Normal rate and regular rhythm. There is no S3, S4, murmur, rub. GASTROINTESTINAL: Abdomen is soft, nontender, nondistended. No rebound tenderness or guarding MUSCULOSKELETAL: No peripheral edema. NEUROLOGIC: Patient is awake and alert. Facies were symmetrical Constitutional Vital Signs, click to edit/add: Last Vital Signs Temp 98 F 04/20/25 15:02 Pulse 112 H 04/20/25 15:02 Resp 16 04/20/25 15:02 BP 161/105 H 04/20/25 15:02 Pulse Ox 97 04/20/25 15:02 O2 Del Method Room Air 04/20/25 15:02 Course Vital Signs Vital signs: Vital Signs Temperature 98 F 04/20/25 15:02 Pulse Rate 112 H 04/20/25 15:02 Respiratory Rate 16 04/20/25 15:02 Blood Pressure 161/105 H 04/20/25 15:02 Pulse Oximetry 97 04/20/25 15:02 Oxygen Delivery Method Room Air 04/20/25 15:02 Temperature 98 F 04/20/25 15:02 Pulse Rate 112 H 04/20/25 15:02 Respiratory Rate 16 04/20/25 15:02 Blood Pressure 161/105 H 04/20/25 15:02 Pulse Oximetry 97 04/20/25 15:02 Oxygen Delivery Method Room Air 04/20/25 15:02 Medical Decision Making MDM Narrative Medical decision making narrative: Patient is a 66-year-old male, history significant for recurrent UTIs and nephrolithiasis, presenting to the emergency department for evaluation of lower abdominal pain intermittent over the last for 48 hours. Vital signs on arrival are significant for tachycardia, otherwise within normal limits. On evaluation, the patient states his pain is improved since he arrived to the ED. He has not received any analgesics yet. He states that he was having pain in the lower part of his abdomen, however this is spontaneous resolved. His abdomen is soft and nontender. On bedside bladder scan, his postvoid residual was 325 cc. Differential diagnosis includes acute urinary retention, obstructive uropathy, ureterolithiasis, UTI, or other electrolyte/metabolic derangement. IV was established laboratory studies were obtained. CT abdomen/pelvis without contrast was ordered. He was given IV ketorolac, IV Zofran, and 1L bolus NS for treatment. Sanchez catheter was placed after CT imaging was obtained which drained 300cc of urine with many visible stones. Patient felt immediate symptomatic improvement. CT abdomen/pelvis independently reviewed and interpreted by myself and radiology demonstrated Innumerable urinary bladder calculi extending into the prostate gland. No obstructive uropathy is seen. A similar process was seen on the prior CT study. Presumed hemorrhagic cyst right kidney. This can BE confirmed by nonemergent renal CT or MRI. Finding is similar to the prior study. Laboratory studies were unremarkable. No significant electrolyte or metabolic derangement. No evidence of acute kidney injury. No anemia, leukocytosis, or thrombocytopenia. No transaminitis or hyperbilirubinemia. Urinalysis was suggestive of UTI. I do believe the patient is stable for discharge at this time. Patient's presentation is most likely consistent with acute urinary retention secondary to bladder outlet obstruction from multiple stones. His laboratory studies did not suggest any acute kidney injury. He is currently taking doxycycline for the UTI. I recommend the patient go home with a Sanchez catheter to prevent recurrence of his symptoms, however the patient declined. He is currently asymptomatic now that his bladder is decompressed. They were instructed to follow up with his urologist for further care. Return precautions were given including any new or worsening symptoms. Patient understands and agrees to the plan. FINAL IMPRESSION: #Acute urinary retention secondary to bladder outlet obstruction from multiple stones DISPOSITION: Discharged home CONDITION: Good Medical Records Medical records reviewed: Yes I reviewed the patient's medical records Lab Data Lab results reviewed: Yes I reviewed the patient's lab results Labs: Lab Results 04/20/25 Range/Units 15:54 WBC 12.7 H (4.0-11.0) 10^3/uL RBC 4.96 (4.70-6.10) 10^6/uL Hgb 15.3 (14.0-18.0) g/dL Hct 45.7 (42.0-54.0) % MCV 92.1 (80.0-94.0) fL MCH 30.8 (25.9-34.0) pg MCHC 33.5 (29.9-35.2) g/dL RDW 13.4 (11.0-15.0) % Plt Count 285 (150-450) 10^3/uL MPV 9.0 L (9.5-13.5) fL Neut % (Auto) 78.0 H (43.0-75.0) % Lymph % (Auto) 11.0 L (20.5-60.0) % [place] % (Auto) 7.4 (1.7-12.0) % Eos % (Auto) 1.0 (0.9-7.0) % Baso % (Auto) 0.6 (0.2-2.0) % Neut # (Auto) 9.9 H (1.4-6.5) 10^3/uL Lymph # (Auto) 1.4 (1.2-3.8) 10^3/uL [place] # (Auto) 0.9 H (0.3-0.8) 10^3/uL Eos # (Auto) 0.1 (0.0-0.7) 10^3/uL Baso # (Auto) 0.1 (0.0-0.1) 10^3/uL Abs Immat Gran (auto) 0.25 H (0.00-0.03) 10^3/uL Imm/Tot Granulo (auto) 2.0 H (0.0-0.5) % Sodium 136 (136-145) mmol/L Potassium 4.6 (3.5-5.1) mmol/L Chloride 99 (98-107) mmol/L Carbon Dioxide 24.7 (21.0-32.0) mmol/L Anion Gap 16.9 BUN 20.0 H (7.0-18.0) mg/dL Creatinine 1.17 (0.70-1.30) mg/dL Est GFR ( Amer) >60 (>=60 mL/min/1.73m^2) Est GFR (Non-Af Amer) >60 (>=60 mL/min/1.73m^2) BUN/Creatinine Ratio 17.1 Glucose 178 H (74-106) mg/dL Calcium 9.6 (8.5-10.1) mg/dL Urine Color Lt. yellow (YELLOW) Urine Clarity Clear (CLEAR) Urine pH 6.0 (5.0-9.0) Ur Specific [place] 1.010 (1.005-1.025) Urine Protein Trace (NEG/TRACE) mg/dL Urine Glucose (UA) Negative (NEGATIVE) mg/dL Urine Ketones Negative (NEGATIVE) mg/dL Urine Occult Blood Large A (NEGATIVE) Urine Nitrite Negative (NEGATIVE) Urine Bilirubin Negative (NEGATIVE) Urine Urobilinogen 0.2 (0.2-1.0) EU/dL Ur Leukocyte Esterase Large A (NEGATIVE) Urine RBC 20-50 A (0-2) #/HPF Urine WBC 10-20 A (NONE SEEN) #/HPF Ur Squamous Epith Cells Few A (NONE/RARE) #/LPF Urine Crystals None seen (None Seen) #/HPF Urine Bacteria Small A (NONE SEEN) #/HPF Urine Casts None seen (NONE SEEN) #/LPF Urine Mucus Trace A (NONE SEEN) Ur Culture Indicated? [place] [place] scan - abdomen: Attestation: I personally reviewed and interpreted this imaging study as follows: Radiologist's impression: ITS Impressions Abdomen/Pelvis CT 04/20/25 15:16 IMPRESSION: Innumerable urinary bladder calculi extending into the prostate gland. No obstructive uropathy is seen. A similar process was seen on the prior CT study. Presumed hemorrhagic cyst right kidney. This can BE confirmed by nonemergent renal CT or MRI. Finding is similar to the prior study. Impression dictated by: Joseph Castro Jr., D.O. 04/20/2025 4:38 PM Dictation Location: [place] [address] Electronically authenticated by: [id number] Y Date: 04/20/2025 16:38 Discharge Plan Discharge Chief Complaint: Urogenital-Male Clinical Impression: Acute urinary retention Patient Disposition: Home, Self-Care Time of Disposition Decision: 16:27 Condition: Good Mode of Transportation: Private Vehicle Prescriptions / Home Meds: No Action doxycycline hyclate 100 mg capsule 100 mg PO BID losartan 50 mg tablet 50 mg PO DAILY tamsulosin 0.4 mg capsule 0.4 mg PO DAILY Print Language: [place] Instructions: Kidney Stones (ED), Urinary Retention in Men (ED) Referrals: GENEVIEVE HERNANDEZ [Primary Care Provider, Unknown] - 1 week
[2025-04-20 16:02] LABS: Hematocrit 45.7 % (42.0-54.0); Hemoglobin 15.3 g/dL (14.0-18.0); Immature Granulocytes Abs Auto 0.25 10^3/uL (0.00-0.03); Immature Granulocytes Pct Auto 2.0 % (0.0-0.5); Lymphocytes Absolute Auto 1.4 10^3/uL (1.2-3.8); Mean Corpuscular HGB Conc 33.5 g/dL (29.9-35.2); Mean Corpuscular Hemoglobin 30.8 pg (25.9-34.0); Mean Corpuscular Volume 92.1 fL (80.0-94.0); Platelet Count 285 10^3/uL (150-450); Red Blood Count 4.96 10^6/uL (4.70-6.10); White Blood Count 12.7 10^3/uL (4.0-11.0)
[2025-04-20 16:03] LABS: Glucose Urine UA NEGATIVE (NEGATIVE)
[2025-04-20] MEDS: KETOROLAC TROMETHAMINE 30 MG/ML VIAL IVP (16:05)
[2025-04-20] MEDS: 0.9 % SODIUM CHLORIDE 1,000 ML 1000 ML IV (16:05)
[2025-04-20 16:11] LABS: Cast Seen? NONE SEEN #/LPF (NONE SEEN); Crystals Seen? None Seen #/HPF (None Seen); Urine Culture Indicated YES-FRMC
[2025-04-20 16:13] LABS: Anion Gap 16.9; Blood Urea Nitrogen 20.0 mg/dL (7.0-18.0); Calcium 9.6 mg/dL (8.5-10.1); Carbon Dioxide 24.7 mmol/L (21.0-32.0); Chloride 99 mmol/L (98-107); Estimated GFR (African America >60 (>=60 mL/min/1.73m^2); Estimated GFR (Non-African Ame >60 (>=60 mL/min/1.73m^2); Glucose 178 mg/dL (74-106); Potassium 4.6 mmol/L (3.5-5.1); Sodium 136 mmol/L (136-145)
[2025-04-20] MEDS: HYDROCODONE/ACET 5-325 MG TABLET 1 TAB PO (18:51)
--- NOTE | 2025-04-20 19:57 | PC.NURSE ---
indwelling Sanchez removed prior to discharge today. i gave this patient verbal and written discharge orders and along with 1 take home medication and this patient voices yes to understanding these discharge orders and take home medication. at time of discharge this patient voices no concerns, needs and shows no signs of distress
== END 2025-04-20 19:56 | disposition home or self-care (01) ==
PROVIDERS: Emergency Provider Student in an Organized Health Care Education/Training Program; PCP Nurse Practitioner Family
DX: R33.9 Retention of urine, unspecified (principal); Z87.440 Personal history of urinary (tract) infections; Z87.442 Personal history of urinary calculi; N21.0 Calculus in bladder; Z90.49 Acquired absence of other specified parts of digestive tract; K57.30 Diverticulosis of large intestine without perforation or abscess without bleeding
CPT/HCPCS: 36415; 51702; 51798; 74176; 80048; 81001; 85025; 87086; 96374; 96375; 99285; J1885; J2405

== ENCOUNTER 2025-05-13 14:12 | Outpatient (OUT) | payer MEDICARE, SELFPAY | END 2025-05-13 14:13 | disposition home or self-care (01) | LOC: WC 14:13 | PROVIDERS: PCP Nurse Practitioner Family; Visit Provider Physician Assistant | DX: I87.312 Chronic venous hypertension (idiopathic) with ulcer of left lower extremity (principal); L97.821 Non-pressure chronic ulcer of other part of left lower leg limited to breakdown of skin | CPT/HCPCS: G0463 ==

== ENCOUNTER 2025-06-24 14:38 | Outpatient (OUT) | payer MEDICARE, SELFPAY ==
--- OUTSIDE RECORDS SUMMARY | 2025-06-24 14:43 | XMS_ITS | Patient Health Record ---
Author Organization [facility] Address [address] [place] [address] Care Team Providers Care Makeup Instructor Name Role Phone Prakash Redman Unavailable [phone] Alfreda Levine Unavailable [phone] Allergies Allergen (clinical drug ingredient) Drug/Non Drug Allergy documented on EMR Reaction Allergy Type Onset Date Status PENICILLIN (uncoded)UnknownAllergyActive Reason For Referral No Information Medications Medication SIG (Take, Route, Frequency, Duration) Notes Start Date End Date Status losartan Active Social History Tobacco Use: Social History Observation Description Date Details (start date - stop date) Never Smoker NA - NA AUDIT-C (Standard) Question Answer Notes Did you have a drink containing alcohol in the p ast year? No Byrnwm2DdgdbzjfcvdegaIkpeqvflLtuwewo Control (Standard) Question Answer Notes Tobacco use: Nonsmoker Problems Problem Type SNOMED Code ICD Code Onset Dates Problem Status W/U Status Risk Notes Problem [id number] Bilateral primary osteoarthr itis of knee (M17.0) Activeconfirmed Vital Signs Height 67 in 11/04/2024 Qgruxg252 lbs11/04/2024BMI52.62011/04/2024 Encounters Encounter Location Date Provider Diagnosis [facility] Office [address] [place] [address] [place] [address] 11/04/2024 Alfreda reidIndex Pain in right knee M25.561 ; Bilateral primary osteoarthritis of knee M17.0 and Pain in left knee M25.562 Assessments Encounter Date Diagnosis (ICD Code) Assessment Notes Treatment Notes Treatment Clinical Notes Section Notes 11/04/2024 Pain in right knee (ICD-10 - M25 .561) 11/04/2024ilateral primary osteoarthritis of knee (ICD-10 - M17.0)11/04/2024 Pain in left knee (ICD-10 - M25.562)11/04/2024OtherToday I reviewed patient's x- rays with him and discussed conservative treatment options. At this time patient would like to continue with OTC NSAIDs and try some Voltaren gel. We did discuss corticosteroid injections and viscosupplementation if needed in the future. He will call back to schedule epifanio as needed basis. Plan Of Treatment Pending Test Test Name Order Date SCC- KNEE 4 VIEW LEFT-[id number] 11/04/2024 SCC- KNEE 4 VIEW RIGHT [id number] 11/04/2024 Insurance Providers Payer Name Payer Address Payer Phone Subscriber Number Group Number Insured Name Patient Relationship to Insured Coverage Start Date Coverage End [place] [address] [place] [address] [id number] Azalea KIMBALL - patient is the [id number] [facility] InsurancePO [address] [address] [place] [id number], RICHARDSelf - patient is the [id number] 2024
--- OUTSIDE RECORDS SUMMARY | 2025-06-24 14:43 | XMS_ITS | Clinical Summary ---
Author Organization [facility] Address [address] [place] [place] [address] Care Team Providers Care Raw Scales Operator Name Role Phone Unavailable Primary Care Provider Unavailabl e Social History Tobacco UseTypesPacks/DayYears UsedDateSmoking Tobacco: Never AssessedSex and Gender InformationValueDate RecordedSex Assigned at BirthNot on fileLegal Sex Male10/26/2022 8:26 PM EDTGender IdentityNot on fileSexual OrientationNot on file Last Filed Vital Signs Vital SignReadingTime TakenCommentsBlood Xteancrc772/7011 12:00 PM EST Pulse--Temperature--Respiratory Rate--Oxygen Saturation--Inhaled Oxygen Concentration--Mllkqt421 kg (309 lb)07/02/2019 12:00 PM FLUSysdcw646.2 cm (5' 7 )07/02/2019 12:00 PM ESTBody Mass Index48. 12:00 PM EST Plan of Treatment Not on file
--- OUTSIDE RECORDS SUMMARY | 2025-06-24 14:43 | XMS_ITS | Clinical Summary ---
Author Organization [employer] Address [id number] [address] [place] [address] Care Team Providers Care Transit Manager Name Role Phone Lucie Augustin APRN-JAYRO Primary Care Provid er Allergies Active AllergyReactionsCriticalityNoted JyfiTlxiozkuEwcwpykbrg23/08/2025 Medications MedicationSigDispense QuantityRefillsLast FilledStart DateEnd DateStatus tamsulosin (FLOMAX) 0.4 mg capsule Take 1 capsule (0.4 mg total) by mouth nightly.Active losartan (COZAAR) 50 mg tablet Take 1 tablet (50 mg total) by mouth in the morning.Active ibuprofen (ADVIL,MOTRIN) 200 mg tablet Take 1 tablet (200 mg total) by mouth every 6 (six) hours as needed for pain. Active doxycycline (DORYX) 100 MG EC tablet Take 1 tablet (100 mg total) by mouth in the morning and 1 tablet (100 mg total) before bedtime.Active acetaminophen (TYLENOL EXTRA STRENGTH) 500 mg tablet Take 1 tablet (500 mg total) by mouth every 6 (six) hours as needed for pain. 30 tablet 5Active Active Problems ProblemNoted DateDiagnosed DateClosed fracture of left olecranon process 03/31/2025 Encounters DateTypeDepartmentCare BdpyRklwzjaxviv33/22/2025Telephone [facility] [address] [place] [phone] Jayla Lazo RN 05/29/2025 12:30 PM EDTOffice Visit [facility] [address] [place] [address] Oleksandr Astudillo MD Closed fracture of olecranon process of left ulna with routine healing, subsequent encounter (Primary Dx)05/29/2025 11:56 AM EDT - 05/29/2025 11:59 PM EDTHospital Encounter [facility] [address] [place] [address] Closed fracture of olecranon process of left ulna with routine healing, subsequent encounter Discharge Disposition: Home05/29/20252744Yiirfn41/10/2025Orders Only [facility] [address] [place] [address] Jayla Lazo RN 05/08/2025 12:00 PM EDTOffice Visit [facility] [address] [place] [address] Josue Hills MD Closed fracture of olecranon process of left ulna with routine healing, subsequent encounter (Primary Dx)05/08/2025 11:50 AM EDT - 05/08/2025 11:59 PM EDTHospital Encounter [facility] [address] [place] [address] Closed fracture of olecranon process of left ulna with routine healing, subsequent encounter Discharge Disposition: Home05/08/20256952Cupuyx44/22/2025Telephone [facility] [address] [place] [address] Oleksandr Astudillo MD 04/28/2025Orders Only [facility] [address] [place] [address] Jayla Lazo RN Closed fracture of olecranon process of left ulna with routine healing, subsequent encounter (Primary Dx)04/24/2025 11:00 AM EDTOffice Visit [facility] [address] [place] [address] Nichol Figueroa MD Closed fracture of olecranon process of left ulna with routine healing, subsequent encounter (Primary Dx)04/24/2025 10:51 AM EDT - 04/24/2025 11:59 PM EDTHospital Encounter [facility] [address] [place] [address] Closed fracture of olecranon process of left ulna with routine healing, subsequent encounter Discharge Disposition: Home04/24/20253577Kgfblb22/08/2025Orders Only [facility] [address] [place] [address] Jayla Lazo RN Closed fracture of olecranon process of left ulna with routine healing, subsequent encounter (Primary Dx)04/11/2025Telephone [facility] [address] [place] [address] Morenita Angeles 04/09/2025 9:08 AM EDTAnesthesia Event [address] [place] [address] Obey Boateng MD Roberts, Alyssa, SRNA 04/09/2025 9:00 AM EDT - 04/09/2025 11:00 AM EDTSurgery [address] [place] [address] Oleksandr Astudillo MD OPEN REDUCTION INTERNAL FIXATION XMIXVEWOD51/27/2025 6:41 AM EDT - 04/09/2025 2:20 PM EDTHospital Encounter [address] [address] Oleksandr Astudillo MD Closed fracture of olecranon process of left ulna with routine healing, subsequent encounter (Primary Dx) Discharge Disposition: Home04/09/20255743Zofksi05/20/2025Telephone [facility] [address] [place] [address] Jayla Laoz RN 03/31/2025 10:30 AM EDTOffice Visit [facility] [address] [place] [phone] Margot Bellamy PA-C Olecranon fracture, left, closed, initial encounter (Primary Dx)03/31/2025 10:09 AM EDT - 03/31/2025 11:59 PM EDTHospital Encounter [facility] [address] [place] [address] Closed fracture of olecranon process of left ulna, initial encounter Discharge Disposition: Home03/31/2025Orders Only [facility] [address] [place] [address] Jayla Lazo RN Closed fracture of olecranon process of left ulna, initial encounter (Primary Dx)03/28/2025 3:15 PM EDT - 03/28/2025 11:59 PM EDTHospital Encounter [facility] [address] [facility] [place] [address] Olecranon fracture, left, closed, initial encounter; Preop testing Discharge Disposition: Home03/28/20255329Avfwiu47/15/2025Telephone [facility] [address] [place] [address] Vickey Joe 03/27/2025Telephone [facility] [address] [place] [address] Jayla Lazo RN 03/27/2025Orders Only [facility] [address] [place] [phone] Jayla Lazo RN Olecranon fracture, left, closed, initial encounter (Primary Dx); Preop testing; Other specified diabetes mellitus with other specified complication, unspecified whether fci insulin use ([facility]03/27/2025Telephone [facility] [address] [place] [address] Jayla Lazo RN 03/26/2025 1:55 PM EDTAncillary Procedure [facility] [address] [place] [address] Pain03/26/2025Telephone [facility] [address] [place] [address] Jayla Lazo RN 03/26/2025Orders Only [facility] [address] [place] [address] External, Scanning Provider Pain (Primary Dx)from Last 3 Months Social History Tobacco UseTypesPacks/DayYears UsedDateSmoking Tobacco: FormerPipeQuit: 2015 CigarsQuit: 2015Smokeless Tobacco: FormerQuit: 2015 Tobacco Cessation:Counseling Given: Not Answered Alcohol UseStandard Drinks/WeekCommentsYes3 (1 standard drink = 0.6 oz pure alcohol)dailyHunger ScreeningAnswerDate RecordedWithin the past 12 months we worried whether our food would run out before we got money to buy more.Never True05/29/2025Within the past 12 months the food we bought just didn't last and we didn't have money to get more.Never True05/29/2025Sex and Gender Information ValueDate RecordedSex Assigned at UveovWcdl56/25/2025 12:29 PM EDTLegal SexMale 03/21/2025 1:17 PM EDTGender WcgbfllnJyjn04/25/2025 12:29 PM EDTSexual TpexvmunjiiQquwuexm39/25/2025 12:29 PM EDT Last Filed Vital Signs Vital SignReadingTime TakenCommentsBlood Kfceyrze407/7508 12:05 PM EDT Lnezt479204/09/2025 12:05 PM GLPUtmuytppjmo39.4 ??C (97.5 ??F)05/29/2025 12:09 PM EDTRespiratory Okma0250 11:25 AM EDTOxygen Cspuqgvjtt21%04/09/2025 12:05 PM EDTInhaled Oxygen Concentration--Sdbruh531.7 kg (330 lb)05/29/2025 12:09 PM CBTEhxzgi309.2 cm (5' 7 )05/29/2025 12:09 PM EDTBody Mass Index51.6905/29/2025 12:09 PM EDT Plan of Treatment DateTypeDepartmentCare Team (Latest Contact Info)Bchgsqsdjgk62/20/2025 12:15 PM ESTOffice Visit [facility] [address] [facility] [address] [place] [address] Oleksandr Astudillo MD [address] [place] [address], [address] [place] [address] Health MaintenanceDue DateLast DoneCommentsDepression Nlptpglvy86/30/1968Adult BMI Follow Up Plan1974DTaP,Tdap and Td Vaccines (1 - Tdap)1975Zoster (Shingles) Vaccine (1 of 2)2006RSV ( or age 60+ yrs) (1 - Risk 60- 74 years 1-dose series)2016Abdominal Aortic Aneurysm (AAA) Screen 2021Fall Risk Aimtfjbrq65/30/2021Influenza Dvpeqjy20/10/2019, 06/12/2018, 05/30/2017Adult BMI Yugynhyyy41Tobacco Screening Medical Devices ImplantedTypeAreaManufacturerDevice IdentifierShelf Expiration DateModel / Serial / LotPlate Bn 116mm 4 Hl Rnd Prfl Va Tpr Tip Lcp Cmbn Olcrn Lt Ss - [id number] Implanted:Qty: 1 on 04/09/2025 by Oleksandr Astudillo MD at [facility] PlateLeft: ElbowDEPUY SYNTHES SALES02.107.304 / / Plate Bne 10 H Cndyl 2mm X 73mm 2 H Hd Ss V Mini Frag - [id number] Implanted:Qty: 1 on 04/09/2025 by Oleksandr Astudillo MD at [facility] PlateLeft: TqjnzUCZRQ89.420.071 / / Screw Bn 22mm 3.5mm [address]mm St Lp Hd Sm Hex Sckt Jaden Ss 2.5mm Rpl [id number] [id number] - [id number] Implanted:Qty: 3 on 04/09/2025 by Oleksandr Astudillo MD at [facility] ScrewLeft: ElbowDEPUY SYNTHES [id number] / / Screw Bn 2.0mm Volt Yasir 22mm T6 - [id number] Implanted:Qty: 1 on 04/09/2025 by Oleksandr Astudillo MD at [facility] ScrewLeft: [id number] / / Screw Bn 22mm 2.7mm St Lck Va Strdr Ss T8 Ns - [id number] Implanted:Qty: 2 on 04/09/2025 by Oleksandr Astudillo MD at [facility] ScrewLeft: ElbowDEPUY SYNTHES SALES02.211.022 / / Screw Bn 24mm 2.7mm St Lck Va Strdr Ss T8 Ns - [id number] Implanted:Qty: 2 on 04/09/2025 by Oleksandr Astudillo MD at [facility] ScrewLeft: ElbowDEPUY SY[employer] SALES02.211.024 / / Screw Bn 52mm 2.7mm St Va Lck Strdr T8 - [id number] Implanted:Qty: 2 on 04/09/2025 by Oleksandr Astudillo MD at [facility] ScrewLeft: ElbowDEPUY SYN[employer] SALES02.211.052 / / Screw Bn 2.0mm Volt Jaden 14mm T6 - [id number] Implanted:Qty: 1 on 04/09/2025 by Oleksandr Astudillo MD at [facility] ScrewLeft: OyxgeQTNBK35.420.114 / / Screw Bn 2.0mm Volt Jaden 16mm T6 - [id number] Implanted:Qty: 1 on 04/09/2025 by Oleksandr Astudillo MD at [facility] ScrewLeft: TvhylNCGTX67.420.116 / / Screw Bn 2.0mm Volt Jaden 18mm T6 - [id number] Implanted:Qty: 2 on 04/09/2025 by Oleksandr Astudillo MD at [facility] ScrewLeft: PspmyFCJYT96.420.118 / / Screw Bn 2.0mm Volt Yasir 20mm T6 - [id number] Implanted:Qty: 2 on 04/09/2025 by Oleksandr Astudillo MD at [facility] ScrewLeft: JjgtrXDDKC63.420.320 / / Screw Bn 26mm 3.5mm [address] Lck Strdr Cncl Ss T15 Ft Ns Sm Rpl [id number] [id number] - [id number] Implanted:Qty: 1 on 04/09/2025 by Oleksandr Astudillo MD at [facility] ScrewLeft: ElbowDEPUY SYNTHES CFEMT137.109 / / Procedures Procedure NamePriorityDate/TimeAssociated DiagnosisCommentsXR ELBOW LT 2 VWS Nrfqbln1205/29/2025 12:06 PM EDT Closed fracture of olecranon process of left ulna with routine healing, subsequent encounter XR ELBOW LT 2 NHRGdcsxvi40/25/2025 12:04 PM EDT Closed fracture of olecranon process of left ulna with routine healing, subsequent encounter XR ELBOW LT 2 SCNJmddlrb98/11/2025 10:59 AM EDT Closed fracture of olecranon process of left ulna with routine healing, subsequent encounter BEDSIDE UZLCBRQKpnehjo85/27/2025 11:31 AM EDT XR ELBOW LT MIN 3 YAAIbgfmfv42/27/2025 11:11 AM EDT RI AN ELECTIVE ENDOTRACHEAL JEAKSQVlqyjbf04/27/2025 9:17 AM EDT OPEN REDUCTION INTERNAL FIXATION XZHPNWUAN14/27/2025 9:08 AM EDT Closed fracture of olecranon process of left ulna with routine healing, subsequent encounter Case Notes LUPE 90MIN WORKING (EPIC 94)/ Interscalene single shot block, Synthes-locking mini/small frag and olecranon plates Special Needs Interscalene single shot block, Synthes-locking mini/small frag and olecranon plates XR ELBOW LT 2 XFLKtwrumi00/18/2025 10:47 AM EDT Closed fracture of olecranon process of left ulna, initial encounter HEMOGLOBIN O2UHgdbmzk37/15/2025 3:49 PM EDT Preop testing Other specified diabetes mellitus with other specified complication, unspecified whether fci insulin use ([facility]) BASIC METABOLIC KKEXTBeiydnp25/15/2025 3:49 PM EDT Olecranon fracture, left, closed, initial encounter Preop testing CBC (NO DIFF)Iucvsgx0103/28/2025 3:49 PM EDT Olecranon fracture, left, closed, initial encounter Preop testing ECG 12-FPQGExhliqo98/15/2025 3:34 PM EDT Olecranon fracture, left, closed, initial encounter Preop testing CT ELBOW LT WO PCPUDzzntwj80/13/2025 1:55 PM EDT Pain from Last 3 Months Results * X-ray elbow left 2 views (05/29/2025 12:06 PM EDT) Only the most recent of4 resultswithin the time period is included. Anatomical RegionLateralityModalityUpper Extremities, MSK, ElbowLeftComputed RadiographySpecimen (Source)Anatomical Location / LateralityCollection Method / VolumeCollection TimeReceived Time05/29/2025 2:29 PM EDT Narrative 05/29/2025 2:29 PM EDT Comparison May 08 XR ELBOW LT 2 VWS Closed fracture of olecranon process of left ulna with routine healing, subsequent encounter Impression: Stable appearance of fracture morphology and transfixing hardware. ??Stable positioning and alignment. Finalized by Janes Oliva MD on 05/29/2025 2:29 PM Procedure Note Janes Oliva MD - 05/29/2025 Comparison May 08 XR ELBOW LT 2 VWS Closed fracture of olecranon process of left ulna with routine healing, subsequent encounter Impression: Stable appearance of fracture morphology and transfixing hardware. Stable positioning and alignment. Finalized by Janes Oliva MD on 05/29/2025 2:29 PM Authorizing ProviderResult TypeResult StatusC[facility] DIAGNOSTIC IMAGING ORDERABLESFinal Result * (ABNORMAL) Bedside Glucose *Place/Obtain serum glucose if >500 per glucometer. (04/09/2025 11:31AM EDT)ComponentValueRef RangeTest MethodAnalysis Time Performed AtPathologist SignatureBedside Glucose (POC)158(H)65 - 99 mg/dL 04/09/2025 11:37 AM [facility] LABORATORYSpecimen (Source)Anatomical Location / LateralityCollection Method / VolumeCollection TimeReceived Time arterial//27/2025 11:31 AM EDT04/09/2025 11:37 AM EDT Narrative Authorizing ProviderResult TypeResult StatusJason Tank MDPOINT OF CARE TEST ORDERABLESFinal ResultPerforming OrganizationAddressCity/State/ZIP CodePhone Number [facility] [address] [place] [address], * X-ray elbow left minimum 3 views (04/09/2025 11:11 AM EDT)Anatomical Region LateralityModalityUpper Extremities, MSK, ElbowLeftRadio FluoroscopySpecimen (Source)Anatomical Location / LateralityCollection Method / VolumeCollection TimeReceived Time04/09/2025 1:13 PM EDT Narrative 04/09/2025 1:14 PM EDT XR ELBOW LT MIN 3 VWS Clinical history:ORIF L elbow ??pain Comparison: None. Impression: ORIF of the proximal ulna with fluoroscopic guidance. Reference air kerma was 1.92 mGy. Finalized by Terell Cuellar MD on 04/09/2025 1:14 PM Procedure Note Terell Cuellar MD - 04/09/2025 XR ELBOW LT MIN 3 VWS Clinical history:ORIF L elbow pain Comparison: None. Impression: ORIF of the proximal ulna with fluoroscopic guidance. Reference air kermawas 1.92 mGy. Finalized by Terell Cuellar MD on 04/09/2025 1:14 PM Authorizing ProviderResult TypeResult StatusJason [facility] DIAGNOSTIC IMAGING ORDERABLESFinal Result * RI AN ELECTIVE ENDOTRACHEAL AIRWAY (04/09/2025 9:17 AM EDT) Narrative Sharron Garcia SRNA - 04/09/2025 9:17 AM EDT ZAC Hayes 04/09/2025 9:39 AM Airway Patient location during procedure: OR Urgency: Elective Date/Time: 04/09/2025 9:17 AM Airway not difficult IV In Situ: Peripheral General Information and Staff Service Provider: Obey Boateng MD TANKAGE SUPERVISOR: Ramos Osman APRN-TANKAGE SUPERVISOR Student: ZAC Hayes Placed by: ??Obey Boateng MD Patient Identified, IV Checked, Risks and Benefits Discussed, Surgical Consent, Monitors and Equipment Checked, Pre-op Evaluation and Timeout Performed Fire Risk Assessment Score: 0 Consent for Emergent Airway (if performed for an anesthetic, see related documentation for consents) Risks and benefits: risks, benefits and alternatives were discussed Indications and Patient Condition Sedation level: Deep Preoxygenated: yesPatient position: Supine and Sniffing Mask difficulty assessment: Not Attempted Indications for airway management: Anesthesia and Airway Protection Complications: No Complicating Factors: No Final Airway Details Final airway type: ETT Endotracheal airway: Cuffed and ETT - Single Lumen Techniques used for successful ETT Placement: Direct Laryngoscopy, With Stylet, Video Laryngoscopy and Hand Cormack-Lehane Classification: Grade I Endotracheal tube insertion site: Oral Dentition Check Pre: See Pre-Evaluaton documentation Post Intubation Trauma? No Visibility: ??Cords Clear Placement verified by: chest auscultation, capnography and symmetrical chest wall movement ETT size: 7.5 mm Measured from: Lips Secured at (cm): 22 Number of attempts at approach: 1 Authorizing ProviderResult TypeResult StatusObey Boateng MDANESTHESIA ORDERABLESFinal Result * (ABNORMAL) CBC without diff (03/28/2025 3:49 PM EDT)ComponentValueRef Range Test MethodAnalysis TimePerformed AtPathologist PdkxczbywTBX25.7(H)4 - 11 x10E9/L03/28/2025 9:58 PM [facility] LABORATORYRBC Count4.99 4.1 - 5.7 X10E12/L03/28/2025 9:58 PM [facility] Vkivcnbybr38.113 - 17 g/dL03/28/2025 9:58 PM [facility] SKDSQTHKRPJqmqanbfsp29.939 - 50 %03/28/2025 9:58 PM [facility] URWQZVEYCNEIJ1358 - 100 [place]03/28/2025 9:58 PM [facility] LDBWSQXLENQJA96.227 - 34 pg03/28/2025 9:58 PM [facility] DZZNXSAEUEXHMF50.132 - 36 g/dL03/28/2025 9:58 PM [facility] TLRCWAVETCSAL32.011.5 - 15 %03/28/2025 9:58 PM [facility] LABORATORYPlatelet Mymar079670 - 450 X10E9/L03/28/2025 9:58 PM EDT [facility] LABORATORYMPV7.67 - 12 [place]03/28/2025 9:58 PM [facility] LABORATORYSpecimen (Source)Anatomical Location / Laterality Collection Method / VolumeCollection TimeReceived TimeBloodVenous blood / UnknownVenipuncture / Wcnduxc2303/28/2025 3:49 PM EDT03/28/2025 3:49 PM EDT Narrative Authorizing ProviderResult TypeResult StatusOleksandr BOYD BLOOD ORDERABLES Final ResultPerforming OrganizationAddressCity/State/ZIP CodePhone Number [facility] [address] [place] [id number], * (ABNORMAL) Hemoglobin A1c (03/28/2025 3:49 PM EDT)ComponentValueRef RangeTest MethodAnalysis TimePerformed AtPathologist SignatureHEMOGLOBIN A1C6.9(H)4.4 - 5.6 %03/28/2025 10:19 PM [facility] LABORATORYComment: ?ADA Guidelines ?Result ?HgbA1c ? Normal : ? less than 5.7 % ? Prediabetes : ?5.7 % ??to 6.4 % Diabetes : > 6.4 % ?Use with caution in patients with abnormal hemoglobin variants as ??the half-life of red blood cells and in vivo glycation rates are ??affected. EST. AVERAGE JQFMLZL295cu/dL03/28/2025 10:19 PM [facility] LABORATORYSpecimen (Source)Anatomical Location / LateralityCollection Method / VolumeCollection TimeReceived TimeBloodVenous blood / UnknownVenipuncture / Zqmocda8003/28/2025 3:49 PM EDT03/28/2025 3:49 PM EDT Narrative Authorizing ProviderResult TypeResult StatusOleksandr BOYD BLOOD ORDERABLES Final ResultPerforming OrganizationAddressCity/State/ZIP CodePhone Number [facility] [address] [place] [address], * (ABNORMAL) Basic Metabolic Panel (03/28/2025 3:49 PM EDT)ComponentValueRef RangeTest MethodAnalysis TimePerformed AtPathologist VdmmawqtwBZCTXO814971 - 146 mmol/L03/28/2025 10:05 PM [facility] LABORATORYPOTASSIUM 4.43.5 - 5.0 mmol/L03/28/2025 10:05 PM [facility] SDHTFUKF07156 - 109 mmol/L03/28/2025 10:05 PM [facility] LABORATORYCARBON GCZTEGO7760 - 32 mmol/L03/28/2025 10:05 PM [facility] LABORATORYANION GAP95 - 15 mmol/L03/28/2025 10:05 PM [facility] LABORATORYBLOOD UREA KWEPMFKO322 - 27 mg/dL03/28/2025 10:05 PM [facility] LABORATORYCREATININE0.960.60 - 1.30 mg/dL 03/28/2025 10:05 PM [facility] LABORATORYComment:METHOD TRACEABLE TO IDMS XVOPCYNQAWCYZXV626(H)65 - 99 mg/dL03/28/2025 10:05 PM EDT [facility] LABORATORYCALCIUM9.38.5 - 10.5 mg/dL03/28/2025 10:05 PM [facility] LABORATORYEGFR Non-Race Abliobgsq34>=60 ml/min/1.73sq.m003/28/2025 10:05 PM [facility] Comment: Reported eGFR is based on the CKD-EPI 2020 equation that does not use a race coefficient. Specimen (Source)Anatomical Location / LateralityCollection Method / Volume Collection TimeReceived TimeBloodVenous blood / UnknownVenipuncture / Unknown 03/28/2025 3:49 PM EDT03/28/2025 3:49 PM EDT Narrative Authorizing ProviderResult TypeResult StatusOleksandr BOYD BLOOD ORDERABLES Final ResultPerforming OrganizationAddressCity/State/ZIP CodePhone Number [facility] [address] [place] [address], [place] [phone] * ECG 12 lead (03/28/2025 3:34 PM EDT)Specimen (Source)Anatomical Location / LateralityCollection Method / VolumeCollection TimeReceived Time03/28/2025 3:34 PM EDT Narrative TRACEMASTERVUE - 03/28/2025 4:42 PM EDT Authorizing ProviderResult TypeResult StatusJason Tank MDECG ORDERABLESFinal ResultPerforming OrganizationAddressCity/State/ZIP CodePhone Number TRACEMASTERVUE * CT elbow left without contrast (03/26/2025 1:55 PM EDT)Specimen (Source) Anatomical Location / LateralityCollection Method / VolumeCollection Time Received Time Narrative Authorizing ProviderResult TypeResult StatusScanning Provider ExternalIMG CT ORDERABLESFinal Result from Last 3 Months Insurance Care Teams Team MemberRelationshipSpecialtyStart DateEnd Date Lucie Augustin APRN-NP [address] [place] [address] PCP - GeneralNurse Practitioner03/21/25
--- OUTSIDE RECORDS SUMMARY | 2025-06-24 14:43 | XMS_ITS | Clinical Summary ---
Author Organization [facility] Address [address], [address] [place] [address] Care Team Providers Care Ld Teacher Name Role Phone Robin Perry DNP Primary Care Provider [phone] Allergies Active AllergyReactionsCriticalityNoted JrziNianmoxnMhglyffdehzXtlsc47/20/2011 Medications MedicationSigDispense QuantityRefillsLast FilledStart DateEnd DateStatus Elastic Bandages & Supports (MEDICAL COMPRESSION STOCKINGS) MISC 1 each by Does not apply route daily 20-30momHg Compression 1 each 01/02/2018Active GLUCOSAMINE-CHONDROITIN PO Take 1,000 mg by mouth dailyActive Multiple Vitamins-Minerals (MULTIVITAMIN MEN 50+ PO) Take by mouth dailyActive TURMERIC PO Take by mouth dailyActive lisinopril (PRINIVIL;ZESTRIL) 20 MG tablet Take 1 tablet by mouth daily 30 tablet Active Additional Information Patient not taking.Reported on 08/11/2021 hydrochlorothiazide (HYDRODIURIL) 12.5 MG tablet Take 1 tablet by mouth daily 30 tablet Active Additional Information Patient not taking.Reported on 08/11/2021 pravastatin (PRAVACHOL) 40 MG tablet Take 1 tablet by mouth daily 90 tablet Active Additional Information Patient not taking.Reported on 08/11/2021 azithromycin (ZITHROMAX) 500 MG tablet TAKE 1 TABLET BY MOUTH EVERYDAY FOR 5 DAYS08/03/2021ctive Active Problems ProblemNoted DateDiagnosed DateHistory of colon yhxhun7704/03/2017Family history of colon uqyjdf5904/03/2017Metabolic vlfgnixh24/26/2994Whsnlrwbfugo21/26/2016 Elevated PSA01/07/2016Essential hypertension, pdxbov8806/02/2011Pure knppxlmopothuunyzntf08/20/2011Impaired fasting vycatur1206/02/2011 Resolved Problems ProblemNoted DateDiagnosed DateResolved DateEncounter for screening colonoscopy Immunizations ImmunizationAdministration DatesNext DueInfluenza Vaccine, unspecified iwhguihnomf61/17/2017Influenza, FLUARIX, FLULAVAL, FLUZONE (age 6 mo+) and AFLURIA, (age 3 y+), Quadv PF, 0.5mL06/12/2018 Family History Medical HistoryRelationNameCommentsCancerMotherRectal CancerRelationNameStatus CommentsFatherDeceasedMaternal GrandfatherDeceasedMaternal GrandmotherDeceased MotherDeceasedPaternal GrandfatherDeceasedPaternal GrandmotherDeceasedSister 1 AliveSister 2AliveSonAlive Social History Tobacco UseTypesPacks/DayYears UsedDateSmoking Tobacco: NeverSmokeless Tobacco: FormerAlcohol UseStandard Drinks/WeekCommentsYes2 (1 standard drink = 0.6 oz pure alcohol)Overall Financial Resource Strain (CARDIA)AnswerDate RecordedHow hard is it for you to pay for the very basics like food, housing, medical care, and heating?Not hard at all08/11/2021HQ-2AnswerDate RecordedPHQ-2 Score0 10/23/2019Hunger Vital SignAnswerDate RecordedWithin the past 12 months, you worried that your food would run out before you got the money to buymore.Never true08/11/2021Within the past 12 months, the food you bought just didn't last and you didn't have money to get more.Never true1PRAPARE - TransportationAnswerDate RecordedLack of Transportation (Medical)No10/23/2019 Lack of Transportation (Non-Medical)No10/23/2019Sex and Gender InformationValue Date RecordedSex Assigned at BirthNot on fileLegal UaaVnwp3809/23/2012 2:52 PM EST Gender IdentityNot on fileSexual OrientationNot on file Last Filed Vital Signs Vital SignReadingTime TakenCommentsBlood Ygacgdbu018/8203 8:16 AM EDT Caiwm522610/23/2019 8:16 AM BLTTabsetgfezk48.9 ??C (98.5 ??F)10/23/2019 8:16 AM EDTRespiratory Gzfe673404/11/2017 4:56 PM EDTOxygen Dgwikiexam55%10/23/2019 8:16 AM EDTInhaled Oxygen Concentration--Lgcxdu953.9 kg (337 lb)10/23/2019 8:16 AM QBBNtbiyc007.2 cm (5' 7 )10/23/2019 8:16 AM EDTBody Mass Index52.78010/23/2019 8:16 AM EDT Plan of Treatment Not on file Insurance Advance Directives * Full Code (Latest Code Status on File) Date ActivatedDate InactivatedComments04/03/2017 11:52 AM04/03/2017 3:03 PM * Full Code Date ActivatedDate InactivatedComments04/03/2017 9:08 AM04/03/2017 11:52 AM Care Teams Team MemberRelationshipSpecialtyStart DateEnd Date Robin Perry DNP [address] [place] [phone] PCP - GeneralFamily Nurse Practitioner01/02/18
--- OUTSIDE RECORDS SUMMARY | 2025-06-24 14:46 | XMS_ITS | CCD ---
Author Organization [facility] Care Team Providers Care Director Of Respiratory Therapy Name Role Phone ALISAMary KateREGGIE Referring Unavailable CLINREGGIE ROJAS Michoacano Primary Care Unavailable Graciela Angelo APRN Attending Provider [phone] Lucie Augustin APRN Primary Care Provider Dwight Andrews MD Attending Provider Eleuteriorbachehalina MONET-AREA COUNSELOR, [facility]E AUGUSTIN Primary Care Unavailable MARCOS MENDOZA Attending Unavailable MARY LUCIE Primary Care Unavailable OLEKSANDR LOVE Referring Unavailable ELEUTERIORBACHEHalina LUCIE Primary Care Unavailable OLEKSANDR LOVE Referring Unavailable Rohrbacher Lucie MONET Attending Provider LUCIE AUGUSTIN Referring Unavailable MARY LUCIE Primary Care Unavailable Chapincito Lockwood DO Attending Provider [phone] Georgina Ramirez CMA Attending Provider Unavaila Chapincito Euceda Attending Unavailable Chapincito Lockwood Admitting Unavailable Lucie Augustin Primary Care Unavailable Dwight Andrews Attending Unavailable Dwight Andrews Admitting Unavailable Graciela Angelo Admitting Unavailable Graciela Angelo Attending Unavailable Chapincito Lockwood Attending Unavailable Chapincito Lockwood Admitting Unavailable Marcos ROCK Attending Unavailable Marcos ROCK Admitting Unavailable Marcos ROCK Attending Unavailable Marcos ROKC Admitting Unavailable Rohrbacher TIERNEY-AREA COUNSELOR, [facility] OLEKSANDR LOVE Referring Unavailable LUCIE AUGUSTIN Primary Care Unavailable OLEKSANDR LOVE Attending Unavailable LUCIE AUGUSTIN Referring Unavailable ROHRBACHER, LUCIE Primary Care Unavailable OLEKSANDR LOVE Admitting Unavailable KATE, OLEKSANDR Attending Unavailable ROHRBACHER, LUCIE Primary Care Unavailable TANK, OLEKSANDR Referring Unavailable ROHRBACHER, LUCIE Primary Care Unavailable TANK, OLEKSANDR Attending Unavailable ROHRBACHER, LUCIE Referring Unavailable ROHRBACHER, LUCIE Primary Care Unavailable TANK, OLEKSANDR Referring Unavailable ROHRBACHER, LUCIE Primary Care Unavailable ROHRBACHER, LUCIE Referring Unavailable ROHRBACHER, LUCIE Primary Care Unavailable JOSUE HILLS Attending Unavailable BENCHJOSUE Referring Unavailable ROHRBACHER, LUCIE Primary Care Unavailable KATE, OLEKSANDR Attending Unavailable ROHRBACHER, LUCIE Referring Unavailable ROHRBACHER, LUCIE Primary Care Unavailable ROHRBACHER, LUCIE A Referring Unavailab Marcos Stein Attending Unavailable Marcos ROCK Admitting Unavailable Marcos ROCK Attending Unavailable ROCK, Marcos Meade Attending Unavailable ROCK, Marcos Meade Attending Unavailable Marcos ROCK Attending Unavailable Allergies Allergy ClassificationReported Allergen(s)Allergy TypeDate of OnsetReaction(s) Facility (20 sources)Penicillin; Translations: [PENICILLIN]Drug [id number] [facility] (1 source)PenicillinsDrug allergy (disorder)91-50-3889YmhjkcykiDayton Osteopathic Hospital Repository Medications Current Medications MedicationDrug Class(es)DatesSig (Normalized)Sig (Original)acetaminophen 500 mg oral tablet (7 sources)Start: 16-76-2069ghmp 1 tablet by mouth every six hours as needed for painacetaminophen (TYLENOL EXTRA STRENGTH) 500 mg tablet Take 1 tablet (500 mg total) by mouth every 6 (six) hours as needed for pain. 30 tablet 04/09/2025 Activecalcium ascorbate 500 mg oral tablet (8 sources)Start: 62-28-7062aqop 1 tablet by mouth once dailyAscorbate Calcium (Vitamin C) 500 mg tablet Active 500 MG PO Daily July 15, 2024 1:00am Complies with drug therapycholecalciferol 0.05 mg oral capsule (8 sources)Vitamin DStart: 10-28-1648fhgs 1 capsule by mouth once daily Cholecalciferol (Vitamin D3) 50 mcg (2,000 unit) capsule Active 50 MCG PO Daily July 15, 2024 1:00am Complies with drug therapyclindamycin 300 mg oral capsule (1 source)Lincosamide AntibacterialStart: 04-09-2025 End: 75-36-9415eeqh 1 capsule by mouth three times dailyclindamycin (CLEOCIN) 300 mg capsule Take 1 capsule (300 mg total) by mouth 3 (three) times a day for 5 days. 15 capsule 04/09/2025 04/14/2025 Activedoxycycline hyclate 100 mg oral capsule (19 sources)Tetracycline-class DrugStart: 79-52-1562nvnu 1 capsule by mouth twice dailyDoxycycline Hyclate 100 mg capsule Active 100 MG PO Twice daily March 31, 2025 12:00am Complies with drug therapyStart: 07-15-2024 End: 61-38-5171jnyv 1 capsule by mouth twice dailyDoxycycline Hyclate 100 mg capsule Discontinued 100 MG PO Twice daily 02 06July 15, 2024 1:00am July 30, 2024 10:09amtake 1 tablet by mouth in the morning, then take 1 tablet by mouth at bedtimedoxycycline (DORYX) 100 MG EC tablet Take 1 tablet (100 mg total) by mouth in the morning and 1 tablet (100 mg total) before bedtime. Activeglucosamine sulfate 500 mg oral tablet (8 sources)Start: 61-35-4672gdbh 1 tablet by mouth once dailyGlucosamine Sulfate (Glucosamine) 500 mg Tablet Active 1 TAB PO Daily June 29, 2018 1:00am Complies with drug therapyibuprofen 200 mg oral tablet (9 sources)Nonsteroidal Anti-inflammatory Drugtake 1 tablet by mouth every six hours as needed for painibuprofen (ADVIL,MOTRIN) 200 mg tablet Take 1 tablet (200 mg total) by mouth every 6 (six) hours asneeded for pain. Activelosartan potassium 50 mg oral tablet (20 sources)Angiotensin 2 Receptor BlockerStart: 08-28-2024 End: 66-61-5513coxu 1 tablet by mouth once dailyLosartan 50 mg tablet Active 0 .ROUTE .COMPLEX 90 March 18, 2025 7:42am TAKE 1 TABLET BY MOUTH EVERY DAY Complies with drug therapyStart: 07-30-2024 End: 76-65-2615jzvu 1 tablet by mouth once dailyLosartan 50 mg tablet Discontinued 50 MG PO Daily 30 July 30, 2024 1:00am August 28, 2024 4:06sbOxvhmilwynxm-Nssv-Mpabm Acid (Multi-Day With Iron) 18-400 mg-mcg Tablet (8 sources)Start: 34-84-2470nckk 1 tablet by mouth once dailyStart: 06-29-2018 take 1 tablet by mouth once hkhqyIlishhabczsj-Etbv-Gezfg Acid (Multi-Day With Iron) 18-400 mg-mcg Tablet Active 1 TAB PO Daily June 29, 2018 1:00am Complies with drug therapyStart: 47-89-5445cnna 1 tablet by mouth once daily Iswnsjbnylet-Pyzl-Punok Acid (Multi-Day With Iron) 18-400 mg-mcg Tablet Active 1 TAB PO Daily June 29, 2018 1:00amStart: 98-10-5551wnox 1 tablet by mouth once ovrbkZchnsmocyxig-Ugof-Olpjb Acid (Multi-Day With Iron) 18-400 mg-mcg Tablet Active 1 TAB PO Daily June 29, 2018 12:00amoxyCODONE hydrochloride 5 mg oral tablet (9 sources)Opioid AgonistStart: 04-09-2025 End: 39-47-0072qtlx 1 tablet by mouth every six hours as needed for pain oxyCODONE (ROXICODONE) 5 mg immediate release tablet Indications: Closed fracture of olecranon process of left ulna with routine healing, subsequent encounter Take 1 tablet (5 mg total) by mouth every 6 (six) hours as needed for pain for up to 7 days. Max Daily Amount: 20 mg 28 tablet 04/09/2025 04/16/2025 ActiveStart: 07-06-2018 End: 00-35-2299mump 1 tablet by mouth every six hours as needed for pain Oxycodone (Roxicodone) 5 mg Tablet Discontinued 1 - 2 TAB PO Q6H as needed for Pain 60 July 06, 2018 July 15, 2024 7:21pmtamsulosin hydrochloride 0.4 mg oral capsule (19 sources)alpha-Adrenergic BlockerStart: 01-55-5671Symhnmxkvp 0.4 mg capsule Active MG PO March 31, 2025 12:00am Complies with drug therapyvitamin e 100 unt oral capsule (8 sources)Start: 98-03-4274bmhf 1 capsule by mouth once dailyVitamin E (Dl, Acetate) 45 mg (100 unit) capsule Active 45 MG PO Daily July 15, 2024 1:00am Complies with drug therapyzinc gluconate 30 mg oral tablet (8 sources)Start: 57-33-4343ymmc 1 tablet by mouth once dailyZinc Gluconate 30 mg tablet Active 30 MG PO Daily July 15, 2024 1:00am Complies with drug therapy Completed/Discontinued Medications MedicationDrug Class(es)DatesSig (Normalized)Sig (Original)cyclobenzaprine hydrochloride 10 mg oral tablet (8 sources)Muscle RelaxantStart: 07-06-2018 End: 09-68-0007kflg 1 tablet by mouth three times daily as needed for muscle spasmsCyclobenzaprine 10 mg tablet Discontinued 10 MG PO Three times daily as needed for back spasms 50 July 06, 2018 1:00am July 15, 2024 7:20pm lisinopril 20 mg oral tablet (8 sources)Angiotensin Converting Enzyme InhibitorStart: 06-29-2018 End: 85-49-8814fbda 1 tablet by mouth once dailyLisinopril 20 mg Tablet Discontinued 20 MG PO Daily June 29, 2018 1:00am July 15, 2024 7:22pm predniSONE 10 mg oral tablet (8 sources)Start: 07-06-2018 End: 79-01-5626Rnaobcwbfa 10 mg tablets,dose pack Discontinued 1 dose pk PO per package directions July 06, 2018 1:00am July 15, 2024 7:21pm take 4 tabs for 3 days then take 3 tabs for 3 days then take 2 tabs for 3 days then take 1 tab for 3 dayssulfamethoxazole 800 mg / trimethoprim 160 mg oral tablet (8 sources)Dihydrofolate Reductase Inhibitor Antibacterial, Sulfonamide AntimicrobialStart: 07-06-2018 End: 71-90-4272cing 1 tablet by mouth every twelve hoursSulfamethoxazole- Trimethoprim (Bactrim Ds) 800-160 mg Tablet Discontinued 1 TAB PO Q12H 2017 1:00am July 15, 2024 7:22pmTurmeric extract (8 sources)Start: 06-29-2018 End: 32-14-8535aihb 1 capsule by mouth once dailyTurmeric 400 mg Capsule Discontinued 400 MG PO Daily June 29, 2018 1:00am July 15, 2024 7 :22pmStart: 06-29-2018 End: 63-42-3441spif 1 capsule by mouth once dailyTurmeric 400 mg Capsule Discontinued 400 MG PO Daily June 29, 2018 12:00am July 15, 2024 6:22pm Problems Active Problems Problem ClassificationProblemDateDocumented DateEpisodic/ChronicAcquired foot deformities (14 sources)Foot-drop; Translations: [Foot drop, right foot]15-20-3446Dcuneltf Calculus of urinary tract (2 sources)Kidney stone; Translations: [Calculus of kidney]96-39-4203Henhecfn Diabetes mellitus with complications (16 sources)Ulcer of skin of lower extremity; Translations: [Type 2 diabetes mellitus with other skin ulcer]47-37-5766FtkhrdrVhvbthy on above:Left lower leg Diabetes mellitus with complications (1 source)Diabetes mellitus with complicationsDiabetes mellitus without complication (16 sources)Type 2 diabetes mellitus; Translations: [Type 2 diabetes mellitus without complications]45-81-1580LbcbbfxZ Codes: Fall (1 source)FallOnset: 01-71-5174Epoxrvucv hypertension (15 sources)Hypertensive disorder; Translations: [Essential (primary) hypertension]96-94-1112AogabobBnumssrg of upper limb (20 sources)Displaced fracture of olecranon process without intraarticular extension of left ulna, initial encounter for closed fracture; Translations: [Fracture of left olecranon process]Onset: 672667-59-2297JxmtagdvSvfyt acquired deformities (8 sources)Acquired spondylolisthesis; Translations: [Spondylolisthesis, lumbosacral region]33-27-4589TunkmacjCruenom on above:Problem List clean-up per request of Phys. EHR CmteOther circulatory disease (8 sources)Elevated blood pressure; Translations: [Elevated blood-pressure reading, without diagnosis of hypertension]32-11-8383ClsmrjeaMukxo circulatory disease (1 source)Elevated blood-pressure reading, without diagnosis of hypertension; Translations: [Elevated blood pressure reading without diagnosis of hypertension]06-39-5757BlxrkkcrSekna non-traumatic joint disorders (11 sources)Pain in right knee; Translations: [Pain in both knees]10-01-2024 EpisodicOther screening for suspected conditions (not mental disorders or infectious disease) (9 sources)Patient encounter status; Translations: [Encounter for screening for malignant neoplasm of prostate]79-85-4688BufieryoIhocubth codes; unclassified (1 source)Pain, unspecified; Translations: [Pain, unspecified]Onset: 03-26-2025 EpisodicResidual codes; unclassified (2 sources)History of operation on musculoskeletal system; Translations: [Other specified postprocedural states]33-68-6362TixanlnaZrfjzuxf codes; unclassified (1 source)PainOnset: 50-04-9707QoxqfpcbHvbdndxocrb; intervertebral disc disorders; other back problems (8 sources)Spinal stenosis of lumbar region; Translations: [Spinal stenosis, lumbar region without neurogenic claudication]28-39-1470ZxbinicjLniihyg on above:Problem List clean-up per request of Phys. EHR CmteUnclassified (1 source)Closed fracture of olecranon process of left xpnc98-17-1311 Unclassified (1 source)Patient encounter -25-7375Xgjquqyesxkc (1 source)Fall at workOnset: 23-34-7417Uewrfiaeapfo (1 source)Establish CareOnset: 65-04-7824Svmeoufkatit (1 source)Post-opOnset: 13-77-5773Zfpuintliuui (1 source)Closed fracture of olecranon process of left ulna with routine healing, subsequent encounter [S52.022D]Onset: 82-50-0432Qjshrpycfcds (1 source)New PatientOnset: 03-31-2025 Past or Other Problems Problem ClassificationProblemDateDocumented DateEpisodic/ChronicSkin and subcutaneous tissue infections (10 sources)Cellulitis of leg, excluding foot; Translations: [Cellulitis of left lower limb]Onset: 296778-16-0876Aykwhgrv Results Test NameValueInterpretationReference RangeFacilityXR ELBOW LT 2 VWSon 97-13-5195ZU ELBOW LT 2 VWSXR ELBOW LT 2 VWS Comparison May 08 XR ELBOW LT 2 VWS Closed fracture of olecranon process of left ulna with routine healing, subsequent encounter Impression: Stable appearance of fracture morphology and transfixing hardware. Stable positioning and alignment. Finalized by Janes Oliva MD on 05/29/2025 2:29 PMNormalGreene Memorial Hospital HospitalPSA Totalon 88-61-9689XCW Total7.5 ng/mLHigh0.1-3.5Fisher [facility] Maryland Medical CenterComment on above:Result Comment: The concentration of PSA determined by different manufacturers can vary due to differences in assay methods and reagent specificity. Values obtained from different assay methods cannot be used interchangeably. The methodology used for this result was chemiluminescence using [employer]'s Access Hybritech PSA reagent.Performed By: #### [id number] #### [facility] [address], [place] [address]KN ELBOW LT 2 VWSon 74-61-4311WS ELBOW LT 2 VWSXR ELBOW LT 2 VWS STUDY: Radiographs of the left elbow TECHNIQUE: 2 views of the left elbow COMPARISON: Left elbow radiographs dated 04/24/2025 FINDINGS/IMPRESSION: 1. Postsurgical changes status post hardware fixation of comminuted proximal ulnar fracture. No evidence of hardware loosening or complication. Continued fracture healing noted. Suboptimal evaluationof underlying soft tissues due to overlying brace. Finalized by Krystle Mendoza MD on 05/12/2025 3:00 PMNormalGreene Memorial Hospital HospitalCalculus Analysison 81-55-9418XQ Oxalate, Hvbbpthn06 %Invalid Interpretation [facility] AkronComment on above:Performed By: #### [id number] #### [facility] [address], [place] [address]Kdyzj (U)TanInvalid Interpretation [facility] - AkronComment on above:Performed By: #### [id number] #### [facility] [address], [place] [address]Dqvp:8n5Ngcpeam Interpretation [facility] Comment on above:Result Comment: Multiple pieces received. Dimensions of the largest piece reported.Performed By: #### [id number] #### [facility] [address], [place] [address]Allnc SourceCommentInvalid Interpretation [facility] AkronComment on above:Result Comment: Not providedPerformed By: #### [id number] #### [facility] [address], [place] [address]Dnqd Acid.80 %Invalid Interpretation [facility] AkronComment on above:Result Comment: Performed at: [facility] [address] [id number] PhD Pandey VPerformed By: #### [id number] #### [facility] [address], [place] [address]Cooguz Calculus Ppsxhckv559 mgInvalid Interpretation [facility] AkronComment on above:Performed By: #### [id number] #### [facility] [address], [place] [address]DX ELBOW LT 2 VWSon 03-76-6700XR ELBOW LT 2 VWSXR ELBOW LT 2 VWS XR ELBOW LT 2 VWS HISTORY: Fracture, follow-up COMPARISON: 04/09/2025, 03/26/2025 FINDINGS/IMPRESSION: * Status post screw/plate fixation of comminuted proximal ulnar fracture. No evidence of hardware loosening or failure. * Stable alignment of proximal ulnar fracture with persistent lucency suggestive of ongoing healing. Approved by Resident: Tip London MD on 04/24/2025 11:07 AM IJeovany have personally reviewed the image(s) and agree with and/or edited the report Finalized by Jeovany Fernández on 04/24/2025 11:23 [facility] Basophils Auto (Bld) [#/Vol]Ordered By: Chapincito Lockwood on 37-64-7563Pvovlmhjj (Bld) [#/Vol]0.1 10 3/uL0.0-0.1FAvita Health System Galion HospitalBasophils/100 WBC Auto (Bld)Ordered By: Chapincito Lockwood on 62-02-8170Aktgynmfm/100 WBC (Bld)0.6 % 0.2-2.0[facility] HospitalEosinophils/100 WBC Auto (Bld)Ordered By: Chapincito Lockwood on 61-57-1552Gzpegktpbgb/100 WBC (Bld)1.0 %0.9-7.0[facility] HospitalErythrocyte distribution width Auto (RBC) [Ratio]Ordered By: Chapincito Lockwood on 54-89-7634Jxqluuwrauh distribution width (RBC) [Ratio]13.4 % 11.0-15.0[facility]opathic HospitalGlomerular filtration rate (GFR) estimation in non- AmericanOrdered By: Chapincito Lockwood on 77-14-7901KGQ/1.73 sq M.predicted among non-blacks MDRD (S/P/Bld) [Vol rate/Area]mL/min/{1.73_m2} >=60 mL/min/1.73m 2FAvita Health System Galion HospitalHematocrit Auto (Bld) [Volume fraction]Ordered By: Chapincito Lockwood on 37-49-9749Ronezyzfql (Bld) [Volume fraction]45.7 %42.0-54.0[facility] HospitalHemoglobin [Mass/volume] in BloodOrdered By: Chapincito Lockwood on 35-85-3836Stsjxkuiyu (Bld) [Mass/Vol]15.3 g/dL14.0-18.0[facility] HospitalLaboratory - Chemistry and Chemistry - challengeOrdered By: Chapincito Lockwood on 04-20-2025 Bilirubin Ql (U)NegativeNEGATIVEDayton Osteopathic HospitalCalcium [Mass/Vol]9.6 mg/dL8.5-10.1FAvita Health System Galion HospitalChloride [Moles/Vol] 99 mmol/H63-979TpvqajjrdDayton Osteopathic HospitalCO2 [Moles/Vol]24.7 mmol/L 21.0-32.0[facility] HospitalCreatinine [Mass/Vol]1.17 mg/dL 0.70-1.30[facility]opathic HospitalGFR/1.73 sq M.predicted MDRD (S/P/Bld) [Vol rate/Area]mL/min/{1.73_m2}>=60 mL/min/1.73m 2FAvita Health System Galion HospitalGlucose (U) [Mass/Vol]NegativeNEGATIVEDayton Osteopathic Hospital Glucose [Mass/Vol]178 mg/xUHgtt24-307CbouujhutDayton Osteopathic HospitalKetones Ql (U)NegativeNEGOur Lady of Mercy Hospital - AndersonpH (U)6.0 [pH]5.0-9.0 [facility] HospitalPotassium [Moles/Vol]4.6 mmol/L3.5-5.1FAkron Children's Hospitalodium [Moles/Vol]136 mmol/Y989-587AxzauykxqToledo Hospitalpecific gravity (U) [Rel density]1.0101.005-1.025[facility] HospitalUrea nitrogen [Mass/Vol]20.0 mg/dLHigh7.0-18.0[facility] HospitalUrea nitrogen/Creatinine [Mass ratio]17.1 mg/mgDayton Osteopathic HospitalUrobilinogen Qn (U)0.2 {Anuja'U}/dL0.2-1.0[facility] HospitalLaboratory - Hematology and Cell countsOrdered By: Chapincito Lockwood on 82-25-2438Kcxinrye granulocytes/100 WBC (Bld)2.0 %High0.0-0.5FAvita Health System Galion HospitalLaboratory - Specimen informationOrdered By: Chapincito Lockwood on 09-05-6001Zhtzxusbiu (U)CLEARCLEARFAvita Health System Galion HospitalColor (U) LT. YELLOWYELLOWDayton Osteopathic HospitalLaboratory - UrinalysisOrdered By: Chapincito Lockwood on 93-29-4390Itowhfnxi esterase Test strip Ql (U)LARGEAbnormal NEGATIVEDayton Osteopathic HospitalMucus Ql (Urine sed)TRACEAbnormalNONE SEENDayton Osteopathic HospitalNitrite Ql (U)NegativeNEGATIVEDayton Osteopathic HospitalProtein Ql (U)TRACE mg/dLNEG/TRACEDayton Osteopathic HospitalLeukocytes [#/volume] corrected for nucleated erythrocytes in Blood by Automated counOrdered By: Chapincito Lockwood on 19-04-7373GOT corrected for nucl RBC Auto (Bld) [#/Vol]12.7 10 3/uLHigh4.0-11.0[facility] HospitalLymphocytes Auto (Bld) [#/Vol]Ordered By: Chapincito Lockwood on 04-20-2025 Lymphocytes (Bld) [#/Vol]1.4 10 3/uL1.2-3.8[facility] Lymphocytes/100 WBC Auto (Bld)Ordered By: Chapincito Lockwood on 04-20-2025 Lymphocytes/100 WBC (Bld)11.0 %Low20.5-60.0[facility] HospitalH Auto (RBC) [Entitic mass]Ordered By: Chapincito Lockwood on 06-49-3617GDU (RBC) [Entitic mass]30.8 pg25.9-34.0[facility] HospitalMCHC Auto (RBC) [Mass/Vol]Ordered By: Chapincito Lockwood on 98-26-0598LMYF (RBC) [Mass/Vol]33.5 g/dL 29.9-35.2FAvita Health System Galion HospitalMCV Auto (RBC) [Entitic vol]Ordered By: Chapincito Lockwood on 28-85-5348NQT (RBC) [Entitic vol]92.1 fL80.0-94.0[facility] HospitalMonocytes Auto (Bld) [#/Vol]Ordered By: Chapincito Lockwood on 97-17-5784Agurfvuxb (Bld) [#/Vol]0.9 10 3/uLHigh0.3-0.8[facility] HospitalMonocytes/100 WBC Auto (Bld)Ordered By: Chapincito Lockwood on 04-20-2025 Monocytes/100 WBC (Bld)7.4 %1.7-12.0[facility] HospitalNeutrophils Auto (Bld) [#/Vol]Ordered By: Chapincito Lockwood on 91-21-6850Rlvkrltsjkm (Bld) [#/Vol]9.9 10 3/uLHigh1.4-6.5FAvita Health System Galion HospitalNeutrophils/100 WBC Auto (Bld)Ordered By: Chapincito Lockwood on 84-43-2492Njoqkmrxbif/100 WBC (Bld)78.0 %High43.0-75.0[facility] HospitalNo Panel InformationOrdered By: Chapincito Lockwood on 67-95-4010Suewnkoapgl # (Auto)0.1 10 3/uL0.0-0.7FAvita Health System Galion HospitalImmature Granulocyte # (Auto)0.25 10 3/uLHigh0.00-0.03 [facility] HospitalUrine BacteriaSMALL #/HPFAbnormalNONE SEEN [facility] HospitalUrine Culture ReflexedYES-FRMCDayton Osteopathic HospitalUrine Occult BloodLARGEAbnormalNEGATIVEDayton Osteopathic HospitalUrine Other CastsNONE SEEN #/LPFNONE SEENDayton Osteopathic HospitalUrine Other CrystalsNone Seen #/HPFNone [facility] HospitalUrine RVF29-21 #/HPFAbnormal0-2FAvita Health System Galion Hospital Urine Squamous Epithelial CellsFEW #/LPFAbnormalNONE/RAREDayton Osteopathic HospitalUrine UBV43-82 #/HPFAbnormalNONE [facility] HospitalPlatelet mean volume Auto (Bld) [Entitic vol]Ordered By: Chapincito Lockwood on 27-73-8162Hpinmcil mean volume (Bld) [Entitic vol]9.0 fLLow9.5-13.5FAvita Health System Galion HospitalPlatelets Auto (Bld) [#/Vol]Ordered By: Chapincito Lockwood on 78-41-1706Ngblacmbh (Bld) [#/Vol]285 10 3/tW330-052MgtypninaDayton Osteopathic HospitalRBC Auto (Bld) [#/Vol]Ordered By: Chapincito Lockwood on 06-49-9491IOE (Bld) [#/Vol]4.96 10 6/uL4.70-6.10Toledo Hospitalerum or plasma anion gap determinationOrdered By: Chapincito Lockwood on 79-28-2377Rjdpj gap [Moles/Vol]16.9 mmol/LFAvita Health System Galion HospitalUrine Cultureon 31-37-3205Upepfptw identified Cx Nom (U)No Growth 2 Days PERFORMED BY: [place] [address] PATHOLOGIST TELETYPE ADJUSTER SAVANNA PERALTA M.D.NormalThe [facility] Health Physician GroupComment on above: Performed By: #### CUU #### [facility] [address] [place] [address] USABEDSIDE GLUCOSEon 43-56-8017Facaldk [Mass/Vol]158 mg/dL Lvfh43-70UprPtcwmg [facility] HospitalComment on above:Performed By: #### BEDG #### [facility] ([facility] [address] [place] [address] VIRBasophils Auto (Bld) [#/Vol]Ordered By: Zahraa Marker on 58-49-4687Devvognpr (Bld) [#/Vol]0.0 10 3/uL0.0-0.1FAvita Health System Galion HospitalBasophils/100 WBC Auto (Bld)Ordered By: Zahraa Marker on 04-08-2025 Basophils/100 WBC (Bld)0.2 %0.2-2.0[facility] Eosinophils/100 WBC Auto (Bld)Ordered By: Zahraa Marker on 04-08-2025 Eosinophils/100 WBC (Bld)0.3 %Low0.9-7.0[facility] Erythrocyte distribution width Auto (RBC) [Ratio]Ordered By: Zahraa Marker on 68-47-8150Taadjlkluoy distribution width (RBC) [Ratio]13.1 %11.0-15.0[facility] HospitalGlobulin Calc (S) [Mass/Vol]Ordered By: Lucie Augustin on 19-89-5811Sdeevisw (S) [Mass/Vol]3.9 g/dLDayton Osteopathic HospitalGlomerular filtration rate (GFR) estimation in non- AmericanOrdered By: Lucie Augustin on 55-30-5154KCU/1.73 sq M.predicted among non-blacks MDRD (S/P/Bld) [Vol rate/Area]50 mL/min/{1.73_m2}Low>=60 mL/min/1.73m 2FAvita Health System Galion HospitalHematocrit Auto (Bld) [Volume fraction]Ordered By: Zahraa Marker on 58-79-5886Nvsvhzbihk (Bld) [Volume fraction]46.8 %42.0-54.0[facility] HospitalHemoglobin [Mass/volume] in BloodOrdered By: Zahraa Marker on 51-26-9306Cklgwnogjp (Bld) [Mass/Vol]15.8 g/dL14.0-18.0[facility] HospitalLaboratory - Chemistry and Chemistry - challengeOrdered By: Lucie Augustin on 04-08-2025 Albumin [Mass/Vol]3.5 g/dL3.4-5.0[facility] HospitalALP [Catalytic activity/Vol]137 U/EZvcb23-274XhdcenneeDayton Osteopathic HospitalALT [Catalytic activity/Vol]49 U/E80-93NelkjbghuDayton Osteopathic HospitalAST [Catalytic activity/Vol]23 U/U26-79TabpqksacDayton Osteopathic HospitalBilirubin [Mass/Vol]1.0 mg/dL0.2-1.0[facility] HospitalCalcium [Mass/Vol]9.5 mg/dL 8.5-10.1FAvita Health System Galion HospitalChloride [Moles/Vol]101 mmol/L98-107 [facility] HospitalCO2 [Moles/Vol]23.8 mmol/L21.0-32.0[facility] HospitalCreatinine [Mass/Vol]1.42 mg/dLHigh0.70-1.30[facility] HospitalGFR/1.73 sq M.predicted MDRD (S/P/Bld) [Vol rate/Area] mL/min/{1.73_m2}>=60 mL/min/1.73m 2FAvita Health System Galion HospitalGlucose [Mass/Vol]165 mg/cVTwrs11-894BpvbyrkrvDayton Osteopathic HospitalPotassium [Moles/Vol]4.4 mmol/L3.5-5.1FAvita Health System Galion HospitalProtein [Mass/Vol] 7.4 g/dL6.4-8.2FAkron Children's Hospitalodium [Moles/Vol]135 mmol/LLow 136-145[facility] HospitalUrea nitrogen [Mass/Vol]21.0 mg/dLHigh 7.0-18.0[facility] HospitalUrea nitrogen/Creatinine [Mass ratio] 14.8 mg/mgDayton Osteopathic HospitalLaboratory - Chemistry and Chemistry - challengeOrdered By: Chapincito Lockwood on 64-89-7774Kyvgmwxlc Ql (U)NegativeNEGATIVE [facility] HospitalGlucose (U) [Mass/Vol]NegativeNEGATIVEDayton Osteopathic HospitalKetones Ql (U)15 mg/dLAbnormalNEGATIVEDayton Osteopathic HospitalpH (U)6.0 [pH]5.0-9.0[facility] Hospitalpecific gravity (U) [Rel density]1.0251.005-1.025[facility] Urobilinogen Qn (U)1.0 {Anuja'U}/dL0.2-1.0[facility] Laboratory - Hematology and Cell countsOrdered By: Zahraa Marker on 04-08-2025 Immature granulocytes/100 WBC (Bld)0.6 %High0.0-0.5FAvita Health System Galion HospitalLaboratory - Specimen informationOrdered By: Chpaincito Lockwood on 04-08-2025 Appearance (U)CLOUDYAbnormalCLEARFAvita Health System Galion HospitalColor (U)LT. YELLOWYELLOWDayton Osteopathic HospitalLaboratory - UrinalysisOrdered By: Chapincito Lockwood on 29-85-3198Sdnhrkpmr esterase Test strip Ql (U)MODERATEAbnormal NEGATIVEDayton Osteopathic HospitalMucus Ql (Urine sed)NONE SEENNONE SEEN [facility] HospitalNitrite Ql (U)NegativeNEGATIVEDayton Osteopathic HospitalProtein Ql (U)30 mg/dLAbnormalNEG/TRACEDayton Osteopathic HospitalLeukocytes [#/volume] corrected for nucleated erythrocytes in Blood by Automated counOrdered By: Zahraa Marker on 38-09-0695NMQ corrected for nucl RBC Auto (Bld) [#/Vol]13.0 10 3/uLHigh4.0-11.0[facility] HospitalLymphocytes Auto (Bld) [#/Vol]Ordered By: Zahraa Marker on 04-08-2025 Lymphocytes (Bld) [#/Vol]0.9 10 3/uLLow1.2-3.8[facility] Lymphocytes/100 WBC Auto (Bld)Ordered By: Zahraa Marker on 04-08-2025 Lymphocytes/100 WBC (Bld)7.1 %Low20.5-60.0[facility] HospitalMCH Auto (RBC) [Entitic mass]Ordered By: Zahraa Marker on 61-76-6705NVD (RBC) [Entitic mass]30.6 pg25.9-34.0[facility] HospitalMCHC Auto (RBC) [Mass/Vol]Ordered By: Zahraa Marker on 23-06-3425DRGR (RBC) [Mass/Vol]33.8 g/dL 29.9-35.2FAvita Health System Galion HospitalMCV Auto (RBC) [Entitic vol]Ordered By: Zahraa Marker on 77-96-3533MKT (RBC) [Entitic vol]90.5 fL80.0-94.0[facility] HospitalMonocytes Auto (Bld) [#/Vol]Ordered By: Zahraa Marker on 95-69-1438Kryomekav (Bld) [#/Vol]1.1 10 3/uLHigh0.3-0.8[facility] HospitalMonocytes/100 WBC Auto (Bld)Ordered By: Zahraa Marker on 54-48-9608Dpfptghms/100 WBC (Bld)8.2 %1.7-12.0[facility] Neutrophils Auto (Bld) [#/Vol]Ordered By: Zahraa Marker on 04-08-2025 Neutrophils (Bld) [#/Vol]10.8 10 3/uLHigh1.4-6.5FAvita Health System Galion HospitalNeutrophils/100 WBC Auto (Bld)Ordered By: Zahraa Marker on 04-08-2025 Neutrophils/100 WBC (Bld)83.6 %High43.0-75.0[facility] HospitalNo Panel InformationOrdered By: Zahraa Marker on 12-54-4299Jnrawmhfxiv # (Auto)0.0 10 3/uL0.0-0.7FAvita Health System Galion HospitalImmature Granulocyte # (Auto) 0.08 10 3/uLHigh0.00-0.03[facility] HospitalNo Panel Information Ordered By: Chapincito Lockwood on 92-19-6686Pqyyv BacteriaLARGE #/HPFAbnormalNONE SEEN [facility] HospitalUrine Culture ReflexedYES-FRSt. Francis HospitalUrine Occult BloodLARGEAbnormalNEGATIVEFirelands Regional Medical CenterUrine Other CastsNONE SEEN #/LPFNONE SEENDayton Osteopathic HospitalUrine Other CrystalsSeen #/HPFAbnormalNone [facility] HospitalUrine LIP78-29 #/HPFAbnormal0-2FAvita Health System Gal[facility] Hospital Urine Squamous Epithelial CellsFEW #/LPFAbnormalNONE/RAREDayton Osteopathic HospitalUrine Uric Acid CrystalsMANYDayton Osteopathic HospitalUrine WBC2-5 #/HPFAbnormalNONE [facility] HospitalPlatelet mean volume Auto (Bld) [Entitic vol]Ordered By: Zahraa Marker on 07-86-7712Ajwzeynu mean volume (Bld) [Entitic vol]9.1 fLLow9.5-13.5FAvita Health System Galion HospitalPlatelets Auto (Bld) [#/Vol]Ordered By: Zahraa Marker on 04-08-2025 Platelets (Bld) [#/Vol]245 10 3/pV700-988PdpomtxhkDayton Osteopathic HospitalRBC Auto (Bld) [#/Vol]Ordered By: Zahraa Marker on 22-79-8848IJB (Bld) [#/Vol]5.17 10 6/uL4.70-6.10[facility]edo Hospitalerum or plasma albumin/globulin mass ratioOrdered By: Lucie Augustin on 04-08-2025 Albumin/Globulin [Mass ratio]0.9 {ratio}[facility]edo Hospitalerum or plasma anion gap determinationOrdered By: Lucie Augustin on 04-08-2025 Anion gap [Moles/Vol]14.6 mmol/LFAvita Health System Galion HospitalUrine Cultureon 81-27-1170Oajtbiev identified Cx Nom (U)50,000 colonies/ml mixed bacterial skin contaminants 2 Days PERFORMED BY: [place] [address] PATHOLOGIST TELETYPE ADJUSTER SAVANNA PERALTA M.D.NormalThe Novant Health Physician GroupComment on above: Performed By: #### CUU #### [place] [address] USAXR ELBOW LT 2 VWSon 49-48-8837OK ELBOW LT 2 VWSXR ELBOW LT 2 VWS Clinical history: Elbow injury. Left elbow: 03/31/2025 COMPARISON: 03/21/2025 FINDINGS: 2 views of the elbow were obtained with a splint in place. A comminuted proximal ulnar fracture is present with displaced fragments anteriorly and posteriorly and complete disruption of the articularsurface Radiocapitellar alignment appears near-anatomic with no definite articular surface injury. IMPRESSION: Comminuted olecranon fracture with displacement. Finalized by Jorge Muller MD on 03/31/2025 9:00 PMNormalProMain Campus Medical CenterBASI METABOLIC PANELon 03-06-3698Rwlnn gap [Moles/Vol]9 mmol/LNormal 5-15OhioHealth Hardin Memorial HospitalComment on above:Performed By: #### BMP #### [facility] ([facility]) [address] [place] [address] VIRCalcium [Mass/Vol]9.3 mg/dLNormal8.5-10.5PShelby Memorial HospitalComment on above:Performed By: #### BMP #### [facility] ([facility]) [address] [place] [address] VIRChloride [Moles/Vol]105 mmol/SNncmyh85-527XzgOihnuzNocona General HospitalComment on above:Performed By: #### BMP #### [facility] ([facility]) [address] [place] [address] VIRCO2 [Moles/Vol]26 mmol/YOjglpo30-20NrhUxzoctShelby Memorial HospitalComment on above:Performed By: #### BMP #### [facility] ([facility]) [address] [place] [address] VIRCreatinine [Mass/Vol]0.96 mg/dLNormal0.60-1.30OhioHealth Hardin Memorial HospitalComment on above:Result Comment: METHOD TRACEABLE TO IDMS STANDARDPerformed By: #### BMP #### [facility] ([facility]) [address] [place] [address] VIRGFR/1.73 sq M.predicted among non-blacks MDRD (S/P/Bld) [Vol rate/Area]86 mL/min/{1.73_m2}Normal>=60ProNocona General HospitalComment on above:Result Comment: Reported eGFR is based on the CKD-EPI 2020 equation that does not use a race coefficient.Performed By: #### BMP #### [facility] ([facility]) [address] [place] [address] VIRGlucose [Mass/Vol]130 mg/cKMtvn53-93BcjMfwkqsNocona General HospitalComment on above:Performed By: #### BMP #### [facility] ([facility]) [address] [place] [address] VIRPotassium [Moles/Vol]4.4 mmol/LNormal3.5-5.0ProNocona General HospitalComment on above:Performed By: #### BMP #### [facility] ([facility]) [address] [place] [address] VIRSodium [Moles/Vol]140 mmol/BMaaxps092-291GmhCumdcz [facility] HospitalComment on above:Performed By: #### BMP #### [facility] ([facility]) [address] [place] [address] VIRUrea nitrogen [Mass/Vol]23 mg/dLNormal5-27ProNocona General HospitalComment on above:Performed By: #### BMP #### [facility] ([facility]) [address] [place] [address] VIRCBC (NO DIFF)on 74-38-6948Gfxzdiuwvtm distribution width (RBC) [Ratio]14.0 %Kvyyyt76.5-15ProNocona General HospitalComment on above: Performed By: #### CBC #### [facility] ([facility]) [address] [place] [address] VIRHematocrit (Bld) [Volume fraction]46.9 %Xfmqvv31-43XehEkbqjmNocona General HospitalComment on above:Performed By: #### CBC #### [facility] ([facility]) [address] [place] [address] VIRHemoglobin (Bld) [Mass/Vol]15.1 g/mCXxpgtw56-60IrvCzvijsNocona General HospitalComment on above:Performed By: #### CBC #### [facility] ([facility]) [address] [place] [address] VIRMCH (RBC) [Entitic mass]30.2 rxMzegqv10-20RbvDyvnriOhioHealth Hardin Memorial HospitalComment on above:Performed By: #### CBC #### [facility] ([facility]) [address] [place] [address] VIRMCHC (RBC) [Mass/Vol]32.1 g/gTEsgyze11-81FuuRdoszbNocona General HospitalComment on above:Performed By: #### CBC #### [facility] ([facility]) [address] [place] [address] VIRMCV (RBC) [Entitic vol]94 oPXuazab15-851UgvYhahjx [facility] HospitalComment on above:Performed By: #### CBC #### [facility] ([facility]) [address] [place] [address] VIRPlatelet mean volume (Bld) [Entitic vol]7.6 fLNormal7-12 [facility] HospitalComment on above:Performed By: #### CBC #### [facility] ([facility]) [address] [place] [address] VIRPlatelets (Bld) [#/Vol]249 10*3/jANhunox688-554SigGveony [facility]ont HospitalComment on above:Performed By: #### CBC #### [facility] ([facility]) [address] [place] [address] VIRRBC COUNT4.99 X10E12/LNormal4.1-5.7ProNocona General HospitalComment on above:Performed By: #### CBC #### [facility] ([facility]) [address] [place] [address] VIRWBC (Bld) [#/Vol]11.7 10*3/uLHigh4-11ProNocona General HospitalComment on above:Performed By: #### CBC #### [facility] ([facility]) [address] [place] [address] VIRHEMOGLOBIN A1Con 40-70-9499Qeidhqu [Mass/Vol]151 mg/dLNormal ProMRio Hondo HospitalComment on above:Performed By: #### HA1C #### [facility] ([facility]) [address] [place] [address] HHQUzR1c (Bld) [Mass fraction]6.9 %High4.4-5.6OhioHealth Hardin Memorial HospitalComment on above:Result Comment: ADA Guidelines Result HgbA1c Normal : less than 5.7 % Prediabetes : 5.7 % to 6.4 % Diabetes : > 6.4 % Use with caution in patients with abnormal hemoglobin variants as the half-life of red blood cells and in vivo glycation rates are affected.Performed By: #### HA1C #### [facility] ([facility]) [address] [place] [address] VIRCT elbow LT wo conon 56-76-7291FV elbow LT wo [facility] [place] [address] CT Scan Report Signed Patient: Cesar Clarke MR#: [id number] : 1955 Acct:[id number] Age/Sex: 69 / M ADM Date: 03/26/25 Loc: CT Room: Type: [facility] Attending Dr: Dwight Andrews MD Copies [...] comminuted fracture involving the distal ulna with intra- articular component. The major fracture fragment displacement is approximately 1 cm. Radial head and neck appear to be intact. Distal humerus appears to be intact. There is associated soft tissue swelling. CT/CT elbow LT wo con IMPRESSION: COMMINUTED FRACTURE INVOLVING THE DISTAL ULNA WITH INTRA-ARTICULAR COMPONENT. THE MAJOR FRACTURE FRAGMENT DISPLACEMENT IS APPROXIMATELY 1 CM. Impression dictated by: Joseph Castro Jr., D.O. 03/27/2025 10:31 AM Dictation Location: [place] [address] Transcribed By: [facility] 03/27/25 1031 Dictated By: Joseph Castro Jr, DO 03/27/25 1027 Signed By: 03/27/25 1031[facility] Physician GroupXR ELBOW LT MIN 3 VWSon 93-00-4170RT ELBOW LT MIN 3 VWSXR ELBOW LT MIN 3 VWS 3 views of the left elbow dated 03/31/2024 at 1:59 PM INDICATION: Elbow pain. FINDINGS: No comparisons available there is a comminuted displaced fracture of the abdomen: And subtle subluxation of the radial head. IMPRESSION: 1. Comminuted displaced fracture of the olecranon. 2. Subtle subluxation of the humeral head. Finalized by Saravanan Jiménez MD on 03/21/2025 2:14 PMNormalProMedica Mercy Hospital BakersfieldUrology Office/Clinic Noteon 01-69-7836Pcyoqci Office/Clinic NoteUrology Office/Clinic Note Chief Complaint new pt elevated PSA HPI Staff New pt referred by Lucie Augustin NP for elevated PSA. Never seen in our office before (verified on [facility]). PSA (done at [facility]) 08/13/24 - 11.22 No other levels [...] prostatitis, recommended pt to repeat level after abxcourse to confirm if elevation is true. -F/u [...] advised about the different possible causes of bacterialand non-bacterial prostatitis. He needs to complete the course of prescribed antibiotics. He understands that the symptoms improve if he decreases his exercise and activity level. Anti-inflammatory medicines can also be helpful, as well as frequent ejaculations. Hot baths are also helpful in easingthe discomfort. -Take doxycycline 100mg bid x1 month. Rx sent to [facility]. 3. BPH with urinary obstruction (N40.1: Benign prostatic hyperplasia with lower urinary tract symptoms) Good stream most of the time. Constipation does weaken stream. Feels he empties. Attributes frequency to diuretics. Recommended pt to try oral meds. -Start Flomax 0.4mg qd. Possible SEs discussed. Rx sent to [facility]. Follow-up With When Contact Information PATSY ADDISON, Marcos Meade, URL [facility] [address], [place] [phone] Additional Instructions: 3 mos w/ PSA Patient [...] (03/17/25 09:15:00) Blood Urin (more content not included)...[facility] Comment on above:Result Comment: Electronically Signed By: Marcos ROCK MD\.br\Date and Time Signed: 03/17/25 09:50 EDT\.br\Electronically Co-Signed By: Emmy Garcia\.br\Date and Time Co-Signed: 03/17/25 09:49 EDTBasophils Auto (Bld) [#/Vol]on 72-14-4548Hxpeerdmf (Bld) [#/Vol]Automated basophil count0.0-0.1 [facility] HospitalBasophils/100 WBC Auto (Bld)on 08-13-2024 Basophils/100 WBC (Bld)Automated basophil %0.2-2.0[facility] HospitalCholesterol in LDL Calc [Mass/Vol]on 47-74-3951Qqfioisrvpr in LDL [Mass/Vol]Cholesterol in LDL [Mass/volume] in Serum or Plasma by calculation [facility] HospitalComment on above:<100 mg/dl HWYKEWU078-699 mg/dl NEAR OR ABOVE VXHYWFH167-433 mg/dl BORDERLINE LDGG528-990 mg/dl HIGH>190 mg/dl VERY HIGHCholesterol in VLDL Calc [Mass/Vol]on 51-33-2542Xfpovhrngcd in VLDL [Mass/Vol]Cholesterol in VLDL [Mass/volume] in Serum or Plasma by calculationDayton Osteopathic HospitalEosinophils/100 WBC Auto (Bld)on 60-47-4136Dwqpfbgcoje/100 WBC (Bld)Automated eosinophil %0.9-7.0[facility] HospitalErythrocyte distribution width Auto (RBC) [Ratio]on 52-16-2628Qrekjlfqrja distribution width (RBC) [Ratio]Erythrocyte distribution width [Ratio] by Automated count11.0-15.0[facility] Estimated glomerular filtration rate (GFR) non- Americanon 08-13-2024 GFR/1.73 sq M.predicted among non-blacks MDRD (S/P/Bld) [Vol rate/Area]Estimated glomerular filtration rate (GFR) non->=60 mL/min/1.73m 2 [facility] HospitalGlobulin Calc (S) [Mass/Vol]on 08-13-2024 Globulin (S) [Mass/Vol]Serum globulin measurement by calculation (mass/volume) [facility] HospitalHematocrit Auto (Bld) [Volume fraction]on 24-82-9593Eccrnillfz (Bld) [Volume fraction]Hematocrit [Volume Fraction] of Blood by Automated count42.0-54.0[facility] HospitalHemoglobin [Mass/volume] in Bloodon 19-76-5164Zohaknmjtp (Bld) [Mass/Vol]Hemoglobin [Mass/volume] in Blood14.0-18.0[facility] HospitalLaboratory - Chemistry and Chemistry - challengeon 86-79-6236Btvkhvg [Mass/Vol]3.6 g/dL 3.4-5.0[facility] HospitalALP [Catalytic activity/Vol]101 U/L 46-116[facility] HospitalALT [Catalytic activity/Vol]47 U/L16-63 [facility] HospitalAST [Catalytic activity/Vol]21 U/L15-37 [facility] HospitalBilirubin [Mass/Vol]0.7 mg/dL0.2-1.0[facility] HospitalCalcium [Mass/Vol]9.3 mg/dL8.5-10.1FAvita Health System Galion HospitalChloride [Moles/Vol]102 mmol/A01-270GubgekyhtDayton Osteopathic HospitalCholesterol [Mass/Vol]195 mg/dL<=200[facility] Cholesterol in HDL [Mass/Vol]54 mg/sZ33-21PrarlqwdmDay[facility] Osteopathic Hospital Comment on above:> or =60 mg/dl - LOW CARDIOVASCULAR RISK<40 mg/dl - HIGH CARDIOVASCULAR RISKCO2 [Moles/Vol]28.9 mmol/L21.0-32.0[facility] HospitalCreatinine [Mass/Vol]1.16 mg/dL0.70-1.30[facility] GFR/1.73 sq M.predicted MDRD (S/P/Bld) [Vol rate/Area]mL/min/{1.73_m2}>=60 mL/min/1.73m 2FAvita Health System Galion HospitalGlucose [Mass/Vol]160 mg/dLHigh 74-106[facility] HospitalPotassium [Moles/Vol]4.5 mmol/L3.5-5.1 [facility] HospitalProtein [Mass/Vol]7.1 g/dL6.4-8.2FAkron Children's Hospitalodium [Moles/Vol]138 mmol/H726-174BwuoswdmgDayton Osteopathic HospitalTriglyceride [Mass/Vol]84 mg/dL<=150[facility] HospitalUrea nitrogen [Mass/Vol]23.0 mg/dLHigh7.0-18.0[facility] HospitalUrea nitrogen/Creatinine [Mass ratio]19.8 mg/mgDayton Osteopathic HospitalLaboratory - Hematology and Cell countson 62-41-4932Fmpqobyj granulocytes/100 WBC (Bld)0.7 %High0.0-0.5FAvita Health System [facility] Leukocytes [#/volume] corrected for nucleated erythrocytes in Blood by Automated counon 77-23-8382CVU corrected for nucl RBC Auto (Bld) [#/Vol]Leukocytes [#/volume] corrected for nucleated erythrocytes in Blood by Automated coun 4.0-11.0[facility] HospitalLymphocytes Auto (Bld) [#/Vol]on 68-36-5186Jxzszchvfth (Bld) [#/Vol]Lymphocytes [#/volume] in Blood by Automated count1.2-3.8[facility] HospitalLymphocytes/100 WBC Auto (Bld)on 62-63-6729Fkzuvlkhsmf/100 WBC (Bld)Lymphocytes/100 leukocytes in Blood by Automated ejftfAdc97.5-60.0[facility] HospitalMCH Auto (RBC) [Entitic mass]on 00-60-6688UEL (RBC) [Entitic mass]MCH [Entitic mass] by Automated count25.9-34.0[facility] HospitalMCHC Auto (RBC) [Mass/Vol]on 24-27-4826MGHX (RBC) [Mass/Vol]MCHC [Mass/volume] by Automated count29.9-35.2FAvita Health System Galion HospitalMCV Auto (RBC) [Entitic vol]on 71-19-2650BEL (RBC) [Entitic vol]MCV [Entitic volume] by Automated count 80.0-94.0[facility] HospitalMicroalbumin [Mass/volume] in Urineon 90-29-5743Oauzcaa DL <= 20 mg/L (U) [Mass/Vol]Microalbumin [Mass/volume] in Urine<=30.0[facility] HospitalMonocytes Auto (Bld) [#/Vol]on 61-81-1653Omofmbuxd (Bld) [#/Vol]Automated blood monocyte countHigh0.3-0.8 [facility] HospitalMonocytes/100 WBC Auto (Bld)on 08-13-2024 Monocytes/100 WBC (Bld)Automated monocyte %1.7-12.0[facility] HospitalNeutrophils Auto (Bld) [#/Vol]on 26-47-5393Sskihtipbes (Bld) [#/Vol] Neutrophils [#/volume] in Blood by Automated countHigh1.4-6.5FAvita Health System Galion HospitalNeutrophils/100 WBC Auto (Bld)on 02-81-5524Aogolcfsvtf/100 WBC (Bld)Automated neutrophil %43.0-75.0[facility] HospitalNo Panel Informationon 98-32-2211Fjpptqiiwyc # (Auto)0.3 10 3/uL0.0-0.7FAvita Health System Galion HospitalImmature Granulocyte # (Auto)0.07 10 3/uLHigh0.00-0.03[facility] HospitalProstate Specific Antigen Xvhrot16.22 ng/mLHigh<=4.00 [facility] HospitalUrine Random Fqzqdoydxz509.94 mg/dL20.00-300.00 [facility] HospitalPlatelet mean volume Auto (Bld) [Entitic vol]on 34-56-3636Dapbymhe mean volume (Bld) [Entitic vol]Platelet mean volume [Entitic volume] in Blood by Automated countLow9.5-13.5FAvita Health System Galion Hospital Platelets Auto (Bld) [#/Vol]on 39-09-2103Tugvivpxb (Bld) [#/Vol]Platelets [#/volume] in Blood by Automated vonlv302-083HizrnwxsiDayton Osteopathic Hospital RBC Auto (Bld) [#/Vol]on 57-67-6509LYC (Bld) [#/Vol]Erythrocytes [#/volume] in Blood by Automated count4.70-6.10T[facility]edo Hospitalerum or plasma albumin/globulin mass ratioon 87-36-4866Hxyqhly/Globulin [Mass ratio] Serum or plasma albumin/globulin mass ratioDayton Osteopathic Hospital Serum or plasma anion gap determinationon 65-83-8357Ksubu gap [Moles/Vol]Serum or plasma anion gap determinationToledo Hospitalerum or plasma total cholesterol/high density lipoprotein (HDL) cholesterol mass emily 00-85-2837Tztwexamoai.total/Cholesterol in HDL [Mass ratio]Serum or plasma total cholesterol/high density lipoprotein (HDL) cholesterol mass [facility] So[facility] Medical CenterComment on above:3.3 - 4.4 LOW RISK4.4 - 7.1 AVERAGE RISK7.1 - 11.0 MODERATE RISK>11.0 HIGH RISKUrine microalbumin/creatinine mass ratioon 04-88-7611Csqpeyb/Creatinine DL <= 20 mg/L (U) [Mass ratio]Urine microalbumin/creatinine mass ratioHigh0.0-29.9[facility] Comment on above:NO MICROALBUMINURIA 0-29 MG/GCLINICAL MICROALBUMINURIA 30-300 MG/GMACROALBUMINURIA >300 MG/GHbA1c HPLC (Bld) [Mass fraction]on 39-86-3775NdE9l (Bld) [Mass fraction]Hemoglobin A1c/Hemoglobin.total in Blood by HPLCOhiohealth Dublin Methodist HospitalBacteria identified Aer cx Nom (Unsp spec) Ordered By: Graciela Angelo on 35-07-3216Jblyj B Strep (Streptococcus agalactiae) Group B Strep (Streptococcus agalactiae)AbnormalToledo Hospitaluperficial Wound CultureAbnormalDayton Osteopathic Hospital Superficial Wound Cultureon 00-65-7275Uzonjbdzbbp Wound CultureORGANISM: Strep agalactiae - (group b) (O:STRAGA) Quantity of Growth Heavy Growth ORGANISM: Corynebacterium species (O:CORSPE) Comments Organism Not Routinely Tested for Susceptibilities Quantity of Growth Heavy Growth Organism #2 identified as Corynebacterium pseudodiphtheriticum. PERFORMED BY: [facility] [address] [facility] [address] [place] [address] PATHOLOGIST TELETYPE ADJUSTER JERMAINE LICONA M.D.NormalThe Novant Health Physician GroupComment on above: Performed By: #### CUSUP #### [facility] [address] [place] [address] [id number]-2 (COVID-19) RNA LAURA+probe Ql (Unsp spec)Not detectedNormalNOTDESelect Medical Specialty Hospital - [facility] NorthComment on above: Result Comment: Rapid NAAT: The [...] management decisions. Fact sheet for Healthcare Providers: https://www.fda.gov/media/734054/download Fact sheet for Patients: https://www.fda.gov/media/622892/download Methodology: Isothermal Nucleic Acid AmplificationPerformed By: #### COVRB #### [facility] [address] [place], [place] [id number] Necktie Turner: Singh Mccollum MD Vital Signs Date TimeVital SignValuePerforming [id number] 12:09-0400Body vbvkau524.2 Dwain Love MD Work Phone: [facility] Center[facility] Kjcuve82-19-5857 12:09-0400Body mass index (BMI) [Ratio]51.69 kg/i2VkrtuOleksandr Love MD Work Phone: [facility]10-16-2025 12:09-0400Body hdoqwddijkv85.5 [degF]Oleksandr Love MD Work Phone: [facility]10-16-2025 12:09-0400Body mlkigg152.69 kgOleksandr Love MD Work Phone: [facility]09-25-2025 12:29-0400Body xvmute511.2 Justin Hills MD Work Phone: [facility]09-25-2025 12:29-0400Body mass index (BMI) [Ratio]51.68 kg/k8KdfqhaJosue Hills MD Work Phone: [facility]09-25-2025 12:29-0400Body chywzbzmjdj15.9 [degF]Josue Hills MD Work Phone: [phone]09-25-2025 12:29-0400Body .7 kgJosue Hills MD Work Phone: [phone]09-11-2025 11:11-0400Body vfaafp052.2 Pallavi Figueroa MD Work Phone: [facility]09-11-2025 11:11-0400Body mass index (BMI) [Ratio]51.69 kg/c1AltltNichol Figueroa MD Work Phone: [phone]09-11-2025 11:11-0400Body lpugzegnfez29.5 [degF]Nichol Figueroa MD Work Phone: [phone]09-11-2025 11:11-0400Body ofxqbp274.69 kgNichol Figueroa MD Work Phone: [facility]08-18-2025 14:08-0400Body efqxlc487.18 Romy Augustin APRN Work Phone: [facility]08-18-2025 14:08-0400 Body wjfotfvocvn78.2 [degF]Lucie Augustin APRN Work Phone: [facility]08-18-2025 14:08-0400 Diastolic blood eupptiim12 mm[Hg]Lucie Augustin APRN Work Phone: [facility]08-18-2025 14:08-0400 Heart rate96 /minLucie Augustin APRN Work Phone: [facility]08-18-2025 14:08-0400 SaO2% (BldA) [Mass fraction]94 %Lucie Augustin APRN Work Phone: [facility]08-18-2025 14:08-0400 Systolic blood xphaawwc322 mm[Hg]Lucie Augustin APRN Work Phone: [facility]08-18-2025 10:51-0400 Body .2 cmmayo [facility] [place] [facility]mary kate [employer] PA-C Work Phone: [facility] Bssjwd74-04-1390 10:51-0400Body mass index (BMI) [Ratio]51.67 kg/u3Hezsdk Bellamy PA-C Work Phone: [facility] Fvwahe47-99-2256 10:51-0400Body joxhdytfpaw36.5 [degF]Margot Bellamy PA-C Work Phone: [facility] Japfpo82-74-4781 10:51-0400Body .69 kgmayo clinic [place] [facility]mary kate Bellamy PA-C Work Phone: [facility] HospitalApprenNet Esvnql28-14-4873 14:11-0400Body froskh196.18 cmLucie Augustin CONGRESSIONAL ASSISTANT Work Phone: [facility]08-12-2025 14:11-0400 Body mass index (BMI) [Ratio]51.7 kg/b0XpdrjbkoLucie Augustin CONGRESSIONAL ASSISTANT Work Phone: [facility]08-12-2025 14:11-0400 Body kocfdt907.68 kgLucie Augustin CONGRESSIONAL ASSISTANT Work Phone: [facility]03-24-2025 09:00-0400 Body kaimkz637.68 [facility]02-18-2025 09:49-0500Body rqjekr871.18 Sammylynda De La Rosaley CONGRESSIONAL ASSISTANT Work Phone: [phone] [place], [place] 9205402-18-2025 09:49-0500 Body mass index (BMI) [Ratio]51 kg/l9SwbunpGraciela Angelo CONGRESSIONAL ASSISTANT Work Phone: [phone] [place], [place] 9205402-18-2025 09:49-0500 Body bkszormafpx56.3 [degF]Graciela Angelo CONGRESSIONAL ASSISTANT Work Phone: 1([phone] [place], [place] 9205402-18-2025 09:49-0500 Body .87 kgDianebridgett Angelo CONGRESSIONAL ASSISTANT Work Phone: 1(417)091-[address] [place], [place] 9205402-18-2025 09:49-0500 Diastolic blood xvmaybyn37 mm[Hg]Graciela Angelo CONGRESSIONAL ASSISTANT Work Phone: 1([phone])487-[address] [place], [place] 9205402-18-2025 09:49-0500 Heart rate92 /minGraciela Angelo CONGRESSIONAL ASSISTANT Work Phone: [phone])709-[address] [place], [place] 9205402-18-2025 09:49-0500 SaO2% (BldA) [Mass fraction]98 %Graciela Angelo CONGRESSIONAL ASSISTANT Work Phone: 5(269)419-[address] [place], [place] 9205402-18-2025 09:49-0500 Systolic blood gutdgkdo707 mm[Hg]Graciela Angelo CONGRESSIONAL ASSISTANT Work Phone: 9(741)912-[address] [place], [place] 9205412-17-2024 09:01-0500 Body xkewzm433.18 Antonellajanetlynda Gi CONGRESSIONAL ASSISTANT Work Phone: 9(543)303-[address] [place], [place] 9205412-17-2024 09:01-0500 Body mass index (BMI) [Ratio]53.1 kg/l2OholejGraciela Angelo CONGRESSIONAL ASSISTANT Work Phone: 1([phone] [place], [place] 8711412-17-2024 09:01-0500 Body ppsearlurtl04.7 [degF]Graciela Angelo CONGRESSIONAL ASSISTANT Work Phone: [phone] [place], [place] 8711412-17-2024 09:01-0500 Body dnszjy893.76 kgDianebridgett Angelo CONGRESSIONAL ASSISTANT Work Phone: [phone] [place], [place] 8711412-17-2024 09:01-0500 Diastolic blood mm[Hg]Graciela Angelo CONGRESSIONAL ASSISTANT Work Phone: 1(260)[address] [place], [place] 8711412-17-2024 09:01-0500 Heart omyu757 /minDianebridgett Angelo CONGRESSIONAL ASSISTANT Work Phone: [phone] [place], [place] 8711412-17-2024 09:01-0500 SaO2% (BldA) [Mass fraction]94 %Graciela Angelo CONGRESSIONAL ASSISTANT Work Phone: 1(627)[address] [place], [place] 8711412-17-2024 09:01-0500 Systolic blood fyinecwa246 mm[Hg]Graciela Angelo CONGRESSIONAL ASSISTANT Work Phone: 1(864)[address] [place], [place] 8711412-02-2024 19:22-0500 Diastolic blood wlhvuqos65 mm[Hg]Graciela Angelo APRN Work Phone: 1(518)[address] [place], [place] 8711412-02-2024 19:22-0500 Systolic blood kgmguvsy577 mm[Hg]Graciela Angelo CONGRESSIONAL ASSISTANT Work Phone: 1(838)[address] [place], [place] 8711412-02-2024 18:33-0500 Body .18 cmLsudhir Angelo CONGRESSIONAL ASSISTANT Work Phone: 1(763)[address] [place], [place] 8711412-02-2024 18:33-0500 Body mass index (BMI) [Ratio]53.1 kg/o4MwdshiGraciela Angelo CONGRESSIONAL ASSISTANT Work Phone: 1(598)[address] [place], [place] 8711412-02-2024 18:33-0500 Body .76 kgGraciela Angelo CONGRESSIONAL ASSISTANT Work Phone: 1(614)[address] [place], [place] 8711412-02-2024 18:33-0500 Heart rate88 /minGraciela Angelo APRN Work Phone: [facility]12-02-2024 18:33-0500 SaO2% (BldA) [Mass fraction]98 %Graciela Angelo APRN Work Phone: [facility] Encounters Encounter DateEncounter TypeCare ProviderFacilityStart: 06-04-2025 End: 63-12-8156Sbscgdxel encounterThercamelia Montoya [facility]/Trauma and Adult ReconstructionStart: 05-29-2025 End: 24-14-5777Erhnxm follow up visit related to original Elvia Love MD Work Phone: [facility]/Trauma and Adult ReconstructionComment on above:Closed fracture of olecranon process of left ulna with routine healing, subsequent encounter (Primary Dx)Start: 05-29-2025 End: 85-40-5994gtpzfsvxtcQNMXFO J BENCHGreene Memorial Hospital HospitalStart: 05-20-2025 End: 25-25-4772ofknnummzkTaybaqj R WATERSFacility:FTMCStart: 05-08-2025 End: 36-46-9382Lujgpv follow up visit related to original Monique Hills MD Work Phone: [facility]/Trauma and Adult ReconstructionComment on above:Closed fracture of olecranon process of left ulna with routine healing, subsequent encounter (Primary Dx)Start: 05-08-2025 End: 38-45-9915ovugrlzdgqQTLVQ TANKGreene Memorial Hospital HospitalStart: 04-28-2025 End: 86-41-0188Kcxqab OnlyThercamelia Montoya [facility] Orthopedics/Trauma and Adult ReconstructionComment on above:Closed fracture of olecranon process of left ulna with routine healing, subsequent encounter (Primary Dx)Start: 04-24-2025 End: 34-39-6462Cnrews follow up visit related to original Nina Figueroa MD Work Phone: Pro[facility]ca [facility] Orthopedics/Trauma and Adult ReconstructionComment on above:Closed fracture of olecranon process of left ulna with routine healing, subsequent encounter (Primary Dx)Start: 04-24-2025 End: 27-97-0212ebdzaamlfuJWDLM TANKProMedica Abingdon HospitalStart: 04-23-2025 End: 12-03-3965rxmxigfwrjJjqmnbur Rohrbacher APRN Work Phone: [facility] Work Phone: Start: 04-23-2025 End: 46-00-7239Zpqfwiy encounter procedureLucie Augustin [facility] Work Phone: Start: 15-64-3913Fvb-patient / Non-visitCatherine James [facility] Work Phone: Start: 04-21-2025 End: 81-68-2879Ztrknm OnlyJayla Montoya [facility] Orthopedics/Trauma and Adult ReconstructionComment on above:Closed fracture of olecranon process of left ulna with routine healing, subsequent encounter (Primary Dx)Start: 04-20-2025 End: 49-03-0103vljxlqcmgqHyzf M VintonFacility:[facility] Start: 91-51-7624Svx-patient / Non-visitChapincito Scanlon DO-[facility] Work Phone: Start: 04-11-2025 End: 96-67-1105Audcrseci encounterAlexaelpidio Russell [facility]/Trauma and Adult ReconstructionStart: 04-11-2025 End: 79-56-6792cemzinpaifQgnmgiy R WATERSFacility:FTMCStart: 21-32-5501Jyd- patient / Non-visitCatherine James [facility] Work Phone: Start: 04-09-2025 End: 78-80-6177Fcjixelwsr and management of inpatientJASON TANKProMedica Abingdon HospitalStart: 04-08-2025 End: 30-25-8648uspipzjfjrYfpb M VintonFacility:[facility] Start: 06-46-8806Rjt-patient / Non-visitChapincito Lockwood Ghislaine SPRINGER-[facility] Work Phone: Start: 04-02-2025 End: 39-06-9001Iplvzaggv encounterThercamelia Montoya [facility]/Trauma and Adult ReconstructionStart: 03-31-2025 End: 03-42-1931Utqhons encounter procedureLucie Augustin APRN, CNP-[facility] Work Phone: Start: 03-31-2025 End: 30-57-6162Oqheoyhhesisk examination doneLucie Augustin APRN [facility] Hospitaltart: 03-31-2025 End: 63-04-7265Qtisqm outpatient new 60 minutesMargot Bellamy PA-C Work Phone: [facility]/Trauma and Adult ReconstructionComment on above:Olecranon fracture, left, closed, initial encounter (Primary Dx)Start: 03-31-2025 End: 20-63-5083Luxwvw OnlyThercamelia Montoya [facility] Orthoped[facility]/Trauma and Adult ReconstructionComment on above:Closed fracture of olecranon process of left ulna, initial encounter (Primary Dx)Start: 03-28-2025 End: 62-99-9780xuiifbckvqBPDWBPPE ROHRBACHERProMedica Robert F. Kennedy Medical Centertart: 61-70-2071Febdpfpua for other preprocedural examinationLUCIE LINDACHEHalina Lutheran Hospitaltart: 42-53-0256jklwircjqiCEVNYDXS ROHRBACHER [facility]icAd[facility] - Bakersfieldtart: 03-28-2025 End: 89-13-2281Rpegnaost encounterJamaddy Jorge [facility]/Trauma and Adult ReconstructionStart: 03-27-2025 End: 98-90-5896Kfnisxg encounter statusThercamelia Montoya [facility] SystemStart: 03-27-2025 End: 46-61-0863Phgwzkphm encounterTheresmichoacano Montoya [facility] Orthopedics/Trauma and Adult ReconstructionComment on above:Olecranon fracture, left, closed, initial encounter (Primary Dx); Preop testing; Other specified diabetes mellitus with other specified complication, unspecified whether long term care pharmacist insulin use ([facility])Start: 43-24-7463olfuxyreohGZRASMBLUpstate Golisano Children's Hospital Ambulatory PPGStart: 03-26-2025 End: 60-57-3865Zozwbqefd encounterTheresa diptiRobert H. Ballard [facility] Physicians Orthopedics/Trauma and Adult ReconstructionStart: 03-26-2025 End: 47-02-5636bpncdkzimiEzmcjhvv Rohrbacher CONGRESSIONAL ASSISTANT Work Phone: [facility] Work Phone: Start: 03-26-2025 End: 48-06-5242Tsfohjf encounter procedureDwight Andrews MD-[facility] [place] Work Phone: Start: 03-25-2025 End: 92-49-0762rnoojscptaEahwbtkb Rohrbacher CONGRESSIONAL ASSISTANT Work Phone: [facility] Work Phone: Start: 03-25-2025 End: 66-07-8378Btijwrc encounter procedureDwight Andrews MD-[facility] Orth[facility] Work Phone: Start: 03-21-2025 End: 75-23-5631Gmmkfkfjs department patient visitChillicothe VA Medical Centertart: 03-17-2025 End: 78-16-9020dcldlruzhuHECKMREKMary MINORacility:EU BellevueStart: 11-04-2024 End: 01-84-8370yyvvwikdatToyocyvwnFayette County Memorial Hospital Work Phone: Start: 11-04-2024 End: 49-60-5280Xzywbgt encounter procedureFircarilion new [facility] Phys[facility] Work Phone: Start: 10-01-2024 End: 71-91-7953fdogciwwedEpjrzm Bailey CONGRESSIONAL ASSISTANT Work Phone: [facility] Work Phone: Start: 10-01-2024 End: 90-83-5393Nfespfz encounter procedureGraciela Angelo APRN Work Phone: [facility] Work Phone: Start: 21-56-8897lltctnxnnfYCJEQSGM ROHRBACHER Facility:[facility] Hospitaltart: 68-70-6912Udt-patient / Non-visitGraciela Angelo APRN Work Phone: [facility] Work Phone: Start: 07-30-2024 End: 83-76-5134Qhnfted encounter procedureGraciela Angelo APRN Work Phone: [facility] Work Phone: Start: 07-15-2024 End: 76-23-5566iftgokckxxGprmjb M BaileyFacility:[facility] Hospitaltart: 07-15-2024 End: 52-16-9331Aihbhdzx ReferredGraciela Angelo APRN Work Phone: [facility] [place] Work Phone: Start: 07-15-2024 End: 53-66-0280Tfgojsz encounter procedureGraciela Angelo APRN Work Phone: [facility] [place] Work Phone: Start: 08-11-2021 End: 74-98-5383fqsopzrdwlMIAJSDQUK Healthcare Procedures DateProcedureProcedure DetailPerforming ClinicianStart: 76-16-5651Akavdn-up visitFollow-upCARTER J BENCHStart: 58-85-3247CK of elbow, leftJennifer Rohrbacher CONGRESSIONAL ASSISTANT Work Phone: Start: 88-24-0283Ftijtlg microbial cultureGraciela Angelo APRN Work Phone: Plan of Treatment DateCare ActivityDetailAuthorStart: 43-75-8823Plzlr BMI ScreeningAdult BMI ScreeningProMedica Health SystemStart: 80-13-3829Ubsnqfu ScreeningTobacco ScreeningProMedica Health SystemStart: 06-94-7488Umbvx BMI ScreeningAdult BMI ScreeningProMedica Health SystemStart: 66-97-5218Ubqsehb ScreeningTobacco ScreeningProMedica Health SystemStart: 03-11-3490Qgnnj BMI ScreeningAdult BMI ScreeningProMedica Health SystemStart: 68-97-3393Kazvkrq ScreeningTobacco ScreeningProMedica Health SystemStart: 77-14-3310Hqgig BMI ScreeningAdult BMI ScreeningProMedica Health SystemStart: 19-51-3067Otojoev ScreeningTobacco ScreeningProMedica Health SystemStart: 52-11-2115Ulnru BMI ScreeningAdult BMI ScreeningProMedica Health SystemStart: 67-87-4700Iiujq BMI ScreeningAdult BMI ScreeningProMedica Health SystemStart: 55-16-2018Ehbmlzc ScreeningTobacco ScreeningProWilson Memorial Hospitalca Health SystemStart: 43-59-5187jpuzrcqkegGufomfxlsmTjmxaieb:EU BellevueStart: 07-03-2025 End: 18-79-5581Nhfqarf encounter pjqjedprb39/20/2025 12:15 PM EST Office Visit [facility] [address] [place] [address] [address] [place] [address] Oleksandr Love MD [address] [place] [address], [address] [place] [address] [facility]/Trauma and Adult ReconstructionStart: 05-29-2025 End: 62-10-3183HK Elbow - left 2 ViewsProMedica Work Phone: Comment on above:Expected: 05/29/2025, Expires: 05/08/2026Expected: 05/29/2025, Expires: 05/29/2026Start: 05-29-2025 End: 17-48-4027Vipzxyl encounter ohmlgxrgv59/16/2025 12:30 PM EDT Office Visit [facility] [address] [place] [address] Oleksandr Love MD [address] [place] [address] [address]IVE, [address] [place] [address] [facility]/Trauma and Adult ReconstructionStart: 05-08-2025 End: 09-38-4634Xehkqje encounter procedureProMedica Physicians Orthopedics/Trauma and Adult ReconstructionStart: 04-28-2025 End: 19-82-6345GB Elbow - left 2 ViewsX-ray elbow left 2 views Imaging Routine Closed fracture of olecranon process of left ulna with routine healing, subsequent encounter Expected: 04/28/2025, Expires: 04/28/2026[facility] Work Phone: Comment on above:Expected: 04/28/2025, Expires: 04/28/2026Start: 04-24-2025 End: 25-26-0486Rsmecwz encounter dkhljwuet21/11/2025 11:00 AM EDT Office Visit [facility] [address] [place] [address] Oleksandr Love MD [address] [place] [address] [address], [address] [place] [address] [facility]/Trauma and Adult ReconstructionStart: 54-92-4052Mfulimi referral [facility] Work Phone: Start: 04-21-2025 End: 78-49-0200UO Elbow - left 2 ViewsX-ray elbow left 2 views Imaging Routine Closed fracture of olecranon process of left ulna with routine healing, subsequent encounter Expected: 04/21/2025, Expires: 04/21/2026[facility] Work Phone: Comment on above:Expected: 04/21/2025, Expires: 04/21/2026Start: 47-55-1556QzjirVan Wert County Hospitaltart: 84-52-6221Vsnoigcdo vaccinationInfluenza VaccineUNC Health Chathamtart: 04-09-2025 End: 66-24-2294Gpugljmkd to same day surgery bdqhcb7104/09/2025 9:00 AM EDT - 04/09/2025 11:00 AM EDT Surgery [address] [place] [address] Oleksandr Love MD [address] [facility], [address] [place] [address] OPEN REDUCTION INTERNAL FIXATION OLEKettering Health HamiltonComment on above: OPEN REDUCTION INTERNAL FIXATION OLECRANONStart: 04-09-2025 End: 84-18-4434APUO REDUCTION INTERNAL FIXATION OLECRANONOPEN REDUCTION INTERNAL FIXATION OLECRANON Closed fracture of olecranon process of left ulna with ro utine healing, subsequent encounter 04/09/2025 9:00 AM [facility]: 01-43-9976Uainxtirem hospital visit by rnsmjaesx32/27/2025 9:00 AM EDT Hospital Encounter [facility] Surgery [address] [place] [address] [place] [address] Oleksandr Love MD [facility] [facility], [address] [place] [address] [facility] SurgeryStart: 56-03-9599WevrkVan Wert County Hospitaltart: 03-31-2025 End: 24-12-4616UF Elbow - left 2 ViewsX-ray elbow left 2 views Imaging Routine Closed fracture of olecranon process of left ulna, initialencounter Expected: 03/31/2025, Expires: 03/31/2026[facility] Work Phone: Comment on above:Expected: 03/31/2025, Expires: 03/31/2026Start: 03-31-2025 End: 06-07-5594Xmqotps encounter rygzboptt51/18/2025 10:30 AM EDT Office Visit [facility] [address] [place] [address] Oleksandr Love MD [address] [place] [address], [address] [place] [address] [facility]/Trauma and Adult ReconstructionStart: 03-28-2025 End: 80-86-6770bkijigichrTohGnsadeMercy Health St. Rita's [facility] Center - LabStart: 93-20-1147WU Elbow - left WO [facility] Hamiltontart: 56-95-0528HI of elbow, leftCT elbow LT [facility] Start: 50-24-3801Emoyumh [facility] Work Phone: Start: 73-88-2569Hqovzqrwz aortic aneurysm screening Abdominal Aortic Aneurysm (AAA) ScreenProMarshall Medical Center North Health SystemStart: 2021 Fall Risk ScreeningFall Risk ScreeningProScci Hospital Lima SystemStart: 2006 Administration of varicella zoster vaccineZoster (Shingles) Vaccine (1 of 2) [facility] SystemStart: 59-35-3524UDfO,Tdap and Td Vaccines (1 - Tdap) DTaP,Tdap and Td Vaccines (1 - Tdap)[facility] SystemStart: 1974 Adult BMI Follow Up PlanAdult BMI Follow Up PlanProMedica Bay [facility] Hospital SystemStart: 14-47-7287Skvuvwjcjy ScreeningDepression ScreeningProScci Hospital [facility] System End: 86-45-7522Nfrhl metabolic 2000 panel - Serum or PlasmaBasic Metabolic Panel Lab Routine Olecranon fracture, left, closed, initial encounter Preop testing1 Occurrences starting 03/27/2025 until 03/27/2026[facility] Health CenterUQ, Inc. SystemComment on above:1 Occurrences starting 03/27/2025 until 03/27/2026 End: 23-43-5679BUG panel - Blood by Automated countCBC without diff Lab Routine Olecranon fracture, left, closed, initial encounter Preop testing 1 Occurrences starting 03/27/2025 until 03/27/2026Pro[employer] Work Phone: Comment on above:1 Occurrences starting 03/27/2025 until 03/27/2026omprehensive metabolic 2000 panel - Serum or PlasmaDayton Osteopathic HospitalCT Elbow - left WO contrastDayton Osteopathic Hospital End: 22-28-0679OZH 12 leadECG 12 lead ECG Routine Olecranon fracture, left, closed, initial encounter Preop testing 1 Occurrences starting 03/27/2025 until 03/27/2026[facility] SystemComment on above:1 Occurrences starting 03/27/2025 until 03/27/2026 End: 40-89-4684Lebuupegof A1c/Hemoglobin.total in BloodHemoglobin A1c Lab Routine Preop testing Other specified diabetes mellitus with other specified complication, unspecified whether long term care pharmacist insulin use ([facility]) 1 Occurrences starting 03/27/2025 until 03/27/2026ProScci Hospital Lima SystemComment on above:1 Occurrences starting 03/27/2025 until 03/27/2026Patient referralCincinnati Va Medical [facility] Work Phone: [facility] Immunizations Immunization DateImmunizationNotesCare MmkfuyejCvngwhdk11-80-9343veayrduhd virus vaccine, unspecified formulationTheresa Valley Health Payers DatePayer CategoryPayerPolicy [id number]'s Comp Other Managed Care SANDI [id number] Ekpm-iyt28-41qor94-82-4668Dwdrfmqahs Managed Care - POS [id number] Health Insurance [id number] [id number] [id number] [id number] 2.0.1.356676.3.579.2.37027-22-5069Pmbjykh [id number] 2.840.1.153413.3.57[id number] 2.0.1.407957.3.57[id number] 2.0.1.181356.3.57[id number] 2.0.1.569561.3.57[id number] 2.840.1.624225.3.57[id number] 2.0.1.551379.3.57[id number] 2.16840.1.099764.3.57[id number] 2.840.1.373061.3.57[id number] 2.16840.1.654078.3.579.[id number] 2.16840.1.705276.3.57[id number] 2.840.1.924354.3.57[id number] 2.16840.1.898217.3.57[id number] 2.0.1.329388.3.57[id number] 2.0.1.169749.3.57[id number] 2.0.1.484265.3.57[id number] 2.0.1.546673.3.57[id number] 2.0.1.798882.3.57[id number] 2.0.1.967208.3.57[id number] 2..1.242306.3.57[id number] 2.0.1.783251.3.579.2.727Prvibra hospital of southeastern [facility] Health InsuranceO[facility]low Memorial Hospital Health Claims [id number] [id number] 2.840.1.6[id number] 2.840.1.515938.3.579.2.531 [id number] 2.16.840.1.6[id number] 2..840.1.060235.3.579.2.531 Social History DateTypeDetailFacilityStart: 07-30-2024 End: 24-12-0097Ntyyiyq smoking status NHISEx-smoker (finding)[facility] End: 74-56-1392AffJhlv (finding)[facility]: 17-21-2125[facility] BirthInter[facility] CentereFAk[facility] Hospitaltart: 86-72-6018Iowcvnh smoking status NHISNever smoked tobaccoProMedica [facility] Start: 78-27-1194Fnvlfjz use and exposureSmokeless tobacco non-userProMedica Bay Park Hospital SystemStart: 03-21-2025 End: 26-27-6015Avjfchyzq beverage intakeCurrent drinker of alcohol (finding) [facility] [facility] SystemStart: 03-21-2025 End: 75-75-5888Ycomeeqdo beverage intakeProMedica Bay Park Hospital SystemStart: 03-21-2025 End: 26-84-0280Jayctym use panelProMedica Bay Park Hospital SystemWithin the past 12 months we worried whether our food would run out before we got money to buy more.Never [facility] SystemStart: 47-41-8573Olv assigned at birthNot on file [facility] End: 15-82-5959Rkfzjhv of tobacco useCurrent smokerProMedica Bay Park Hospital System End: 06-54-5181Jcfeyys of tobacco usePipe SmokerProMedica Bay Park Hospital System End: 54-84-2413Mretrld of tobacco useCigar SmokerProMedica Bay Park Hospital SystemStart: 64-68-4552Rquizvu use and exposureFormer smokeless tobacco userProMedica Bay Park Hospital System End: 64-99-0007Fpdmhpl of tobacco useUser of smokeless tobaccoProMedica Bay Park Hospital SystemStart: 33-45-7115Lbjewas CommentdailyProMedica Bay Park Hospital SystemStart: 88-55-6502Hfowpn identityIdentifies as male gender (finding)[facility]: 32-16-2033Qxgbce orientationHeterosexual (finding)[facility] Medical Equipment Procedure CodeEquipment CodeEquipment Original TextEquipment IdentifierDates ALLOGRAFT 10MM PLIF LORDOTICFDAStart: 89-78-3994WNEKO SET CAPLOX IIFDAStart: 36-29-1895EWRIW SET CAPLOX IIFDAStart: 06-23-7194ACTYK SET CAPLOX IIFDAStart: 74-86-5475AIOXYMUBJJ DBM 5CCFDAStart: 68-79-6334KGUVIEXID 10MM PLIF LORDOTICFDA Start: 76-68-3647EHZ 35MM CVD CAPLOX IIFDAStart: 15-76-7384YGY 35MM CVD CAPLOX IIFDAStart: 01-18-7211ISOZN 6.5 X 55MM CAPLOX IIFDAStart: 25-71-6885MHIWI 6.5 X 55MM CAPLOX IIFDAStart: 90-34-5575MXRSA 6.5 X 55MM CAPLOX IIFDAStart: 07-04-2018 SCREW 6.5 X 55MM CAPLOX IIFDAStart: 43-91-3166JGXEG SET CAPLOX IIFDAStart: 62-99-0902EFVYIMEER 10MM PLIF LORDOTICFDAStart: 15-80-5009KIBUZ SET CAPLOX IIFDA Start: 26-22-0632EDOLN SET CAPLOX IIFDAStart: 88-58-1962MMHDE SET CAPLOX IIFDA Start: 21-59-3974CXJMSBALLI DBM 5CCFDAStart: 34-10-3661TBQHDQHQC 10MM PLIF LORDOTICFDAStart: 46-76-3482KEK 35MM CVD CAPLOX IIFDAStart: 77-35-8202EUN 35MM CVD CAPLOX IIFDAStart: 19-21-1833RJESK 6.5 X 55MM CAPLOX IIFDAStart: 07-04-2018 SCREW 6.5 X 55MM CAPLOX IIFDAStart: 00-50-7890YGRWG 6.5 X 55MM CAPLOX IIFDA Start: 59-49-3338YBBHF 6.5 X 55MM CAPLOX IIFDAStart: 38-28-0865VOUBJ SET CAPLOX IIFDAStart: 97-08-2523QJDGTKMIB 10MM PLIF LORDOTICFDAStart: 51-40-4044JVIVP SET CAPLOX IIFDAStart: 02-79-2709OLQTT SET CAPLOX IIFDAStart: 67-34-8807WVYJX SET CAPLOX IIFDAStart: 24-14-5002RPGPZOJHIP DBM 5CCFDAStart: 09-25-6339CJPJRDDEJ 10MM PLIF LORDOTICFDAStart: 47-25-8865TTG 35MM CVD CAPLOX IIFDAStart: 07-04-2018 BALTA 35MM CVD CAPLOX IIFDAStart: 50-97-7215GUJFU 6.5 X 55MM CAPLOX IIFDAStart: 40-20-7941SAYLZ 6.5 X 55MM CAPLOX IIFDAStart: 77-90-8109YGUWZ 6.5 X 55MM CAPLOX IIFDAStart: 66-08-5599DLZHK 6.5 X 55MM CAPLOX IIFDAStart: 39-33-6136KLFAX SET CAPLOX IIFDAStart: 21-49-3192TKIWCNTMI 10MM PLIF LORDOTICFDAStart: 07-04-2018 SCREW SET CAPLOX IIFDAStart: 99-66-5054IIPLT SET CAPLOX IIFDAStart: 07-04-2018 SCREW SET CAPLOX IIFDAStart: 64-39-1295GRJBVZMNZE DBM 5CCFDAStart: 07-04-2018 ALLOGRAFT 10MM PLIF LORDOTICFDAStart: 24-99-0242CPJ 35MM CVD CAPLOX IIFDAStart: 96-66-0614JYW 35MM CVD CAPLOX IIFDAStart: 59-97-3277NUIYL 6.5 X 55MM CAPLOX II FDAStart: 78-49-3756THMMX 6.5 X 55MM CAPLOX IIFDAStart: 66-65-7523PCDYV 6.5 X 55MM CAPLOX IIFDAStart: 41-71-5384SGBKO 6.5 X 55MM CAPLOX IIFDAStart: 07-04-2018 SCREW SET CAPLOX IIFDAStart: 94-69-4582YXGNAMPZR 10MM PLIF LORDOTICFDAStart: 26-38-1027GOELC SET CAPLOX IIFDAStart: 72-43-8166RHGUX SET CAPLOX IIFDAStart: 22-79-7152QIFJY SET CAPLOX IIFDAStart: 79-78-0911RHPOBCNFJL DBM 5CCFDAStart: 21-90-3129NOEIZGXZX 10MM PLIF LORDOTICFDAStart: 23-80-3154BHB 35MM CVD CAPLOX II FDAStart: 37-34-3005PZI 35MM CVD CAPLOX IIFDAStart: 94-09-7806OBZTX 6.5 X 55MM CAPLOX IIFDAStart: 45-97-2456DBCYG 6.5 X 55MM CAPLOX IIFDAStart: 45-59-6320WHRYG 6.5 X 55MM CAPLOX IIFDAStart: 92-68-8394OGRTH 6.5 X 55MM CAPLOX IIFDAStart: 02-29-5014PZFTO SET CAPLOX IIFDAStart: 25-54-3205ISZXZLNJU 10MM PLIF LORDOTICFDA Start: 90-37-1822USWFO SET CAPLOX IIFDAStart: 14-14-7078RJCMT SET CAPLOX IIFDA Start: 48-36-5747ZAOMZ SET CAPLOX IIFDAStart: 81-50-0036GQKAVKSZMY DBM 5CCFDA Start: 91-16-9703FMGPKRPUK 10MM PLIF LORDOTICFDAStart: 12-38-7310KNF 35MM CVD CAPLOX IIFDAStart: 92-74-8502ZAI 35MM CVD CAPLOX IIFDAStart: 14-97-0958SZFJH 6.5 X 55MM CAPLOX IIFDAStart: 78-46-5378XNWSW 6.5 X 55MM CAPLOX IIFDAStart: 09-12-9201XZNIL 6.5 X 55MM CAPLOX IIFDAStart: 09-09-5734PLJTW 6.5 X 55MM CAPLOX IIFDAStart: 62-47-7333NFGDQ SET CAPLOX IIFDAStart: 27-33-2442Zkgkb Bn 116mm 4 Hl Rnd Prfl Va Tpr Tip Lcp Cmbn Olcrn Lt Ss - [id number]_gmgZmhcg: 04-09-2025 Plate Bne 10 H Cndyl 2mm X 73mm 2 H Hd Ss V Mini Frag - [id number]_hnl Start: 00-20-9060Wwkur Bn 22mm 3.5mm [address] Lp Hd Sm Hex Sckt Jaden Ss 2.5mm Rpl 919428+Special 759284+474051 - [id number]_oywDzvfp: 07-28-0582Pmdbv Bn 2.0mm Volt Yasir 22mm T6 - [id number]_tyoEiikl: 70-61-6100Tbotx Bn [address]mm [address] Lck Va Strdr Ss T8 Ns - [id number]_vmxRcohh: 32-53-7636Xnvui Bn 24mm [address] Lck Va Strdr Ss T8 Ns - [id number]_lqaZsvax: 18-83-0607Txynv Bn 52mm 2.[address] Va Lck Strdr T8 - [id number]_ivcPzpxa: 82-66-1639Etasd Bn 2.0mm Volt Jaden 14mm T6 - [id number]_tppHabva: 00-30-1287Smjdq Bn 2.0mm Volt Jaden 16mm T6 - [id number]_sorJhasy: 86-93-4203Ybjdx Bn 2.0mm Volt Jaden 18mm T6 - [id number]_hrmLybew: 96-38-9620Wumlf Bn 2.0mm Volt Yasir 20mm T6 - [id number]_zhdGrjzx: 00-26-9526Qnsxj Bn 26mm 3.5mm [address] Lck Strdr Cncl Ss T15 Ft Ns Sm Rpl 075631+Special 901313 - [id number]_yxhVhjzl: 56-38-5111LNIITGUGO 10MM PLIF LORDOTICFDAStart: 66-99-9893SPQQB SET CAPLOX IIFDA Start: 98-01-5933HJNAB SET CAPLOX IIFDAStart: 34-13-5428JZGRA SET CAPLOX IIFDA Start: 18-19-3753XCFRLPWXEQ DBM 5CCFDAStart: 19-52-3862NOZBSWANP 10MM PLIF LORDOTICFDAStart: 43-37-1187AZT 35MM CVD CAPLOX IIFDAStart: 04-54-9622RLC 35MM CVD CAPLOX IIFDAStart: 62-75-3550DRTHZ 6.5 X 55MM CAPLOX IIFDAStart: 07-04-2018 SCREW 6.5 X 55MM CAPLOX IIFDAStart: 54-37-6100HLLID 6.5 X 55MM CAPLOX IIFDA Start: 99-42-6914HEGCG 6.5 X 55MM CAPLOX IIFDAStart: 87-25-9578OCHNU SET CAPLOX IIFDAStart: 08-48-6516EEFLUYORP 10MM PLIF LORDOTICFDAStart: 38-60-4819ORCUI SET CAPLOX IIFDAStart: 23-27-6568HCZKS SET CAPLOX IIFDAStart: 66-47-8193CRWZX SET CAPLOX IIFDAStart: 02-79-6810GBXGMMZVEI DBM 5CCFDAStart: 26-93-5915HAKRYKNBG 10MM PLIF LORDOTICFDAStart: 00-83-3430TSS 35MM CVD CAPLOX IIFDAStart: 07-04-2018 BALTA 35MM CVD CAPLOX IIFDAStart: 47-85-7347MJFLX 6.5 X 55MM CAPLOX IIFDAStart: 38-64-9759HOFYE 6.5 X 55MM CAPLOX IIFDAStart: 42-58-4854CXQVS 6.5 X 55MM CAPLOX IIFDAStart: 23-54-1619EDJEV 6.5 X 55MM CAPLOX IIFDAStart: 21-61-6023ULVWK SET CAPLOX IIFDAStart: 07-04-2018 Clinical Notes 07-15-2024 to 06-04-2025 Note Date & [id number] Miscellaneous Notes* Telephone Encounter - Jayla Lazo RN - 06/04/2025 1:57 PM EDT Called patient to let him know that we just received his approved C-9 for his physical therapy. Order and approval faxed to [facility] @ [phone] documented in this encounterFulton County Health CenterW.S.C. Sports10-22-2025 Telephone encounter Note* Telephone Encounter - Jayla Lazo RN - 06/04/2025 1:57 PM EDT Called patient to let him know that we just received his approved C-9 for his physical therapy. Order and approval faxed to [facility] @ [phone] [facility] CenterKOWNEixyxn82-79-9238 History of Present illness Narrative* Oleksandr Love MD - 05/29/2025 12:30 PM EDT Chief complaint: f/u ORIF left olecranon fx HPI: Cesar Clarke is a 70 y.o. male status post operative intervention left olecranon fracture. Patient is wearing a hinged elbow brace. Symptoms are improving over time. He is not currently in therapy. Denies fever chills nausea and vomiting. Denies chest pain shortness of breath. Physical exam left UE: Inspection: Incision is clean dry intact with no redness or erythema or drainage. Hinged elbow brace in place SILT m/u/r/ax, intact motor function EPL, FPL, FF, FE, HI palpable radial pulse, BCRx5, compartments soft No pain with passive stretch of the fingers ROM elbow 50-130 deg in hinged elbow brace Radiographic imaging personally viewed and identify: 3 views left elbow identify stable hardware fixation left elbow with no acute changes ASSESSMENT: Cesar Clarke is a 70 y.o. male status post operative management of left olecranon fracture PLAN: We will unlock hinged elbow brace, range of motion as tolerated Patient to wear brace x3 weeks then wean out PT referral provided, we will request through [facility] Patient has work restrictions remain the same through next follow-up visit in 6 weeks Follow-up 6 weeks with x-rays left elbow out of brace MAURY LONG PA-C I, OLEKSANDR LOVE MD, personally performed the face to face evaluation on this patient. I discussed with the patient and confirmed the accuracy and completeness of the aforementioned history prepared bythe [facility] provider, and I personally performed the clinical examination of the patient. I discussed the treatment plan with the patient. Returned to follow up today after ORIF his olecranon. He has been wearing his brace. His wounds well healed. His motion is appropriate. His x-rays are stable. Today we will increase his activity as above and go from there. All questions addressed. Oleksandr Love MD documented in this encounterOhioHealth Nelsonville Health Center09-25-2025 History of Present illness Narrative* Josue Hills MD - 05/08/2025 12:00 PM EDT Subjective 04/09/2025 - Open Reduction Internal Fixation Olecranon - Left 05/08/25 Cesar Clarke is a 69 y.o. male 4 week(s) s/p Open Reduction Internal Fixation Olecranon - Left. Last seen 04/24/2025. Nonweightbearing in a hinged elbow brace with ROM from 90 to 130 . [facility] injury. Past Surgical History: Procedure Laterality Date OPEN REDUCTION INTERNAL FIXATION OLECRANON Left 04/09/2025 Performed by Oleksandr Love MD at [facility] Past Medical History: Diagnosis Date Cellulitis Diabetes mellitus type 2, controlled ([facility]) Hypertension Kidney stone 2024 Objective General: Aox3, NAD Inspection: Incision is well-healed SILT m/u/r/ax, intact motor function EPL, FPL, FF, FE, HI palpable radial pulse, BCRx5, compartments soft No pain with passive stretch of the fingers ROM elbow: tolerates 50d-130d in brace with minimal discomfort Imaging X-ray of the left elbow in office 05/08/2025: stable appearance of the olecranon fracture and associated hardware, no interval displacement or other significant findings Imaging personally reviewed and interpreted by attending physician. Findings discussed with patient. Assessment/Plan Cesar Clarke is a 69 y.o. male 4 week(s) s/p Open Reduction Internal Fixation Olecranon - Left (DOS 04/09/2025). [facility] injury. No issues today. No new C9's or changes to Medco14 -NWB LUE -Elbow ROM in HEB increased to 50d-130d -Follow up in 3 weeks with repeat x-rays left elbow Josue Hills MD Orthopaedic Surgery, Resident 05/08/25 12:30 PM * Oleksandr Love MD - 05/08/2025 12:00 PM EDT Attending Attestation: I saw the patient. I performed the critical/keating portions of the service. I was directly involved inthe management and treatment plan of the patient. I reviewed the resident's note. Additional Notes/Findings: Patient returned to follow up after ORIF of his olecranon fracture. Wound looks good. His brace hasbeen being locked and unlocked he is starting some motion. His x-rays are stable. From my standpoint we will increase his motion some a little bit more today to giving him up to 50 of extension of the elbow and full flexion. He has supinate pronate the elbow. We will see him back in 3 weeks for x-rays and likely try to increase his motion. Oleksandr Love MD. documented in this encounterOhioHealth Nelsonville Health Center09-11-2025 History of Present illness Narrative* Nichol Figueroa MD - 04/24/2025 11:00 AM EDT Chief complaint: left elbow pain s/p ORIF DOS 04/09/2025 HPI: Cesar Clarke is a 69 y.o. right-hand dominant male status post operative intervention of a comminuted displaced left olecranon fracture. The patient presents back in follow-up 2 weeks after operative intervention of the aforementioned injury. The patient is not wearing his hinged elbow. he is not working with physical therapy. he is taking Tylenol for pain control. Denies fever chills nausea and vomiting. Denies chest pain shortness of breath. Denies numbness tingling paresthesias. Physical exam Mentation: Alert and oriented left UE: Immobilization was removed Inspection: Incision is clean dry intact with no redness or erythema or drainage. SILT m/u/r/ax, intact motor function EPL, FPL, FF, FE, HI palpable radial pulse, BCRx5, compartments soft No pain with passive stretch of the fingers ROM elbow: Elbow held at 90 flexion with limited flexion-extension beyond 90 with notable stiffness Radiographic imaging personally viewed and identify: 3 views left elbow identify stable hardware fixation with no new osseous abnormality ASSESSMENT: Cesar Clarke is a 69 y.o. male status post operative management of left olecranon fracture PLAN: Pain control - currently using Tylenol for pain control. Calcium and vitamin-D. NWB in hinged elbow brace with ROM from 90 to 130 ROM fingers as tolerated. At this point we will initiate range of motion of the elbow. Continue with immobilization with hinged elbow brace Follow-up 2 week with 3 xray views of the elbow All questions were addressed. Nichol Figueroa MD * Oleksandr Love MD - 04/24/2025 11:00 AM EDT Attending Attestation: I saw the patient. I performed the critical/keating portions of the service. I was directly involved inthe management and treatment plan of the patient. I reviewed the resident's note. Additional Notes/Findings: Returned to follow up today after ORIF of his olecranon fracture. His wounds look good. Will take him out of the splint and get him into a hinged elbow brace to permit some range of motion block at 90 of extension with full flexion of if able. His x-rays are stable. Due to the significant comminuted injury and duration of time to fixation do need to protect him a little more with his range of motion to protect it from failure. Otherwise plan as above will see him back in 2 weeks for x-rays of the elbow in the brace and increase his motion after that. Oleksandr Love MD. documented in this encounterOhioHealth Nelsonville Health Center08-29-2025 Miscellaneous Notes* Telephone Encounter - Morenita Angeles - 04/11/2025 10:25 AM EDT Kristi jalloh called in regarding patient stated when patient went to the ER he was put on two antibiotics then after surgery Doctor love placed patient on another antibiotic patient is taking 3 antibiotics in total kristi stated patient is on doxycycline 100mg, clindamycin 300mg and keflex 500mggave [phone] as a good callback number to discuss and stated if she does not answer to please liat dow a detailed voice message * Telephone Encounter - Sherin Bustamante PA-C - 04/11/2025 10:25 AM EDT Spoke with Kristi - He was reportedly prescribed doxycycline from [facility] for BLE cellulitis started 04/01/25. He was also seen in the [place] [facility] ER the day prior to evaluation in our office and prescribed [id number] TID for UTI/prostate issues/kidney stone - has since passed stone and is established with urologist. Clindamycin was prescribed for post op prophylaxis due to PCN reaction. Spoke with Dr. Love - irene to stop clindamycin at this point. Kristi notified. documented in this encounterOhioHealth Nelsonville Health Center08-29-2025 Telephone encounter Note* Telephone Encounter - Morenita Angeles - 04/11/2025 10:25 AM EDT Kristi jalloh called in regarding patient stated when patient went to the ER he was put on two antibiotics then after surgery Doctor love placed patient on another antibiotic patient is taking 3 antibiotics in total kristi stated patient is on doxycycline 100mg, clindamycin 300mg and keflex 500mggave [phone] as a good callback number to discuss and stated if she does not answer to abi dow a detailed voice message [facility] [employer] [id number] Telephone encounter Note* Telephone Encounter - Sherin Bustamante PA-C - 04/11/2025 10:25 AM EDT Spoke with Kristi - He was reportedly prescribed doxycycline from [facility] for BLE cellulitis started 04/01/25. He was also seen in the [place] ER the day prior to evaluation in our office and prescribed [id number] TID for UTI/prostate issues/kidney stone - has since passed stone and is established with urologist. Clindamycin was prescribed for post op prophylaxis due to PCN reaction. Spoke with Dr. Love - ok to stop clindamycin at this point. Kristi notified. [employer] Work Phone: 1(480) 916-179908-20-2025 Miscellaneous Notes* Telephone Encounter - Jayla Lazo RN - 04/02/2025 1:45 PM EDT Pre/postop instructions provided for upcoming outpatient surgery-ORIF Left Olecranon Fx scheduled with Dr Love on 04-09-2025 9 am. Arrival time is 7 am Entrance [facility]. Check in at the Information Desk [...] water. Postop appt provided. documented in this encounterOhioHealth Nelsonville Health Center08-20-2025 Telephone encounter Note* Telephone Encounter - Jayla Lazo RN - 04/02/2025 1:45 PM EDT Pre/postop instructions provided for upcoming outpatient surgery-ORIF Left Olecranon Fx scheduled with Dr Love on 04-09-2025 9 am. Arrival time is 7 am Entrance B @ [facility]. Check in at the Information Desk and then you'll de directed to the second floor. Nothing to eat/drink after midnight on 04-09-2025. May brush his teeth but limit the water and no gum, mints ect... Patient to hold his Ibuprofen starting on 04-06-2025. Patient to take his Losartan the morning of surgery with a sip of water. Postop appt provided. [facility]08-18-2025 History of Present illness Narrative* Margot Bellamy PA-C - 03/31/2025 10:30 AM EDT Chief complaint: left elbow fracture Date of [...] to left upper extremity in a splint. P atient states that he has not been aggressively [...] Resource Strain: Low Risk (08/11/2021) Received from [facility] Overall Financial Resource Strain (CARDIA) Difficulty of Paying Living Expenses: Not hard at all Food Insecurity: No Food Insecurity (03/21/2025) Hunger Screening Food Insecurity - Worry: Never True Food Insecurity - Inability: Never True Transportation Needs: No Transportation Needs (10/23/2019) Received from [facility] PRAPARE - Transportation Lack of Transportation [...] Bellamy PA-C 03/31/25 1527 documented in this encounterFulton County Health CenterDataLocker [facility] HospitalFbewbr93-84-7776 Miscellaneous Notes* Telephone Encounter - Vickey Joe - 03/28/2025 10:31 AM EDT Patient called he has an appointment on Monday and surgery on Monday. He lives over [place] hour away and lives alone.Has to get transportation. He was wondering if he could be admitted Monday for his surgery * Telephone Encounter - Jayla Lazo RN - 03/28/2025 10:31 AM EDT Spoke with Patient and informed him that Dr Love normally does not admit the day before surgery unless there medical need to . Patient states that he lives 1 [place]/2 hours away . I informed patient that he could a hotel room the night prior. Patient verbalizes understanding of above. Appt is scheduled on 03-31-2025 10:[address] Love documented in this encounterFulton County Health CenterDataLocker [facility] HospitalUalqcl83-35-2678 Telephone encounter Note* Telephone Encounter - Vickey Joe - 03/28/2025 10:31 AM EDT Patient called he has an appointment on Monday and surgery on Monday. He lives over an hour away and lives alone.Has to get transportation. He was wondering if he could be admitted Monday for his surgery [facility]08-15-2025 Telephone encounter Note* Telephone Encounter - Jayla Lazo RN - 03/28/2025 10:31 AM EDT Spoke with Patient and informed him that Dr Love normally does not admit the day before surgery unless there medical need to . Patient states that he lives 1 [place]/2 hours away . I informed patient that he could a hotel room the night prior. Patient verbalizes understanding of above. Appt is scheduled on 03-31-2025 10:[address] Love [facility]08-14-2025 Miscellaneous Notes* Telephone Encounter - Jayla Lazo RN - 03/27/2025 4:26 PM EDT Patient has a Left Olecranon Fracture. Appt with Dr Love is 03-31-2025 Left message at Patient's PCP's office for need of Medical Clearance/fax number. documented in this encounterOhioHealth Nelsonville Health Center08-14-2025 Telephone encounter Note* Telephone Encounter - Jayla Lazo RN - 03/27/2025 4:26 PM EDT Patient has a Left Olecranon Fracture. Appt with Dr Love is 03-31-2025 Left message at Patient's PCP's office for need of Medical Clearance/fax number. [facility]08-14-2025 Miscellaneous Notes* Telephone Encounter - Jayla Lazo RN - 03/27/2025 1:08 PM EDT Appt scheduled on Monday03-31-2025 10:30 am documented in this encounterOhioHealth Nelsonville Health Center08-14-2025 Telephone encounter Note* Telephone Encounter - Jayla Lazo RN - 03/27/2025 1:08 PM EDT Appt scheduled on Monday03-31-2025 10:30 am [facility]08-13-2025 Miscellaneous Notes* Telephone Encounter - Jayla Lazo RN - 03/26/2025 4:05 PM EDT Received a call from Sakina at Dr Andrews's office about Mr Clarke who has a Comminuted displaced fracture of the left olecranon and wants to refer to Dr Love for operative management. Spoke with patient about scheduling an appt with Dr Love tomorrow 03-27-2025 - patient declined. I explained that tomorrow would just [...] to keep me informed. documented in this encounterOhioHealth Nelsonville Health Center08-13-2025 Telephone encounter Note* Telephone Encounter - Jayla Lazo RN - 03/26/2025 4:05 PM EDT Received a call from Sakina at Dr Andrews's office about Mr Clarke who has a Comminuted displaced fracture of the left olecranon and wants to refer to Dr Love for operative management. Spoke with patient about scheduling an appt with Dr Love tomorrow 03-27-2025 - patient declined. I explained that tomorrow would just [...] Sakina to keep me informed. [facility] [employer] [id number] Evaluation note* Diagnosis Onset Date Resolution Status Admit Date Fracture of left olecranon process acuteAugust 2024 1:38pm [facility] Work Phone: 1(425) 832-422808-12-2025 Evaluation note* Diagnosis Onset Date Resolution Status Admit Date Fracture of left olecranon process acuteAugust 2024 1:38pmBilateral knee painacuteAugust 2024 2:03pm 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acuteAugust 2024 2:03pmFoot drop, rightacuteAugust 2024 2:03pmHypertensionacuteAugust 2024 2:03pmType 2 diabetes mellitusacuteAugust 2024 2:03pm [facility] Work Phone: 1(527) 933-206408-12-2025 Evaluation note* Diagnosis Onset Date Resolution Status Admit Date Fracture of left olecranon process acuteAugust 2024 1:38pm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 acuteAugust 2024 2:03pmFoot drop, rightacuteAugust 2024 2:03pm Fracture of left olecranon processacuteAugust 2024 2:03pmHypertensionacute March 31, 2025 2:03pmPre-op evaluationacuteAugust 2024 2:03pmType 2 diabetes mellitusacuteAugust 2024 2:03pm [facility] Work Phone: 1(102) 248-548108-12-2025 Evaluation note* Diagnosis Onset Date Resolution Status Admit Date Fracture of left olecranon process acuteAugust 2024 1:38pm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 acuteAugust 2024 2:03pmFoot drop, rightacuteAugust 2024 2:03pm Fracture of left olecranon processacuteAugust 2024 2:03pmHypertensionacute March 31, 2025 2:03pmPre-op evaluationacuteAut 2024 2:03pmType 2 diabetes mellitusacuteAut 2024 2:03pmKidney calculusacuteSept2024 11:11amS/P ORIF (open reduction internal fixation) fractureacute April 23, 2025 11:11amType 2 diabetes mellitusacuteSept2024 11:11am [facility] Work Phone: 1(442) 738-212108-04-2025 NotePatient Education Infectious Disease Prostatitis Prostatitis is [...] A digital rectal exam. For this, the [facility] care provider may use a finger to [...] these instructions at home: Medicines ??? Take gwpf-hyx-cnmhpub and prescription medicines only as told by [...] Resolution Status Admit Date Bilateral knee pain acuteFebruary 2024 9:43am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 acuteFebruary 2024 9:43amFoot drop, rightacuteFebruary 2024 9:43am HypertensionacuteFebruary 2024 9:43amType 2 diabetes mellitusacuteFebruary 2024 9:43am [facility] Work Phone: 1(901) 259-124112-02-2024 Evaluation note* Diagnosis Onset Date Resolution Status Admit Date Cellulitis of left leg without foot acuteDecember 2023 5:45pmElevated blood pressure readingacuteDecember 2023 5:45pm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acuteDecember 2023 8:56amHypertensionacuteDecember 2023 8:56amScreening for prostate canceracuteDecember 2023 8:56amType 2 diabetes mellitusacuteDecember 2023 8:56amBilateral knee painacuteFebruary 2024 9:43am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acuteFebruary 2024 9:43amFoot drop, right acuteFebruary 2024 9:43amHypertensionacuteFebruary 2024 9:43amType 2 diabetes mellitusacuteFebruary 2024 9:43am [facility] Work Phone: Evaluation note* Diagnosis Onset Date Resolution Status Admit Date Fracture of left olecranon process acuteAugust 2024 1:38pm [facility] Work Phone: Evaluation note* Diagnosis Olecranon fracture, left, closed, initial encounter- Primary Preop testing Unspecified pre-operative examination Other specified diabetes mellitus with other specified complication, unspecified whether long term care pharmacist insulin use ([facility]) [facility] Diagnosis Closed fracture of olecranon process of left ulna, initial encounter- Primary [facility] this [facility] Diagnosis Olecranon fracture, left, closed, initial encounter- Primary Closed fracture of olecranon process of left ulna with routine healing, subsequent encounter [facility] Diagnosis Closed fracture of olecranon process of left ulna with routine healing, subsequent encounter- Primary [facility] Diagnosis Closed fracture of olecranon process of left ulna with routine healing, subsequent encounter- Primary [facility] Diagnosis Closed fracture of olecranon process of left ulna with routine healing, subsequent encounter- Primary [facility] Diagnosis Closed fracture of olecranon process of left ulna with routine healing, subsequent encounter- Primary [facility] Diagnosis Closed fracture of olecranon process of left ulna with routine healing, subsequent encounter- Primary [facility] Dis[facility] instructionsAmbulatory Orders* Referral to Orthopedic Surgery Time Frame: 10/01/24, Location: None [facility] Work Phone: Hospital Discharge instructionsAmbulatory Orders* Referral to Home Health ([facility]) Time Frame: 04/23/25, Location: None [facility] Work Phone: InstructionsNot on filedocumented [...] for referral (narrative)No reason for referral [facility] Work Phone: Summary Purpose Family History No Family History Records Found Relationship Condition Age at Onset Recorded Date/T koko father Malignant neoplasm Unknown motherMalignant neoplasmUnknownpaternal grandmotherDiabetes mellitusUnknown Advance Directives No Advanced Directives Records Found [...] 03pm Fracture of left olecranon process Augus 2024 2:03pm Hypertension March 31, 2025 2: 03pm Pre-op evaluation March 31, 2025 2: 03pm Type 2 diabetes mellitus March 31 2:03pm Chief Complaint Admit Date [facility] March 25, 2025 1:38pm [id number] surgical planning March 26, 2025 1:33pm Surgery Clearance March 31, 2025 2: 03pm Amb Documentation April 10, 2025 11 :23am Amb Documentation April 21, 2025 3:08pm Chief Complaint Admit Date [facility] March 25, 2025 1:38pm [id number] surgical planning March 26, 2025 1:33pm Surgery Clearance March 31, 2025 2: 03pm Amb Documentation April 10, 2025 11 :23am Amb Documentation April 21, 2025 3:08pm Discuss HH options April 23, 2025 11:11am Reason for Visit Admit Date Fracture of left olecranon process Augus t 2024 1:38pm 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 March 31, 2025 2:03pm Foot drop, right March 31, 2025 2: 03pm Fracture of left olecranon process Augus 2024 2:03pm Hypertension March 31, 2025 2: 03pm Pre-op evaluation March 31, 2025 2: 03pm Type 2 diabetes mellitus March 31 2:03pm Kidney calculus April 23, 2025 11:11am S/P ORIF (open reduction internal fixati on) fracture April 23, 2025 11:11am Type 2 diabetes mellitus April 23, 2025 11:11am Additional Source Comments (unrecognized sect ion and content) No Status Records FoundNo Status Records FoundNo Status Records FoundNo Status Records FoundNo Status Records FoundNo Status Records FoundNo Status Records FoundNo Status Records Found INFORMATION SOURCE (unrecogn ized section and content) DATE CREATED AUTHOR 08/12/2021 [facility] DATE CREATED AUTHOR AUTHOR'S ORGANIZ ATION 03/30/2025 [facility] DATE CREATED AUTHOR AUTHOR'S ORGANIZ ATION 04/02/2025 [facility] DATE CREATED AUTHOR AUTHOR'S ORGANIZ ATION 04/25/2025 [facility] DATE CREATED AUTHOR AUTHOR'S ORGANIZ ATION 05/22/2025 [facility] DATE CREATED AUTHOR AUTHOR'S ORGANIZ ATION 05/28/2025 [facility] DATE CREATED AUTHOR AUTHOR'S ORGANIZ ATION 05/31/2025 [facility] DATE CREATED AUTHOR AUTHOR'S ORGANIZ ATION 06/13/2025 [facility] Care Teams (unrecognized sec tion and content) Team Status: Active Member Role Status Dates Lucie Augustin APRN AREA COUNSELOR-C Primary Care Provider Active Team Status: Inactive Member Role Status Dates Bisi Christianson MD Primary Care Provider Active Start: July 15, 2024 End: July 15, 2024Megan Candelaria ProviderActiveStart: July 15, 2024 End: July 15, 2024 Team Status: Inactive Member Role Status Dates Graciela Angelo APRN Attending Provider Active Start: July 15, 2024 End: July 15, 2024 Team Status: Inactive Member Role Status Dates Lucie Augustin APRN AREA COUNSELOR-C Primary Care Provider, Attending Provider Active Start: July 30, 2024 End: July 30, 2024 Team Status: Active Member Role Status Dates Lucie Augustin APRN AREA COUNSELOR-C Primary Care Provider, Attending Provider Active Start: August 13, 2024 Team Status: Inactive Member Role Status Dates Lucie Augustin APRN AREA COUNSELOR-C Primary Care Provider, Attending Provider Active Start: October 01, 2024 End: October 01, 2024 Team Status: Inactive Member Role Status Dates Lucie Augustin APRN AREA COUNSELOR-C Primary Care Provider, Attending Provider Active Start: November 04, 2024 End: November 04, 2024 Team Status: Inactive Member Role Status Dates Lucie Augustin APRN AREA COUNSELOR-C Primary Care Provider Active Start: March 25, 2025 End: March 25omas Olexa , MDAttending ProviderActiveStart: March 25, 2025 End: March 25, 2025Team MemberRelationshipSpecialtyStart DateEnd Date Lucie Augustin APRN-AREA COUNSELOR [address] [place] [address] PCP - GeneralNurse Practitioner03/21/25 Team Status: Inactive Member Role Status Dates Lucie Augustin APRN AREA COUNSELOR-C Primary Care Provider Active Start: March 26, 2025 End: March 26omas Olexa , MDAttending ProviderActiveStart: March 26, 2025 End: March 26, 2025Team MemberRelationshipSpecialtyStart DateEnd Date Lucie Augustin APRN-AREA COUNSELOR [address] [place] [address] PCP - GeneralNurse Practitioner03/21/25Team MemberRelationshipSpecialtyStart Date End Date Lucie Augustin APRN-AREA COUNSELOR [address] [place] [address] PCP - GeneralNurse Practitioner03/21/25Team MemberRelationshipSpecialtyStart Date End Date Lucie Augustin APRN-AREA COUNSELOR [address] [place] [address] PCP - GeneralNurse Practitioner03/21/25 Team Status: Inactive Member Role Status Dates Lucie Augustin APRN AREA COUNSELOR-C Primary Care Provider Active Start: March 31, 2025 End: March 31, 2025Lucie Augustin APRN AREA COUNSELOR-CAttending ProviderActive Start: March 31, 2025 End: March 31, 2025Team MemberRelationshipSpecialtyStart DateEnd Date Lucie Augustin APRN-NP [address] [place] [address] PCP - GeneralNurse Practitioner03/21/25Team MemberRelationshipSpecialtyStart Date End Date Lucie Augustin APRN-NP [address] [place] [address] PCP - GeneralNurse Practitioner03/21/25 Team Status: Active Member Role Status Dates Lucie Augustin APRN AREA COUNSELOR-C Primary Care Provider Active Start: April 08, 2025 Rafia Blandon ProviderActiveStart: April 08, 2025 Team MemberRelationshipSpecialtyStart DateEnd Date Lucie Augustin APRN-NP [address] [facility] [place] [address] PCP - GeneralNurse Practitioner03/21/25Team MemberRelationshipSpecialtyStart Date End Date Lucie Augustin APRN-NP [address] [place] [address] PCP - GeneralNurse Practitioner03/21/25 Team Status: Active Member Role Status Dates Georgina Ramirez CMA Attending Provider Active Start: April 10, 2025 Team Status: Active Member Role Status Dates Lucie Augustin APRN AREA COUNSELOR-C Primary Care Provider Active Start: April 202024 Chapincito Lockwood , DOAttending ProviderActiveStart: April 20, 2025 Team Status: Active Member Role Status Dates Lucie Augustin APRN AREA COUNSELOR-C Primary Care Provider Active Start: April 212024 Georgina Ramirez CMAAttending ProviderActiveStart: April 21, 2025 Team Status: Inactive Member Role Status Dates Lucie Augustin APRN AREA COUNSELOR-C Primary Care Provider Active Start: April 142024 End: April 23, 2025Lucie Augustin APRN AREA COUNSELOR-CAttending ProviderActive Start: April 23, 2025 End: April 23, 2025Team MemberRelationshipSpecialtyStart DateEnd Date Lucie Augustin APRN-AREA COUNSELOR [address] [place] [id number] PCP - GeneralNurse Practitioner03/21/25Team MemberRelationshipSpecialtyStart Date End Date Lucie Augustin APRN-AREA COUNSELOR [address] [place] [address] PCP - GeneralNurse Practitioner03/21/25Team MemberRelationshipSpecialtyStart Date End Date Lucie Augustin APRN-AREA COUNSELOR [address] [place] [address] PCP - GeneralNurse Practitioner03/21/25Team MemberRelationshipSpecialtyStart Date End Date Lucie Augustin APRN-AREA COUNSELOR [address] [place] [address] PCP - GeneralNurse Practitioner03/21/25Team MemberRelationshipSpecialtyStart Date End Date Lucie Augustin APRWILLIAM [address] [facility] [place] [address] PCP - GeneralNurse Practitioner03/21/25 Goals (unrecognized section and content) Goals may [...] encounterGoals may be documented in an alternate sectionGoals may be documented in an alternate sectionNot on filedocumented as of this encounterNot on filedocumented as of this encounterNot on filedocumented as of this encounterNot on filedocumented as of this encounterNot on filedocumented as of this encounter Reason for Visit (unrecogniz ed section and content) ReasonCommentsNew PatientLT elbow fx, ER 03/21/2025,Referral Dr Andrews,XRAY IN [place]PLINTPainReasonCommentsPost-opS/p ORIF Left Olecranon Fx, XRD-OOS(Have [facility] approval for hinged elbow brace)Post-opReasonCommentsEstablish CareF/u 2 wks,ORIF Left Olecranon Fx, XRD IN BRACEFollow-upReasonCommentsEstablish CareF/u 3 wks,ORIF Left Olecranon Fx , XRD(Workers Comp)Follow-up FOR RECORDS PERTAINING TO PATIENTS WHO ARE [...] BE BASED ON THE PRIMARY CLINICAL RECORDS. [facility]. provides no warranty or guarantee of the accuracy or completeness of information in this document.
== END 2025-06-24 14:39 | disposition home or self-care (01) ==
LOC: WC 14:38
PROVIDERS: PCP Nurse Practitioner Family; Visit Provider Physician Assistant
DX: I87.311 Chronic venous hypertension (idiopathic) with ulcer of right lower extremity (principal); L97.811 Non-pressure chronic ulcer of other part of right lower leg limited to breakdown of skin
CPT/HCPCS: G0463

== ENCOUNTER 2025-08-13 09:22 | Outpatient (OUT) | payer MEDICARE, SELFPAY ==
--- OUTSIDE RECORDS SUMMARY | 2025-08-13 09:27 | XMS_ITS | Clinical Summary ---
Author Organization [facility] Address [address] [place] [address] Care Team Providers Care Rubber Turner Name Role Phone Unavailable Primary Care Provider Unavailabl e Social History Tobacco UseTypesPacks/DayYears UsedDateSmoking Tobacco: Never AssessedSex and Gender InformationValueDate RecordedSex Assigned at BirthNot on fileLegal Sex Male10/26/2022 8:26 PM EDTGender IdentityNot on fileSexual OrientationNot on file Last Filed Vital Signs Vital SignReadingTime TakenCommentsBlood Itxifvwu401/7011 12:00 PM EST Pulse--Temperature--Respiratory Rate--Oxygen Saturation--Inhaled Oxygen Concentration--Fyxyxg278 kg (309 lb)07/02/2019 12:00 PM GUTRpjnqu468.2 cm (5' 7 )07/02/2019 12:00 PM ESTBody Mass Index48. 12:00 PM EST Plan of Treatment Not on file
--- OUTSIDE RECORDS SUMMARY | 2025-08-13 09:27 | XMS_ITS | Clinical Summary ---
Author Organization [facility] Address [address], [address] [place] [address] Care Team Providers Care Behavioral Medical Director Name Role Phone Robin Perry [facility] Primary Care Provider [phone] Allergies Active AllergyReactionsCriticalityNoted LtnwPvfthkogFmriwluptyaMtjqx12/20/2011 Medications MedicationSigDispense QuantityRefillsLast FilledStart DateEnd DateStatus Elastic [...] Active Problems ProblemNoted DateDiagnosed DateHistory of colon afvlrf5604/03/2017Family history of colon kbffwe6904/03/2017Metabolic dgrcuatr59/26/6525Qtphrvxbffwd65/26/2016 Elevated PSA01/07/2016Essential hypertension, nrxrhk7706/02/2011Pure jiycdtkmabcyvelekcyy66/20/2011Impaired fasting avfvvlm2006/02/2011 Resolved Problems ProblemNoted DateDiagnosed DateResolved DateEncounter for screening colonoscopy Immunizations ImmunizationAdministration DatesNext DueInfluenza Vaccine, unspecified hnytphkaiwh93/17/2017Influenza, FLUARIX, FLULAVAL, FLUZONE (age 6 mo+) and [...] Date RecordedSex Assigned at BirthNot on fileLegal PcjWxmx6809/23/2012 2:52 PM EST Gender IdentityNot on fileSexual OrientationNot on file Last Filed Vital Signs Vital SignReadingTime TakenCommentsBlood Anthilvg688/8203 8:16 AM EDT Drfln081310/23/2019 8:16 AM DUJLhuhyolzuhq80.9 ??C (98.5 ??F)10/23/2019 8:16 AM EDTRespiratory Pcft208604/11/2017 4:56 PM EDTOxygen Flvaxeaeoe93%10/23/2019 8:16 AM EDTInhaled Oxygen Concentration--Ueqhzk430.9 kg (337 lb)10/23/2019 8:16 AM PFCOeictv012.2 cm (5' 7 )10/23/2019 8:16 AM EDTBody Mass Index52.78010/23/2019 8:16 AM EDT Plan of Treatment Not on file Insurance Advance Directives * Full Code (Latest Code Status on File) Date ActivatedDate InactivatedComments04/03/2017 11:52 AM04/03/2017 3:03 PM * Full Code Date ActivatedDate InactivatedComments04/03/2017 9:08 AM04/03/2017 11:52 AM Care Teams Team MemberRelationshipSpecialtyStart DateEnd Date Robin Perry DNP [address] [place] [phone] PCP - GeneralFamily Nurse Practitioner01/02/18
--- OUTSIDE RECORDS SUMMARY | 2025-08-13 09:27 | XMS_ITS | CCD ---
Author Organization [facility] Care Team Providers Care Forensic Ballistics Expert Name Role Phone OJPARRISMary KateREGGIE Referring Unavailable CLINREGGIE ROJAS Michoacano Primary Care Unavailable Graciela Angelo APRN Attending Provider [phone] Lucie Augustin APRN Primary Care Provider Dwight Andrews MD Attending Provider Eleuteriorbachehalina MONET-MOLD BURNER, [facility] er LUCIE AUGUSTIN Primary Care Unavailable MARCOS MENDOZA Attending Unavailable MARY LUCIE Primary Care Unavailable OLEKSANDR LOVE Referring Unavailable ELEUTERIORBACHEHalina LUCIE Primary Care Unavailable OLEKSANDR LOVE Referring Unavailable Rohrbacher Lucie MONET Attending Provider [phone] LUCIE AUGUSTIN Referring Unavailable MARY LUCIE Primary Care Unavailable Chapincito Lockwood DO Attending Provider Georgina Ramirez CMA Attending Provider Unavaila Chapincito Euceda Attending Unavailable Chapincito Lockwood Admitting Unavailable Lucie Augustin Primary Care Unavailable Dwight Andrews Attending Unavailable Dwight Andrews Admitting Unavailable Graciela Angelo Admitting Unavailable Graciela Angelo Attending Unavailable Chapincito Lockwood Attending Unavailable Chapincito Lockwood Admitting Unavailable Marcos ROCK Attending Unavailable Marcos ROCK Admitting Unavailable Marcos ROCK Attending Unavailable Marcos ROCK Admitting Unavailable Rohrbacher TIERNEY-MOLD BURNER, LucieAcad[facility] Healthcare er OLEKSANDR LOVE Referring Unavailable LUCIE AUGUSTIN [...] of OnsetReaction(s) Facility (20 sources)Penicillin; Translations: [PENICILLIN]Drug [id number] [facility] (1 source)PenicillinsDrug allergy (disorder)54-43-3775GyhylcissOhiohealth Arthur [facility] Repository Medications Current Medications MedicationDrug Class(es)DatesSig (Normalized)Sig (Original)acetaminophen 500 mg oral tablet (7 sources)Start: 79-73-4077txqv 1 tablet by mouth every six hours as needed for painacetaminophen (TYLENOL EXTRA STRENGTH) 500 mg tablet Take 1 tablet (500 mg total) by mouth every 6 (six) hours as needed for pain. 30 tablet 04/09/2025 Activecalcium ascorbate 500 mg oral tablet (8 sources)Start: 42-00-0538khpm 1 tablet by mouth once dailyAscorbate Calcium (Vitamin C) 500 mg tablet Active 500 MG PO Daily July 15, 2024 1:00am Complies with drug therapycholecalciferol 0.05 mg oral capsule (8 sources)Vitamin DStart: 65-08-3945drnv 1 capsule by mouth once daily Cholecalciferol (Vitamin D3) 50 mcg (2,000 unit) capsule Active 50 MCG PO Daily July 15, 2024 1:00am Complies with drug therapyclindamycin 300 mg oral capsule (1 source)Lincosamide AntibacterialStart: 04-09-2025 End: 38-89-1818yvox 1 capsule by mouth three times dailyclindamycin (CLEOCIN) 300 mg capsule Take 1 capsule (300 mg total) by mouth 3 (three) times a day for 5 days. 15 capsule 04/09/2025 04/14/2025 Activedoxycycline hyclate 100 mg oral capsule (19 sources)Tetracycline-class DrugStart: 13-27-8759dhce 1 capsule by mouth twice dailyDoxycycline Hyclate 100 mg capsule Active 100 MG PO Twice daily March 31, 2025 12:00am Complies with drug therapyStart: 07-15-2024 End: 86-33-1562rayh 1 capsule by mouth twice dailyDoxycycline Hyclate [...] sulfate 500 mg oral tablet (8 sources)Start: 78-80-3806tyxh 1 tablet by mouth once dailyGlucosamine Sulfate [...] (20 sources)Angiotensin 2 Receptor BlockerStart: 08-28-2024 End: 55-55-3555cywt 1 tablet by mouth once dailyLosartan 50 mg tablet Active 0 .ROUTE .COMPLEX 90 March 18, 2025 7:42am TAKE 1 TABLET BY MOUTH EVERY DAY Complies with drug therapyStart: 07-30-2024 End: 21-75-4203oqyo 1 tablet by mouth once dailyLosartan 50 mg tablet Discontinued 50 MG PO Daily 30 July 30, 2024 1:00am August 28, 2024 4:56ixOshraobxdtgc-Xxpp-Fdfvt Acid (Multi-Day With Iron) 18-400 mg-mcg Tablet (8 sources)Start: 26-34-0901wejj 1 tablet by mouth once dailyStart: 06-29-2018 take 1 tablet by mouth once uprkcEcgbcakzunqz-Oler-Gbfrr Acid (Multi-Day With Iron) 18-400 mg-mcg Tablet Active 1 TAB PO Daily June 29, 2018 1:00am Complies with drug therapyStart: 95-26-0291znyd 1 tablet by mouth once daily Voyucnxhqona-Ipxq-Ignwm Acid (Multi-Day With Iron) 18-400 mg-mcg Tablet Active 1 TAB PO Daily June 29, 2018 1:00amStart: 67-53-8540jeoj 1 tablet by mouth once sgvkuSdcfjzqfosdl-Cune-Ilfmm Acid (Multi-Day With Iron) 18-400 mg-mcg Tablet Active 1 TAB PO Daily June 29, 2018 12:00amoxyCODONE hydrochloride 5 mg oral tablet (9 sources)Opioid AgonistStart: 04-09-2025 End: 81-88-8135gozc 1 tablet by mouth every six hours [...] 28 tablet 04/09/2025 04/16/2025 ActiveStart: 07-06-2018 End: 60-97-5792eomp 1 tablet by mouth every six hours as needed for pain Oxycodone (Roxicodone) 5 mg Tablet Discontinued 1 - 2 TAB PO Q6H as needed for Pain 60 July 06, 2018 July 15, 2024 7:21pmtamsulosin hydrochloride 0.4 mg oral capsule (19 sources)alpha-Adrenergic BlockerStart: 98-77-2923Vvsradntuh 0.4 mg capsule Active MG PO March 31, 2025 12:00am Complies with drug therapyvitamin e 100 unt oral capsule (8 sources)Start: 16-23-4412yrha 1 capsule by mouth once dailyVitamin E (Dl, Acetate) 45 mg (100 unit) capsule Active 45 MG PO Daily July 15, 2024 1:00am Complies with drug therapyzinc gluconate 30 mg oral tablet (8 sources)Start: 30-68-4703elqk 1 tablet by mouth once dailyZinc Gluconate 30 mg tablet Active 30 MG PO Daily July 15, 2024 1:00am Complies with drug therapy Completed/Discontinued Medications MedicationDrug Class(es)DatesSig (Normalized)Sig (Original)cyclobenzaprine hydrochloride 10 mg oral tablet (8 sources)Muscle RelaxantStart: 07-06-2018 End: 92-47-1231cvhk 1 tablet by mouth three times daily as needed for muscle spasmsCyclobenzaprine 10 mg tablet Discontinued 10 MG PO Three times daily as needed for back spasms 50 July 06, 2018 1:00am July 15, 2024 7:20pm lisinopril 20 mg oral tablet (8 sources)Angiotensin Converting Enzyme InhibitorStart: 06-29-2018 End: 87-43-0927srus 1 tablet by mouth once dailyLisinopril 20 mg Tablet Discontinued 20 MG PO Daily June 29, 2018 1:00am July 15, 2024 7:22pm predniSONE 10 mg oral tablet (8 sources)Start: 07-06-2018 End: 51-50-2493Csriufupfd 10 mg tablets,dose pack Discontinued 1 dose [...] Reductase Inhibitor Antibacterial, Sulfonamide AntimicrobialStart: 07-06-2018 End: 67-04-5929tjzq 1 tablet by mouth every twelve hoursSulfamethoxazole- Trimethoprim (Bactrim Ds) 800-160 mg Tablet Discontinued 1 TAB PO Q12H 2017 1:00am July 15, 2024 7:22pmTurmeric extract (8 sources)Start: 06-29-2018 End: 45-75-5562qkim 1 capsule by mouth once dailyTurmeric 400 mg Capsule Discontinued 400 MG PO Daily June 29, 2018 1:00am July 15, 2024 7 :22pmStart: 06-29-2018 End: 28-19-2793hqfv 1 capsule by mouth once dailyTurmeric 400 mg Capsule Discontinued 400 MG PO Daily June 29, 2018 12:00am July 15, 2024 6:22pm Problems Active Problems Problem ClassificationProblemDateDocumented DateEpisodic/ChronicAcquired foot deformities (14 sources)Foot-drop; Translations: [Foot drop, right foot]67-90-8261Tzqttzip Calculus of urinary tract (2 sources)Kidney stone; Translations: [Calculus of kidney]39-20-1777Qeacwqeu Diabetes mellitus with complications (16 sources)Ulcer of skin of lower extremity; Translations: [Type 2 diabetes mellitus with other skin ulcer]42-11-5243QhceqjlLmndxsr on above:Left lower leg Diabetes mellitus with complications (1 source)Diabetes mellitus with complicationsDiabetes mellitus without complication (16 sources)Type 2 diabetes mellitus; Translations: [Type 2 diabetes mellitus without complications]94-15-1280MryqaikB Codes: Fall (1 source)FallOnset: 77-12-4254Iesfdajti hypertension (15 sources)Hypertensive disorder; Translations: [Essential (primary) hypertension]89-81-2224DfhpzfiKwvwhaym of upper limb (20 sources)Displaced fracture of olecranon process without intraarticular extension of left ulna, initial encounter for closed fracture; Translations: [Fracture of left olecranon process]Onset: 535171-93-2761VjkaqjxlHfhtc acquired deformities (8 sources)Acquired spondylolisthesis; Translations: [Spondylolisthesis, lumbosacral region]79-79-0976WqlipyhfEorblhl on above:Problem List clean-up per request of Phys. EHR CmteOther circulatory disease (8 sources)Elevated blood pressure; Translations: [Elevated blood-pressure reading, without diagnosis of hypertension]15-85-3883XjlrizvvMxuss circulatory disease (1 source)Elevated blood-pressure reading, without diagnosis of hypertension; Translations: [Elevated blood pressure reading without diagnosis of hypertension]11-87-0049DvrlvfbuUygvb non-traumatic joint disorders (11 sources)Pain in right knee; Translations: [Pain in both knees]10-01-2024 EpisodicOther screening for suspected conditions (not mental disorders or infectious disease) (9 sources)Patient encounter status; Translations: [Encounter for screening for malignant neoplasm of prostate]96-42-6655LjtufzkjPwlzcvca codes; unclassified (1 source)Pain, unspecified; Translations: [Pain, unspecified]Onset: 03-26-2025 EpisodicResidual codes; unclassified (2 sources)History of operation on musculoskeletal system; Translations: [Other specified postprocedural states]33-99-3882BzvcwjnzCdbruwep codes; unclassified (1 source)PainOnset: 47-78-8992LfxhtkdyEtpmdsaurmp; intervertebral disc disorders; other back problems (8 sources)Spinal stenosis of lumbar region; Translations: [Spinal stenosis, lumbar region without neurogenic claudication]69-91-7664FsnnjnbpElnalje on above:Problem List clean-up per request of Phys. EHR CmteUnclassified (1 source)Closed fracture of olecranon process of left avcx03-91-1818 Unclassified (1 source)Patient encounter mvlgyg41-67-5007Xwboofaghpiy (1 source)Fall at workOnset: 01-10-9332Nbyzhdxlromf (1 source)Establish CareOnset: 07-33-8589Fpbtgumdsdmg (1 source)Post-opOnset: 26-50-2558Dsfnheqsvhzo (1 source)Closed fracture of olecranon process of left ulna with routine healing, subsequent encounter [S52.022D]Onset: 97-12-5900Lejiaqwfrvmw (1 source)New PatientOnset: 03-31-2025 Past or Other Problems Problem ClassificationProblemDateDocumented DateEpisodic/ChronicSkin and subcutaneous tissue infections (10 sources)Cellulitis of leg, excluding foot; Translations: [Cellulitis of left lower limb]Onset: 684102-77-8683Ccodycll Results Test NameValueInterpretationReference RangeFacilityXR ELBOW LT 2 VWSon 11-86-1344YC ELBOW LT 2 VWSXR ELBOW LT 2 VWS Comparison May 08 XR ELBOW LT 2 VWS Closed fracture of olecranon process of left ulna with routine healing, subsequent encounter Impression: Stable appearance of fracture morphology and transfixing hardware. Stable positioning and alignment. Finalized by Janes Oliva MD on 05/29/2025 2:29 PMNormalAdena Pike Medical Center HospitalPSA Totalon 49-91-6470OVD Total7.5 ng/mLHigh0.1-3.5[facility] HospitalComment on above:Result Comment: The concentration of PSA determined by different manufacturers can vary due to differences in assay methods and reagent specificity. Values obtained from different assay methods cannot be used interchangeably. The methodology used for this result was chemiluminescence using [employer]'s Access Hybritech PSA reagent.Performed By: #### [id number] #### [facility] [address] [place], [place] [address]UE ELBOW LT 2 VWSon 78-38-0546ON ELBOW LT 2 VWSXR ELBOW LT 2 [...] by Krystle Mendoza MD on 05/12/2025 3:00 PMNormalAdena Pike Medical Center HospitalCalculus Analysison 99-60-2948BH Oxalate, Yasoupsl74 %Invalid Interpretation [facility] HospitalComment on above:Performed By: #### [id number] #### [facility] [address], [place] [address]Nschr (U)TanInvalid Interpretation [facility] HospitalComment on above:Performed By: #### [id number] #### [facility] [address], [place] [address]Khut:9b4Kaheztr Interpretation [facility] Comment on above:Result Comment: Multiple pieces received. Dimensions of the largest piece reported.Performed By: #### [id number] #### [facility] [address], [place] [address]Xowfn SourceCommentInvalid Interpretation [facility] HospitalComment on above:Result Comment: Not providedPerformed By: #### [id number] #### [facility] [address], [place] [address]Lnem Acid.80 %Invalid Interpretation [facility] HospitalComment on above:Result Comment: Performed at: [facility] [address] [id number] PhD Pandey VPerformed By: #### [id number] #### [facility] [address], [place] [address]Ubysfz Calculus Xikuuukr365 mgInvalid Interpretation [facility] HospitalComment on above:Performed By: #### [id number] #### [facility] [address], [place] [address]FP ELBOW LT 2 VWSon 39-25-6247BY ELBOW LT 2 VWSXR ELBOW LT 2 [...] Finalized by Jeovany Fernández on 04/24/2025 11:23 [facility] Basophils Auto (Bld) [#/Vol]Ordered By: Chapincito Lockwood on 26-32-1612Vywwfntgi (Bld) [#/Vol]0.1 10 3/uL0.0-0.1FMiami Valley HospitalBasophils/100 WBC Auto (Bld)Ordered By: Chapincito Lockwood on 09-55-3423Wxwsmdgze/100 WBC (Bld)0.6 % 0.2-2.0[facility], Cancer CenterEosinophils/100 WBC Auto (Bld)Ordered By: Chapincito Lockwood on 61-22-4531Ufoypohevbz/100 WBC (Bld)1.0 %0.9-7.0[facility] Md, Cancer CenterErythrocyte distribution width Auto (RBC) [Ratio]Ordered By: Chapincito Lockwood on 87-82-2790Wcioadrdwfw distribution width (RBC) [Ratio]13.4 % 11.0-15.0[facility] Md, Cancer CenterGlomerular filtration rate (GFR) estimation in non- AmericanOrdered By: Chapincito Lockwood on 79-74-0604ZPP/1.73 sq M.predicted among non-blacks MDRD (S/P/Bld) [Vol rate/Area]mL/min/{1.73_m2} >=60 mL/min/1.73m 2FMiami Valley HospitalHematocrit Auto (Bld) [Volume fraction]Ordered By: Chapincito Lockwood on 63-19-6667Exjsjerndz (Bld) [Volume fraction]45.7 %42.0-54.0[facility], Cancer CenterHemoglobin [Mass/volume] in BloodOrdered By: Chapincito Lockwood on 06-37-7891Jwcxyfubrq (Bld) [Mass/Vol]15.3 g/dL14.0-18.0[facility], Cancer CenterLaboratory - Chemistry and Chemistry - challengeOrdered By: Chapincito Lockwood on 04-20-2025 Bilirubin Ql (U)NegativeNEGATIVEOhiohealth Arthur G.H. Bing, Md, Cancer CenterCalcium [Mass/Vol]9.6 mg/dL8.5-10.1FMiami Valley HospitalChloride [Moles/Vol] 99 mmol/B27-062TgwkxkwyfOhiohealth Arthur G.H. Bing, Md, Cancer CenterCO2 [Moles/Vol]24.7 mmol/L 21.0-32.0[facility], Cancer CenterCreatinine [Mass/Vol]1.17 mg/dL 0.70-1.30[facility] Md, Cancer CenterGFR/1.73 sq M.predicted MDRD (S/P/Bld) [Vol rate/Area]mL/min/{1.73_m2}>=60 mL/min/1.73m 2FMiami Valley HospitalGlucose (U) [Mass/Vol]NegativeNEGATIVEOhiohealth Arthur G.[facility]. [facility] Center Glucose [Mass/Vol]178 mg/eEFtjf85-101VzclsvbjsOhiohealth Arthur G.H. Bing, Md, Cancer CenterKetones Ql (U)NegativeNEGPike Community HospitalpH (U)6.0 [pH]5.0-9.0 [facility] Cancer CenterPotassium [Moles/Vol]4.6 mmol/L3.5-5.1FPremier Health Upper Valley Medical Centerodium [Moles/Vol]136 mmol/Q963-187CxpipywjiGalion Hospitalpecific gravity (U) [Rel density]1.0101.005-1.025Ohio[facility], Cancer CenterUrea nitrogen [Mass/Vol]20.0 mg/dLHigh7.0-18.0[facility], Cancer CenterUrea nitrogen/Creatinine [Mass ratio]17.1 mg/mgOhiohealth Arthur G.H. Bing, Md, Cancer CenterUrobilinogen Qn (U)0.2 {Anuja'U}/dL0.2-1.0[facility], Cancer CenterLaboratory - Hematology and Cell countsOrdered By: Chapincito Lockwood on 60-50-8546Ybrzgfac granulocytes/100 WBC (Bld)2.0 %High0.0-0.5FMiami Valley HospitalLaboratory - Specimen informationOrdered By: Chapincito Lockwood on 44-14-1854Vqzilcydny (U)CLEARCLEARFMiami Valley HospitalColor (U) LT. YELLOWYELLOWOhiohealth Arthur G.H. Bing, Md, Cancer CenterLaboratory - UrinalysisOrdered By: Chapincito Lockwood on 86-89-9157Fnyiycmga esterase Test strip Ql (U)LARGEAbnormal NEGATIVEOhiohealth Arthur G.H. Bing, Md, Cancer CenterMucus Ql (Urine sed)TRACEAbnormalNONE SEENOhiohealth Arthur G.H. Bing, Md, Cancer CenterNitrite Ql (U)NegativeNEGATIVEOhiohealth Arthur G.H. Bing, Md, Cancer CenterProtein Ql (U)TRACE mg/dLNEG/TRACEOhiohealth Arthur G.H. Bing, Md, Cancer CenterLeukocytes [#/volume] corrected for nucleated erythrocytes in Blood by Automated counOrdered By: Chapincito Lockwood on 63-55-7949NXG corrected for nucl RBC Auto (Bld) [#/Vol]12.7 10 3/uLHigh4.0-11.0[facility], Cancer CenterLymphocytes Auto (Bld) [#/Vol]Ordered By: Chapincito Lockwood on 04-20-2025 Lymphocytes (Bld) [#/Vol]1.4 10 3/uL1.2-3.8[facility] Lymphocytes/100 WBC Auto (Bld)Ordered By: Chapincito Lockwood on 04-20-2025 Lymphocytes/100 WBC (Bld)11.0 %Low20.5-60.0Pike Community HospitalH Auto (RBC) [Entitic mass]Ordered By: Chapincito Lockwood on 92-31-7188HBW (RBC) [Entitic mass]30.8 pg25.9-34.0[facility], Cancer CenterMCHC Auto (RBC) [Mass/Vol]Ordered By: Chapincito Lockwood on 17-27-9863DHTN (RBC) [Mass/Vol]33.5 g/dL 29.9-35.2FMiami Valley HospitalMCV Auto (RBC) [Entitic vol]Ordered By: Chapincito Lockwood on 21-15-1513XDA (RBC) [Entitic vol]92.1 fL80.0-94.0[facility], Cancer CenterMonocytes Auto (Bld) [#/Vol]Ordered By: Chapincito Lockwood on 10-55-5582Jkyidwxdl (Bld) [#/Vol]0.9 10 3/uLHigh0.3-0.8[facility], Cancer CenterMonocytes/100 WBC Auto (Bld)Ordered By: Chapincito Lockwood on 04-20-2025 Monocytes/100 WBC (Bld)7.4 %1.7-12.0[facility], Cancer CenterNeutrophils Auto (Bld) [#/Vol]Ordered By: Chapincito Lockwood on 54-06-9188Yjynimzlmyp (Bld) [#/Vol]9.9 10 3/uLHigh1.4-6.5FMiami Valley HospitalNeutrophils/100 WBC Auto (Bld)Ordered By: Chapincito Lockwood on 17-57-6216Qgieemmgknm/100 WBC (Bld)78.0 %High43.0-75.0[facility], Cancer CenterNo Panel InformationOrdered By: Chapincito Lockwood on 21-09-3275Tbdskpvnoqx # (Auto)0.1 10 3/uL0.0-0.7FMiami Valley HospitalImmature Granulocyte # (Auto)0.25 10 3/uLHigh0.00-0.03 [facility], Cancer CenterUrine BacteriaSMALL #/HPFAbnormalNONE SEEN [facility] Md, Cancer CenterUrine Culture ReflexedYES-FRMCOhiohealth Arthur G.H. Bing, Md, Cancer CenterUrine Occult BloodLARGEAbnormalNEGATIVEOhiohealth Arthur G.H. Bing, Md, Cancer CenterUrine Other CastsNONE SEEN #/LPFNONE SEENOhiohealth Arthur G.H. Bing, Md, Cancer CenterUrine Other CrystalsNone Seen #/HPFNone [facility] CampusUrine KGF16-89 #/HPFAbnormal0-2FMiami Valley Hospital Urine Squamous Epithelial CellsFEW #/LPFAbnormalNONE/RAREOhiohealth Arthur G.H. Bing, Md, Cancer CenterUrine BBD02-39 #/HPFAbnormalNONE [facility] HospitalPlatelet mean volume Auto (Bld) [Entitic vol]Ordered By: Chapincito Lockwood on 59-46-8674Mwiojjeg mean volume (Bld) [Entitic vol]9.0 fLLow9.5-13.5FMiami Valley HospitalPlatelets Auto (Bld) [#/Vol]Ordered By: Chapincito Lockwood on 12-16-3443Nidertvva (Bld) [#/Vol]285 10 3/eO458-915KnkgcecuvOhiohealth Arthur G.H. Bing, Md, Cancer CenterRBC Auto (Bld) [#/Vol]Ordered By: Chapincito Lockwood on 06-35-4521ROY (Bld) [#/Vol]4.96 10 6/uL4.70-6.10Galion Hospitalerum or plasma anion gap determinationOrdered By: Chapincito Lockwood on 91-18-2890Dqebm gap [Moles/Vol]16.9 mmol/LFMiami Valley HospitalUrine Cultureon 21-60-8355Dprfzuod identified Cx Nom (U)No Growth 2 Days PERFORMED BY: [place] [address] PATHOLOGIST TRAFFIC TECHNICIAN SAVANNA PERALTA M.D.NormalThe [facility] Springs Physician GroupComment on above: Performed By: #### CUU #### [place] [address] [place] [address] USABEDSIDE GLUCOSEon 37-91-7836Tugvjkk [Mass/Vol]158 mg/dL Gyon66-96YhwMbjxus [facility] CampusComment on above:Performed By: #### BEDG #### [facility] [address] [place] [address] VIRBasophils Auto (Bld) [#/Vol]Ordered By: Zahraa Marker on 14-12-3524Tjjsswpsr (Bld) [#/Vol]0.0 10 3/uL0.0-0.1FMiami Valley HospitalBasophils/100 WBC Auto (Bld)Ordered By: Zahraa Marker on 04-08-2025 Basophils/100 WBC (Bld)0.2 %0.2-2.0[facility] Eosinophils/100 WBC Auto (Bld)Ordered By: Zahraa Marker on 04-08-2025 Eosinophils/100 WBC (Bld)0.3 %Low0.9-7.0[facility] Erythrocyte distribution width Auto (RBC) [Ratio]Ordered By: Zahara Marker on 44-36-4102Xypsrbkoobj distribution width (RBC) [Ratio]13.1 %11.0-15.0[facility], Cancer CenterGlobulin Calc (S) [Mass/Vol]Ordered By: Lucie Augustin on 08-03-4331Qagsnqtx (S) [Mass/Vol]3.9 g/dLOhiohealth Arthur G.H. Bing, Md, Cancer CenterGlomerular filtration rate (GFR) estimation in non- AmericanOrdered By: Lucie Augustin on 19-66-5919JAB/1.73 sq M.predicted among non-blacks MDRD (S/P/Bld) [Vol rate/Area]50 mL/min/{1.73_m2}Low>=60 mL/min/1.73m 2FMiami Valley HospitalHematocrit Auto (Bld) [Volume fraction]Ordered By: Zahraa Marker on 27-11-6524Srqicuoemh (Bld) [Volume fraction]46.8 %42.0-54.0[facility], Cancer CenterHemoglobin [Mass/volume] in BloodOrdered By: Zahraa Marker on 77-74-8580Ojwdghdcng (Bld) [Mass/Vol]15.8 g/dL14.0-18.0[facility] Cancer CenterLaboratory - Chemistry and Chemistry - challengeOrdered By: Lucie Augustin on 04-08-2025 Albumin [Mass/Vol]3.5 g/dL3.4-5.0[facility], Cancer CenterALP [Catalytic activity/Vol]137 U/WLllp69-222XlxthxnuxOhiohealth Arthur G.H. Bing, Md, Cancer CenterALT [Catalytic activity/Vol]49 U/K29-81MotqaeksgOhiohealth Arthur G.H. Bing, Md, Cancer CenterAST [Catalytic activity/Vol]23 U/G61-73XuvyrtqytOhiohealth Arthur G.H. Bing, Md, Cancer CenterBilirubin [Mass/Vol]1.0 mg/dL0.2-1.0[facility], Cancer CenterCalcium [Mass/Vol]9.5 mg/dL 8.5-10.1FMiami Valley HospitalChloride [Moles/Vol]101 mmol/L98-107 [facility] Cancer CenterCO2 [Moles/Vol]23.8 mmol/L21.0-32.0[facility], Cancer CenterCreatinine [Mass/Vol]1.42 mg/dLHigh0.70-1.30[facility], Cancer CenterGFR/1.73 sq M.predicted MDRD (S/P/Bld) [Vol rate/Area] mL/min/{1.73_m2}>=60 mL/min/1.73m 2FMiami Valley HospitalGlucose [Mass/Vol]165 mg/eDJrrw01-916DaozfsrueOhiohealth Arthur G.H. Bing, Md, Cancer CenterPotassium [Moles/Vol]4.4 mmol/L3.5-5.1FMiami Valley HospitalProtein [Mass/Vol] 7.4 g/dL6.4-8.2FPremier Health Upper Valley Medical Centerodium [Moles/Vol]135 mmol/LLow 136-145[facility], Cancer CenterUrea nitrogen [Mass/Vol]21.0 mg/dLHigh 7.0-18.0[facility], Cancer CenterUrea nitrogen/Creatinine [Mass ratio] 14.8 mg/mgOhiohealth Arthur G.H. Bing, Md, Cancer CenterLaboratory - Chemistry and Chemistry - challengeOrdered By: Chapincito Lockwood on 49-70-4947Koaofijlq Ql (U)NegativeNEGATIVE [facility], Cancer CenterGlucose (U) [Mass/Vol]NegativeNEGATIVEOhiohealth Arthur G.H. Bing, Md, Cancer CenterKetones Ql (U)15 mg/dLAbnormalNEGATIVEOhiohealth Arthur G.H. Bing, Md, Cancer CenterpH (U)6.0 [pH]5.0-9.0Galion Hospitalpecific gravity (U) [Rel density]1.0251.005-1.025[facility] Urobilinogen Qn (U)1.0 {Anuja'U}/dL0.2-1.0[facility] Laboratory - Hematology and Cell countsOrdered By: Zahraa Marker on 04-08-2025 Immature granulocytes/100 WBC (Bld)0.6 %High0.0-0.5FMiami Valley HospitalLaboratory - Specimen informationOrdered By: Chapincito Lockwood on 04-08-2025 Appearance (U)CLOUDYAbnormalCLEARFMiami Valley HospitalColor (U)LT. YELLOWYELLOWOhiohealth Arthur G.H. Bing, Md, Cancer CenterLaboratory - UrinalysisOrdered By: Chapincito Lockwood on 61-20-2491Wxhsvbjfr esterase Test strip Ql (U)MODERATEAbnormal NEGATIVEOhiohealth Arthur G.H. Bing, Md, Cancer CenterMucus Ql (Urine sed)NONE SEENNONE SEEN [facility], Cancer CenterNitrite Ql (U)NegativeNEGATIVEOhiohealth Arthur G.[facility]. [facility], Md, Cancer CenterProtein Ql (U)30 mg/dLAbnormalNEG/TRACEOhiohealth Arthur G.H. Bing, Md, Cancer CenterLeukocytes [#/volume] corrected for nucleated erythrocytes in Blood by Automated counOrdered By: Zahraa Marker on 20-26-1763CBV corrected for nucl RBC Auto (Bld) [#/Vol]13.0 10 3/uLHigh4.0-11.0[facility], Cancer CenterLymphocytes Auto (Bld) [#/Vol]Ordered By: Zahraa Marker on 04-08-2025 Lymphocytes (Bld) [#/Vol]0.9 10 3/uLLow1.2-3.8[facility] Lymphocytes/100 WBC Auto (Bld)Ordered By: Zahraa Marker on 04-08-2025 Lymphocytes/100 WBC (Bld)7.1 %Low20.5-60.0[facility], Cancer CenterMCH Auto (RBC) [Entitic mass]Ordered By: Zahraa Marker on 12-24-5015RLV (RBC) [Entitic mass]30.6 pg25.9-34.0[facility], Cancer CenterMCHC Auto (RBC) [Mass/Vol]Ordered By: Zahraa Marker on 28-59-6033VCOT (RBC) [Mass/Vol]33.8 g/dL 29.9-35.2FMiami Valley HospitalMCV Auto (RBC) [Entitic vol]Ordered By: Zahraa Marker on 14-46-9267NSR (RBC) [Entitic vol]90.5 fL80.0-94.0[facility], Cancer CenterMonocytes Auto (Bld) [#/Vol]Ordered By: Zahraa Marker on 34-20-6806Mzsgszwnv (Bld) [#/Vol]1.1 10 3/uLHigh0.3-0.8[facility], Cancer CenterMonocytes/100 WBC Auto (Bld)Ordered By: Zahraa Marker on 41-28-3681Buyrrhzuh/100 WBC (Bld)8.2 %1.7-12.0[facility] Neutrophils Auto (Bld) [#/Vol]Ordered By: Zahraa Marker on 04-08-2025 Neutrophils (Bld) [#/Vol]10.8 10 3/uLHigh1.4-6.5FMiami Valley HospitalNeutrophils/100 WBC Auto (Bld)Ordered By: Zahraa Marker on 04-08-2025 Neutrophils/100 WBC (Bld)83.6 %High43.0-75.0[facility] CenterNo Panel InformationOrdered By: Zahraa Marker on 94-38-4211Nniskvsgpwx # (Auto)0.0 10 3/uL0.0-0.7FMiami Valley HospitalImmature Granulocyte # (Auto) 0.08 10 3/uLHigh0.00-0.03[facility] Cancer CenterNo Panel Information Ordered By: Chapincito Lockwood on 93-23-3284Rodje BacteriaLARGE #/HPFAbnormalNONE SEEN [facility] CenterUrine Culture ReflexedYES-FRWilson HealthUrine Occult BloodLARGEAbnormalNEGATIVEFirelands Regional Medical CenterUrine Other CastsNONE SEEN #/LPFNONE SEENOhiohealth Arthur G.H. Bing, Md, Cancer CenterUrine Other CrystalsSeen #/HPFAbnormalNone [facility] CampusUrine HLU98-24 #/HPFAbnormal0-2FMiami Valley Hospital Urine Squamous Epithelial CellsFEW #/LPFAbnormalNONE/RAREOhiohealth Arthur G.H. Bing, Md, Cancer CenterUrine Uric Acid CrystalsMANYOhiohealth Arthur G.H. Bing, Md, Cancer CenterUrine WBC2-5 #/HPFAbnormalNONE [facility] HospitalPlatelet mean volume Auto (Bld) [Entitic vol]Ordered By: Zahraa Marker on 21-53-4947Eyfelgbi mean volume (Bld) [Entitic vol]9.1 fLLow9.5-13.5FMiami Valley HospitalPlatelets Auto (Bld) [#/Vol]Ordered By: Zahraa Marker on 04-08-2025 Platelets (Bld) [#/Vol]245 10 3/iL195-533PymefzdofOhiohealth Arthur G.H. Bing, Md, Cancer CenterRBC Auto (Bld) [#/Vol]Ordered By: Zahraa Marker on 23-10-1662YSM (Bld) [#/Vol]5.17 10 6/uL4.70-6.10Galion Hospitalerum or plasma albumin/globulin mass ratioOrdered By: Lucie Augustin on 04-08-2025 Albumin/Globulin [Mass ratio]0.9 {ratio}Galion Hospitalerum or plasma anion gap determinationOrdered By: Lucie Augustin on 04-08-2025 Anion gap [Moles/Vol]14.6 mmol/LFMiami Valley HospitalUrine Cultureon 45-38-7971Zxathuch identified Cx Nom (U)50,000 colonies/ml mixed bacterial skin contaminants 2 Days PERFORMED BY: [place] [address] PATHOLOGIST TRAFFIC TECHNICIAN SAVANNA PERALTA M.D.NormalThe [facility] Springs Physician GroupComment on above: Performed By: #### CUU #### [place] [address] USAXR ELBOW LT 2 VWSon 73-89-6650IZ ELBOW LT 2 VWSXR ELBOW LT 2 [...] by Jorge Muller MD on 03/31/2025 9:00 PMNormalProKettering Health Greene MemorialBASI METABOLIC PANELon 69-27-0738Umcuu gap [Moles/Vol]9 mmol/LNormal 5-15Keenan Private HospitalComment on above:Performed By: #### BMP #### [facility] ([facility]) [address] [place] [address] VIRCalcium [Mass/Vol]9.3 mg/dLNormal8.5-10.5POhioHealth Doctors HospitalComment on above:Performed By: #### BMP #### [facility] ([facility]) [address] [place] [address] VIRChloride [Moles/Vol]105 mmol/VFjglft54-530KqaQwvoidAdventhealthComment on above:Performed By: #### BMP #### [facility] ([facility]) [address] [place] [address] VIRCO2 [Moles/Vol]26 mmol/RLfbizt00-71KnvCapjkwOhioHealth Doctors HospitalComment on above:Performed By: #### BMP #### [facility] ([facility]) [address] [place] [address] VIRCreatinine [Mass/Vol]0.96 mg/dLNormal0.60-1.30Keenan Private HospitalComment on above:Result Comment: METHOD TRACEABLE TO IDMS STANDARDPerformed By: #### BMP #### [facility] ([facility]) [address] [place] [address] VIRGFR/1.73 sq M.predicted among non-blacks MDRD (S/P/Bld) [Vol rate/Area]86 mL/min/{1.73_m2}Normal>=60ProAdventhealthComment on above:Result Comment: Reported eGFR is based on the CKD-EPI 2020 equation that does not use a race coefficient.Performed By: #### BMP #### [facility] ([facility]) [address] [place] [address] VIRGlucose [Mass/Vol]130 mg/gUEhbi11-60GzpPavgqnAdventhealthComment on above:Performed By: #### BMP #### [facility] ([facility]) [address] [place] [address] VIRPotassium [Moles/Vol]4.4 mmol/LNormal3.5-5.0ProAdventhealthComment on above:Performed By: #### BMP #### [facility] ([facility]) [address] [place] [address] VIRSodium [Moles/Vol]140 mmol/KJlcspt151-888ZhuWeugzj [facility]remont HospitalComment on above:Performed By: #### BMP #### [facility] ([facility]) [address] [place] [address] VIRUrea nitrogen [Mass/Vol]23 mg/dLNormal5-27ProAdventhealthComment on above:Performed By: #### BMP #### [facility] ([facility]) [address] [place] [address] VIRCBC (NO DIFF)on 22-65-6491Ffugcfeklxo distribution width (RBC) [Ratio]14.0 %Ujosrg66.5-15ProAdventhealthComment on above: Performed By: #### CBC #### [facility] ([facility]) [address] [place] [address] VIRHematocrit (Bld) [Volume fraction]46.9 %Yhdxtp60-81FbiQqzbjxAdventhealthComment on above:Performed By: #### CBC #### [facility] ([facility]) [address] [place] [address] VIRHemoglobin (Bld) [Mass/Vol]15.1 g/yQGwrzsy79-56VlfWhzfdjAdventhealthComment on above:Performed By: #### CBC #### [facility] ([facility]) [address] [place] [address] VIRMCH (RBC) [Entitic mass]30.2 wzVjznhz26-90WwtJykxmdKeenan Private HospitalComment on above:Performed By: #### CBC #### [facility] ([facility]) [address] [place] [address] VIRMCHC (RBC) [Mass/Vol]32.1 g/iVDrybvi05-98TpnGfspjcAdventhealthComment on above:Performed By: #### CBC #### [facility] ([facility]) [address] [place] [address] VIRMCV (RBC) [Entitic vol]94 jBMdbfqp58-096LyhBwppee [facility]remont HospitalComment on above:Performed By: #### CBC #### [facility] ([facility]) [address] [place] [address] VIRPlatelet mean volume (Bld) [Entitic vol]7.6 fLNormal7-12 [facility]enan Private HospitalComment on above:Performed By: #### CBC #### [facility] ([facility]) [address] [place] [address] VIRPlatelets (Bld) [#/Vol]249 10*3/nPXfswat008-273VafIeujlx [facility]ont HospitalComment on above:Performed By: #### CBC #### [facility] ([facility]) [address] [place] [address] VIRRBC COUNT4.99 X10E12/LNormal4.1-5.7ProAdventhealthComment on above:Performed By: #### CBC #### [facility] ([facility]) [address] [place] [address] VIRWBC (Bld) [#/Vol]11.7 10*3/uLHigh4-11ProAdventhealthComment on above:Performed By: #### CBC #### [facility] ([facility]) [address] [place] [address] VIRHEMOGLOBIN A1Con 95-53-6322Iikioja [Mass/Vol]151 mg/dLNormal ProMHerrick CampusComment on above:Performed By: #### HA1C #### [facility] ([facility]) [address] [place] [address] XWLXjC0d (Bld) [Mass fraction]6.9 %High4.4-5.6Keenan Private HospitalComment on above:Result Comment: ADA Guidelines Result HgbA1c Normal : less than 5.7 % Prediabetes : 5.7 % to 6.4 % Diabetes : > 6.4 % Use with caution in patients with abnormal hemoglobin variants as the half-life of red blood cells and in vivo glycation rates are affected.Performed By: #### HA1C #### [facility] ([facility]) [address] [place] [address] VIRCT elbow LT wo conon 65-36-0095TQ elbow LT wo [facility] [place] [address] CT Scan Report Signed Patient: Cesar Clarke MR#: [id number] : 1955 Acct:[id number] Age/Sex: 69 / M ADM Date: 03/26/25 Loc: CT Room: Type: [facility] Attending Dr: Dwight Andrews MD Copies to: [...] Jr., D.O. 03/27/2025 10:31 AM Dictation Location: [place] [address] Transcribed By: [facility] 03/27/25 1031 Dictated By: Joseph Castro Jr, DO 03/27/25 1027 Signed By: 03/27/25 1031[facility] Physician GroupXR ELBOW LT MIN 3 VWSon 38-63-3751LF ELBOW LT MIN 3 VWSXR ELBOW LT [...] Saravanan Jiménez MD on 03/21/2025 2:14 PMNormalProMedica Valley Plaza Doctors HospitalUrology Office/Clinic Noteon 97-43-3814Xuryzua Office/Clinic NoteUrology Office/Clinic Note Chief Complaint new pt elevated PSA HPI Staff New pt referred by Lucie Augustin NP for elevated PSA. Never seen in our office before (verified on [facility]). PSA (done at [facility]) 08/13/24 - 11.22 No other levels [...] 100mg bid x1 month. Rx sent to [facility]. 3. BPH with urinary obstruction (N40.1: Benign prostatic hyperplasia with lower urinary tract symptoms) Good stream most of the time. Constipation does weaken stream. Feels he empties. Attributes frequency to diuretics. Recommended pt to try oral meds. -Start Flomax 0.4mg qd. Possible SEs discussed. Rx sent to [facility]. Follow-up With When Contact Information PATSY ADDISON, Marcos Meade, URL [facility] [address], [place] [phone] Additional Instructions: 3 mos w/ PSA Patient [...] (03/17/25 09:15:00) Blood Urin (more content not included)...[facility] Comment on above:Result Comment: Electronically Signed By: Marcos ROCK MD\.br\Date and Time Signed: 03/17/25 09:50 EDT\.br\Electronically Co-Signed By: Emmy Garcia\.br\Date and Time Co-Signed: 03/17/25 09:49 EDTBasophils Auto (Bld) [#/Vol]on 66-17-6086Ieilqnkhm (Bld) [#/Vol]Automated basophil count0.0-0.1 [facility], Cancer CenterBasophils/100 WBC Auto (Bld)on 08-13-2024 Basophils/100 WBC (Bld)Automated basophil %0.2-2.0[facility], Cancer CenterCholesterol in LDL Calc [Mass/Vol]on 95-28-9289Gutbmlwvczu in LDL [Mass/Vol]Cholesterol in LDL [Mass/volume] in Serum or Plasma by calculation [facility], Cancer CenterComment on above:<100 mg/dl XKESVRK249-054 mg/dl NEAR OR ABOVE VXVCVVS997-380 mg/dl BORDERLINE LEEQ899-555 mg/dl HIGH>190 mg/dl VERY HIGHCholesterol in VLDL Calc [Mass/Vol]on 52-37-4298Eczorpemxzm in VLDL [Mass/Vol]Cholesterol in VLDL [Mass/volume] in Serum or Plasma by calculationOhiohealth Arthur G.H. Bing, Md, Cancer CenterEosinophils/100 WBC Auto (Bld)on 67-27-5037Egfpvgndzfo/100 WBC (Bld)Automated eosinophil %0.9-7.0[facility], Cancer CenterErythrocyte distribution width Auto (RBC) [Ratio]on 71-80-6756Ypuztvnatnb distribution width (RBC) [Ratio]Erythrocyte distribution width [Ratio] by Automated count11.0-15.0[facility] Estimated glomerular filtration rate (GFR) non- Americanon 08-13-2024 GFR/1.73 sq M.predicted among non-blacks MDRD (S/P/Bld) [Vol rate/Area]Estimated glomerular filtration rate (GFR) non->=60 mL/min/1.73m 2 [facility], Cancer CenterGlobulin Calc (S) [Mass/Vol]on 08-13-2024 Globulin (S) [Mass/Vol]Serum globulin measurement by calculation (mass/volume) [facility], Cancer CenterHematocrit Auto (Bld) [Volume fraction]on 86-14-9828Pawtarokla (Bld) [Volume fraction]Hematocrit [Volume Fraction] of Blood by Automated count42.0-54.0[facility], Cancer CenterHemoglobin [Mass/volume] in Bloodon 77-23-9919Ifdpelmgpw (Bld) [Mass/Vol]Hemoglobin [Mass/volume] in Blood14.0-18.0[facility], Cancer CenterLaboratory - Chemistry and Chemistry - challengeon 91-87-2134Omlrrxs [Mass/Vol]3.6 g/dL 3.4-5.0[facility], Cancer CenterALP [Catalytic activity/Vol]101 U/L 46-116[facility], Cancer CenterALT [Catalytic activity/Vol]47 U/L16-63 [facility] CenterAST [Catalytic activity/Vol]21 U/L15-37 [facility], Cancer CenterBilirubin [Mass/Vol]0.7 mg/dL0.2-1.0[facility], Cancer CenterCalcium [Mass/Vol]9.3 mg/dL8.5-10.1FMiami Valley HospitalChloride [Moles/Vol]102 mmol/I88-339QnumugogdOhiohealth Arthur G.H. Bing, Md, Cancer CenterCholesterol [Mass/Vol]195 mg/dL<=200[facility] Cholesterol in HDL [Mass/Vol]54 mg/qG24-18CedfybmlaOhiohealth Arthur G.H. [facility], Md, Cancer Center Comment on above:> or =60 mg/dl - LOW CARDIOVASCULAR RISK<40 mg/dl - HIGH CARDIOVASCULAR RISKCO2 [Moles/Vol]28.9 mmol/L21.0-32.0[facility], Cancer CenterCreatinine [Mass/Vol]1.16 mg/dL0.70-1.30[facility] GFR/1.73 sq M.predicted MDRD (S/P/Bld) [Vol rate/Area]mL/min/{1.73_m2}>=60 mL/min/1.73m 2FMiami Valley HospitalGlucose [Mass/Vol]160 mg/dLHigh 74-106[facility], Cancer CenterPotassium [Moles/Vol]4.5 mmol/L3.5-5.1 [facility] CenterProtein [Mass/Vol]7.1 g/dL6.4-8.2FPremier Health Upper Valley Medical Centerodium [Moles/Vol]138 mmol/B148-552NmejdweviOhiohealth Arthur G.H. Bing, Md, Cancer CenterTriglyceride [Mass/Vol]84 mg/dL<=150[facility], Cancer CenterUrea nitrogen [Mass/Vol]23.0 mg/dLHigh7.0-18.0[facility] Cancer CenterUrea nitrogen/Creatinine [Mass ratio]19.8 mg/mgOhiohealth Arthur G.H. Bing, Md, Cancer CenterLaboratory - Hematology and Cell countson 54-13-7828Tkroxpwd granulocytes/100 WBC (Bld)0.7 %High0.0-0.5FMiami Valley Hospital Leukocytes [#/volume] corrected for nucleated erythrocytes in Blood by Automated counon 68-83-3412KRF corrected for nucl RBC Auto (Bld) [#/Vol]Leukocytes [#/volume] corrected for nucleated erythrocytes in Blood by Automated coun 4.0-11.0[facility], Cancer CenterLymphocytes Auto (Bld) [#/Vol]on 94-58-4675Kgqlxkbnfly (Bld) [#/Vol]Lymphocytes [#/volume] in Blood by Automated count1.2-3.8[facility], Cancer CenterLymphocytes/100 WBC Auto (Bld)on 19-64-9478Joqipctkjdm/100 WBC (Bld)Lymphocytes/100 leukocytes in Blood by Automated psqhlNmt87.5-60.0[facility], Cancer CenterMCH Auto (RBC) [Entitic mass]on 40-40-6641FJH (RBC) [Entitic mass]MCH [Entitic mass] by Automated count25.9-34.0[facility], Cancer CenterMCHC Auto (RBC) [Mass/Vol]on 41-44-3038QIFV (RBC) [Mass/Vol]MCHC [Mass/volume] by Automated count29.9-35.2FMiami Valley HospitalMCV Auto (RBC) [Entitic vol]on 29-60-1000KUZ (RBC) [Entitic vol]MCV [Entitic volume] by Automated count 80.0-94.0[facility], Cancer CenterMicroalbumin [Mass/volume] in Urineon 99-00-0955Amwdiqq DL <= 20 mg/L (U) [Mass/Vol]Microalbumin [Mass/volume] in Urine<=30.0[facility], Cancer CenterMonocytes Auto (Bld) [#/Vol]on 76-99-3101Dokbpqegy (Bld) [#/Vol]Automated blood monocyte countHigh0.3-0.8 [facility] Cancer CenterMonocytes/100 WBC Auto (Bld)on 08-13-2024 Monocytes/100 WBC (Bld)Automated monocyte %1.7-12.0[facility], Cancer CenterNeutrophils Auto (Bld) [#/Vol]on 17-65-7661Httqetorstp (Bld) [#/Vol] Neutrophils [#/volume] in Blood by Automated countHigh1.4-6.5FMiami Valley HospitalNeutrophils/100 WBC Auto (Bld)on 85-79-5808Vsymztnoves/100 WBC (Bld)Automated neutrophil %43.0-75.0[facility] Cancer CenterNo Panel Informationon 26-16-6821Bvnijpilmgn # (Auto)0.3 10 3/uL0.0-0.7FMiami Valley HospitalImmature Granulocyte # (Auto)0.07 10 3/uLHigh0.00-0.03[facility] Cancer CenterProstate Specific Antigen Nzemrq83.22 ng/mLHigh<=4.00 [facility], Cancer CenterUrine Random Mxkrsarlxq352.94 mg/dL20.00-300.00 [facility], Cancer CenterPlatelet mean volume Auto (Bld) [Entitic vol]on 54-79-1923Spkxhnqc mean volume (Bld) [Entitic vol]Platelet mean volume [Entitic volume] in Blood by Automated countLow9.5-13.5FMiami Valley Hospital Platelets Auto (Bld) [#/Vol]on 60-24-4716Xfytwxdaj (Bld) [#/Vol]Platelets [#/volume] in Blood by Automated isqsw555-316PaijnxnorOhiohealth Arthur G.H. Bing, Md, Cancer Center RBC Auto (Bld) [#/Vol]on 82-32-9464NEQ (Bld) [#/Vol]Erythrocytes [#/volume] in Blood by Automated count4.70-6.10Galion Hospitalerum or plasma albumin/globulin mass ratioon 02-30-9101Dkvdjpk/Globulin [Mass ratio] Serum or plasma albumin/globulin mass ratioOhiohealth Arthur G.H. Bing, Md, Cancer Center Serum or plasma anion gap determinationon 44-47-3053Olawv gap [Moles/Vol]Serum or plasma anion gap determinationGalion Hospitalerum or plasma total cholesterol/high density lipoprotein (HDL) cholesterol mass emily 39-84-9200Gpghisfqyaa.total/Cholesterol in HDL [Mass ratio]Serum or plasma total cholesterol/high density lipoprotein (HDL) cholesterol mass [facility] HospitalComment on above:3.3 - 4.4 LOW RISK4.4 - 7.1 AVERAGE RISK7.1 - 11.0 MODERATE RISK>11.0 HIGH RISKUrine microalbumin/creatinine mass ratioon 58-74-7687Zcukboj/Creatinine DL <= 20 mg/L (U) [Mass ratio]Urine microalbumin/creatinine mass ratioHigh0.0-29.9[facility] Comment on above:NO MICROALBUMINURIA 0-29 MG/GCLINICAL MICROALBUMINURIA 30-300 MG/GMACROALBUMINURIA >300 MG/GHbA1c HPLC (Bld) [Mass fraction]on 02-15-4639YcG0a (Bld) [Mass fraction]Hemoglobin A1c/Hemoglobin.total in Blood by HPLCUc Medical CenterBacteria identified Aer cx Nom (Unsp spec) Ordered By: Graciela Angelo on 01-87-6882Jhwfy B Strep (Streptococcus agalactiae) Group B Strep (Streptococcus agalactiae)AbnormalGalion Hospitaluperficial Wound CultureAbnormalOhiohealth Arthur [facility]. [facility] Center Superficial Wound Cultureon 42-07-9261Gfanxwfvajs Wound CultureORGANISM: Strep agalactiae - (group b) (O:STRAGA) Quantity of Growth Heavy Growth ORGANISM: Corynebacterium species (O:CORSPE) Comments Organism Not Routinely Tested for Susceptibilities Quantity of Growth Heavy Growth Organism #2 identified as Corynebacterium pseudodiphtheriticum. PERFORMED BY: [facility] [address] [facility] [place] [address] PATHOLOGIST TRAFFIC TECHNICIAN JERMAINE LICONA M.D.NormalThe [facility] Springs Physician GroupComment on above: Performed By: #### CUSUP #### [place] [address] [place] [address] XOBEZBF-TgS-6jl 45-16-9281OAIU-CoV-2 (COVID-19) RNA LAURA+probe Ql (Unsp spec)Not detectedNormalNOTDEPeoples HospitalComment on above: Result Comment: Rapid NAAT: The [...] management decisions. Fact sheet for Healthcare Providers: https://www.fda.gov/media/233876/download Fact sheet for Patients: https://www.fda.gov/media/602285/download Methodology: Isothermal Nucleic Acid AmplificationPerformed By: #### COVRB #### [facility] [address] [place] [place], [place] [id number] Temperature Logging Operator: Singh Mccollum MD Vital Signs Date TimeVital SignValuePerforming NsveiioafQwxoyqct59-94-5997 12:09-0400Body qgvudt630.2 Dwain Love MD Work Phone: [facility] CantonFanbase Bpshwq70-29-9910 12:09-0400Body mass index (BMI) [Ratio]51.69 kg/z5DhxtzOleksandr Love MD Work Phone: [facility]10-16-2025 12:09-0400Body lapsndmxdwj21.5 [degF]Oleksandr Love MD Work Phone: [facility]10-16-2025 12:09-0400Body eagbkc332.69 kgOleksandr Love MD Work Phone: [facility]09-25-2025 12:29-0400Body sopsqz199.2 Justin Hills MD Work Phone: [facility]09-25-2025 12:29-0400Body mass index (BMI) [Ratio]51.68 kg/c6WhfsyhJosue Hills MD Work Phone: [facility]09-25-2025 12:29-0400Body cqngscebxvy92.9 [degF]Josue Hills MD Work Phone: [phone]09-25-2025 12:29-0400Body vachtz680.7 kgJosue Hills MD Work Phone: [phone]09-11-2025 11:11-0400Body dbuvli409.2 Pallavi Figueroa MD Work Phone: [facility]09-11-2025 11:11-0400Body mass index (BMI) [Ratio]51.69 kg/k6SvfwoNichol Figueroa MD Work Phone: [phone]09-11-2025 11:11-0400Body qxqhwpkuwmk05.5 [degF]Nichol Figueroa MD Work Phone: [phone]09-11-2025 11:11-0400Body thoopr197.69 kgNichol Figueroa MD Work Phone: [facility]08-18-2025 14:08-0400Body .18 Romy Augustin APRN Work Phone: [facility]08-18-2025 14:08-0400 Body .2 [degF]Lucie Augustin APRN Work Phone: [facility]08-18-2025 14:08-0400 Diastolic blood ertwwyud05 mm[Hg]Lucie Augustin APRN Work Phone: [facility]08-18-2025 14:08-0400 Heart rate96 /minLucie Augustin APRN Work Phone: [facility]08-18-2025 14:08-0400 SaO2% (BldA) [Mass fraction]94 %Lucie Augustin APRN Work Phone: [facility]08-18-2025 14:08-0400 Systolic blood jcjywtlr547 mm[Hg]Lucie Augustin APRN Work Phone: [facility]08-18-2025 10:51-0400 Body ovjytr072.2 cmpage hospitalmary kate [employer] PA-C Work Phone: [facility] [id number] 10:51-0400Body mass index (BMI) [Ratio]51.67 kg/c5Atmcrd Bellamy PA-C Work Phone: [facility] [id number] 10:51-0400Body fiyjibxopmc25.5 [degF]Margot Bellamy PA-C Work Phone: [facility] [id number] 10:51-0400Body bcfxri302.69 kgpage hospitalmary kate Bellamy PA-C Work Phone: [facility] [id number] 14:11-0400Body bogygo746.18 cmLucie Augustin REFRESH TECHNICIAN Work Phone: [facility]08-12-2025 14:11-0400 Body mass index (BMI) [Ratio]51.7 kg/y5OcheuqgnLucie Augustin REFRESH TECHNICIAN Work Phone: [facility]08-12-2025 14:11-0400 Body iavpgq101.68 kgLucie Augustin REFRESH TECHNICIAN Work Phone: [facility]03-24-2025 09:00-0400 Body jobomw516.68 kgOhio[facility]02-18-2025 09:49-0500Body .18 Sammylynda De La Rosaley REFRESH TECHNICIAN Work Phone: [phone] [place], [place] 2605502-18-2025 09:49-0500 Body mass index (BMI) [Ratio]51 kg/e3QpbwjzGraciela Angelo REFRESH TECHNICIAN Work Phone: [phone] [place], [place] 2605502-18-2025 09:49-0500 Body jeiwaxksfji10.3 [degF]Graciela Angelo REFRESH TECHNICIAN Work Phone: [phone] [place], [place] 2605502-18-2025 09:49-0500 Body rzqalp391.87 kgDianebridgett Angelo REFRESH TECHNICIAN Work Phone: 1([phone] [place], [place] 2605502-18-2025 09:49-0500 Diastolic blood xvquzhtj21 mm[Hg]Graciela Angelo REFRESH TECHNICIAN Work Phone: [phone] [place], [place] 2605502-18-2025 09:49-0500 Heart rate92 /minGraciela Angelo REFRESH TECHNICIAN Work Phone: [phone] [place], [place] 2605502-18-2025 09:49-0500 SaO2% (BldA) [Mass fraction]98 %Graciela Angelo REFRESH TECHNICIAN Work Phone: [phone] [place], [place] 2605502-18-2025 09:49-0500 Systolic blood dzcudloh528 mm[Hg]Graciela Angelo REFRESH TECHNICIAN Work Phone: [phone] [place], [place] 2605512-17-2024 09:01-0500 Body oqjlbz399.18 Antonellajanetlynda Gi REFRESH TECHNICIAN Work Phone: 3([phone])222-[address] [place], [place] 2605512-17-2024 09:01-0500 Body mass index (BMI) [Ratio]53.1 kg/d3CiwktcGraciela Angelo REFRESH TECHNICIAN Work Phone: 1([phone] [place], [place] 2834712-17-2024 09:01-0500 Body piqikihwuks10.7 [degF]Graciela Angelo REFRESH TECHNICIAN Work Phone: 1([phone] [place], [place] 2834712-17-2024 09:01-0500 Body okefnv646.76 kgDianebridgett Angelo REFRESH TECHNICIAN Work Phone: 1(395)[address] [place], [place] 2834712-17-2024 09:01-0500 Diastolic blood iqgzdrsm56 mm[Hg]Graciela Angelo REFRESH TECHNICIAN Work Phone: 1(209)[address] [place], [place] 2834712-17-2024 09:01-0500 Heart jbnt177 /minDianebridgett Angelo REFRESH TECHNICIAN Work Phone: 1([phone] [place], [place] 2834712-17-2024 09:01-0500 SaO2% (BldA) [Mass fraction]94 %Graciela Angelo REFRESH TECHNICIAN Work Phone: 1(235)[address] [place], [place] 2834712-17-2024 09:01-0500 Systolic blood dnfgjbni142 mm[Hg]Graciela Angelo REFRESH TECHNICIAN Work Phone: 1(634)[address] [place], [place] 2834712-02-2024 19:22-0500 Diastolic blood ilnntbre83 mm[Hg]Graciela Angelo APRN Work Phone: 1([phone] [place], [place] 2834712-02-2024 19:22-0500 Systolic blood kpemulou216 mm[Hg]Graciela Angelo REFRESH TECHNICIAN Work Phone: 1(072)[address] [place], [place] 2834712-02-2024 18:33-0500 Body tqxjke637.18 cmLsudhir Angelo REFRESH TECHNICIAN Work Phone: 1(585)[address] [place], [place] 2834712-02-2024 18:33-0500 Body mass index (BMI) [Ratio]53.1 kg/k1NdetsbGraciela Angelo REFRESH TECHNICIAN Work Phone: 1([phone])[address] [place], [place] 2834712-02-2024 18:33-0500 Body fkjvwo782.76 kgGraciela Angelo REFRESH TECHNICIAN Work Phone: 1(328)[address] [place], [place] 2834712-02-2024 18:33-0500 Heart rate88 /minGraciela Angelo APRN Work Phone: [facility]12-02-2024 18:33-0500 SaO2% (BldA) [Mass fraction]98 %Graciela Angelo APRN Work Phone: [facility] Encounters Encounter DateEncounter TypeCare ProviderFacilityStart: 06-04-2025 End: 45-79-0831Aotzawqne encounterThercamelia Montoya [facility]Trauma [facility] Adult ReconstructionStart: 05-29-2025 End: 59-69-6290Lfgtrt follow up visit related to original Elvia Love MD Work Phone: [facility]/Trauma and Adult ReconstructionComment on above:Closed fracture of olecranon process of left ulna with routine healing, subsequent encounter (Primary Dx)Start: 05-29-2025 End: 91-94-2405ngdqvptbhnGCEVAW J BENCHAdena Pike Medical Center HospitalStart: 05-20-2025 End: 52-12-4097dxtskzbhjuTxrglni R WATERSFacility:FTMCStart: 05-08-2025 End: 69-62-5473Eoxayw follow up visit related to original Monique Hills MD Work Phone: [facility]/Trauma and Adult ReconstructionComment on above:Closed fracture of olecranon process of left ulna with routine healing, subsequent encounter (Primary Dx)Start: 05-08-2025 End: 54-55-4870oizjoefoanHKWBH TANKAdena Pike Medical Center HospitalStart: 04-28-2025 End: 42-78-4516Zeihsy OnlyThercamelia Montoya [facility] Orthopedics/Trauma and Adult ReconstructionComment on above:Closed fracture of olecranon process of left ulna with routine healing, subsequent encounter (Primary Dx)Start: 04-24-2025 End: 93-04-1028Kxzvnf follow up visit related to original Nina Figueroa MD Work Phone: [facility]ca [facility]/Trauma and Adult ReconstructionComment on above:Closed fracture of olecranon process of left ulna with routine healing, subsequent encounter (Primary Dx)Start: 04-24-2025 End: 43-23-5338nwymqpoijwHNXVQ TANKProMedica West Orange HospitalStart: 04-23-2025 End: 18-43-7123tmpissewifXqodjkuv Rohrbacher APRN Work Phone: [facility] Work Phone: Start: 04-23-2025 End: 84-49-4716Fuvfpiq encounter procedureLucie Augustin TIERNEY [facility] Work Phone: Start: 36-07-0185Mtu-patient / Non-visitCatherine James [facility] Work Phone: Start: 04-21-2025 End: 33-26-8421Vrwgvs OnlyJayla Montoya [facility] Orthopedics/Trauma and Adult ReconstructionComment on above:Closed fracture of olecranon process of left ulna with routine healing, subsequent encounter (Primary Dx)Start: 04-20-2025 End: 74-81-1287yeqsmmqbklWksn M VintonFacility:[facility] Start: 12-61-2242Ubh-patient / Non-visitChapincito Scanlon DO-[facility] Work Phone: Start: 04-11-2025 End: 04-00-4218Lvhwgegyq encounterAlexaelpidio Russell [facility] Orth[facility]/Trauma and Adult ReconstructionStart: 04-11-2025 End: 95-16-4642uaifmynzozZpjudzi R WATERSFacility:FTMCStart: 48-31-2597Kec- patient / Non-visitCatherine James [facility] Work Phone: Start: 04-09-2025 End: 89-29-3138Bkgswbdowb and management of inpatientJASON TANKProMedica West Orange HospitalStart: 04-08-2025 End: 08-75-2103wplycbbrkiOkpd M VintonFacility:[facility] Start: 80-20-5862Tcm-patient / Non-visitChapincito Lockwood Ghislaine SPRINGER-[facility] Work Phone: Start: 04-02-2025 End: 58-65-5964Pkovmfkoh encounterThercamelia Montoya [facility] Orthoped[facility]/Trauma and Adult ReconstructionStart: 03-31-2025 End: 76-61-7123Srimeob encounter procedureLucie Augustin APRN, CNP-[facility] Work Phone: Start: 03-31-2025 End: 28-75-5645Dntddpjqymduq examination doneLucie Augustin APRN [facility] Hospitaltart: 03-31-2025 End: 87-10-4051Eydeer outpatient new 60 minutesMargot Bellamy PA-C Work Phone: [facility]/Trauma and Adult ReconstructionComment on above:Olecranon fracture, left, closed, initial encounter (Primary Dx)Start: 03-31-2025 End: 10-69-4371Fphdtv OnlyThercamelia Montoya [facility] Orthopedics/Trauma and Adult ReconstructionComment on above:Closed fracture of olecranon process of left ulna, initial encounter (Primary Dx)Start: 03-28-2025 End: 92-95-3615dsnvwywnkiDMPCAQKM ROHRBACHERProMedica Scripps Mercy Hospitaltart: 38-07-9464Hhmqsaonx for other preprocedural examinationLUCIE LINDACHEHalina Kettering Health Miamisburgtart: 42-50-7704wfmxophxxwAHCJOTXO ROHRBACHER ProMedicDavies campustart: 03-28-2025 End: 97-30-4614Ozlhzqhzz encounterJamaddy Jorge [facility] Orthopedics/Trauma and Adult ReconstructionStart: 03-27-2025 End: 57-13-8333Ajjvudm encounter statusThercamelia Montoya [facility] SystemStart: 03-27-2025 End: 09-50-3442Yqmkiurtu encounterTheresmichoacano Montoya [facility] Orthopedics/Trauma and Adult ReconstructionComment on above:Olecranon fracture, left, closed, initial encounter (Primary Dx); Preop testing; Other specified diabetes mellitus with other specified complication, unspecified whether dedicated intermodal truck driver insulin use ([facility])Start: 12-54-6171fghecubfppSLPKQYWOAlice [facility] Center Ambulatory PPGStart: 03-26-2025 End: 44-43-1614Xumigksom encounterTheresa diptiTemple Community Hospital Physicians Orthopedics/Trauma and Adult ReconstructionStart: 03-26-2025 End: 63-09-3354bfojvtamlhEteyokep Rohrbacher REFRESH TECHNICIAN Work Phone: [place] Work Phone: Start: 03-26-2025 End: 17-03-9262Roybsxb encounter procedureDwight Andrews MD-[facility] [place] Work Phone: Start: 03-25-2025 End: 28-53-3394yshedtkiuaIgeubmwn Rohrbacher REFRESH TECHNICIAN Work Phone: [facility] Work Phone: Start: 03-25-2025 End: 58-33-5948Nsyyimg encounter procedureDwight Andrews MD-[facility] Work Phone: Start: 03-21-2025 End: 47-72-0328Pwjahafsi department patient visitOhioHealth Berger Hospitaltart: 03-17-2025 End: 75-28-7742ekxobcmyrhHCJTIDEIMary MINORacility:EU BellevueStart: 11-04-2024 End: 13-37-2098emhzrwzodbRukldroaaHolmes County [facility] Work Phone: Start: 11-04-2024 End: 51-26-2294Oenbrme encounter procedureFirvalley health Physician [facility] Work Phone: Start: 10-01-2024 End: 96-73-5645veipmbcniuDiazww Bailey REFRESH TECHNICIAN Work Phone: [facility] Work Phone: Start: 10-01-2024 End: 50-47-5821Pqtynmf encounter procedureGraciela Angeol APRN Work Phone: [facility] Work Phone: Start: 37-64-8159frufvloabjOBIPEHUR ROHRBACHER Facility:[facility] Hospitaltart: 72-21-4073Amr-patient / Non-visitGraciela Angelo APRN Work Phone: [facility] Professional [facility] Work Phone: Start: 07-30-2024 End: 44-05-8095Biqjosb encounter procedureGraciela Angelo APRN Work Phone: [facility] Work Phone: Start: 07-15-2024 End: 54-37-8514vnvouxjqjaLsehsm M BaileyFacility:[facility] Hospitaltart: 07-15-2024 End: 54-30-3883Lzrbylfh ReferredGraciela Angelo APRN Work Phone: [place]-[facility] [place] Work Phone: Start: 07-15-2024 End: 33-18-5154Alijgro encounter procedureGraciela Angelo APRN Work Phone: [facility] [place] Work Phone: Start: 08-11-2021 End: 29-68-9705lptusnnyoqOEFSZTARegional Medical Center Procedures DateProcedureProcedure DetailPerforming ClinicianStart: 43-41-8280Pzigon-up visitFollow-upCARTER J BENCHStart: 14-56-6138ZC of elbow, leftJennifer Rohrbacher REFRESH TECHNICIAN Work Phone: Start: 64-44-8751Blzbjcv microbial cultureGraciela Angelo APRN Work Phone: Plan of Treatment DateCare ActivityDetailAuthorStart: 14-44-6933Iiked BMI ScreeningAdult BMI ScreeningProMedica Health SystemStart: 73-13-2158Qtjtqpk ScreeningTobacco ScreeningProMedica Health SystemStart: 42-28-1496Ofenj BMI ScreeningAdult BMI ScreeningProMedica Health SystemStart: 98-52-7053Kdhnqzz ScreeningTobacco ScreeningProMedica Health SystemStart: 84-05-5074Kbbsi BMI ScreeningAdult BMI ScreeningProMedica Health SystemStart: 29-69-5368Pnjifri ScreeningTobacco ScreeningProMedica Health SystemStart: 69-14-3598Cdqpq BMI ScreeningAdult BMI ScreeningProMedica Health SystemStart: 26-64-4064Mocujfg ScreeningTobacco ScreeningProMedica Health SystemStart: 56-30-3082Uvjtd BMI ScreeningAdult BMI ScreeningProMedica Health SystemStart: 01-64-2057Truvg BMI ScreeningAdult BMI ScreeningProMedica Health SystemStart: 78-25-6509Ooipyff ScreeningTobacco ScreeningProFostoria City Hospitalca Health SystemStart: 94-31-0004qamvrgzdomAnhabopfqcDgmqhkhz:EU BellevueStart: 07-03-2025 End: 41-08-2803Bhzweze encounter xbqzpzwyh75/20/2025 12:15 PM EST Office Visit [facility] [address] [place] [address] [address] [place] [address] Oleksandr Love MD [address] [place] [address], [address] [place] [address] [facility]/Trauma and Adult ReconstructionStart: 05-29-2025 End: 33-51-3806NY Elbow - left 2 ViewsProMedica Work Phone: Comment on above:Expected: 05/29/2025, Expires: 05/08/2026Expected: 05/29/2025, Expires: 05/29/2026Start: 05-29-2025 End: 31-80-2583Iiuxjuj encounter iplddwylg17/16/2025 12:30 PM EDT Office Visit [facility] [address] [place] [address] Oleksandr Love MD [address] [place] [address] [address], [address] [place] [address] [facility]/Trauma and Adult ReconstructionStart: 05-08-2025 End: 86-51-5001Xmihesx encounter procedureProMedica Physicians Orthopedics/Trauma and Adult ReconstructionStart: 04-28-2025 End: 33-82-4666GW Elbow - left 2 ViewsX-ray elbow left 2 views Imaging Routine Closed fracture of olecranon process of left ulna with routine healing, subsequent encounter Expected: 04/28/2025, Expires: 04/28/2026[facility] Work Phone: Comment on above:Expected: 04/28/2025, Expires: 04/28/2026Start: 04-24-2025 End: 70-54-2197Uihpvjj encounter kocbkhdqc68/11/2025 11:00 AM EDT Office Visit [facility] [address] [place] [address] Oleksandr Love MD [address] [place] [address] [address], [address] [place] [address] [facility]/Trauma and Adult ReconstructionStart: 72-14-6935Tbnyowx referral [facility] Work Phone: Start: 04-21-2025 End: GV Elbow - left 2 ViewsX-ray elbow left 2 views Imaging Routine Closed fracture of olecranon process of left ulna with routine healing, subsequent encounter Expected: 04/21/2025, Expires: 04/21/2026[facility] Work Phone: Comment on above:Expected: 04/21/2025, Expires: 04/21/2026Start: 38-83-4388RcadbSumma Health Wadsworth - Rittman Medical Centertart: 07-01-3742Fiykoytwu vaccinationInfluenza VaccineNovant Health Rehabilitation Hospitaltart: 04-09-2025 End: 20-45-1860Wsqopurhm to same day surgery bqgdon4104/09/2025 9:00 AM EDT - 04/09/2025 11:00 AM EDT Surgery [address] [place] [address] Oleksandr Love MD [address] [facility], [address] [place] [address] OPEN REDUCTION INTERNAL FIXATION OLEMercy Health Perrysburg HospitalComment on above: OPEN REDUCTION INTERNAL FIXATION OLECRANONStart: 04-09-2025 End: 94-29-7957WDBY REDUCTION INTERNAL FIXATION OLECRANONOPEN REDUCTION INTERNAL FIXATION OLECRANON Closed fracture of olecranon process of left ulna with ro utine healing, subsequent encounter 04/09/2025 9:00 AM [facility]: 86-51-3573Bytywxbldm hospital visit by jzzrbuwqp57/27/2025 9:00 AM EDT Hospital Encounter [facility] Surgery [address] [place] [address] [place] [address] Oleksandr Love MD [facility] [facility], [address] [place] [address] [facility] SurgeryStart: 84-99-2665LjsvnSumma Health Wadsworth - Rittman Medical Centertart: 03-31-2025 End: 64-41-7489JW Elbow - left 2 ViewsX-ray elbow left 2 views Imaging Routine Closed fracture of olecranon process of left ulna, initialencounter Expected: 03/31/2025, Expires: 03/31/2026[facility] Work Phone: Comment on above:Expected: 03/31/2025, Expires: 03/31/2026Start: 03-31-2025 End: 51-85-0979Kusodov encounter tnverigtw12/18/2025 10:30 AM EDT Office Visit [facility] [address] [place] [address] Oleksandr Love MD [address] [place] [address], [address] [place] [address] [facility]/Trauma and Adult ReconstructionStart: 03-28-2025 End: 59-96-5727ieeqfamvzdDfbFpdfieUC Health - LabStart: 88-90-4799AU Elbow - left WO [facility] Trumbulltart: 43-50-7007GP of elbow, leftCT elbow LT [facility] Start: 19-45-5511Dfivsio [facility] Work Phone: Start: 14-51-4680Kmyxvflfr aortic aneurysm screening Abdominal Aortic Aneurysm (AAA) ScreenProCentral Alabama Va Medical Center[facility] Health SystemStart: 2021 Fall Risk ScreeningFall Risk ScreeningProUniversity Hospitals [facility]point Medical [facility] SystemStart: 2006 Administration of varicella zoster vaccineZoster (Shingles) Vaccine (1 of 2) [facility] SystemStart: 60-24-6828YMxJ,Tdap and Td Vaccines (1 - Tdap) DTaP,Tdap and Td Vaccines (1 - Tdap)[facility] SystemStart: 1974 Adult BMI Follow Up PlanAdult BMI Follow Up PlanPremier Health [facility] SystemStart: 21-17-2404Oupdueiskg ScreeningDepression ScreeningProUniversity Hospitals Tripoint Medical Center System End: 59-05-1773Ospkk metabolic 2000 panel - Serum or PlasmaBasic Metabolic Panel Lab Routine Olecranon fracture, left, closed, initial encounter Preop testing1 Occurrences starting 03/27/2025 until 03/27/2026[facility] Hospital - CantonFanbase SystemComment on above:1 Occurrences starting 03/27/2025 until 03/27/2026 End: 28-40-6275SUE panel - Blood by Automated countCBC without diff Lab Routine Olecranon fracture, left, closed, initial encounter Preop testing 1 Occurrences starting 03/27/2025 until 03/27/2026ProBlizuu Work Phone: Comment on above:1 Occurrences starting 03/27/2025 until 03/27/2026omprehensive metabolic 2000 panel - Serum or PlasmaOhiohealth Arthur G.H. Bing, Md, Cancer CenterCT Elbow - left WO contrastOhiohealth Arthur G.H. [facility], Md, Cancer Center End: 41-07-1163JRE 12 leadECG 12 lead ECG Routine Olecranon fracture, left, closed, initial encounter Preop testing 1 Occurrences starting 03/27/2025 until 03/27/2026[facility] SystemComment on above:1 Occurrences starting 03/27/2025 until 03/27/2026 End: 39-11-6382Niclscheih A1c/Hemoglobin.total in BloodHemoglobin A1c Lab Routine Preop testing Other specified diabetes mellitus with other specified complication, unspecified whether dedicated intermodal truck driver insulin use ([facility]) 1 Occurrences starting 03/27/2025 until 03/27/2026ProUniversity Hospitals Tripoint Medical Center SystemComment on above:1 Occurrences starting 03/27/2025 until 03/27/2026Patient referralMarietta Memorial Hospital Work Phone: [facility] Immunizations Immunization DateImmunizationNotesCare UtdccyfoUjtnujbo89-72-0233zvgcfewja virus vaccine, unspecified formulationTheresa [facility] Payers DatePayer CategoryPayerPolicy [id number]'s Comp Other Managed Care SANDI [id number] Qoqw-[id number] Managed Care - POS [id number] Health Insurance [id number] [id number] [id number] [id number] 2.0.1.888187.3.579.2.21423-60-1261Hycoypr [id number] 2.840.1.653986.3.57[id number] 2.0.1.833857.3.57[id number] 2.0.1.351157.3.57[id number] 2.0.1.837479.3.57[id number] 2.840.1.375122.3.57[id number] 2.0.1.232146.3.57[id number] 2.16840.1.181599.3.57[id number] 2.840.1.407131.3.57[id number] 2.16840.1.005250.3.57[id number] 2.16840.1.711840.3.579.[id number] 2.840.1.204896.3.57[id number] 2.16840.1.836310.3.57[id number] 2.0.1.837850.3.57[id number] 2.0.1.649842.3.57[id number] 2.0.1.328933.3.57[id number] 2.0.1.650493.3.57[id number] 2.0.1.443286.3.57[id number] 2.0.1.237360.3.57[id number] 2..1.607987.3.57[id number] 2.0.1.473366.3.579.2.727Prharrington memorial hospital Health InsuranceNovant Health [facility] Health Claims [id number] [id number] 2.840.1.902[id number] 2.840.1.170763.3.579.2.531 [id number] 2.16.840.1.2[id number] 2..840.1.715466.3.579.2.531 Social History DateTypeDetailFacilityStart: 07-30-2024 End: 60-14-6227Tkhijdn smoking status NHISEx-smoker (finding)[facility] Hospitaltart: 10-01-2024 End: 79-33-5403IrpFftj (finding)[facility] Hospitaltart: 30-56-8377Puh Assigned At BirthEllis Island Immigrant HospitaleFPremier Health Upper Valley Medical Centertart: 21-09-0899Ihitbqm smoking status NHISNever smoked tobaccoPremier Health [facility] System Start: 80-82-5687Yeovozg use and exposureSmokeless tobacco non-userPrem[facility] Health [facility] SystemStart: 03-21-2025 End: 38-90-2195Hlkkbfktw beverage intakeCurrent drinker of alcohol (finding) [facility] SystemStart: 03-21-2025 End: 99-81-7630Extdydfqd beverage intakePrem[facility] SystemStart: 03-21-2025 End: 70-71-6128Ooifgkq use panelPrem[facility] Health [facility] SystemWithin the past 12 months we worried whether our food would run out before we got money to buy more.Never [facility] SystemStart: 01-44-5412Uiw assigned at birthNot on file [facility] End: 77-86-4112Htlokba of tobacco useCurrent smokerPrem[facility] Health [facility] System End: 91-44-4683Vcornih of tobacco usePipe SmokerPrem[facility] Health [facility] System End: 79-61-8296Gfpzexi of tobacco useCigar SmokerPrem[facility] Health [facility] SystemStart: 62-25-1571Noiuwew use and exposureFormer smokeless tobacco userPremier Health [facility] System End: 48-63-0688Vyeojtr of tobacco useUser of smokeless tobaccoPrem[facility] Health [facility] SystemStart: 32-57-8583Rukupwn CommentdailyPrem[facility] Health [facility] SystemStart: 44-93-2187Wxkast identityIdentifies as male gender (finding)[facility] Hospitaltart: 83-43-4942Vowxgb orientationHeterosexual (finding)[facility] Medical Equipment Procedure CodeEquipment CodeEquipment Original TextEquipment IdentifierDates ALLOGRAFT 10MM PLIF LORDOTICFDAStart: 32-32-3502ZEQTP SET CAPLOX IIFDAStart: 50-62-9843KKOOR SET CAPLOX IIFDAStart: 91-52-0712SXGSQ SET CAPLOX IIFDAStart: 92-44-3223EAXQCSQFXU DBM 5CCFDAStart: 00-15-8195FFZRJKZXZ 10MM PLIF LORDOTICFDA Start: 75-47-1052VOG 35MM CVD CAPLOX IIFDAStart: 29-99-1516EJM 35MM CVD CAPLOX IIFDAStart: 52-43-2402DAZLX 6.5 X 55MM CAPLOX IIFDAStart: 52-42-8704NSRBE 6.5 X 55MM CAPLOX IIFDAStart: 17-37-7266JFKAP 6.5 X 55MM CAPLOX IIFDAStart: 07-04-2018 SCREW 6.5 X 55MM CAPLOX IIFDAStart: 58-46-0933WAWLY SET CAPLOX IIFDAStart: 46-04-5049WJWAWPQAC 10MM PLIF LORDOTICFDAStart: 59-35-8415JULOC SET CAPLOX IIFDA Start: 28-08-1984OSFZS SET CAPLOX IIFDAStart: 76-52-2864SYVHO SET CAPLOX IIFDA Start: 55-84-4861JGPGYYIYIP DBM 5CCFDAStart: 48-71-6958FLMMCRSQJ 10MM PLIF LORDOTICFDAStart: 94-31-7671TND 35MM CVD CAPLOX IIFDAStart: 06-14-7573PRU 35MM CVD CAPLOX IIFDAStart: 91-53-1300ZMFFQ 6.5 X 55MM CAPLOX IIFDAStart: 07-04-2018 SCREW 6.5 X 55MM CAPLOX IIFDAStart: 81-66-3723QUDLM 6.5 X 55MM CAPLOX IIFDA Start: 21-24-9755BCGGA 6.5 X 55MM CAPLOX IIFDAStart: 27-87-7794VIGAF SET CAPLOX IIFDAStart: 53-53-8302EMFQVPKXO 10MM PLIF LORDOTICFDAStart: 45-69-6983WMXJZ SET CAPLOX IIFDAStart: 65-04-2147EZACK SET CAPLOX IIFDAStart: 48-51-3444QUGEG SET CAPLOX IIFDAStart: 80-37-4378WJBVBDGEZT DBM 5CCFDAStart: 85-82-3641WSBKULVID 10MM PLIF LORDOTICFDAStart: 70-94-7586EEF 35MM CVD CAPLOX IIFDAStart: 07-04-2018 BALTA 35MM CVD CAPLOX IIFDAStart: 50-50-7082HMZVC 6.5 X 55MM CAPLOX IIFDAStart: 03-02-8506YOYGN 6.5 X 55MM CAPLOX IIFDAStart: 90-23-1141ZSFAX 6.5 X 55MM CAPLOX IIFDAStart: 23-61-3526EARHE 6.5 X 55MM CAPLOX IIFDAStart: 47-50-6727NBWXR SET CAPLOX IIFDAStart: 40-83-1797HPYLXSQYO 10MM PLIF LORDOTICFDAStart: 07-04-2018 SCREW SET CAPLOX IIFDAStart: 19-48-5442CPEDM SET CAPLOX IIFDAStart: 07-04-2018 SCREW SET CAPLOX IIFDAStart: 78-28-1152RSOWAQSWLG DBM 5CCFDAStart: 07-04-2018 ALLOGRAFT 10MM PLIF LORDOTICFDAStart: 35-45-4708FCB 35MM CVD CAPLOX IIFDAStart: 68-99-7838YTU 35MM CVD CAPLOX IIFDAStart: 17-42-5401INUWL 6.5 X 55MM CAPLOX II FDAStart: 44-70-2096JOVBM 6.5 X 55MM CAPLOX IIFDAStart: 13-43-9418SRRQQ 6.5 X 55MM CAPLOX IIFDAStart: 87-00-5145MVUXE 6.5 X 55MM CAPLOX IIFDAStart: 07-04-2018 SCREW SET CAPLOX IIFDAStart: 61-95-1389OMHUWPZIX 10MM PLIF LORDOTICFDAStart: 26-88-2808XKPKG SET CAPLOX IIFDAStart: 25-66-7359OFJTW SET CAPLOX IIFDAStart: 67-09-3930LABWB SET CAPLOX IIFDAStart: 92-31-0073XTBZJVRQGC DBM 5CCFDAStart: 31-85-1105CLHAWCNKX 10MM PLIF LORDOTICFDAStart: 18-37-0025TCP 35MM CVD CAPLOX II FDAStart: 60-53-7020BWQ 35MM CVD CAPLOX IIFDAStart: 18-79-4283JRBCP 6.5 X 55MM CAPLOX IIFDAStart: 92-67-1618XVBGT 6.5 X 55MM CAPLOX IIFDAStart: 92-22-8850JASUP 6.5 X 55MM CAPLOX IIFDAStart: 48-80-2078KTMBZ 6.5 X 55MM CAPLOX IIFDAStart: 54-53-6463DUKQL SET CAPLOX IIFDAStart: 21-66-3622GVFGTDZCN 10MM PLIF LORDOTICFDA Start: 99-92-1760FUPWN SET CAPLOX IIFDAStart: 13-65-3989VSVQC SET CAPLOX IIFDA Start: 11-74-2533XXYXR SET CAPLOX IIFDAStart: 37-71-3504CULWFRYISX DBM 5CCFDA Start: 64-76-3076MBNKVAQZG 10MM PLIF LORDOTICFDAStart: 09-17-4693NEJ 35MM CVD CAPLOX IIFDAStart: 84-98-6248EUW 35MM CVD CAPLOX IIFDAStart: 06-32-1630TRBJF 6.5 X 55MM CAPLOX IIFDAStart: 07-45-2117SZQYW 6.5 X 55MM CAPLOX IIFDAStart: 13-72-7772PQZWF 6.5 X 55MM CAPLOX IIFDAStart: 03-70-4484VEGYQ 6.5 X 55MM CAPLOX IIFDAStart: 29-34-9504JFICN SET CAPLOX IIFDAStart: 96-83-2255Ajsup Bn 116mm 4 Hl Rnd Prfl Va Tpr Tip Lcp Cmbn Olcrn Lt Ss - [id number]_cwxVdzey: 04-09-2025 Plate Bne 10 H Cndyl 2mm X 73mm 2 H Hd Ss V Mini Frag - [id number] Start: 33-30-4726Glagx Bn 22mm 3.5mm 6mm St Lp Hd Sm Hex Sckt Jaden Ss 2.5mm Rpl 183854+Special 588641+329550 - [id number]_qkbVslos: 61-66-0308Vtuyt Bn 2.0mm Volt Yasir 22mm T6 - [id number]_ryfGfgcv: 26-97-5455Dgvwe Bn [address] Lck Va Strdr Ss T8 Ns - [id number]_vsgEhbjb: 44-96-1485Defpz Bn 24mm 2[address]7mm St Lck Va Strdr Ss T8 Ns - [id number]_skuYhpqq: 10-31-2813Hjbpm Bn 52mm 2.7[address] Va Lck Strdr T8 - [id number]_bbcNfcnd: 34-85-6589Zdrze Bn 2.0mm Volt Jaden 14mm T6 - [id number]_feeUwzzt: 91-77-9387Moiyc Bn 2.0mm Volt Jaden 16mm T6 - [id number]_pcaYoibj: 76-74-4164Bpegi Bn 2.0mm Volt Jaden 18mm T6 - [id number]_gyqGnqly: 37-99-2801Saojy Bn 2.0mm Volt Yasir 20mm T6 - [id number]_cevUmozr: 04-73-2718Djauz Bn 26mm 3.5[address] Lck Strdr Cncl Ss T15 Ft Ns Sm Rpl 500703+Special 803053 - [id number]_vfyVohzz: 56-12-1993JRQKHJBIB 10MM PLIF LORDOTICFDAStart: 70-22-7865RCING SET CAPLOX IIFDA Start: 94-04-9375KRBRZ SET CAPLOX IIFDAStart: 26-34-5903DVCYR SET CAPLOX IIFDA Start: 92-78-7013QQWFACXBYF DBM 5CCFDAStart: 59-59-6825YPJBRWUSK 10MM PLIF LORDOTICFDAStart: 40-69-7196JHR 35MM CVD CAPLOX IIFDAStart: 62-94-4554LZI 35MM CVD CAPLOX IIFDAStart: 23-06-4401ZRVBU 6.5 X 55MM CAPLOX IIFDAStart: 07-04-2018 SCREW 6.5 X 55MM CAPLOX IIFDAStart: 01-96-5044YRUQW 6.5 X 55MM CAPLOX IIFDA Start: 88-14-2113MXBPX 6.5 X 55MM CAPLOX IIFDAStart: 43-98-7503JIMBZ SET CAPLOX IIFDAStart: 34-86-8574TEBBBPZGF 10MM PLIF LORDOTICFDAStart: 47-29-3108SCNKG SET CAPLOX IIFDAStart: 33-91-6719ETHPG SET CAPLOX IIFDAStart: 06-88-0289KZVSK SET CAPLOX IIFDAStart: 84-20-6224GEAKYRGGGH DBM 5CCFDAStart: 97-63-7187WRUSHYHUC 10MM PLIF LORDOTICFDAStart: 45-63-6178QDO 35MM CVD CAPLOX IIFDAStart: 07-04-2018 BALTA 35MM CVD CAPLOX IIFDAStart: 67-82-7241HHVSZ 6.5 X 55MM CAPLOX IIFDAStart: 05-12-7525OPSEQ 6.5 X 55MM CAPLOX IIFDAStart: 01-60-1788ZSBZU 6.5 X 55MM CAPLOX IIFDAStart: 68-35-6351PGELY 6.5 X 55MM CAPLOX IIFDAStart: 76-86-5571VYGTY SET CAPLOX IIFDAStart: 07-04-2018 Clinical Notes 07-15-2024 to 06-04-2025 Note Date & [id number] Miscellaneous Notes* Telephone Encounter - Jayla Lazo RN - 06/04/2025 1:57 PM EDT Called patient to let him know that we just received his approved C-9 for his physical therapy. Order and approval faxed to [facility] @ [phone] documented in this encounterSelect [facility]onAliz[facility] Pharma10-22-2025 Telephone encounter Note* Telephone Encounter - Jayla Lazo RN - 06/04/2025 1:57 PM EDT Called patient to let him know that we just received his approved C-9 for his physical therapy. Order and approval faxed to [facility] @ [phone] [id number] History of Present illness Narrative* Oleksandr Love [...] PT referral provided, we will request through [facility] Patient has work restrictions remain the same through next follow-up visit in 6 weeks Follow-up 6 weeks with x-rays left elbow out of brace MAURY LONG PA-C I, OLEKSANDR LOVE MD, personally performed the face to face evaluation on this patient. I discussed with the patient and confirmed the accuracy and completeness of the aforementioned history prepared bythe [facility] practice provider, and I personally performed the [...] addressed. Oleksandr Love MD documented in this encounterSt. Rita's Hospital09-25-2025 History of Present illness Narrative* Josue Hills MD - 05/08/2025 12:00 PM EDT Subjective 04/09/2025 - Open Reduction Internal Fixation Olecranon - Left 05/08/25 Cesar Clarke is a 69 y.o. male 4 week(s) s/p Open Reduction Internal Fixation Olecranon - Left. Last seen 04/24/2025. Nonweightbearing in a hinged elbow brace with ROM from 90 to 130 . [facility] injury. Past Surgical History: Procedure Laterality Date OPEN REDUCTION INTERNAL FIXATION OLECRANON Left 04/09/2025 Performed by Oleksandr Love MD at [facility] Past Medical History: Diagnosis Date Cellulitis Diabetes mellitus type 2, controlled ([facility]) Hypertension Kidney stone 2024 Objective General: [...] Internal Fixation Olecranon - Left (DOS 04/09/2025). [facility] injury. No issues today. No new C9's [...] motion. Oleksandr Love MD. documented in this encounterSt. Rita's Hospital09-11-2025 History of Present illness Narrative* Nichol Figueroa [...] that. Oleksandr Love MD. documented in this encounterSt. Rita's Hospital08-29-2025 Miscellaneous Notes* Telephone Encounter - Morenita Angeles - 04/11/2025 10:25 AM EDT Kristi jalloh called in regarding patient stated when patient went to the ER he was put on two antibiotics then after surgery Doctor love placed patient on another antibiotic patient is taking 3 antibiotics in total kristi stated patient is on doxycycline 100mg, clindamycin 300mg and keflex 500mggave [phone] as a good callback number to discuss and stated if she does not answer to please liat dow a detailed voice message * Telephone Encounter - Sherin Bustamante PA-C - 04/11/2025 10:25 AM EDT Spoke with Kristi - He was reportedly prescribed doxycycline from [facility] for BLE cellulitis started 04/01/25. He was also seen in the [facility] ER the day prior to evaluation in our office and prescribed Kznvab488lp TID for UTI/prostate issues/kidney stone - has since passed stone and is established with urologist. Clindamycin was prescribed for post op prophylaxis due to PCN reaction. Spoke with Dr. Love - irene to stop clindamycin at this point. Kristi notified. documented in this encounterSt. Rita's Hospital08-29-2025 Telephone encounter Note* Telephone Encounter - Morenita Angeles - 04/11/2025 10:25 AM EDT Kristi jalloh called in regarding patient stated when patient went to the ER he was put on two antibiotics then after surgery Doctor love placed patient on another antibiotic patient is taking 3 antibiotics in total kristi stated patient is on doxycycline 100mg, clindamycin 300mg and keflex 500mggave [phone] as a good callback number to discuss and stated if she does not answer to abi dow a detailed voice message [email or web address] [id number] Telephone encounter Note* Telephone Encounter - Sherin Bustamante PA-C - 04/11/2025 10:25 AM EDT Spoke with Kristi - He was reportedly prescribed doxycycline from [facility] for BLE cellulitis started 04/01/25. He was also seen in the [facility] ER the day prior to evaluation in our office and prescribed Ajzcyw589xd TID for UTI/prostate issues/kidney stone - has since passed stone and is established with urologist. Clindamycin was prescribed for post op prophylaxis due to PCN reaction. Spoke with Dr. Love - ok to stop clindamycin at this point. Kristi notified. [employer] Work Phone: 1(340) 127-384508-20-2025 Miscellaneous Notes* Telephone Encounter - Jayla Lazo RN - 04/02/2025 1:45 PM EDT Pre/postop instructions provided for upcoming outpatient surgery-ORIF Left Olecranon Fx scheduled with Dr Love on 04-09-2025 9 am. Arrival time is 7 am Entrance [facility]. Check in at the Information Desk [...] water. Postop appt provided. documented in this encounterSt. Rita's Hospital08-20-2025 Telephone encounter Note* Telephone Encounter - Jayla Lazo RN - 04/02/2025 1:45 PM EDT Pre/postop instructions provided for upcoming outpatient surgery-ORIF Left Olecranon Fx scheduled with Dr Love on 04-09-2025 9 am. Arrival time is 7 am Entrance B @ [facility]. Check in at the Information Desk and then you'll de directed to the second floor. Nothing to eat/drink after midnight on 04-09-2025. May brush his teeth but limit the water and no gum, mints ect... Patient to hold his Ibuprofen starting on 04-06-2025. Patient to take his Losartan the morning of surgery with a sip of water. Postop appt provided. [facility]08-18-20[facility] History of Present illness Narrative* Margot Bellamy [...] Resource Strain: Low Risk (08/11/2021) Received from [facility] Overall Financial Resource Strain (CARDIA) Difficulty of Paying Living Expenses: Not hard at all Food Insecurity: No Food Insecurity (03/21/2025) Hunger Screening Food Insecurity - Worry: Never True Food Insecurity - Inability: Never True Transportation Needs: No Transportation Needs (10/23/2019) Received from [facility] PRAPARE - Transportation Lack of Transportation [...] Bellamy PA-C 03/31/25 1527 documented in this encounterSelect Medical Specialty Hospital - CantonSeamless Toy Company Harper University [id number] Miscellaneous Notes* Telephone Encounter - Vickey Joe [...] am with Dr Love documented in this encounterSelect Medical Specialty Hospital - CantonSeamless Toy Company Harper University [id number] Telephone encounter Note* Telephone Encounter - Vickey Joe - 03/28/2025 10:31 AM EDT Patient called he has an appointment on Monday and surgery on Monday. He [place] over [place] hour away and lives alone.Has to get transportation. He was wondering if he could be admitted Monday for his surgery [facility]25 Telephone encounter Note* Telephone Encounter - Jayla [...] on 03-31-2025 10:[address]08-14-2025 Miscellaneous Notes* Telephone Encounter - Jalya Lazo RN - 03/27/2025 4:26 PM EDT Patient has a Left Olecranon Fracture. Appt with Dr Love is 03-31-2025 Left message at Patient's PCP's office for need of Medical Clearance/fax number. documented in this encounterSt. Rita's Hospital08-14-2025 Telephone encounter Note* Telephone Encounter - Jayla Lazo RN - 03/27/2025 4:26 PM EDT Patient has a Left Olecranon Fracture. Appt with Dr Love is 03-31-2025 Left message at Patient's PCP's office for need of Medical Clearance/fax number. [facility]08-14-[facility]25 Miscellaneous Notes* Telephone Encounter - Jayla Lazo RN - 03/27/2025 1:08 PM EDT Appt scheduled on Monday03-31-2025 10:30 am documented in this encounterSt. Rita's Hospital08-14-2025 Telephone encounter Note* Telephone Encounter - Jayla Lazo RN - 03/27/2025 1:08 PM EDT Appt scheduled on Monday03-31-2025 10:[address]08-13-2025 Miscellaneous Notes* Telephone Encounter - Jayla Lazo [...] to keep me informed. documented in this encounterSt. Rita's Hospital08-13-2025 Telephone encounter Note* Telephone Encounter - Jayla [...] Andrews's office and informed her about . Saikna to keep me informed. [facility] food.de [id number] Evaluation note* Diagnosis Onset Date Resolution Status Admit Date Fracture of left olecranon process acuteAugust 2024 1:38pm [place] Work Phone: 1(940) 774-181508-12-2025 Evaluation note* Diagnosis Onset Date Resolution Status Admit Date Fracture of left olecranon process acuteAugust 2024 1:38pmBilateral knee painacuteAugust 2024 2:03pm 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acuteAugust 2024 2:03pmFoot drop, rightacuteAugust 2024 2:03pmHypertensionacuteAugust 2024 2:03pmType 2 diabetes mellitusacuteAugust 2024 2:03pm [facility] Work Phone: 1(200) 638-430508-12-2025 Evaluation note* Diagnosis Onset Date Resolution Status Admit Date Fracture of left olecranon process acuteAugust 2024 1:38pm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 acuteAugust 2024 2:03pmFoot drop, rightacuteAugust 2024 2:03pm Fracture of left olecranon processacuteAugust 2024 2:03pmHypertensionacute March 31, 2025 2:03pmPre-op evaluationacuteAugust 2024 2:03pmType 2 diabetes mellitusacuteAugust 2024 2:03pm [place] Work Phone: 1(176) 566-336608-12-2025 Evaluation note* Diagnosis Onset Date Resolution Status [...] 23, 2025 11:11amType 2 diabetes mellitusacuteSept2024 11:11am [facility] Work Phone: 1(578) 799-687408-04-2025 NotePatient Education Infectious Disease Prostatitis Prostatitis is [...] A digital rectal exam. For this, the [facility] care provider may use a finger to [...] these instructions at home: Medicines ??? Take xige-huy-aulltfs and prescription medicines only as told by [...] provider. This is important. (more content not included)...[facility]02-18-2025 Evaluation note* Diagnosis Onset Date Resolution Status Admit Date Bilateral knee pain acuteFebruary 2024 9:43am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 acuteFebruary 2024 9:43amFoot drop, rightacuteFebruary 2024 9:43am HypertensionacuteFebruary 2024 9:43amType 2 diabetes mellitusacuteFebruary 2024 9:43am [facility] Work Phone: 1(359) 160-388312-02-2024 Evaluation note* Diagnosis Onset Date Resolution Status [...] 2024 9:43amType 2 diabetes mellitusacuteFebruary 2024 9:43am [facility] Work Phone: Evaluation note* Diagnosis Onset Date Resolution Status Admit Date Fracture of left olecranon process acuteAugust 2024 1:38pm [facility] Work Phone: Evaluation note* Diagnosis Olecranon fracture, left, closed, initial encounter- Primary Preop testing Unspecified pre-operative examination Other specified diabetes mellitus with other specified complication, unspecified whether dedicated intermodal truck driver insulin use ([facility]) documented in this encounter [facility]* Diagnosis Closed fracture of olecranon process of left ulna, initial encounter- Primary documented in this encounter [facility] SystemEvaluation [facility]* Diagnosis Olecranon fracture, left, closed, initial encounter- Primary Closed fracture of olecranon process of left ulna with routine healing, subsequent encounter documented [facility]* Diagnosis Closed fracture of olecranon process of left ulna with routine healing, subsequent encounter- Primary documented in this encounter [facility]* Diagnosis Closed fracture of olecranon process of left ulna with routine healing, subsequent encounter- Primary documented in this encounter [facility]* Diagnosis Closed fracture of olecranon process of left ulna with routine healing, subsequent encounter- Primary documented in this encounter [facility]* Diagnosis Closed fracture of olecranon process of left ulna with routine healing, subsequent encounter- Primary documented in this encounter [facility]* Diagnosis Closed fracture of olecranon process of left ulna with routine healing, subsequent encounter- Primary documented in this encounter [facility] SystemHospital Discharge instructionsAmbulatory Orders* Referral to Orthopedic Surgery Time Frame: 10/01/24, Location: None [facility] Work Phone: Hospital Discharge instructionsAmbulatory Orders* Referral to Home Health ([facility]) Time Frame: 04/23/25, Location: None [facility] Work Phone: InstructionsNot on filedocumented in [...] for referral (narrative)No reason for referral information availableMarietta Memorial Hospital Work Phone: Summary Purpose Family History [...] section and content) DATE CREATED AUTHOR 08/12/2021 [facility] DATE CREATED AUTHOR AUTHOR'S ORGANIZ ATION 03/30/2025 [facility] DATE CREATED AUTHOR AUTHOR'S ORGANIZ ATION 04/02/2025 [facility] DATE CREATED AUTHOR AUTHOR'S ORGANIZ ATION 04/25/2025 [facility] DATE CREATED AUTHOR AUTHOR'S ORGANIZ ATION 05/22/2025 [facility] DATE CREATED AUTHOR AUTHOR'S ORGANIZ ATION 05/28/2025 [facility] DATE CREATED AUTHOR AUTHOR'S ORGANIZ ATION 05/31/2025 [facility] DATE CREATED AUTHOR AUTHOR'S ORGANIZ ATION 06/13/2025 [facility] Care Teams (unrecognized sec tion and content) Team Status: Active Member Role Status Dates Lucie Augustin APRN MOLD BURNER-C Primary Care Provider Active Team Status: Inactive [...] Member Role Status Dates Lucie Augustin APRN MOLD BURNER-C Primary Care Provider, Attending Provider Active Start: July 30, 2024 End: July 30, 2024 Team Status: Active Member Role Status Dates Lucie Augustin APRN MOLD BURNER-C Primary Care Provider, Attending Provider Active Start: August 13, 2024 Team Status: Inactive Member Role Status Dates Lucie Augustin APRN MOLD BURNER-C Primary Care Provider, Attending Provider Active Start: October 01, 2024 End: October 01, 2024 Team Status: Inactive Member Role Status Dates Lucie Augustin APRN MOLD BURNER-C Primary Care Provider, Attending Provider Active Start: November 04, 2024 End: November 04, 2024 Team Status: Inactive Member Role Status Dates Lucie Augustin APRN MOLD BURNER-C Primary Care Provider Active Start: March 25, 2025 End: March 25omas Olexa , MDAttending ProviderActiveStart: March 25, 2025 End: March 25, 2025Team MemberRelationshipSpecialtyStart DateEnd Date Lucie Augustin APRN-MOLD BURNER [address] [place] [address] PCP - GeneralNurse Practitioner03/21/25 Team Status: Inactive Member Role Status Dates Lucie Augustin APRN MOLD BURNER-C Primary Care Provider Active Start: March 26, 2025 End: March 26omas Olexa , MDAttending ProviderActiveStart: March 26, 2025 End: March 26, 2025Team MemberRelationshipSpecialtyStart DateEnd Date Lucie Augustin APRN-MOLD BURNER [address] [place] [address] PCP - GeneralNurse Practitioner03/21/25Team MemberRelationshipSpecialtyStart Date End Date Lucie Augustin APRN-MOLD BURNER [address] [place] [address] PCP - GeneralNurse Practitioner03/21/25Team MemberRelationshipSpecialtyStart Date End Date Lucie Augustin APRN-MOLD BURNER [address] [place] [address] PCP - GeneralNurse Practitioner03/21/25 Team Status: Inactive Member Role Status Dates Lucie Augustin APRN MOLD BURNER-C Primary Care Provider Active Start: March 31, 2025 End: March 31, 2025Lucie Augustin APRN MOLD BURNER-CAttending ProviderActive Start: March 31, 2025 End: March 31, 2025Team MemberRelationshipSpecialtyStart DateEnd Date Lucie Augustin APRN-NP [address] [place] [address] PCP - GeneralNurse Practitioner03/21/25Team MemberRelationshipSpecialtyStart Date End Date Lucie Augustin APRN-NP [address] [place] [address] PCP - GeneralNurse Practitioner03/21/25 Team Status: Active Member Role Status Dates Lucie Augustin APRN MOLD BURNER-C Primary Care Provider Active Start: April 08, 2025 Rafia Blandon ProviderActiveStart: April 08, 2025 Team MemberRelationshipSpecialtyStart DateEnd Date Lucie Augustin APRN-NP [address] [place] [address] PCP - GeneralNurse Practitioner03/21/25Team MemberRelationshipSpecialtyStart Date End Date Lucie Augustin APRN-NP [address] [place] [address] PCP - GeneralNurse Practitioner03/21/25 Team Status: Active Member Role Status Dates Georgina Ramirez CMA Attending Provider Active Start: April 10, 2025 Team Status: Active Member Role Status Dates Lucie Augustin APRN MOLD BURNER-C Primary Care Provider Active Start: April 202024 Chapincito Lockwood , DOAttending ProviderActiveStart: April 20, 2025 Team Status: Active Member Role Status Dates Lucie Augustin APRN MOLD BURNER-C Primary Care Provider Active Start: April 212024 Georgina Ramirez CMAAttending ProviderActiveStart: April 21, 2025 Team Status: Inactive Member Role Status Dates Lucie Augustin APRN MOLD BURNER-C Primary Care Provider Active Start: April 142024 End: April 23, 2025Lucie Augustin APRN MOLD BURNER-CAttending ProviderActive Start: April 23, 2025 End: April 23, 2025Team MemberRelationshipSpecialtyStart DateEnd Date Lucie Augustin APRN-MOLD BURNER [address] [place] [id number] PCP - GeneralNurse Practitioner03/21/25Team MemberRelationshipSpecialtyStart Date End Date Lucie Augustin APRN-MOLD BURNER [address] [place] [address] PCP - GeneralNurse Practitioner03/21/25Team MemberRelationshipSpecialtyStart Date End Date Lucie Augustin APRN-MOLD BURNER [address] [place] [facility] [address] PCP - GeneralNurse Practitioner03/21/25Team MemberRelationshipSpecialtyStart Date End Date Lucie Augustin APRN-MOLD BURNER [address] [place] [address] PCP - GeneralNurse Practitioner03/21/25Team MemberRelationshipSpecialtyStart Date End Date Lucie Augustin APRWILLIAM [address] [facility] [address] PCP - GeneralNurse Practitioner03/21/25 Goals (unrecognized section [...] IN SPLINTPainReasonCommentsPost-opS/p ORIF Left Olecranon Fx, XRD-OOS(Have [facility] approval for hinged elbow brace)Post-opReasonCommentsEstablish CareF/u 2 [...] BE BASED ON THE PRIMARY CLINICAL RECORDS. [facility]. provides no warranty or guarantee of the accuracy or completeness of information in this document.
--- OUTSIDE RECORDS SUMMARY | 2025-08-13 09:27 | XMS_ITS | Patient Health Record ---
Author Organization [facility] Address [address] [place] [address] Care Team Providers Care Cooling Tower Operator Name Role Phone Prakash Redman Unavailable [phone] Alfreda Levine Unavailable [phone] Allergies Allergen (clinical drug ingredient) Drug/Non Drug [...] alcohol in the p ast year? No Omsmrc9MxzrjjjjksfmmhGsqxuhltKpmxlqo Control (Standard) Question Answer Notes Tobacco use: Nonsmoker Problems Problem Type SNOMED Code ICD Code Onset Dates Problem Status W/U Status Risk Notes Problem Osteoarthritis of knee (76396374 7) Bilateral primary osteoarthritis of knee (M17.0) Activeconfirmed Vital Signs Height 67 in 11/04/2024 Fynqxo085 lbs11/04/2024BMI52.62011/04/2024 Encounters Encounter Location Date Provider Diagnosis [facility] Office [address] [place] [address] [address] [place] [address] 11/04/2024 [facility] in [facility] M25.561 ; Bilateral [...] Name Order Date SCC- KNEE 4 VIEW LEFT-[id number] 11/04/2024 SCC- KNEE 4 VIEW RIGHT [id number] 11/04/2024 Insurance Providers Payer Name Payer Address Payer Phone Subscriber Number Group Number Insured Name Patient Relationship to Insured Coverage Start Date Coverage End [place] [address] [place] [address] [id number] Azalea KIMBALL - patient is the [id number] 2024[facility] Supplemental InsurancePO [address] [address] [place] [id number], RICHARDSelf - patient is the [id number] 2024
--- OUTSIDE RECORDS SUMMARY | 2025-08-13 09:27 | XMS_ITS | Clinical Summary ---
Author Organization [facility] HospitalCert[facility] tem Address [id number] [address] [place] [address] Care Team Providers Care Senior Inspector Name Role Phone Lucie Augustin Primary Care Provid er Allergies Active AllergyReactionsCriticalityNoted NcaaWhhozinvAbrjbztynhm01/20/2025 Developed kidney stones after he took this medication Qebibawelg48/08/2025 Medications MedicationSigDispense QuantityRefillsLast FilledStart DateEnd DateStatus tamsulosin [...] as needed for pain. 30 tablet 5Active Additional Information Patient not taking.Reported on 07/03/2025 Active Problems ProblemNoted DateDiagnosed DateClosed fracture of left olecranon process 03/31/2025 Encounters DateTypeDepartmentCare SwtlCakdncatbda97/02/2025Telephone [facility] [address] [facility] [address] [place] [address] Jayla Lazo, KORY 07/14/2025Telephone [facility] [address] [place] [address] Vickey Joe 07/03/2025 12:15 PM ESTOffice Visit [facility] [address] [place] [address] Margot Bellamy PA-C Closed fracture of olecranon process of left ulna with routine healing, subsequent encounter (Primary Dx)07/03/2025 11:47 AM EST - 07/03/2025 11:59 PM ESTHospital Encounter [facility] [place] [facility] [address] [place] [address] Closed fracture of olecranon process of left ulna with routine healing, subsequent encounter Discharge Disposition: Home07/03/20256571Pqzxji00/22/2025Telephone [facility] [address] [place] [address] Jayla Lazo RN 05/29/2025 12:30 PM EDTOffice Visit [facility] [address] [place] [address] Oleksandr Astudillo MD Closed fracture of olecranon process of left ulna with routine healing, subsequent encounter (Primary Dx)05/29/2025 11:56 AM EDT - 05/29/2025 11:59 PM EDTHospital Encounter [facility] [place] [facility] [address] [place] [address] Closed fracture of olecranon process of left ulna with routine healing, subsequent encounter Discharge Disposition: Home05/29/20252130Qotzkg84/10/2025Orders Only [facility] [address] [place] [address] Jayla Lazo RN from Last 3 Months Social History Tobacco UseTypesPacks/DayYears [...] and Gender Information ValueDate RecordedSex Assigned at VbhiwLgwb77/25/2025 12:29 PM EDTLegal SexMale 03/21/2025 1:17 PM EDTGender WodswkueCowd41/25/2025 12:29 PM EDTSexual OhwxwdvnrfzKpnsnpcl81/25/2025 12:29 PM EDT Last Filed Vital Signs Vital SignReadingTime TakenCommentsBlood Uegfrvrj459/75004/09/2025 12:05 PM EDT Ksein860104/09/2025 12:05 PM KTXEvervvhixya41.6 ??C (97.8 ??F)07/03/2025 12:12 PM ESTRespiratory Vdxd280704/09/2025 11:25 AM EDTOxygen Pcldgesdzl66%04/09/2025 12:05 PM EDTInhaled Oxygen Concentration--Mmztdp301.7 kg (330 lb)07/03/2025 12:12 PM FMXCppukh416.2 cm (5' 7.01 )07/03/2025 12:12 PM ESTBody Mass Index51.67 07/03/2025 12:12 PM EST Plan of Treatment DateTypeDepartmentCare Team (Latest Contact Info)Abloeyjwvle35/08/2026 10:15 AM ESTOffice Visit [facility] [address] [place] [address] Oleksandr Astudillo MD [address] [place] [address] [address] [place] [address] Health MaintenanceDue DateLast DoneCommentsDepression Pboikprqp35/30/1968Adult BMI Follow Up Plan1974DTaP,Tdap and Td Vaccines (1 - Tdap)1975RSV ( or age 60+ yrs) (1 - Risk 50-74 years 1-dose series)2006Zoster (Shingles) Vaccine (1 of 2)2006bdominal Aortic Aneurysm (AAA) Screen 2021Fall Risk Jxhfnyusc64/30/2021Influenza Jwqqtga37/01/312552/10/2019, 06/12/2018, 05/30/2017Tobacco Bjvwpulom32dult BMI Screening Medical Devices ImplantedTypeAreaManufacturerDevice IdentifierShelf Expiration DateModel / Serial / LotPlate Bn 116mm 4 Hl Rnd Prfl Va Tpr Tip Lcp Cmbn Olcrn Lt Ss - [id number] Implanted:Qty: 1 on 04/09/2025 by Oleksandr Astudillo MD at [facility] PlateLeft: ElbowDEPUY [employer] SALES02.107.304 / / Plate Bne 10 H Cndyl 2mm X 73mm 2 H Hd Ss V Mini Frag - [id number] Implanted:Qty: 1 on 04/09/2025 by Oleksandr Astudillo MD at [facility] PlateLeft: [id number] / / Screw Bn 22mm 3.5mm [address] Lp Hd Sm Hex Sckt Jaden Ss 2.5mm Rpl [id number] [id number] - [id number] Implanted:Qty: 3 on 04/09/2025 by Oleksandr Astudillo MD at [facility] ScrewLeft: ElbowDEPUY [place] [id number] / / Screw Bn 2.0mm Volt Yasir 22mm T6 - [id number] Implanted:Qty: 1 on 04/09/2025 by Oleksandr Astudillo MD at [facility] ScrewLeft: WijkeSDLVA24.420.322 / / Screw Bn 22mm 2[address]mm St Lck Va Strdr Ss T8 Ns - [id number] Implanted:Qty: 2 on 04/09/2025 by Oleksandr Astudillo MD at [facility] ScrewLeft: ElbowDEPUY SYNTHES SALES02..022 / / Screw Bn 24mm 2.[address]mm St Lck Va Strdr Ss T8 Ns - [id number] Implanted:Qty: 2 on 04/09/2025 by Oleksandr Astudillo MD at [facility] ScrewLeft: ElbowDEPUY [employer] SALES02..024 / / Screw Bn 52mm 2.[address]mm St Va Lck Strdr T8 - [id number] Implanted:Qty: 2 on 04/09/2025 by Oleksandr Astudillo MD at [facility] ScrewLeft: ElbowDEPUY [employer] SALES..052 / / Screw Bn 2.0mm Volt Jaden 14mm T6 - [id number] Implanted:Qty: 1 on 04/09/2025 by Oleksandr Astudillo MD at [facility] ScrewLeft: MzjklEVAFA18.420.114 / / Screw Bn 2.0mm Volt Jaden 16mm T6 - [id number] Implanted:Qty: 1 on 04/09/2025 by Oleksandr Astudillo MD at [facility] ScrewLeft: GlnlwPOHGH30.420.116 / / Screw Bn 2.0mm Volt Jaden 18mm T6 - [id number] Implanted:Qty: 2 on 04/09/2025 by Oleksandr Astudillo MD at [facility] ScrewLeft: DvtcdGXPMV45.420.118 / / Screw Bn 2.0mm Volt Yasir 20mm T6 - [id number] Implanted:Qty: 2 on 04/09/2025 by Oleksandr Astudillo MD at [facility] ScrewLeft: WpwejBIMCQ07.420.320 / / Screw Bn 26mm 3.[address]mm [address] Lck Strdr Cncl Ss T15 Ft Ns Sm Rpl [id number] [id number] - [id number] Implanted:Qty: 1 on 04/09/2025 by Oleksandr Astudillo MD at [facility] ScrewLeft: ElbowDEPUY SYNTHES INYDE170.109 / / Procedures Procedure NamePriorityDate/TimeAssociated DiagnosisCommentsXR ELBOW LT 2 VWS Vsxnktl6507/03/2025 12:15 PM EST Closed fracture of olecranon process of left ulna with routine healing, subsequent encounter XR ELBOW LT 2 AAVDjftefw97/16/2025 12:06 PM EDT Closed fracture of olecranon process of left ulna with routine healing, subsequent encounter from Last 3 Months Results * X-ray elbow left 2 views (07/03/2025 12:15 PM EST) Only the most recent of2 resultswithin the time period is included. Anatomical RegionLateralityModalityUpper Extremities, MSK, ElbowLeftComputed RadiographySpecimen (Source)Anatomical Location / LateralityCollection Method / VolumeCollection TimeReceived Time07/03/2025 2:01 PM EST Narrative 07/03/2025 2:01 PM EST History: Pain. Fracture follow-up Study: Left elbow Two view study. Comparison: 05/29/2025 Impression: Plain screw fixation of proximal ulna is again appreciated. Hardware appears well-positioned and unchanged. Healing is ongoing. No acute complication. No concerning effusion. Alignments maintained. Finalized by Brisa Boateng MD on 07/03/2025 2:01 PM Procedure Note Brisa Boateng MD - 07/03/2025 History: Pain. Fracture follow-up Study: Left elbow Two view study. Comparison: 05/29/2025 Impression: Plain screw fixation of proximal ulna is again appreciated. Hardwareappears well-positioned and unchanged. Healing is ongoing. No acutecomplication. No concerning effusion. Alignments maintained. Finalized by Brisa Boateng MD on 07/03/2025 2:01 PM Authorizing ProviderResult TypeResult Sarah [facility] ORDERABLESFinal Result from Last 3 Months Insurance Care Teams Team MemberRelationshipSpecialtyStart DateEnd Date Lucie Augustin APRN-NP [address] [place] [address] PCP - GeneralNurse Practitioner03/21/25
== END 2025-08-13 09:23 | disposition home or self-care (01) ==
LOC: WC 09:23
PROVIDERS: PCP Nurse Practitioner Family; Visit Provider Physician Assistant
DX: L60.3 Nail dystrophy (principal); B35.1 Tinea unguium
CPT/HCPCS: 10061; G0463